=== PATIENT | male | born 1930 | race Caucasian/White ===

== ENCOUNTER 2017-02-27 13:26 | Outpatient (CLI) | payer MEDICARE, OTHER ==
--- NOTE | 2017-02-27 15:43 | RAD ---
FOUR VIEWS OF THE CERVICAL SPINE. COMPARISON: 01/07/17. HISTORY: Neck pain. FINDINGS: Four views of the cervical spine show the patient to have undergone interval anterior fusion of C3 a nd C4 with a plate and screws. There is stable subtle grade I anterolisthesis of C3 on C4. The dis k spacer is in good position within the disk space. The intervertebral disks in the lower cervical spine are narrowed with moderate osteophyte formation. IMPRESSION: Postsurgical changes of the cervical spine without evidence of complication. POS: THERESA
== END 2017-02-27 13:27 | disposition home or self-care (01) ==
LOC: TBSIIMAG 13:26
PROVIDERS: ATTEND Physician Assistant
DX: M54.2 Cervicalgia (principal); Z98.1 Arthrodesis status
CPT/HCPCS: 72040

== ENCOUNTER 2017-03-07 17:35 | Inpatient (IN) | payer MEDICARE, OTHER ==
[2017-03-07 18:57] LABS: Hematocrit 25.4 % (42.0-52.0); Mean Platelet Volume 6.9 fL (7.4-10.4); Red Blood Cell (RBC) Count 2.73 mill/uL (4.70-6.10); White Blood Cell (WBC) Count 4.9 thou/uL (4.8-10.8)
--- NOTE | 2017-03-07 18:59 | RAD ---
PORTABLE CHEST ONE VIEW: 03/07/17 at 5:57 p.m. HISTORY: Hypotension, dizziness. FINDINGS: Comparison made with the exam of 02/26/17. There are changes of median sternotomy and prior cardiac surgery. Left sided pacemaker device remain s in place. The heart size is normal. The lungs are well expanded without confluent areas of consoli dation, pneumothoraces or pleural effusions. IMPRESSION: No radiographic evidence of acute cardiopulmonary process. POS: DAYNAH
[2017-03-07 19:18] LABS: ALT (SGPT) 12 U/L (8-55); AST (SGOT) 17 U/L (5-34); Alkaline Phosphatase 87 U/L (40-150); Anion Gap 14 mmol/L (10-20); BUN (Urea Nitrogen) 32 mg/dL (8.4-25.7); Bilirubin, Total 0.2 mg/dL (0.2-1.2); Calc. Creatinine Clearance 0 mL/min (70-130); Carbon Dioxide 22 mmol/L (23-31); Chloride 102 mmol/L (98-107); Estimated GFR-MDRD 45; Globulin 3.6 g/dL (2.4-3.5); Protein, Total 6.8 g/dL (5.8-8.1)
[2017-03-07 19:21] LABS: Band 3 % (5-11); Myelocyte 1 % (0-0); Neutrophil 65 % (42-75); Ovalocytes SLIGHT = 2-5 cells (100X) (0-1/hpf); Polychromasia SLIGHT = 2-3 cells (100X) (0-2/hpf); Reactive Lymphocytes 1 % (0-10)
[2017-03-07 20:02] LABS: Bilirubin Negative (Negative); Blood, Urine Negative (Negative); Glucose, Urine (Dipstick) Negative (Negative); Ketone, Urine Negative (Negative); Nitrite Negative (Negative); Protein, Urine (Dipstick) 30 mg/dL (Neg-Trace); Urobilinogen 0.2 mg/dL (0.2-1.0)
[2017-03-07 20:03] LABS: Bacteria/HPF None Seen HPF (None Seen); Hyaline Casts/LPF 0-3 HYALINE CAST LPF (0-3 Hyaline); RBC/HPF 0-3 HPF (0-3); Squamous Epithelial None Seen HPF (0-3); WBC/HPF None Seen HPF (0-3)
--- NOTE | 2017-03-07 20:44 | PDOC.EVN ---
Event Note - Event Note Event Note: 113176 H&P Dictated 1. . Hypotension 2. H/O CHF + Elevated BNP 3. AFIB 4. DM type 2 5. S/P CERVICAL SURGERY AND Dysphagia 6. H/O HPL plan: see orders
[2017-03-07] MEDS ORDERED: Ondansetron HCl/PF 4 MG/2 ML Vial IVP PRN (21:10)
[2017-03-07] MEDS ORDERED: Acetaminophen 325 MG TAB PO PRN (21:10)
[2017-03-07 22:09] LABS: Anion Gap 11 mmol/L (10-20); BUN (Urea Nitrogen) 30 mg/dL (8.4-25.7); Calc. Creatinine Clearance 0 mL/min (70-130); Calcium 8.5 mg/dL (7.8-10.44); Carbon Dioxide 22 mmol/L (23-31); Chloride 106 mmol/L (98-107); Estimated GFR-MDRD 53
[2017-03-07] MEDS ORDERED: Tamsulosin HCl 0.4 MG CAP PO SCH (22:45)
[2017-03-07] MEDS ORDERED: Sotalol HCl 80 MG TAB PO SCH (22:45)
[2017-03-07] MEDS ORDERED: Atorvastatin Calcium 40 MG TAB PO SCH (22:45)
[2017-03-07] MEDS ORDERED: Ezetimibe 10 MG TAB PO SCH (22:45)
[2017-03-07] MEDS ORDERED: Apixaban 5 MG TAB PO SCH (22:45)
[2017-03-08] MEDS: Levothyroxine Sodium 75 MCG TAB PO SCH (04:31)
[2017-03-08 04:55] LABS: #Eosinphils 0.1 thou/uL (0.0-0.7); #Lymphocytes 1.1 thou/uL (1.20-3.40); #Monocytes 0.8 thou/uL (0.11-0.59); #Neutrophils 4.1 thou/uL (1.40-6.50); %Basophils 0.7 % (0.0-1.0); %Eosinophils 1.6 % (0.0-10.0); %Lymphocytes 17.4 % (21.0-51.0); %Monocytes 12.9 % (0.0-10.0); Hematocrit 25.6 % (42.0-52.0); Mean Platelet Volume 6.4 fL (7.4-10.4); Red Blood Cell (RBC) Count 2.77 mill/uL (4.70-6.10); White Blood Cell (WBC) Count 6.1 thou/uL (4.8-10.8)
[2017-03-08 05:35] LABS: Anion Gap 11 mmol/L (10-20); BUN (Urea Nitrogen) 24 mg/dL (8.4-25.7); Calc. Creatinine Clearance 46 mL/min (70-130); Calcium 8.8 mg/dL (7.8-10.44); Carbon Dioxide 25 mmol/L (23-31); Chloride 103 mmol/L (98-107); Estimated GFR-MDRD 65
--- NOTE | 2017-03-08 08:37 | HP ---
DATE OF ADMISSION: 03/07/2017 CHIEF COMPLAINT: Hypotension, dizziness. HISTORY OF PRESENT ILLNESS: Patient is an 86-year-old male with past medical history of atrial fibr illation; CHF; diabetes mellitus, type 2; hyperlipidemia; hypertension, got discharge from the [facility] recently following cervical surgery. The patient was discharged to the rehab following cervical spine surgery. Patient had a PEG tube placed once at that time because of swelling and patient was tolerating rehabilitation, but according to the family members, patient was having low blood pressu res in the rehab. Blood pressures in the 70s and 80s systolic by 40s diastolic. Patient was having intermittent dizziness also in the rehab. Today, the blood pressure was still low, so patient was brought to the ER. Patient denies any chest pain. Denies any palpitations. Denies any cough. Den ies any sputum production at this time. Denies any nausea. Denies any vomiting. Per the family me mbers, patient is on nectar-thick liquids and is not on free water at this time because of possible aspiration. So, family was concerned that patient might be dehydrated. Patient denies any cough, d enies sputum production at this time. PAST MEDICAL HISTORY: As per see HPI. PAST SURGICAL HISTORY: CABG, pacemaker, cardiac stents. SOCIAL HISTORY: Denies smoking, denies alcohol, denies any drugs. MEDICATIONS: Reviewed. FAMILY HISTORY: Positive for heart problems. REVIEW OF SYSTEMS: Constitutional: Denies any fever, denies any chills. Eyes: Denies vision prob lems. Ears: Denies any hearing loss. Neck: denies any pain. Cardiovascular System: Denie s any chest pain. Denies any palpitations. Respiratory System: Denies dyspnea. Denies any cough. Gastrointestinal System: Positive for dysphagia. Cranial Nerve System: Denies syncope. Positive for dizziness. Psychiatric: Denies anxiety. Integument: Denies any rash. All other review of s ystems are reviewed and are negative. PHYSICAL EXAMINATION: CONSTITUTIONAL/VITAL SIGNS: At the time of H and P performed, blood pressure is 153/85, pulse oxime try 97%, heart rate 71. GENERAL APPEARANCE: The patient appears comfortable. HEENT: Pupils are equal, round, and reactive to light. Anterior nares patent. Nose normal. Ears normal. Teeth intact. Tongue is moist. NECK: Supple, old surgical site appears clean and intact. CARDIOVASCULAR SYSTEM: S1 and S2 present. Positive for opiates paced rhythm. No murmurs, no rubs, no gallops. RESPIRATORY SYSTEM: No wheezing, no rhonchi. Breath sounds bilaterally. GASTROINTESTINAL: Abdomen is soft, nontender, no organomegaly, no masses felt. Positive for PEG tu be. CRANIAL NERVE SYSTEM: Cranial nerves intact. Follows commands. PSYCHIATRIC: Mood is appropriate at this time. INTEGUMENTARY: No obvious rash seen. MUSCULOSKELETAL: No edema. LABORATORY DATA AND IMAGING: At the time of H and P performed, sodium 134, potassium 4.2, chloride 102, CO2 of 22, BUN of 32, creatinine 1.47, baseline creatinine is around 1.14 to 1.4. White count is 4.9, hemoglobin 8.4, platelet count is 272. UA: Protein is 30. Chest x-ray, no radiographic ev idence of cardiopulmonary process. ASSESSMENT AND PLAN: Patient is an 86-year-old female. 1. Hypotension. Patient's blood pressure is stable. Patient takes Coreg at home. We will go ahea d and hold Coreg. We will monitor blood pressure closely. Patient did receive 1 liter of fluid wendy us. Current blood pressure is stable. We will slowly titrate blood pressure medications. 2. Atrial fibrillation, continue sotalol. Patient's sotalol dose was decreased as an outpatient pe r family. We will go ahead and consult Cardiology for further recommendations as family requested. 3. Elevated BNP. Patient currently appears euvolemic. We will go ahead and start on Lasix 20 mg d aily. We will monitor strict I's and O's. 4. Diabetes mellitus, type 2. Monitor blood sugars. We will do insulin sliding scale. 5. Hyperlipidemia. Continue statin. 6. Dysphagia plusstatus post PEG and status post cervical surgery. We will go ahead and consult di etitian and speech therapy for their recommendations as family is concerned about dietary recommenda tions. The case was discussed in detail with the patient and patient's family.
[2017-03-08] MEDS ORDERED: Heparin 5,000 UNITS/ML VIAL SC SCH (09:00)
[2017-03-08] MEDS ORDERED: Sotalol HCl 80 MG TAB PO SCH (09:00)
[2017-03-08] MEDS: Aspirin 81 mg Enteric Coated Tablet PO SCH (10:44)
[2017-03-08] MEDS: Apixaban 5 MG TAB PO SCH ×2 (10:45→21:23)
--- NOTE | 2017-03-08 11:44 | CON ---
DATE OF CONSULTATION: 03/08/2017 INDICATION FOR CONSULTATION: This is an 86-year-old gentleman with hypotension. HISTORY OF PRESENT ILLNESS: This is a very pleasant 86-year-old gentleman who has had multiple medi corrina problems in the past including atrial fibrillation, congestive heart failure, diabetes, coronary artery disease, bypass surgery. He has hyperlipidemia, hypertension. He recently had neck surgery and was sent to rehab. At that time, he was getting ready for discharge from rehab in the last wee k at least according to his , his blood pressure has been very low, down in the 80s systolic, as low as 70s. The patient was almost unarousable at times. He then was getting ready for discharge and they felt uncomfortable sending the patient home so the patient was then sent to the emergency r oom for further evaluation. On arrival here, his blood pressures have been relatively stable. Some of his medications have been adjusted. At home he was taking metformin, Synthroid, sotalol, which had already been decreased. He was 120 mg b.i.d., this has been decreased to 80 b.i.d. He also was taking for his heart, Coreg 12.5 mg b.i.d. He has a history of atrial fibrillation. He also was ta luciana Eliquis and finasteride. His Coreg has been held and his blood pressure has improved. Blood p ressure is anywhere between 133/63. The highest was 183/85, this morning blood pressure is 132/72. He appears to be much more stable. He may have orthostatic hypotension. He has been in the bed fo r quite some time. He was unable to walk when he left the hospital here and is now able to walk wit h a walker from being in rehab for several weeks. He denies any chest pain or shortness of breath a nd appears to be relatively stable at this time. We will recheck orthostatic blood pressures. He s aid he has lost about 30-40 pounds over the last 6 months. He also has a feeding tube since he was having problems with aspiration after the neck surgery. He did not appear to be significantly dehyd rated, but due to his long history of lying in the bed may certainly have orthostatic hypotension an d due to weight loss also was having some degree of hypotension and will need to have blood pressure medications adjusted. The sotalol is a beta marlen and it may be able to take the place of the Co reg short term until the blood pressure increases again. He does have a pacemaker and there is no p roblem with having bradycardia. PAST MEDICAL HISTORY: Significant for coronary artery disease and stent placement, I believe he has had bypass surgery, he has atrial fibrillation, pneumonia, diabetes, hypothyroidism. He has had pa cemaker insertion, lumbar fusion, hemorrhoid surgery. He has a history of gastroesophageal reflux d isease, hypercholesterolemia, hypertension, he has had TIAs. He also has anemia. This appears to b e chronic for the last year. He has been having decreasing hemoglobins. SOCIAL HISTORY: There is no history of alcohol or tobacco abuse. MEDICATIONS: At home include metformin, Synthroid, sotalol, glimepiride, Lipitor, Coreg, Eliquis an d finasteride. Since being in the hospital those medications have been maintained and also they hav e stopped his Coreg. At this time is the major medications except for p.r.n. medications include El iquis, aspirin 81 mg a day, Lipitor 40 mg a day, Cymbalta 60 mg a day, Zetia 5 mg a day, levothyroxi ne 75 mcg daily, Protonix 40 mg q.p.m., Betapace 80 mg b.i.d., Flomax 0.4 mg p.o. at bedtime, and hy dralazine 10 mg b.i.d. We may need to hold the hydralazine if the blood pressure also continues to be on the low side, but at this time it appears to be stable. FAMILY HISTORY: Positive for heart disease. REVIEW OF SYSTEMS: He denied any new HEENT complaints, visual changes, hearing loss, or tinnitus. He had no pulmonary complaints such as asthma, emphysema, bronchitis, hemoptysis. GASTROINTESTINAL: He denies any nausea, vomiting or diarrhea, he has a feeding tube in place. : He had no complaints. MUSCULOSKELETAL: He said he has been unable to walk. He is able to walk now with a walker and belkis limon was ready to be discharged from rehab to home. NEURO: He denied any seizures or any other problems neurologically. PHYSICAL EXAMINATION: GENERAL: Reveals an elderly, somewhat fragile gentleman. VITAL SIGNS: Blood pressure is 132/72, heart rate 75 and regular. He is not on the monitor, but he does appear to be regular at this time, we will obtain an EKG to determine whether or not he has un derlying atrial fibrillation is pacing. His respiratory rate 16. He is afebrile. HEENT: Shows the head to be normocephalic, atraumatic. Carotid pulses are present. I cannot hear any significant bruits. CHEST: Clear to auscultation without rales, rhonchi or wheezing. CARDIOVASCULAR: Exam reveals a regular rate and rhythm with occasional ectopy at this time. There were no significant murmurs, heaves, thrills, bruits or rubs. He does have a soft systolic murmur o krissy the right upper sternal border, most likely due to aortic valve sclerosis. Heart sounds are srinivasa ewhat distant. He does have a well-healed midline surgical incision after median sternotomy. ABDOMEN: Soft and nontender. He has a feeding tube in place. EXTREMITIES: Show no clubbing, cyanosis or edema. Femoral pulses are present. Popliteal pulses ar e present. Pedal pulses were not palpable by me. There was no cyanosis or any discoloration. NEUROLOGIC: He appears to be intact. SKIN: Warm and dry. IMPRESSION: 1. Hypotension associated most likely with weight loss and lying in bed for quite some time. Most likely this was some degree of orthostatic hypotension. Most likely this is a neurological problem which hopefully will correct over time. At this time, I would agree with holding the Coreg and cont inue the sotalol 80 mg b.i.d. If the blood pressure continues to increase, we can always add the Co reg back slowly at 3.125 mg b.i.d. and continue to monitor his blood pressure. 2. Atrial fibrillation. He appears to be in sinus rhythm at this time, at least he is regular but may be pacing, will need to obtain an EKG to determine this. 3. History of slightly elevated BNP, but this is of no great consequence at this time. 4. Anemia, uncertain of the etiology, it may be due to chronic disease. 5. Diabetes type 2. His blood sugars remain stable at this time. 6. History of aspiration and dysphagia. He has a feeding tube in place. He is to be evaluated aga in by Speech Therapy I believe to see whether or not he is still having any aspiration. 7. Hyperlipidemia. We will continue his medications with the Lipitor. 8. History of atrial fibrillation, we will continue the sotalol and also Eliquis. At this time the re is no indication he has any bleeding and blood pressure at this time remains stable. Dr. Edison paz will resume care of the patient on Friday. He also has an appointment with Dr. Jimenez on Friday , which he should keep that appointment on Friday to ensure that he remain stable if he is discharge d prior to that. As far as his anemia is concerned. I do not see if there is any significant keaton p for the anemia and this may need to be undertaken. ADDENDUM: The patient does have orthostatic blood pressures evaluated and lying blood pressure was 161/73, sit ting was 83/53 and standing was 84/53 which is very indicative of orthostatic hypotension. We will need to ensure that the patient has adequate volume and he may need to have compression hose in orde r to decrease the risk of hypotension with sitting or standing.
--- NOTE | 2017-03-08 13:08 | PDOC.PN ---
- Subjective Encounter Start Date: 03/08/17 Encounter Start Time: 10:00 Subjective: pt is still very orthostatic and gets dizzy when he tries to get up. -: cardio input appreciated -: per eating poorly at rehab. lost 10 lbs - Objective Vital Signs & Weight: Vital Signs (12 hours) Temp Pulse Resp BP BP BP BP 03/08/17 12:52 89 16 125/66 03/08/17 11:20 97.8 F 03/08/17 10:51 73 03/08/17 10:45 73 03/08/17 10:21 99.0 F 73 20 83/53 L 84/53 L 161/73 H 03/08/17 07:50 98.7 F 75 16 132/72 03/08/17 07:47 98.3 F 82 16 03/08/17 03:21 98.3 F 82 16 142/72 H Pulse Ox 03/08/17 12:52 03/08/17 11:20 03/08/17 10:51 03/08/17 10:45 03/08/17 10:21 94 L 03/08/17 07:50 94 L 03/08/17 07:47 03/08/17 03:21 95 Weight Weight 150 lb 4.8 oz orthostatic vitals signs noted. pt is dropping by more than 70 points on standing I&O: 03/07/17 03/08/17 03/09/17 06:59 06:59 06:59 Intake Total 130 Output Total 1300 Balance -1170 Result Diagrams: 03/08/17 04:15 03/08/17 04:15 Additional Labs: Accuchecks 03/08/17 11:17 POC Glucose 131 H Phys Exam - Physical Examination HEENT: PERRLA, moist MMs Neck: no nodes Respiratory: no wheezing, no rales, no rhonchi Cardiovascular: RRR, no significant murmur, no rub Gastrointestinal: soft, non-tender, no distention, positive bowel sounds PEG site OK Musculoskeletal: no edema, pulses present Neurological: non-focal, normal sensation Psychiatric: normal affect, A&O x 3 Skin: no rash, normal turgor Dx/Plan (1) Orthostatic hypotension Code(s): I95.1 - ORTHOSTATIC HYPOTENSION Status: Acute (2) Oropharyngeal dysphagia Code(s): R13.12 - DYSPHAGIA, OROPHARYNGEAL PHASE Status: Acute (3) S/P cervical discectomy Code(s): Z98.890 - OTHER SPECIFIED POSTPROCEDURAL STATES Status: Acute (4) S/P percutaneous endoscopic gastrostomy (PEG) tube placement Code(s): Z93.1 - GASTROSTOMY STATUS Status: Acute (5) UTI (urinary tract infection) due to urinary indwelling catheter Code(s): T83.511A - I/I REACT D/T INDWELLING URETHRAL CATHETER, INIT; N39.0 - URINARY TRACT INFECTION, SITE NOT SPECIFIED Status: Acute Qualifiers: Indwelling urinary catheter type: indwelling urethral catheter (6) Anxiety and depression Code(s): F41.8 - OTHER SPECIFIED ANXIETY DISORDERS Status: Chronic (7) Atrial fibrillation Code(s): I48.91 - UNSPECIFIED ATRIAL FIBRILLATION Status: Chronic (8) BPH (benign prostatic hyperplasia) Code(s): N40.0 - BENIGN PROSTATIC HYPERPLASIA WITHOUT LOWER URINRY TRACT SYMP Status: Chronic (9) Weight loss Status: Acute (10) Protein calorie malnutrition Code(s): E46 - UNSPECIFIED PROTEIN-CALORIE MALNUTRITION Status: Acute - Plan we will give gentle hydration and recheck orthostatic vitals. -: alterations expert consultation -: adjust BP meds per cardio -: monitor Hb. check Iron panel * .
[2017-03-08] MEDS ORDERED: Sodium Chloride 0.9% 500 ML IVPB ONE (13:15)
[2017-03-08 13:49] LABS: #Basophils 0.1 thou/uL (0.0-0.2); #Eosinphils 0.1 thou/uL (0.0-0.7); #Monocytes 0.8 thou/uL (0.11-0.59); #Neutrophils 4.3 thou/uL (1.40-6.50); %Basophils 1.1 % (0.0-1.0); %Eosinophils 1.7 % (0.0-10.0); %Lymphocytes 16.1 % (21.0-51.0); %Monocytes 12.3 % (0.0-10.0); Hematocrit 27.6 % (42.0-52.0); Red Blood Cell (RBC) Count 2.97 mill/uL (4.70-6.10); White Blood Cell (WBC) Count 6.2 thou/uL (4.8-10.8)
[2017-03-08 14:09] LABS: Anion Gap 12 mmol/L (10-20); BUN (Urea Nitrogen) 23 mg/dL (8.4-25.7); Calc. Creatinine Clearance 42 mL/min (70-130); Calcium 9.1 mg/dL (7.8-10.44); Carbon Dioxide 22 mmol/L (23-31); Estimated GFR-MDRD 58
[2017-03-08 14:13] LABS: Chloride 104 mmol/L (98-107)
[2017-03-08] MEDS ORDERED: Sodium Chloride 0.9% 500 ML IVPB SCH (17:00)
[2017-03-08] MEDS: Atorvastatin Calcium 40 MG TAB PO SCH (21:23)
[2017-03-08] MEDS: Ezetimibe 10 MG TAB PO SCH (21:23)
[2017-03-08] MEDS: Sotalol HCl 80 MG TAB PO SCH (21:27)
[2017-03-08] MEDS: Tamsulosin HCl 0.4 MG CAP PO SCH (21:28)
[2017-03-09] MEDS: Levothyroxine Sodium 75 MCG TAB PO SCH (04:15)
[2017-03-09 04:40] LABS: Iron 11 ug/dL (65-175)
[2017-03-09] MEDS: Apixaban 5 MG TAB PO SCH (09:37)
[2017-03-09] MEDS: Aspirin 81 mg Enteric Coated Tablet PO SCH (09:38)
[2017-03-09] MEDS: Sotalol HCl 80 MG TAB PO SCH ×2 (09:38→21:41)
--- NOTE | 2017-03-09 09:57 | PDOC.PN ---
- Subjective Encounter Start Date: 03/09/17 Encounter Start Time: 08:40 Subjective: pt is feeling better. less dizzy. PO intake improved -: office director recomm noted. pt tolerating supplements via PEG - Objective Vital Signs & Weight: Vital Signs (12 hours) Temp Pulse Resp BP BP BP BP 03/09/17 09:38 74 03/09/17 07:51 98.0 F 68 20 03/09/17 07:50 98.3 F 76 16 125/66 112/57 L 171/76 H 03/09/17 03:43 98.0 F 68 20 178/79 H Pulse Ox 03/09/17 09:38 03/09/17 07:51 03/09/17 07:50 95 03/09/17 03:43 Weight Admit Weight 150 lb Weight 161 lb 14.4 oz I&O: 03/08/17 03/09/17 03/10/17 06:59 06:59 06:59 Intake Total 130 2310 Output Total 1300 1475 Balance -1170 835 Result Diagrams: 03/08/17 13:25 03/08/17 13:25 Additional Labs: Accuchecks 03/08/17 11:17 POC Glucose 131 H Phys Exam - Physical Examination Constitutional: NAD HEENT: PERRLA, moist MMs, sclera anicteric Neck: no nodes Respiratory: no wheezing, no rales, no rhonchi Cardiovascular: RRR, no significant murmur, no rub Gastrointestinal: non-tender, no distention, positive bowel sounds PEG site OK Musculoskeletal: no edema, pulses present Psychiatric: normal affect, A&O x 3 Skin: no rash, normal turgor Dx/Plan (1) Orthostatic hypotension Code(s): I95.1 - ORTHOSTATIC HYPOTENSION Status: Acute (2) Oropharyngeal dysphagia Code(s): R13.12 - DYSPHAGIA, OROPHARYNGEAL PHASE Status: Acute (3) S/P cervical discectomy Code(s): Z98.890 - OTHER SPECIFIED POSTPROCEDURAL STATES Status: Acute (4) S/P percutaneous endoscopic gastrostomy (PEG) tube placement Code(s): Z93.1 - GASTROSTOMY STATUS Status: Acute (5) UTI (urinary tract infection) due to urinary indwelling catheter Code(s): T83.511A - I/I REACT D/T INDWELLING URETHRAL CATHETER, INIT; N39.0 - URINARY TRACT INFECTION, SITE NOT SPECIFIED Status: Acute Qualifiers: Indwelling urinary catheter type: indwelling urethral catheter (6) Anxiety and depression Code(s): F41.8 - OTHER SPECIFIED ANXIETY DISORDERS Status: Chronic (7) Atrial fibrillation Code(s): I48.91 - UNSPECIFIED ATRIAL FIBRILLATION Status: Chronic (8) BPH (benign prostatic hyperplasia) Code(s): N40.0 - BENIGN PROSTATIC HYPERPLASIA WITHOUT LOWER URINRY TRACT SYMP Status: Chronic (9) Weight loss Status: Acute (10) Protein calorie malnutrition Code(s): E46 - UNSPECIFIED PROTEIN-CALORIE MALNUTRITION Status: Acute (11) Iron deficiency anemia Code(s): D50.9 - IRON DEFICIENCY ANEMIA, UNSPECIFIED Status: Acute - Plan pt is improving. continue with current care. monitor orthostatics -: we will given IV iron and check stool OB since he is on A/c -: free water replacement via PEG -: PT evaluate and treat * .
--- NOTE | 2017-03-09 10:01 | PDOC.CTH ---
<Wendie Alegria - Last Filed: 03/09/17 17:52> Cardiology Progress Note - Subjective The pt was seen and examined. No overnight events. No cardiac complaints. Complains of mild tenderness at PEG tube site. No swelling, discharge, or erythema at that site - Objective Vital Signs Temp Pulse Resp BP BP BP BP 03/09/17 09:38 74 03/09/17 07:51 98.0 F 68 20 03/09/17 07:50 98.3 F 76 16 125/66 112/57 L 171/76 H 03/09/17 03:43 98.0 F 68 20 178/79 H Pulse Ox 03/09/17 09:38 03/09/17 07:51 03/09/17 07:50 95 03/09/17 03:43 Admit Weight 150 lb Weight 161 lb 14.4 oz 03/08/17 03/09/17 03/10/17 06:59 06:59 06:59 Intake Total 130 2310 Output Total 1300 1475 Balance -1170 835 - Physical Examination General/Neuro: alert & oriented x3 Neck: no JVD present Lungs: CTA Heart: other: (Irregular) Abdomen: soft Extremities: other: (No edema) - Telemetry Telemetry Rhythm: Afib - Labs Result Diagrams: 03/09/17 04:02 03/09/17 04:02 Troponin/CKMB Troponin I 0.020 ng/mL (< 0.028) 03/07/17 18:51 - Assessment/Plan 1. Orthostatic hypotension - better than yesterday with thigh high compression stockings and NS bolus; denied dizziness or lightheadedness; gentle hydration and recheck orthostatic vitals. 2. Chronic Afib - Monitor showing SR or possible Aflutter now; on Sotalol 120mg BID; will hold Eliquis 5mg BID due to occult stool was positive today; cont. monitor on tele 3. Anemia - Stable 4. Dyslipidemia - on Statin and Zetia 5. dysphagia - on Mechanical soft diet and PEG tube 6. Protein calorie malnutrition - Nutrition supplement MAR reviewed * OT/PT eval/treatment when the pt's BP is stable * Occlt Stool was positive; Hold Eliquis, but cont. ASA at this moment * 12 lead ECG for possible converted back to SR or Aflutter * Dr Coy will folow the pt from tomorrow Review of Systems - Review of Systems Constitutional: reports: weakness EENTM: reports: no symptoms reported Respiratory: reports: no symptoms reported Cardiac (ROS): reports: no symptoms reported ABD/GI: reports: no symptoms reported : reports: no symptoms reported Musculoskeletal: reports: no symptoms reported <Carlos Yu - Last Filed: 03/09/17 22:33> Cardiology Progress Note - Objective Vital Signs Temp Pulse Pulse Pulse Pulse Pulse Resp 03/09/17 21:41 66 03/09/17 20:15 98.1 F 66 20 03/09/17 15:30 97.5 F L 64 20 03/09/17 15:27 97.5 F L 64 20 03/09/17 14:05 68 74 68 65 03/09/17 11:05 98.2 F 69 16 03/09/17 11:00 74 BP BP BP BP BP BP BP 03/09/17 21:41 158/71 H 03/09/17 20:15 158/71 H 03/09/17 15:30 03/09/17 15:27 154/75 H 03/09/17 14:05 133/58 L 107/50 L 103/51 L 173/75 H 03/09/17 11:05 156/73 H 03/09/17 11:00 Pulse Ox 03/09/17 21:41 03/09/17 20:15 97 03/09/17 15:30 99 03/09/17 15:27 99 03/09/17 14:05 03/09/17 11:05 96 03/09/17 11:00 Admit Weight 150 lb Weight 161 lb 14.4 oz 03/08/17 03/09/17 03/10/17 06:59 06:59 06:59 Intake Total 130 2310 2157 Output Total 1300 1475 200 Balance -7893 313 7704 - Labs Result Diagrams: 03/09/17 04:02 03/09/17 04:02 Troponin/CKMB Troponin I 0.020 ng/mL (< 0.028) 03/07/17 18:51 - Assessment/Plan Pt. seen and evaluated. I agree with the A/P by the INSPECTOR MACHINE C[employer] GL[employer]. He may need an EP consult to determine if he would be a candidate for the Lariat procedure or possible a Watchman device due to his chronic bleeding.. I discussed his GI bleeding with gastroenterology and he has duodenitis chronically. He was recently scoped.
[2017-03-09] MEDS ORDERED: Sodium Ferric Gluconate 250 MG in Sodium Chloride 0.9% 100 ML IVPB SCH (11:00)
[2017-03-09 11:03] LABS: Anion Gap 11 mmol/L (10-20); BUN (Urea Nitrogen) 23 mg/dL (8.4-25.7); Calc. Creatinine Clearance 48 mL/min (70-130); Calcium 8.7 mg/dL (7.8-10.44); Carbon Dioxide 24 mmol/L (23-31); Chloride 104 mmol/L (98-107); Estimated GFR-MDRD 61
[2017-03-09 11:17] LABS: Hematocrit 25.2 % (42.0-52.0); Neutrophil 70 % (42-75); White Blood Cell (WBC) Count 5.3 thou/uL (4.8-10.8)
--- NOTE | 2017-03-09 17:15 | CON ---
DATE OF CONSULTATION: 03/09/2017 GI INPATIENT CONSULTATION NOTE REQUESTING PHYSICIAN: Dr. Cordova. REASON FOR CONSULTATION: Anemia and heme positive stool. HISTORY OF PRESENT ILLNESS: Eldon Del Cid is an 86-year-old gentleman, a patient of mine GI colleague, Dr. Adithya Woo. I met him just a few weeks ago during a recent hospitalization at which time I placed a PEG tube. He had had a recent cervical spine surgery and had developed oropharyngeal dysphagia after this, PEG tube placement occurred on 02/10/2017 and was uncomplicated. At that time, I noted that he had some erosive gastritis and erosive duodenitis with no active bleeding and no large ulcerations and I recommend daily PPI, but the patient was discharged to the nursing facility. Evidently while there, his swallowing function has improved and he is taking food by mouth. It seems he had actually passed a swallow study and PEG feedings were stopped for sometime. However, it appears he was not really getting adequate calories with this and he continued to lose some weight. He was admitted to the hospital this time a couple of days ago after having sustained low blood pressures. He has been seen by Dr. Yu of Cardiology. The impression is that he has developed some orthostatic hypotension. He has also been noted to be anemic on admission, hemoglobin was 8.4 and this is essentially stable today at 8.0. There has been no evidence of any overt bleeding, no melena, hematochezia, or hematemesis. His iron level was low. Looking back, it appears he has been chronically anemic intermittently for several years. Most recently, he has had a slow decline in hemoglobin since 12/20/2015 from about 11.5, now to the 8-9 range, all without any overt evidence of bleeding. The patient has no pain or discomfort from his PEG site. His says that he sometimes does complain of some abdominal bloating, but he says this is not severe. They did Hemoccult testing on his stool and this was positive. Note the patient has been on Eliquis. REVIEW OF SYSTEMS: Full review of systems including constitutional, head, eyes , ears, nose, throat, GI, , cardiovascular, respiratory, musculoskeletal, and neurologic systems is negative except as noted in the HPI. PAST MEDICAL HISTORY: Hypertension, hyperlipidemia, paroxysmal atrial fibrillation, coronary artery disease, hyperthyroidism, anemia of chronic disease, BPH, osteoarthritis, diabetes type 2, appendectomy, tonsillectomy, hernia repair, multiple cardiac stent placement, pacemaker placement, left renal artery stent placement, anxiety and depression, PEG tube placement on 04/2017. FAMILY HISTORY: Noncontributory. SOCIAL HISTORY: Has a remote history of smoking. No current tobacco, alcohol, or drug use. ALLERGIES: MORPHINE. MEDICATIONS: Flomax, sotalol, pantoprazole 40 mg daily, Synthroid, Zetia, Cymbalta, Lipitor, aspirin 81 mg daily, Tylenol p.r.n., Eliquis has been held today but he has been on 5 mg p.o. b.i.d. PHYSICAL EXAMINATION: VITAL SIGNS: Temperature 97.5, pulse 64, blood pressure 154/75, 99% oxygen saturation on room air. GENERAL: Elderly frail 86-year-old gentleman lying in bed comfortably in no distress. MENTAL: Alert and fully oriented, pleasant, conversational. EYES: No scleral icterus. Extraocular movements intact. ENT: Mucous membranes moist, no oral lesions. LYMPH: No submandibular or supraclavicular lymphadenopathy. THYROID: Nontender to palpation. SKIN: No jaundice, no rash visible or palpable. He is a bit pale. HEART: Regular rate and rhythm. LUNGS: Clear to auscultation bilaterally. ABDOMEN: Bowel sounds present, soft and nontender to palpation. PEG tube is in the left upper quadrant. The PEG site looks good, it is not too loose, it is not too tight. EXTREMITIES: No peripheral edema. VESSELS: Radial pulses 2+ bilaterally. NEUROLOGICAL: Cranial nerves II-XII intact bilaterally. No focal deficits. LABORATORY STUDIES: Hemoglobin 8.0, WBC 5.3, and platelets 246. Sodium 135, potassium 4.3, BUN 23, creatinine 1.13, calcium 8.7. Iron 11, TIBC 279, 4% iron saturation. BNP is 458, total bilirubin 0.2, alkaline phosphatase 87, AST 17, ALT 12, albumin 3.2. FOBT was done and this is positive. ASSESSMENT AND PLAN: 1. Chronic anemia, with some recent worsening. 2. Heme positive stool. 3. Recent percutaneous endoscopic gastrostomy tube placement on 02/19/2017. 4. Erosive duodenitis, visualized on esophagogastroduodenoscopy on 02/19/2017. 5. Chronic anticoagulation with Eliquis. There is really no utility or clinical significance to fecal occult blood testing in an inpatient who has been on Eliquis, outside of a colon cancer screening setting. His heme positive stools are really not surprising in this regard. Notably, there is no overt evidence of gastrointestinal bleeding. Of more concern is the degree of anemia itself. He does appear to have had a slow decline over the past year overall in his hemoglobin and iron is low. I think this can be readily explained by his erosive duodenitis seen on recent esophagogastroduodenoscopy and the fact that he has remained on Eliquis. I would recommend increasing his Protonix to twice daily dosing. I would also recommend iron supplementation as needed and monitoring of his hemoglobin and hematocrit. I did discuss options with the family including further investigation with repeat esophagogastroduodenoscopy. However, in the absence of overt bleeding, this is not likely to change control coordinator much. The patient and his family are more inclined to be conservative and avoid any potentially unnecessary investigations. I think this is very reasonable. In that case, simply recommend increasing the PPI to twice daily dosing, giving iron supplementation as needed, following the hemoglobin and hematocrit. We will not plan on any endoscopic investigation. Thank you for the consultation. Please call back with questions or concerns. ANA
[2017-03-09] MEDS: Atorvastatin Calcium 40 MG TAB PO SCH (21:41)
[2017-03-09] MEDS: Ezetimibe 10 MG TAB PO SCH (21:41)
[2017-03-09] MEDS: Tamsulosin HCl 0.4 MG CAP PO SCH (21:42)
[2017-03-10] MEDS: Levothyroxine Sodium 75 MCG TAB PO SCH (05:45)
[2017-03-10] MEDS ORDERED: Pantoprazole 40 MG GRANULES PACKET PO SCH (10:00)
[2017-03-10] MEDS: Aspirin 81 mg Enteric Coated Tablet PO SCH (10:09)
[2017-03-10] MEDS: Sotalol HCl 80 MG TAB PO SCH ×2 (10:09→21:18)
[2017-03-10] MEDS ORDERED: Carvedilol 6.25 MG TAB PO SCH (10:15)
--- NOTE | 2017-03-10 11:58 | PDOC.PN ---
- Subjective Encounter Start Date: 03/10/17 Encounter Start Time: 11:56 Patient seen at bedside. No overnight events, no bleeding events reported. - Objective MAR Reviewed: Yes Vital Signs & Weight: Vital Signs (12 hours) Temp Pulse Resp BP BP Pulse Ox 03/10/17 10:16 129/76 03/10/17 10:09 76 129/76 03/10/17 08:00 98.6 F 76 12 96 03/10/17 07:30 98.6 F 70 12 133/64 96 03/10/17 04:00 98.3 F 69 20 153/69 H 95 Weight Admit Weight 150 lb Weight 156 lb 1.6 oz I&O: 03/09/17 03/10/17 03/11/17 06:59 06:59 06:59 Intake Total 2310 2517 Output Total 1475 1900 Balance 835 617 Result Diagrams: 03/09/17 04:02 03/09/17 04:02 Additional Labs: Accuchecks 03/10/17 03/09/17 03/09/17 05:44 20:08 18:27 POC Glucose 117 H 134 H 168 H Phys Exam - Physical Examination Constitutional: NAD HEENT: moist MMs Neck: no JVD Respiratory: no wheezing Cardiovascular: irregular Gastrointestinal: soft PEG present Musculoskeletal: pulses present, edema present Neurological: moves all 4 limbs Psychiatric: normal affect, A&O x 3 Dx/Plan (1) Iron deficiency anemia Code(s): D50.9 - IRON DEFICIENCY ANEMIA, UNSPECIFIED Status: Acute (2) Oropharyngeal dysphagia Code(s): R13.12 - DYSPHAGIA, OROPHARYNGEAL PHASE Status: Acute (3) S/P cervical discectomy Code(s): Z98.890 - OTHER SPECIFIED POSTPROCEDURAL STATES Status: Acute (4) Atrial fibrillation Code(s): I48.91 - UNSPECIFIED ATRIAL FIBRILLATION Status: Chronic (5) Diabetes type 2, controlled Code(s): E11.9 - TYPE 2 DIABETES MELLITUS WITHOUT COMPLICATIONS Status: Chronic - Plan cont current plan of care, plan discussed w/ family, PT/OT, social media manager * Start supplemental Iron. * PPI BID * Hold Eliquis * As per cardiology in approximately one month may require watchman device
[2017-03-10] MEDS: Carvedilol 3.125 MG TAB PO SCH (17:11)
[2017-03-10] MEDS: Ferrous Sulfate 325 MG TAB PO SCH (17:11)
[2017-03-10] MEDS ORDERED: Insulin Regular 300 UNITS/3 ML VIAL SC PRN (18:36)
[2017-03-10] MEDS ORDERED: Dextrose 5% in Water 1,000 ML IV PRN (18:36)
[2017-03-10] MEDS ORDERED: Dextrose 50% Abboject 50 ML SYRINGE IVP PRN (18:36)
[2017-03-10] MEDS: Atorvastatin Calcium 40 MG TAB PO SCH (21:18)
[2017-03-10] MEDS: Pantoprazole 40 MG GRANULES PACKET PO SCH (21:18)
[2017-03-10] MEDS: Tamsulosin HCl 0.4 MG CAP PO SCH (21:18)
[2017-03-10] MEDS: Ezetimibe 10 MG TAB PO SCH (21:19)
[2017-03-11 05:58] LABS: Hematocrit 26.1 % (42.0-52.0)
[2017-03-11] MEDS: Levothyroxine Sodium 75 MCG TAB PO SCH (06:15)
[2017-03-11] MEDS: Aspirin 81 mg Enteric Coated Tablet PO SCH (08:40)
[2017-03-11] MEDS: Ferrous Sulfate 325 MG TAB PO SCH ×2 (08:41→16:42)
[2017-03-11] MEDS: Carvedilol 3.125 MG TAB PO SCH (08:41)
[2017-03-11] MEDS: Pantoprazole 40 MG GRANULES PACKET PO SCH ×2 (08:42→20:12)
[2017-03-11] MEDS: Sotalol HCl 80 MG TAB PO SCH ×2 (08:42→20:10)
--- NOTE | 2017-03-11 09:44 | PDOC.PN ---
- Subjective Encounter Start Date: 03/11/17 Encounter Start Time: 07:40 -: old records requested/rev pt still has orthostatic hypotension, no fever, no chest pain - Objective MAR Reviewed: Yes Vital Signs & Weight: Vital Signs (12 hours) Temp Pulse Resp BP BP Pulse Ox 03/11/17 08:42 96 149/69 H 03/11/17 04:00 98.2 F 71 20 152/72 H 95 03/11/17 00:00 20 Weight Admit Weight 150 lb Weight 154 lb 11.2 oz I&O: 03/10/17 03/11/17 03/12/17 06:59 06:59 06:59 Intake Total 2517 1846 Output Total 4570 6715 Balance 617 -229 Result Diagrams: 03/11/17 04:57 03/09/17 04:02 Additional Labs: Accuchecks 03/11/17 03/10/17 03/10/17 05:40 20:53 17:54 POC Glucose 141 H 120 H 157 H Radiology Reviewed by me: Yes EKG Reviewed by me: Yes Phys Exam - Physical Examination Constitutional: NAD HEENT: PERRLA, moist MMs, sclera anicteric Neck: no JVD, supple Respiratory: no wheezing, no rales, no rhonchi Cardiovascular: RRR, no significant murmur, no rub Gastrointestinal: soft, non-tender, no distention, positive bowel sounds Musculoskeletal: no edema, pulses present Neurological: non-focal, normal sensation, moves all 4 limbs Lymphatic: no nodes Psychiatric: normal affect, A&O x 3 Skin: no rash, normal turgor Dx/Plan (1) Oropharyngeal dysphagia Code(s): R13.12 - DYSPHAGIA, OROPHARYNGEAL PHASE Status: Acute Comment: on modified diet, also has PEG (2) Orthostatic hypotension Code(s): I95.1 - ORTHOSTATIC HYPOTENSION Status: Acute (3) Protein-calorie malnutrition, moderate Code(s): E44.0 - MODERATE PROTEIN-CALORIE MALNUTRITION Status: Acute (4) Weight loss Status: Acute (5) Anxiety and depression Code(s): F41.8 - OTHER SPECIFIED ANXIETY DISORDERS Status: Chronic (6) Atrial fibrillation Code(s): I48.91 - UNSPECIFIED ATRIAL FIBRILLATION Status: Chronic (7) BPH (benign prostatic hyperplasia) Code(s): N40.0 - BENIGN PROSTATIC HYPERPLASIA WITHOUT LOWER URINRY TRACT SYMP Status: Chronic (8) Cervical spinal stenosis Code(s): M48.02 - SPINAL STENOSIS, CERVICAL REGION Status: Chronic Comment: s/p recent cervical dissectomy (9) Diabetes type 2, controlled Code(s): E11.9 - TYPE 2 DIABETES MELLITUS WITHOUT COMPLICATIONS Status: Chronic (10) Dyslipidemia Code(s): E78.5 - HYPERLIPIDEMIA, UNSPECIFIED Status: Chronic (11) Hypertension Code(s): I10 - ESSENTIAL (PRIMARY) HYPERTENSION Status: Chronic (12) Hypothyroidism Code(s): E03.9 - HYPOTHYROIDISM, UNSPECIFIED Status: Chronic (13) Iron deficiency anemia Code(s): D50.9 - IRON DEFICIENCY ANEMIA, UNSPECIFIED Status: Chronic (14) Lumbar spinal stenosis Code(s): M48.06 - SPINAL STENOSIS, LUMBAR REGION * DO NOT USE * Status: Chronic - Plan cont current plan of care, plan discussed w/ family, PT/OT, high school social science teacher * will check cortisol level * will adjust medication today * cardiology following * pt and does not prefer SNU on discharge * medication reviewed as below * symptomatic treatment * main issue at this point is his orthostatic hypotension. * no plan for GI procedure * Arsh on hold for now Review of Systems - Review of Systems ENT: negative: Ear Pain, Ear Discharge, Nose Pain, Nose Discharge, Nose Congestion, Mouth Pain, Mouth Swelling, Throat Pain, Throat Swelling, Other Respiratory: negative: Cough, Dry, Shortness of Breath, Hemoptysis, SOB with Excertion, Pleuritic Pain, Sputum, Wheezing Cardiovascular: negative: Chest Pain, Palpitations, Orthopnea, Paroxysmal Noc. Dyspnea, Edema, Light Headedness, Other Gastrointestinal: negative: Nausea, Vomiting, Abdominal Pain, Diarrhea, Constipation, Melena, Hematochezia, Other Genitourinary: negative: Dysuria, Frequency, Incontinence, Hematuria, Retention , Other Musculoskeletal: negative: Neck Pain, Shoulder Pain, Arm Pain, Back Pain, Hand Pain, Leg Pain, Foot Pain, Other - Medications/Allergies Allergies/Adverse Reactions: Allergies Allergy/AdvReac Type Severity Reaction Status Date / Time morphine Allergy Intermediate HALLUCINATI Verified 01/30/17 15:50 ONS Medications: Current Medications Acetaminophen (Tylenol) 650 mg PO Q4H PRN PRN Reason: Headache/Fever or Pain Last Admin: 03/08/17 13:26 Dose: 650 mg Aspirin (Ecotrin) 81 mg PO DAILY [facility] Last Admin: 03/11/17 08:40 Dose: 81 mg Atorvastatin Calcium (Lipitor) 40 mg PO HS [facility] Last Admin: 03/10/17 21:18 Dose: 40 mg Carvedilol (Coreg) 6.25 mg PO BID-[facility] Dextrose/Water (Dextrose 50%) 25 gm IVP PRN PRN PRN Reason: HYPOGLYCEMIA PROTOCOL Digoxin (Lanoxin) 0.125 mg PO DAILY [facility] Duloxetine HCl (Cymbalta) 60 mg PO DAILY [facility] Last Admin: 03/10/17 10:09 Dose: Not Given Ezetimibe (Zetia) 5 mg PO [facility] Last Admin: 03/10/17 21:19 Dose: 5 mg Ferrous Sulf[facility] ([facility]) [facility] Last Admin: 03/11/17 08:41 Dose: 325 mg Glucagon (Glucagon) 1 mg IM PRN PRN PRN Reason: HYPOGLYCEMIA PROTOCOL Dextrose/Water (D5w) 1,000 mls @ 0 mls/hr IV INF PRN; As Directed PRN Reason: HYPOGLYCEMIA PROTOCOL Insulin Human Regular (Humulin R) 0 units SC .MILD SLIDING PRN; Protocol PRN Reason: MILD SLIDING SCALE Levothyroxine Sodium (Synthroid) 75 mcg PO 0600 [facility] Last Admin: 03/11/17 06:15 Dose: 75 mcg Ondansetron HCl (Zofran) 4 mg IVP Q6H PRN PRN Reason: Nausea/Vomiting Pantoprazole Sodium (Protonix) 40 mg PO BID [facility] Last Admin: 03/11/17 08:42 Dose: 40 mg Polyethylene Glycol (Miralax) 17 gm PO DAILYPRN PRN PRN Reason: Constipation Sodium Chloride (Flush - Normal Saline) 10 ml IVF Q12HR [facility] Last Admin: 03/11/17 08:45 Dose: 10 ml Sodium Chloride (Flush - Normal Saline) 10 ml IVF PRN PRN PRN Reason: Saline Flush Sotalol HCl (Betapace) 120 mg PO BID [facility] Last Admin: 03/11/17 08:42 Dose: 120 mg Tamsulosin HCl (Flomax) 0.4 mg PO HS [facility] Last Admin: 03/10/17 21:18 Dose: 0.4 mg
[2017-03-11 11:32] LABS: Bilirubin Negative (Negative); Blood, Urine Negative (Negative); Glucose, Urine (Dipstick) Negative (Negative); Ketone, Urine Negative (Negative); Nitrite Negative (Negative); Protein, Urine (Dipstick) 30 mg/dL (Neg-Trace)
[2017-03-11 11:37] LABS: Bacteria/HPF None Seen HPF (None Seen); Hyaline Casts/LPF 0-3 HYALINE CAST LPF (0-3 Hyaline); Squamous Epithelial None Seen HPF (0-3); WBC/HPF None Seen HPF (0-3)
[2017-03-11 12:39] VITALS: BMI 21.5
[2017-03-11] MEDS: Carvedilol 6.25 MG TAB PO SCH (16:42)
--- NOTE | 2017-03-11 17:59 | CON ---
DATE OF CONSULTATION: 03/11/2017 ELECTROPHYSIOLOGY CONSULTATION REPORT I am seeing Mr. Del Cid at our [facility] telemetry floor as an electrophysiology erp consultant. REFERRING PHYSICIAN: Dr. Ricky Jimenez. His problems are: 1. History of paroxysmal atrial fibrillation, on a prior history of amiodarone use, stopped in the past due to hypothyroidism, and previously on anticoagulation with Eliquis, which was stopped due to gastrointestinal blood loss. The patient is on sotalol. 2. History of congestive heart failure with mildly reduced left ventricular ejection fraction at 45 %-50%. 3. Prior history of myocardial infarction and coronary artery disease, requiring coronary artery byp ass grafting surgery and percutaneous transluminal coronary angioplasty in the past. 4. Coronary artery risk factors including dyslipidemia and hypertension and prior smoking. ALLERGIES: MORPHINE. MEDICATIONS: List prior to admission reveals Tylenol, glucosamine, Coenzyme Q10, metformin, polyeth ylene glycol, levothyroxine, sotalol 80 mg twice a day, glimepiride, cholecalciferol, nitroglycerin, Lipitor, carvedilol 12.5 mg twice a day, duloxetine, Eliquis 5 mg twice a day, clonidine, multivita min, omeprazole, loratadine, and finasteride. SUBJECTIVE: Mr. Del Cid is doing fair. He had a recent neck surgery, for which he was in rehab. He also had a PEG tube placed, because he had swelling. He did have low blood pressure issues though, running at 70s and 80s, which were symptomatic with dizziness. Hence, he returned to the hospital. Since in the hospital, he was followed by Dr. Yu and then Dr. Jimenez to assess his atrial fibri llation. His hemoglobin was low, and he was taken off the blood thinner, considering likely gastroi ntestinal blood loss. He is treated with iron supplement, but no transfusion was given. Eliquis st ill on hold. The patient currently has no feeling of palpitations, no dizziness or loss of consciousness, no stro ke-like symptoms, no neurological deficits, no fever, chills, cough. Rest of the 12-point review of systems, otherwise, unremarkable. SOCIAL HISTORY: Patient denies smoking, ETOH, or drug use. FAMILY HISTORY: Noncontributory. OBJECTIVE DATA: VITAL SIGNS: Blood pressure is 151/69, heart rate 65, respirations 20, temperature 97.8 degrees Fah renheit. GENERAL: He is alert and oriented man in no apparent distress. NECK: Supple. Jugular veins are not distended. CHEST: Coarse without crackles. CARDIOVASCULAR: Heart sounds are regular rate and rhythm. No murmur or gallop. ABDOMEN: Benign. Bowel sounds positive. EXTREMITIES: The lower extremities without edema, clubbing, or cyanosis. SKIN: Without rash. Left precordial pacemaker insertion site and mid sternal thoracotomy site is w ell healed. NEUROLOGIC: The patient is nonfocal. MUSCULOSKELETAL EXAM: No joint swelling or deformities. SKIN: Without rash. DATABASE: The EKGs reviewed. Initial EKG from 03/08/2017 revealing atrial fibrillation, rate of 81 beats per minute, nonspecific ST-T changes are seen, possible digoxin effect. Subsequent EKGs reve al sinus rhythm alternating with atrial fibrillation/atypical flutter. Some of the EKGs have a diff erent cycle length coarse atrial fibrillation or possibly atrial flutter documented, rate controlled on the . There is also an atrial flutter with 2:1 AV conduction noted on 03/10/2017, likely aty pical atrial flutter is seen. Interrogations of pacemaker from the revealed rhythm, dual-chamber pacemaker battery was 2 .93 volts, increasing frequency of atrial fibrillation seen since January. Also seems to have per sisted . ASSESSMENT AND PLAN: Mr. Del Cid is an 86-year-old man with history of sinus node disease and paroxys mal atrial fibrillation, maintained on sotalol, which though recently has been decreased he seems to have increased frequency of atrial fibrillation recently. Complicating the issue that he has low h emoglobin levels felt to be possibly due to gastrointestinal blood loss. He had a recent PEG tube p lacement. Hemoglobin levels are stable, but did not improve significantly with iron supplementation so far; he is off Eliquis because of this. His treatment is somewhat complicated. He has markedly elevated CHADS-VASc score with history of va scular disease, age, hypertension, diabetes mellitus. He is at very high risk for a stroke and like ly he will do poorly on long-term off anticoagulants. On the other hand, we might have more difficu lt time to control his hemoglobin levels back on Eliquis. I am not 100% clear whether this gastroin testinal bleed is not provoked by the recent PEG tube placement, and therefore maybe if hemoglobin i s improved, the Eliquis could be retried. Nevertheless, we also discussed potential future recurren marisela and consideration for appendage occlusion device. He could be considered for Watchman procedure versus alternative appendage occlusion methods also could be considered. If chosen for Watchman, don flores will need some transient or oral anticoagulations. PLAN: My plan is, 1. Continue current efforts to rate control, consider increasing sotalol if tolerated once back on anticoagulants. 2. Consider resuming Eliquis if clinically reasonable to assess his capacity to be on Eliquis while having the Watchman device placed. We can follow him as an outpatient for this. 3. Pacemakerwith adequate function. Routine monitoring. 4. Coronary artery disease, stable with mild LV dysfunction, only monitor.
[2017-03-11] MEDS: Atorvastatin Calcium 40 MG TAB PO SCH (20:10)
[2017-03-11] MEDS: Tamsulosin HCl 0.4 MG CAP PO SCH (20:10)
[2017-03-11] MEDS: Ezetimibe 10 MG TAB PO SCH (20:11)
[2017-03-11] MEDS: Polyethylene Glycol 3350 17 GM Packet PO PRN (20:17)
[2017-03-12 04:50] LABS: Hematocrit 26.6 % (42.0-52.0)
[2017-03-12] MEDS: Levothyroxine Sodium 75 MCG TAB PO SCH (05:44)
[2017-03-12] MEDS ORDERED: Digoxin 0.125 MG TAB PO SCH (09:00)
[2017-03-12] MEDS ORDERED: Fleet Enema 133 ML BOT FS SCH (09:15)
[2017-03-12] MEDS: Ferrous Sulfate 325 MG TAB PO SCH ×2 (09:31→16:59)
[2017-03-12] MEDS: Aspirin 81 mg Enteric Coated Tablet PO SCH (09:31)
[2017-03-12] MEDS: Carvedilol 6.25 MG TAB PO SCH ×2 (09:31→16:59)
[2017-03-12] MEDS: Pantoprazole 40 MG GRANULES PACKET PO SCH (09:32)
[2017-03-12] MEDS: Sotalol HCl 80 MG TAB PO SCH (09:32)
[2017-03-12 12:43] VITALS: TEMP 97.6
--- NOTE | 2017-03-12 13:01 | DIS ---
PRIMARY CARE PHYSICIAN: Dr. Phil Parks DATE OF ADMISSION: 03/07/2017 DATE OF DISCHARGE: 03/12/2017 DISCHARGE DISPOSITION: Home with home health. PRIMARY DISCHARGE DIAGNOSES: 1. Orthostatic hypotension. 2. Constipation. 3. Weight loss. SECONDARY DISCHARGE DIAGNOSES: Chronic lumber stenosis, cervical stenosis required cervical diskectomy, chronic iron deficiency anemia, hypothyroidism, hypertension, diabetes type 2, benign enlargement of prostate, atrial fibrillation, anxiety and depression. Moderate protein calorie malnutrition, oropharyngeal dysphagia on modified diet. PRIMARY PROCEDURE/OPERATION: None. RADIOLOGICAL INVESTIGATION: Chest x-ray was normal. SIGNIFICANT LABS: WBC 5.3, hemoglobin 8.5, platelets 246. Sodium 135, creatinine 1.13, calcium 8.7. LFTs normal. BNP 458.8. Cortisol normal. Urinalysis normal. Stool occult blood positive. DISCHARGE MEDICATIONS: Lipitor 40 mg p.o. at bedtime, Coreg 6.25 mg p.o. b.i.d. , vitamin D3 2000 units p.o. daily, Cymbalta 60 mg p.o. daily, digoxin 0.125 mg p.o. daily. Ferrous sulfate 325 mg p.o. b.i.d., Proscar 5 mg p.o. daily, glipizide 5 mg daily, Synthroid 75 mcg p.o. daily, glucosamine 2000 mg p.o. b.i.d., multivitamin 1 tablet p.o. daily, nitroglycerin p.r.n. as directed, Protonix 40 mg p.o. b.i.d., MiraLax 17 grams p.o. daily p.r.n., Betapace 120 mg p.o. b.i.d., Flomax 0.4 mg p.o. daily, CoQ10 100 mg p.o. b.i.d. of metformin 500 mg p.o. b.i.d. CONTRAINDICATIONS: None. CODE STATUS: FULL CODE. INPATIENT CONSULTANTS: Dr. Jimenez was following while in hospital. Dr. Painting was consulted for guaiac positive stool. Dr. Tru Mendez was consulted for atrial arrhythmia. ALLERGIES: MORPHINE. TEST RESULTS PENDING ON DISCHARGE: None. DISCHARGE PLAN: Post hospital, the patient will follow up with Dr. Phil Parks in 1 week. The patient will make appointment with Dr. Jimenez and Dr. Tru Mendez as directed. HOSPITAL COURSE: An 86-year-old male who was recently discharged from hospital to rehab after cervical diskectomy. At that time, the patient was having oropharyngeal dysphagia and he was on modified diet. The patient was having weight loss since surgery and he was going downhill. He was also feeling dizzy on standing position, he was diagnosed with orthostatic hypotension. His orthostatic hypotension was multifactorial including anemia, volume depletion and medications. During this admission, we checked stool for guaiac. It was positive and that is why we consulted printing shop supervisor and they discussed with the patient and family member about options, but as there was no change in management plan and that is why during this procedure was not performed, but the patient has chronic iron deficiency anemia is because of his chronic anticoagulation therapy with Eliquis and his previous history of duodenitis. While in hospital, we continued diet as tolerated along with feeding through the PEG tube. Regarding his atrial fibrillation and chronic anticoagulation, Dr. Jimenez was consulted and Dr. Jimenez recommended to hold Eliquis therapy. At this point, Dr. Tru Mendez also consulted for a Watchman procedure and he recommends to do Watchman procedure the patient needs to be on chronic oral anticoagulation therapy until procedure is done and then they will follow up with them as an outpatient basis to do that procedure. At this point, the patient and family member understands both advantage and disadvantage of Eliquis therapy. We will defer final decision today to Dr. Jimenez about if Eliquis needs to be continued or not upon discharge, otherwise , the patient is medically stable. The patient is experiencing constipation and that is why we gave him an enema with good result. The patient is seen and examined at bedside today. Necessary precautions for orthostatic hypotension discussed with the patient and family member. Currently, patient is medically stable. VITAL SIGNS: Currently, temperature 97.6, pulse 69, respiratory rate 18, saturation 98%, blood pressure 110/50, weight 155 pounds. GENERAL: The patient is currently alert, awake, no acute distress. HEAD: Normocephalic, atraumatic. LUNGS: Clear to auscultation without any rhonchi. CARDIAC: S1, S2 irregular. No murmur, no gallop, no rub. ABDOMEN: Soft, benign, PEG tube in place. EXTREMITIES: No edema. NEUROLOGIC: Nonfocal examination. Patient's family member was not interested in going to rehab as well as [facility] and that is why we arranged home health upon discharge. Overall, the patient is medically stable for discharge. During this admission, we modified dose of Coreg to 6.25 mg b.i.d. and we increased Betapace 120 mg p.o. b.i.d. We advised to continue iron supplementation as well as we increased Protonix to b.i.d. dose. The rest of medications will be continued as per previous. Total time spent on discharge day more than 30 minutes MTDD
[2017-03-12 15:37] VITALS: BP 131/62
[2017-03-12] MEDS: Polyethylene Glycol 3350 17 GM Packet PO PRN (16:59)
--- NOTE | 2017-03-12 17:15 | PRG ---
DATE OF SERVICE: 03/12/2017 ELECTROPHYSIOLOGY FOLLOWUP NOTE SUBJECTIVE: Mr. Del Cid seems to be doing well, no new symptoms noted. OBJECTIVE: VITAL SIGNS: Blood pressure is 110/59, heart rate 69, respirations 18, temperature 97.6 degrees Fah renheit. GENERAL: Alert and oriented man, in no apparent distress. NECK: Supple. Jugular veins not distended. CHEST: Coarse, no crackles. CARDIOVASCULAR: Heart sounds are regular to rate and rhythm. No murmur or gallop. ABDOMEN: Benign. Bowel sounds positive. EXTREMITIES: Lower extremities without edema, clubbing or cyanosis. DATABASE: Telemetry strips reviewed reveals present atrial fibrillation. LABORATORY DATA: Hemoglobin today is 8.5. No other new lab work was noted. ASSESSMENT AND PLAN: Mr. Del Cid is a pleasant 86-year-old man with history of paroxysmal atrial fibr illation, prior amiodarone used which he put currently off. He has been anticoagulated with Eliquis , but was stopped due to gastrointestinal blood loss, which might have been related to recently plac ed PEG tube. Currently, his atrial fibrillation is recurrent, but reasonably rate controlled. Prev iously, he was on sotalol at higher dose, but that was reduced due to low blood pressure. My plan would be at this point: 1. Regarding his atrial arrhythmias, for now continue rate control. Once he is re-anticoagulated, consider cardioversion and re-increasing sotalol if tolerated. 2. Discussed the potential option for left atrial appendage occlusion device/Watchman procedure. I would like to see him back on blood thinner medication prior to that as well. 3. Pacemaker with adequate function. Plan routine outpatient followup.
== END 2017-03-12 17:38 | disposition home health service (06) | DRG 312 ==
LOC: ERS 17:35 → 2SW 21:28 → OBSVTOIN 21:28 → 2NO 03-09 15:23
PROVIDERS: ADMIT Internal Medicine; ATTEND Internal Medicine
DX: I95.1 Orthostatic hypotension (principal); E44.0 Moderate protein-calorie malnutrition; R13.12 Dysphagia, oropharyngeal phase; M48.02 Spinal stenosis, cervical region; I48.0 Paroxysmal atrial fibrillation; I11.0 Hypertensive heart disease with heart failure; I50.32 Chronic diastolic (congestive) heart failure; N39.0 Urinary tract infection, site not specified; Z93.1 Gastrostomy status; T83.511A Infection and inflammatory reaction due to indwelling urethral catheter, initial encounter; F32.9 Major depressive disorder, single episode, unspecified; E86.9 Volume depletion, unspecified; E03.9 Hypothyroidism, unspecified; E78.5 Hyperlipidemia, unspecified; E86.0 Dehydration; D50.9 Iron deficiency anemia, unspecified; Z79.01 Long term (current) use of anticoagulants; I25.10 Atherosclerotic heart disease of native coronary artery without angina pectoris; Z98.61 Coronary angioplasty status; Z95.1 Presence of aortocoronary bypass graft; Z95.0 Presence of cardiac pacemaker; Z68.21 Body mass index [BMI] 21.0-21.9, adult; F41.9 Anxiety disorder, unspecified; E11.9 Type 2 diabetes mellitus without complications; M48.061 Spinal stenosis, lumbar region without neurogenic claudication; Z98.890 Other specified postprocedural states; N40.0 Benign prostatic hyperplasia without lower urinary tract symptoms; K59.00 Constipation, unspecified; R19.5 Other fecal abnormalities; Z79.84 Long term (current) use of oral hypoglycemic drugs
CPT/HCPCS: 36415; 36416; 71010; 80048; 80053; 81001; 81003; 81015; 82274; 82533; 83540; 83550; 83880; 84484; 85014; 85018; 85025; 93005; 93010; 96360; A4216; G8978-GP-CK; G8979-GP-CI; G8987-GO-CK; G8988-GO-CI; G8996-GN-CK; G8997-GN-CK; J2916; J7050

== ENCOUNTER 2017-04-17 16:32 | Outpatient (CLI) | payer MEDICARE, OTHER ==
[2017-04-17 18:18] LABS: Hematocrit 32.7 % (42.0-52.0); Mean Platelet Volume 7.2 fL (7.4-10.4); Red Blood Cell (RBC) Count 3.44 mill/uL (4.70-6.10); White Blood Cell (WBC) Count 5.3 thou/uL (4.8-10.8)
[2017-04-17 18:39] LABS: Anion Gap 12 mmol/L (10-20); BUN (Urea Nitrogen) 25 mg/dL (8.4-25.7); Calc. Creatinine Clearance 0 mL/min (70-130); Calcium 9.3 mg/dL (7.8-10.44); Carbon Dioxide 27 mmol/L (23-31); Chloride 103 mmol/L (98-107); Estimated GFR-MDRD 58
== END 2017-04-17 16:33 | disposition home or self-care (01) ==
LOC: LABBT 16:32
PROVIDERS: ATTEND Internal Medicine Cardiovascular Disease
DX: Z01.812 Encounter for preprocedural laboratory examination (principal); I48.0 Paroxysmal atrial fibrillation
CPT/HCPCS: 80048; 85027

== ENCOUNTER 2017-04-22 06:53 | Day surgery (SDC) | payer MEDICARE, OTHER ==
[2017-04-17 17:00] VITALS: BMI 20.9
[2017-04-22] MEDS ORDERED: Diprivan 20 ML ONE (08:56)
[2017-04-22] MEDS ORDERED: Propofol 200 MG/20 ML VIAL ONE (08:59)
--- NOTE | 2017-04-22 14:20 | DIS ---
The patient was seen today in the outpatient facility to undergo a transesophageal echocardiogram to rule out evidence of left atrial appendage thrombus in anticipation of possible electrocardioversion of atrial fibrillation. ADMITTING DIAGNOSES: Atrial fibrillation, dyslipidemia, hypertension, history of tobacco abuse in th e past, history of gastrointestinal bleeding, hypertension, hypercholesterolemia, coronary artery dis ease, status post bypass surgery. DISCHARGE DIAGNOSES: Atrial fibrillation, dyslipidemia, hypertension, history of tobacco abuse in th e past, history of gastrointestinal bleeding, hypertension, hypercholesterolemia, coronary artery dis ease, status post bypass surgery. He has also had some neck surgery, back surgery and has PEG tube p lacement. DISCHARGE MEDICATIONS: Tylenol 325 mg a day, MiraLax 17 grams per dose oral pack 1 every day with 8 ounces of water and tamsulosin 0.4 mg capsule 1 a day 1/2 an hour following the same meal, CoQ 10, Pr otonix 40 mg a day, glimepiride 1 mg half a tablet b.i.d., duloxetine 60 mg daily, Tylenol with codei ne 1 every 6 hours as needed, sotalol 120 mg b.i.d., digoxin 125 mcg daily, Synthroid 75 mcg every da y, nitroglycerin p.r.n. as needed, Centrum Silver vitamins, vitamin D3, glucosamine, atorvastatin 80 mg 1/2 tablet daily, Eliquis 5 mg b.i.d., carvedilol 6.25 mg b.i.d., and Zetia 10 mg a half a tablet daily. FOLLOW UP: His followup will be with Dr. Jimenez. He will see Dr. Jimenez in about a month in the office. He will continue his routine followups with his primary care physician. PROCEDURES IN HOSPITAL: Included a transesophageal echocardiogram which indicated possible small thr ombus in the left atrial appendage. Please refer to the full dictated note on the echocardiogram, but essentially had moderate mitral olivia ve regurgitation, moderate aortic valve regurgitation, thickening of 1 aortic valve leaflet and prese rved left ventricular systolic function, ejection fraction was felt to be 50-55% and also mild to mod erate tricuspid valve regurgitation. He tolerated the procedure well without complications or difficulties and we will see him back in the office in approximately 1 month for further evaluation and treatment. Consideration will be given f or possibly a Watchman device or continued anticoagulation.
--- NOTE | 2017-04-22 15:03 | ECHO ---
TRANSESOPHAGEAL ECHOCARDIOGRAM: DATE OF PROCEDURE: 04/22/17. INDICATION FOR PROCEDURE: This is an 86-year-old patient with atrial fibrillation who has been on medical management. He was a dvised to undergo a transesophageal echocardiogram with the possibility of proceeding with an electro cardioversion of atrial fibrillation back to sinus rhythm. PROCEDURE: He was taken to the recovery area where he underwent short-acting propofol. The transesophageal prob e was easily passed down the distal esophagus. Impressions are as follows. 1. Normal left ventricular systolic function. Ejection fraction is estimated at 50-55%, perhaps sli ghtly hypokinetic with 50-55% without a specific wall motion abnormalities. 2. What appears to be a small thrombus in the left atrial appendage, with decreased flow in the left atrial appendage also. 3. Moderate mitral valve regurgitation. 4. Moderate aortic valve regurgitation. 5. Mild to moderate tricuspid valve regurgitation 6. What appear to be pacemaker leads in the right chambers. There were no difficulties or complications encountered during the procedure. The patient was given short-acting propofol. He did very well. Blood pressure remained stable during the procedure. IMPRESSION: 1. Probable small thrombus in the left atrial appendage. No evidence of atrial septal defect or pat ent foramen ovale was noted. 2. Moderate aortic valve regurgitation. 3. Moderate mitral valve regurgitation. 4. Moderate to mild tricuspid valve regurgitation. 4. Thickening of the noncoronary aortic valve cusp, but no significant gradient was noted across the aortic valve. POS: [facility]
== END 2017-04-22 10:35 | disposition home or self-care (01) ==
LOC: CCL 06:53
PROVIDERS: ATTEND Internal Medicine Cardiovascular Disease
DX: I48.0 Paroxysmal atrial fibrillation (principal); I08.3 Combined rheumatic disorders of mitral, aortic and tricuspid valves; I10 Essential (primary) hypertension; E05.90 Thyrotoxicosis, unspecified without thyrotoxic crisis or storm; D64.9 Anemia, unspecified; E78.00 Pure hypercholesterolemia, unspecified; I25.10 Atherosclerotic heart disease of native coronary artery without angina pectoris; Z79.01 Long term (current) use of anticoagulants; Z79.84 Long term (current) use of oral hypoglycemic drugs; Z79.899 Other long term (current) drug therapy; Z88.5 Allergy status to narcotic agent; Z98.1 Arthrodesis status; Z93.1 Gastrostomy status; Z95.0 Presence of cardiac pacemaker; Z96.0 Presence of urogenital implants; Z95.1 Presence of aortocoronary bypass graft; Z95.818 Presence of other cardiac implants and grafts; Z96.1 Presence of intraocular lens; Z90.49 Acquired absence of other specified parts of digestive tract; Z90.89 Acquired absence of other organs; Z98.890 Other specified postprocedural states; Z87.891 Personal history of nicotine dependence
CPT/HCPCS: 92960; 93312; J2704

== ENCOUNTER 2017-05-02 20:40 | Observation (INO) | payer MEDICARE, OTHER ==
[~2017-05-02 20:40] MED LIST: ISOVUE-370 76%-LOCM 1 ML ONE
[2017-05-02 21:04] LABS: #Eosinphils 0.1 thou/uL (0.0-0.7); #Lymphocytes 1.1 thou/uL (1.20-3.40); #Monocytes 0.7 thou/uL (0.11-0.59); #Neutrophils 5.2 thou/uL (1.40-6.50); %Basophils 0.5 % (0.0-1.0); %Eosinophils 1.7 % (0.0-10.0); %Lymphocytes 15.7 % (21.0-51.0); %Monocytes 9.9 % (0.0-10.0); Hematocrit 31.7 % (42.0-52.0); Mean Platelet Volume 7.2 fL (7.4-10.4); Red Blood Cell (RBC) Count 3.44 mill/uL (4.70-6.10); White Blood Cell (WBC) Count 7.2 thou/uL (4.8-10.8)
[2017-05-02 21:24] LABS: ALT (SGPT) 10 U/L (8-55); AST (SGOT) 20 U/L (5-34); Alkaline Phosphatase 94 U/L (40-150); Anion Gap 13 mmol/L (10-20); BUN (Urea Nitrogen) 27 mg/dL (8.4-25.7); Bilirubin, Total 0.5 mg/dL (0.2-1.2); Calc. Creatinine Clearance 0 mL/min (70-130); Calcium 9.6 mg/dL (7.8-10.44); Carbon Dioxide 27 mmol/L (23-31); Chloride 103 mmol/L (98-107); Estimated GFR-MDRD 42; Globulin 3.8 g/dL (2.4-3.5); Protein, Total 7.4 g/dL (5.8-8.1)
--- NOTE | 2017-05-02 22:24 | RAD ---
TWO AP VIEWS OF THE CHEST 05/02/17 INDICATION: History of a blood clot with shortness of breath and chest tightness. COMPARISON: Prior exam dated 03/07/17. IMPRESSION: Stable severe COPD. No definite acute cardiopulmonary abnormality. COMMENTS: Post CABG changes, dual lead pacemaker is stable. No pleural effusion or pneumothorax is evident. No acute osseous abnormality is noted. POS: [facility]
[2017-05-02] MEDS ORDERED: Furosemide 20 MG/2 ML VIAL ONE (22:50)
--- NOTE | 2017-05-02 23:13 | CT ---
CTA OF THE THORAX UTILIZING IV CONTRAST PE PROTOCOL AND 3D REFORMATTED IMAGING 05/02/17 INDICATION: Chest pain, shortness of breath. COMPARISON: Prior exam dated 06/03/14. FINDINGS: No central or segmental pulmonary embolus is evident. Ascending aorta measures 4.1 cm which is stable to the prior exam. There is postsurgical change of a prior CABG. There is an enlarged subcarinal lym ph node now measuring 1.3 cm. There is an enlarged presacral lymph node measuring 1.1 cm. There are s mall bilateral pleural effusions. There is reflux of contrast within the hepatic veins. There is scat tered areas of tree-in-bud nodularity that appears slightly more prominent than on the comparison exa m. There are areas of scarring and subsegmental volume loss as well on the right lung apex which is s imilar to the comparison exam. Tree-in-bud type nodularities are also seen within the lingula, right middle lobe, and both lower lobes. There is scattered degenerative and osteoarthritic change. IMPRESSION: 1. No central or segmental pulmonary embolus. 2. Scattered tree-in-bud nodularities suspicious for bronchiolitis, infectious or inflammatory e tiology. Enlarged mediastinal lymph nodes may be reactive in nature. Recommend CT followup to docum ent clearance. 3. Small bilateral pleural effusions and reflux of contrast within the hepatic veins can be seen with CHF. Recommend correlation. 4. Postsurgical change of a prior CABG. POS: [facility]
[2017-05-03] MEDS ORDERED: Acetaminophen 325 MG TAB PO PRN ×2 (00:54→07:46)
[2017-05-03] MEDS ORDERED: Ondansetron HCl/PF 4 MG/2 ML Vial IVP PRN (00:54)
[2017-05-03] MEDS ORDERED: Ondansetron ODT 4 MG TAB SL PRN (00:54)
[2017-05-03 00:57] VITALS: BMI 21.9
[2017-05-03] MEDS ORDERED: Nitroglycerin 0.4 MG TAB (25 Tab Bottle) SL PRN (07:46)
[2017-05-03] MEDS ORDERED: Sotalol HCl 80 MG TAB PO SCH (09:00)
[2017-05-03] MEDS ORDERED: predniSONE 20 MG TAB PO SCH ×2 (09:00)
[2017-05-03] MEDS ORDERED: Polyethylene Glycol 3350 17 GM Packet PO PRN (09:00)
[2017-05-03] MEDS: Carvedilol 6.25 MG TAB PO SCH ×2 (09:34→17:05)
[2017-05-03] MEDS: Multivit, Therapeutic 1 TAB PO SCH (09:34)
[2017-05-03] MEDS: Ezetimibe 10 MG TAB PO SCH (09:35)
[2017-05-03] MEDS: Doxycycline 100 MG CAP PO SCH ×2 (09:36→20:24)
[2017-05-03] MEDS: Ferrous Sulfate 325 MG TAB PO SCH ×2 (09:36→20:22)
[2017-05-03] MEDS: Digoxin 0.125 MG TAB PO SCH (09:36)
[2017-05-03] MEDS: Apixaban 5 MG TAB PO SCH ×2 (09:36→20:22)
[2017-05-03] MEDS: Ubidecarenone 50 MG CAP PO SCH ×2 (10:38→20:23)
[2017-05-03] MEDS: Glimepiride 1 MG TAB PO SCH ×2 (10:38→22:36)
--- NOTE | 2017-05-03 13:04 | HP ---
CHIEF COMPLAINT: Shortness of breath on exertion. HISTORY OF PRESENT ILLNESS: The patient is an 86-year-old male who is admitted to the hosp ital with acute onset of shortness of breath on exertion. Apparently, he was doing quite well a few days ago when he started noticing increased shortness of breath on exertion. He is doing well when h e is resting, but as soon as he gets up and he walks he is very short of breath. Apparently, he was found to have a thrombus in his heart recently on his recent KRISTIN and he was in atrial fibrillation, b ut he was not able to have cardioversion because of the clot in his heart. He is on Eliquis at this time for that thrombus. He has some chest tightness when he gets up and walks and this improves with resting. He has some chronic dry cough. PAST MEDICAL HISTORY: Positive for: 1. History of pneumonia. 2. Coronary artery disease. 3. Atrial fibrillation. 4. Diabetes mellitus. 5. Hypothyroidism. 6. Gastroesophageal reflux disease. 7. Hyperlipidemia. 8. Hypertension. 9. History of TIA in 01/2016. PAST SURGICAL HISTORY: 1. Hemorrhoid surgery. 2. Heart stents. 3. Pacemaker. 4. Lumbar fusion. 5. Appendectomy. 6. Coronary artery bypass graft surgery. 7. Tonsillectomy. 8. Eye lens implant. 9. Sinus surgery. 10. Cervical surgery. SOCIAL HISTORY: He denies any alcohol use, cigarette smoking, or any illicit drug use. ALLERGIES: CODEINE which is causing hallucinations and MORPHINE same reaction. CURRENT MEDICATIONS: Pantoprazole 40 mg twice a day, ferrous 325 mg twice a day, duloxetine 60 mg da iris, ezetimibe 5 mg once a day, atorvastatin 40 mg daily, apixaban 5 mg twice a day, Tamsulosin 0.4 m g at bedtime, carvedilol 6.25 twice a day, half a tablet in the morning and 1 tablet at bedtime, sota lol 120 mg twice a day, digoxin 0.125 mg every morning, Synthroid 75 mcg every morning, glimepiride 0 .5 mg twice a day, vitamin D3 2000 units daily, Coenzyme Q10 100 mg twice a day, Centrum Silver 1 tab let once a day, glucosamine 2000 mg twice a day, aspirin 81 mg once a day, Aleve 220 mg twice a day, MiraLax for constipation and Tylenol for pain and the NitroQuick 0.4 mg every 5 minutes x3. FAMILY HISTORY: Both parents in their 70s. Both parents had cancer. Mother had diabetes. REVIEW OF SYSTEMS: Fourteen systems were reviewed and the only positive findings were what mentioned in the HPI, plus constipation. PHYSICAL EXAMINATION: GENERAL: He is not in any distress during my evaluation. VITAL SIGNS: His blood pressure is 172/83, temperature is 98.5, pulse is 61, respiratory rate is 16, O2 saturation is 99% on 2 liters. HEENT: Atraumatic, normocephalic. Eyes: PERRLA. Conjunctivae pinkish. Sclerae nonicteric. Oral m ucosa is moist. NECK: Supple, no lymphadenopathy. LUNGS: Clear in the back and dry crackles in the front. HEART: S1, S2 normal. There is a systolic murmur at the left sternal border, mostly audible. ABDOMEN: Soft, nontender, bowel sounds are present, no organomegaly. EXTREMITIES: No clubbing, cyanosis or edema. NEUROLOGIC: He is alert and oriented x4. There is not any motor or sensory deficits. Cranial nerve s are intact. LABORATORY AND X-RAY FINDINGS: Showed white count of 7.2, hemoglobin 10.1, hematocrit 31.7, platelet count is 242,000, neutrophils 72.3, D-dimer 0.52. Electrolytes within normal limits. BUN 27, creat inine 1.57, glucose 115. Troponin is 0.040, BNP 947.3, and globulin 3.8. IMAGES: Chest x-ray was personally reviewed by me, showed post-CABG changes and dual lead pacemaker, otherwise some COPD changes. CT angiogram: This was personally reviewed by me and it showed: 1. No PE. 2. Scattered tree-in-bud nodularity suspicious for bronchiolitis infectious or inflammatory etiology and small bilateral pleural effusion and reflux of contrast within the hepatic veins could be sugges tive of CHF and also there are some post-surgical changes on his prior CABG. Electrocardiogram was d one and showed ventricular paced rhythm at 73 beats per minute, ST segment was normal, T-waves are no rmal, axis was normal. IMPRESSION: 1. Dyspnea on exertion of unclear etiology. His BNP is elevated, so there is some component of CHF, most likely with small pleural effusion on CT angiogram of the chest. We will diurese him. We will get Cardiology consultation and would get echocardiogram. We will continue his home meds. 2. Hypertension. The patient did not have his home medications yet, most likely his blood pressure will improve after he is placed on his home medications. 3. Coronary artery disease. 4. History of atrial fibrillation. 5. Hypothyroidism. 6. Hyperlipidemia. 7. History of thrombus in his heart per the patient. 8. Pacemaker. PLAN: Admission for observation. Condition is fair. Activity is bed rest and bathroom privileges. Continue home meds, diuretics, Lasix 40 IV push q.12 h. Cardiology consultation and we will conside r also Pulmonary consultation if he does not get any better with diuresis and Cardiology help. We wi ll get echocardiogram. We will do SCDs for his DVT prophylaxis and we will have Accu-Cheks a.c. and at bedtime. He will be on 2000 calories ADA diet and we will cover him with sliding scale.
[2017-05-03] MEDS: Furosemide 40 MG/4 ML VIAL SLOW IVP SCH (13:41)
--- NOTE | 2017-05-03 14:34 | CON ---
DATE OF CONSULTATION: 05/03/2017 REASON FOR CONSULTATION: Shortness of breath and recent atrial fibrillation. PRIMARY TOOL MAKER BENCH: Ricky Jimenez M.D. HISTORY OF PRESENT ILLNESS: Mr. Del Cid is a very pleasant 86-year-old gentleman who has been seen and evaluated by Dr. Ricky Jimenez in the past. He has a history of atrial fibrillation in addition t o CAD status post stent placement and bypass surgery in addition to pacemaker placement. He states h e recently underwent cervical spine surgery. He was in rehabilitation. He had increased shortness o f breath. He was found to be in atrial fibrillation for 6 weeks. He was to undergo cardioversion an d was found to have thrombus present in the left atrial appendage. Aspirin and Eliquis are recommend ed. He comes in with increased shortness of breath over the last several days. He did have associat ed chest pressure. No other ameliorating, exacerbating, or precipitating factors present. He has re ceived IV Lasix and is resting comfortably. PAST MEDICAL HISTORY: As above including hyperlipidemia and hypertension, appendectomy, tonsillectom y, stent placement in the left renal artery, previous GI bleed, and anemia. ALLERGIES: MORPHINE, CODEINE. HOME MEDICATIONS: Include MiraLax, Tylenol, tamsulosin, CoQ10, Protonix, glimepiride, sotalol, digox in, Synthroid, Nitrostat, Centrum, vitamin D, Eliquis, carvedilol and Zetia. REVIEW OF SYSTEMS: Ten point review of systems reviewed and as above, otherwise negative. PHYSICAL EXAMINATION: VITAL SIGNS: Blood pressure 143/67, pulse 60, temperature 98.4. GENERAL: Patient is a pleasant male who is in no acute distress. The patient appears his stated age . NEUROLOGIC: The patient is alert and oriented times 3 with no focal neurologic deficits. HEENT: Sclerae without icterus. Mouth has moist mucous membranes with normal pallor. NECK: No JVD. Carotid upstroke brisk. No bruits bilaterally. LUNGS: Crackles noted bilaterally. BACK: No scoliosis or kyphosis. CARDIAC: Regular rate and rhythm with normal S1 and S2. No S3 or S4 noted. No significant rubs, m urmurs, thrills, or gallops noted throughout the precordium. PMI is not displaced. There is no para sternal heave. ABDOMEN: Soft, nontender, nondistended. No peritoneal signs present. No hepatosplenomegaly. No ab normal striae. EXTREMITIES: 2+ femoral and 2+ dorsalis pedis pulses. No cyanosis, clubbing, or edema. SKIN: No g ross abnormalities. PERTINENT LABS: Hemoglobin 10.1, creatinine 1.47 with a GFR of 42. IMPRESSION: 1. Acute on chronic systolic heart failure. 2. Atrial fibrillation. 3. Coronary artery disease. RECOMMENDATIONS: Mr. Del Cid certainly has crackles noted bilaterally. His baseline LVEF on echo with in the last month with 40-45%. This has likely decreased with recent atrial fibrillation. Continue IV Lasix at 40 mg b.i.d. We will decrease the sotalol to 80 mg b.i.d. due to renal insufficiency. Co ntinue Eliquis and aspirin.
[2017-05-03] MEDS ORDERED: Dextrose 5% in Water 1,000 ML IV PRN (17:43)
[2017-05-03] MEDS ORDERED: Dextrose 50% Abboject 50 ML SYRINGE SLOW IVP PRN (17:43)
[2017-05-03] MEDS: HumaLOG 300 UNITS/3 ML VIAL SC PRN (18:14)
[2017-05-03] MEDS: Sotalol HCl 80 MG TAB PO SCH (20:25)
[2017-05-03] MEDS ORDERED: Atorvastatin Calcium 40 MG TAB PO SCH (21:00)
[2017-05-03] MEDS ORDERED: Tamsulosin HCl 0.4 MG CAP PO SCH (21:00)
[2017-05-04] MEDS: GLUCOSAMINE HCL PO SCH (01:13)
[2017-05-04 05:06] LABS: Anion Gap 10 mmol/L (10-20); BUN (Urea Nitrogen) 28 mg/dL (8.4-25.7); Calc. Creatinine Clearance 39 mL/min (70-130); Calcium 9.2 mg/dL (7.8-10.44); Carbon Dioxide 30 mmol/L (23-31); Chloride 99 mmol/L (98-107); Estimated GFR-MDRD 51
[2017-05-04] MEDS ORDERED: Levothyroxine Sodium 75 MCG TAB PO SCH (06:00)
[2017-05-04] MEDS: Furosemide 40 MG/4 ML VIAL SLOW IVP SCH ×2 (06:27→15:00)
[2017-05-04] MEDS: Carvedilol 6.25 MG TAB PO SCH (07:56)
[2017-05-04] MEDS: Doxycycline 100 MG CAP PO SCH (07:56)
[2017-05-04] MEDS: Ubidecarenone 50 MG CAP PO SCH (07:56)
[2017-05-04] MEDS: Digoxin 0.125 MG TAB PO SCH (07:56)
[2017-05-04] MEDS ORDERED: predniSONE 20 MG TAB PO SCH (08:00)
[2017-05-04] MEDS: Sotalol HCl 80 MG TAB PO SCH (08:01)
[2017-05-04] MEDS: Ezetimibe 10 MG TAB PO SCH (08:01)
[2017-05-04] MEDS: Apixaban 5 MG TAB PO SCH (08:01)
[2017-05-04] MEDS: Ferrous Sulfate 325 MG TAB PO SCH (08:01)
[2017-05-04] MEDS: Multivit, Therapeutic 1 TAB PO SCH (08:01)
[2017-05-04] MEDS: Glimepiride 1 MG TAB PO SCH (10:01)
[2017-05-04] MEDS: HumaLOG 300 UNITS/3 ML VIAL SC PRN (12:16)
[2017-05-04 16:17] VITALS: BP 135/62; TEMP 98.1
--- NOTE | 2017-05-05 06:13 | DIS ---
DATE OF ADMISSION: 05/03/2017 DATE OF DISCHARGE: 05/04/2017 CHARTING CLERK: Dr. Figueroa, Cardiology Service. FINAL DIAGNOSES: 1. Congestive heart failure, it is systolic in nature. 2. Dyspnea on exertion with abnormal CT of the chest findings suggestive of some inflammatory proces s in both lungs suspicious for some atypical infection. 3. Hypertension. 4. Coronary artery disease with stent placement. 5. Currently in atrial fibrillation. 6. Hypothyroidism. 7. Hyperlipidemia. 8. History of thrombus in his appendage recently. 9. Pacemaker. HOSPITAL COURSE: The patient is a 86-year-old male who was admitted to the hospital with a cute onset of shortness of breath on exertion with no any fever or chills. Apparently he was found t o have atrial thrombus in his heart recently during KRISTIN evaluation. The patient was in atrial fibril lation, so care director was not able to put him back to normal rhythm. He recommended Eliquis and as pirin treatment. During this hospitalization, his creatinine was up to 1.57. White count was 7.2, h emoglobin 10.1, hematocrit 31.5. D-dimers were 0.52. Electrolytes were within normal limits. BUN w as 27. BNP was 947.3 and troponin was 0.040. Chest x-ray showed post-CABG changes, dual lead pacema ker, otherwise some changes of COPD and the CT angiogram showed no PE and scattered tree-in-bud nodul arities suspicious for bronchiolitis, infectious or inflammatory etiology. EKG showed ventricular pa arturo rhythm at 73 beats per minute, ST segment was normal and T-waves were normal, axis was normal. T he patient was placed on IV Lasix q.12 h., consultation was requested with Dr. Figueroa. Also, the case was discussed with Dr. Ryder, his putty mixer, who asked the patient to be on doxycycline 100 mg twice a day and prednisone 20 mg once a day and follow up with him in his office in 3 days, specif icay on Friday next week. The patient responded very well to IV Lasix. He had echocardiogram d one, which showed ejection fraction visually estimated at 45-50%, mild to moderate mitral regurgitati on, mild to moderate aortic regurgitation and patient was seen by Dr. Figueroa for Cardiology evalua tion. The sotalol dose was decreased to 80 mg twice a day, this was adjusted to his kidney function. The patient did very well with diuresis. He is able to get up and walk without much shortness of b reath. His pulse oximetry on exertion is 92-93. His vitals, blood pressure is 145/70, pulse is 64, respiratory rate is 12, and pulse oximetry as mentioned above, temperature is 97.4. So he is dischar [facility] home in good condition. He is going to stay on 2000 calories ADA diet. ACTIVITIES: As tolerated. MEDICATIONS: At the time of discharge, doxycycline 100 mg twice a day, furosemide 20 mg once a day, prednisone 20 mg once a day, also Tylenol regular strength q.6 hours p.r.n., apixaban 5 mg twice a da y, atorvastatin 40 mg at bedtime, carvedilol 6.25 mg twice a day, cholecalciferol 2000 units once a d ay, digoxin 0.125 mg once a day, duloxetine 60 mg at bedtime, Ezetimibe 10 mg tablet 5 mg daily, ferr ous sulfate 325 mg twice a day, glimepiride 1 mg tablet half a tablet twice a day, levothyroxine 75 m cg every morning, multivitamin once a day, nitroglycerin p.r.n. sublingual, pantoprazole 40 mg once a day, polyethylene glycol 1 pack daily, Ubidecarenone 200 mg capsules 100 mg twice a day, Flomax 0.4 mg at bedtime, sotalol 80 mg twice a day. The patient is going to follow up with Dr. Ryder as [facility] above in [address] Jimenez in the next 1-2 weeks. He is doing well. He is discharged home. The patient was seen and examined before he is discharged and discharge time is less than 30 minutes.
== END 2017-05-04 16:49 | disposition home or self-care (01) ==
LOC: ERS 20:40 → 2SW 23:25
PROVIDERS: ADMIT Family Medicine; ATTEND Family Medicine
DX: I11.0 Hypertensive heart disease with heart failure (principal); I50.20 Unspecified systolic (congestive) heart failure; I25.10 Atherosclerotic heart disease of native coronary artery without angina pectoris; I48.91 Unspecified atrial fibrillation; E03.9 Hypothyroidism, unspecified; E78.5 Hyperlipidemia, unspecified; E11.9 Type 2 diabetes mellitus without complications; K21.9 Gastro-esophageal reflux disease without esophagitis; Z79.84 Long term (current) use of oral hypoglycemic drugs; Z79.899 Other long term (current) drug therapy; Z88.5 Allergy status to narcotic agent; Z98.1 Arthrodesis status; Z90.49 Acquired absence of other specified parts of digestive tract; Z95.5 Presence of coronary angioplasty implant and graft; Z95.0 Presence of cardiac pacemaker; Z98.890 Other specified postprocedural states; Z86.73 Personal history of transient ischemic attack (TIA), and cerebral infarction without residual deficits; Z83.3 Family history of diabetes mellitus
CPT/HCPCS: 71010; 71275; 80048; 80053; 82553; 82962 ×2; 83880; 84484; 85025; 85379; 86140; 87070; 87077; 87184; 87186; 87205; 93005; 93306; 94640 ×3; 96361; 96374; 96376 ×2; 99285; G0378; 36415; 36416; A4216; J1940; J7506; J7620

== ENCOUNTER 2017-05-07 10:54 | Outpatient (CLI) | payer MEDICARE, OTHER ==
--- NOTE | 2017-05-07 12:51 | RAD ---
CHEST PA AND LATERAL TWO VIEWS: HISTORY: An 86-year-old male with dyspnea. COMPARISON: 05/02/2017 FINDINGS: Postop midline sternotomy and coronary bypass changes and left ICD. Biapical pleural thickening. Mi nimal volume loss in the right upper chest with some patchy reticulonodular increased markings. Old granulomatous disease. No confluent pneumonia, overt edema, or pleural effusion. IMPRESSION: Stable chronic changes, particularly in the apices and upper lung zones. No significant acute proces s. POS: [facility]
== END 2017-05-07 10:55 | disposition home or self-care (01) ==
LOC: RAD 10:54
PROVIDERS: ATTEND Internal Medicine Critical Care Medicine
DX: R06.00 Dyspnea, unspecified (principal)
CPT/HCPCS: 71020

== ENCOUNTER 2017-05-27 19:45 | Inpatient (IN) | payer MEDICARE, OTHER ==
--- NOTE | 2017-05-27 20:40 | RAD ---
PORTABLE CHEST: 05/27/17 HISTORY: Chest pain. COMPARISON: 05/07/17 exam. Heart size is within normal limits. There are postop sternotomy change and a pacemaker. There are chr onic lung changes noted. No acute process. IMPRESSION: No acute changes. Stable exam. POS: [facility]
[2017-05-27 20:49] LABS: #Eosinphils 0.2 thou/uL (0.0-0.7); #Monocytes 0.6 thou/uL (0.11-0.59); %Basophils 0.4 % (0.0-1.0); %Eosinophils 2.8 % (0.0-10.0); %Lymphocytes 17.2 % (21.0-51.0); %Monocytes 10.5 % (0.0-10.0); %Neutrophils 69.1 % (42.0-75.0); Hemoglobin 8.5 g/dL (14.0-18.0); Mean Corpuscular HGB CONC 32.3 g/dL (32.0-36.0); Mean Corpuscular Volume 89.9 fl (80.0-94.0); Mean Platelet Volume 6.9 fL (7.4-10.4); Platelet Count 222 thou/uL (130-400); RBC Distribution Width 13.9 % (11.5-14.5); Red Blood Cell (RBC) Count 2.93 mill/uL (4.70-6.10); White Blood Cell (WBC) Count 5.7 thou/uL (4.8-10.8)
[2017-05-27 20:55] VITALS: BMI 22.6
[2017-05-27] MEDS ORDERED: Apixaban 5 MG TAB PO SCH (21:00)
[2017-05-27 21:10] LABS: ALT (SGPT) 11 U/L (8-55); AST (SGOT) 22 U/L (5-34); Albumin 3.5 g/dL (3.4-4.8); Alkaline Phosphatase 87 U/L (40-150); Anion Gap 14 mmol/L (10-20); BUN (Urea Nitrogen) 38 mg/dL (8.4-25.7); Bilirubin, Total 0.3 mg/dL (0.2-1.2); Calc. Creatinine Clearance 29 mL/min (70-130); Calcium 9.3 mg/dL (7.8-10.44); Carbon Dioxide 26 mmol/L (23-31); Chloride 104 mmol/L (98-107); Estimated GFR-MDRD 34; Globulin 3.4 g/dL (2.4-3.5); Glucose 92 mg/dL (83-110); Protein, Total 6.9 g/dL (5.8-8.1); Sodium 139 mmol/L (136-145)
[2017-05-27 21:12] LABS: Digoxin 1.18 ng/mL (0.8-2.0)
[2017-05-27 21:13] LABS: CKMB 3.8 ng/mL (0-6.6)
[2017-05-27 21:19] LABS: Troponin I 0.335 ng/mL (< 0.028)
[2017-05-27] MEDS: Ezetimibe 10 MG TAB PO SCH (22:01)
[2017-05-27] MEDS: Tamsulosin HCl 0.4 MG CAP PO SCH (22:01)
[2017-05-27] MEDS: Carvedilol 3.125 MG TAB PO SCH (22:01)
[2017-05-27] MEDS: Atorvastatin Calcium 40 MG TAB PO SCH (22:02)
[2017-05-27] MEDS: Sotalol HCl 80 MG TAB PO SCH (22:02)
[2017-05-27] MEDS ORDERED: Dextrose 50% Abboject 50 ML SYRINGE SLOW IVP PRN (23:58)
[2017-05-27] MEDS ORDERED: Morphine 4 MG/ML VIAL SLOW IVP PRN (23:58)
[2017-05-27] MEDS ORDERED: HumaLOG 300 UNITS/3 ML VIAL SC PRN (23:58)
[2017-05-27] MEDS ORDERED: Ondansetron HCl/PF 4 MG/2 ML Vial IVP PRN (23:58)
[2017-05-27] MEDS ORDERED: Dextrose 5% in Water 1,000 ML IV PRN (23:58)
[2017-05-27] MEDS ORDERED: Nitroglycerin 2% Ointment 1 INCH/1 GM Packet TOP SCH (23:59)
[2017-05-28] MEDS ORDERED: Aspirin 325 MG TAB PO SCH ×2 (00:15→08:00)
[2017-05-28] MEDS: Nitroglycerin 2% Ointment 1 INCH/1 GM Packet TOP SCH ×5 (00:59→23:30)
[2017-05-28 01:06] LABS: Troponin I 0.273 ng/mL (< 0.028)
[2017-05-28] MEDS: Sodium Chloride 0.9% 1,000 ML IV SCH ×3 (01:15→18:55)
[2017-05-28 01:52] LABS: Bilirubin Negative (Negative); Blood, Urine Negative (Negative); Clarity CLEAR (Clear); Glucose, Urine (Dipstick) Negative (Negative); Leukocyte Negative (Negative); Nitrite Negative (Negative); Protein, Urine (Dipstick) 30 mg/dL (Neg-Trace); Specific Gravity, Urine 1.019 (1.002-1.036); Urobilinogen 0.2 mg/dL (0.2-1.0)
[2017-05-28 01:53] LABS: Bacteria/HPF None Seen HPF (None Seen); Hyaline Casts/LPF 0-3 HYALINE CAST LPF (0-3 Hyaline); Squamous Epithelial None Seen HPF (0-3); WBC/HPF None Seen HPF (0-3)
--- NOTE | 2017-05-28 03:11 | HP ---
PRIMARY CARE PHYSICIAN: Phil Parks MD CHIEF COMPLAINT: Chest pain and shortness of breath. HISTORY OF PRESENT ILLNESS: Mr. Del Cid is a pleasant 86-year-old gentleman, who has a history of aida nary artery disease as well as congestive heart failure. He was also recently discharged from our [facility] about 2-3 weeks ago for a CHF exacerbation. According to the patient and the patient's , he was doing fairly well after being discharged from the hospital and did not have any difficulty unt on yesterday. He says that he started becoming extremely short of breath only walki ng just a few feet. He also felt some tightness in his chest when he did this as well. It was nonra diating, but definitely noticeable. There were no associated symptoms such as nausea, vomiting, or d iaphoresis; however, his family says he just "didn't look right" and so they took him to see Dr. Yohan de oliveira earlier today. He was concerned about his symptoms and recommended that he be admitted to the hosp ital. When he was sent to the hospital, he had a troponin drawn, which is elevated at 0.3. Chest x- ray did not show any acute changes, but he is being admitted for an acute coronary syndrome. The pat ient has been placed on aspirin and nitrates and says that with that, his symptoms have improved. REVIEW OF SYSTEMS: Constitutional: There have been no fevers, chills. No night sweats. No weight loss. HEENT: No headaches. No dizziness. No visual changes. No sore throat, rhinorrhea, neck shell n. No adenopathy. Pulmonary: No hemoptysis. No cough. No wheezing. Cardiovascular: As per hist ory of present illness. He denies any PND. No orthopnea. No lower extremity edema. Gastrointestin al: No abdominal pain. No nausea. No vomiting. No change in bowels. Genitourinary: No urinary f requency, hematuria, or hesitancy. Neurologic: No focal weakness, numbness. No seizures. Psychiat tito: No symptoms of anxiety or depression. Skin and Integument: No skin changes. No rash. 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 PAST SURGICAL HISTORY: He has had an anterior cervical diskectomy, lens implant, pacemaker placement , lumbar Bernice fusion, sinus surgery, coronary stents placed as well as coronary artery bypass grafti ng, and hemorrhoid surgery. SOCIAL HISTORY: He is . He is a nonsmoker, nondrinker. ALLERGIES: CODEINE, which causes hallucinations; AND MORPHINE. FAMILY HISTORY: Both parents in their 70s and they both had cancer and diabetes. CURRENT MEDICATIONS: Include Eliquis 5 mg twice daily, aspirin 81 mg daily, atorvastatin 40 mg at be dtime, carvedilol 3.125 mg daily and 6.25 mg at bedtime, vitamin D3 2000 units daily, digoxin 0.125 m g daily, duloxetine 60 mg at bedtime, Zetia 5 mg daily, Lasix 20 mg daily, glimepiride 0.5 mg twice a day, glucosamine 2000 mg daily, levothyroxine 75 mcg daily, metformin 500 mg twice daily, multivitam in once a day, Naprosyn 440 mg daily, Nitrostat 0.4 sublingual p.r.n., Protonix 40 mg twice a day, Mi raLax 1 packet daily, Betapace 120 mg twice a day, Flomax 0.4 mg daily, and CoQ10 200 mg at bedtime. PHYSICAL EXAMINATION: GENERAL: He is alert and oriented. He appears to be in no acute distress. He is well developed and well nourished. VITAL SIGNS: Blood pressure 173/75, heart rate 61, respiratory rate of 16, temperature is 97.6. HEENT: Pupils are equal, round, and reactive. Extraocular muscles are intact. His sclerae are anic teric. Throat, no erythema and no exudates. NECK: No adenopathy. No bruits. LUNGS: Essentially clear, but he does have some dry crackles bilateral and anteriorly. CARDIOVASCULAR: He has a regular rhythm, which is slightly bradycardic. Normal S1, S2. I did not a ppreciate any murmurs. ABDOMEN: Soft, nontender, nondistended. Positive for bowel sounds. No rebound or guarding. EXTREMITIES: There is no edema. NEUROLOGIC: His exam is nonfocal. LABORATORY DATA: Sodium 139, potassium 5, chloride is 104, CO2 is 26, BUN of 38, creatinine 1.87, gl ucose is 92. White blood cell count 5.7, hemoglobin 8.5, hematocrit is 26.4, platelet count is 222. Troponin 0.335. Chest x-ray did not show any acute infiltrates or effusion. Heart size appears nor mal, this is by my reading. He had an echocardiogram done at the beginning of this month on 05/03/20 17 with an ejection fraction of 45%-50%. ASSESSMENT AND PLAN: 1. This is an 86-year-old gentleman who was actually directly admitted as a result of having chest p ain and shortness of breath. He has a known history of coronary artery disease with multiple cardiac risk factors. He also has an elevated troponin initially. He likely has an acute coronary syndrome and possibly even a non-ST segment elevated myocardial infarction. He will be admitted, started on nitrates as well as aspirin. He is ready on Eliquis and therefore, he will not be placed on heparin or Plavix. His heart rate is already in the 60s and therefore, we will not add any additional beta b lockade other than what he is already taking with the carvedilol. His naturalist will be consulted . 2. Regarding diabetes mellitus, metformin will be held and he will be placed on a sliding scale insu janie. 3. He will be left n.p.o. and I anticipate likely he may require cardiac catheterization. 4. For hypothyroidism, we will continue his usual home medications i.e., levothyroxine for this.
[2017-05-28 03:38] LABS: #Eosinphils 0.1 thou/uL (0.0-0.7); #Monocytes 0.7 thou/uL (0.11-0.59); #Neutrophils 4.1 thou/uL (1.40-6.50); %Basophils 0.2 % (0.0-1.0); %Eosinophils 2.4 % (0.0-10.0); %Lymphocytes 17.3 % (21.0-51.0); %Monocytes 11.5 % (0.0-10.0); %Neutrophils 68.6 % (42.0-75.0); Hemoglobin 7.6 g/dL (14.0-18.0); Mean Corpuscular HGB CONC 32.2 g/dL (32.0-36.0); Mean Corpuscular Hemoglobin 28.8 pg (27.0-31.0); Mean Corpuscular Volume 89.5 fl (80.0-94.0); Mean Platelet Volume 6.7 fL (7.4-10.4); Platelet Count 196 thou/uL (130-400); Red Blood Cell (RBC) Count 2.63 mill/uL (4.70-6.10)
[2017-05-28 03:39] LABS: Anion Gap 12 mmol/L (10-20); BUN (Urea Nitrogen) 36 mg/dL (8.4-25.7); Calc. Creatinine Clearance 35 mL/min (70-130); Carbon Dioxide 27 mmol/L (23-31); Cardiac Risk 3.7 (Less than 4.5); Chloride 103 mmol/L (98-107); Cholesterol 92 mg/dl (< 200 Desired); Estimated GFR-MDRD 43; Glucose 90 mg/dL (83-110); HDL Cholesterol 25 mg/dL (>60 Neg Risk); LDL Cholesterol, Calculated 44 mg/dL; Potassium 4.5 mmol/L (3.5-5.1); Sodium 137 mmol/L (136-145); Triglycerides 116 mg/dL (Less than 150)
[2017-05-28 03:43] LABS: Troponin I 0.265 ng/mL (< 0.028)
[2017-05-28] MEDS: Levothyroxine Sodium 75 MCG TAB PO SCH (05:54)
[2017-05-28] MEDS: Sotalol HCl 80 MG TAB PO SCH ×2 (09:18→20:58)
[2017-05-28] MEDS: Famotidine 20 MG TAB PO SCH (09:18)
[2017-05-28] MEDS: Digoxin 0.125 MG TAB PO SCH (09:19)
[2017-05-28] MEDS: Carvedilol 3.125 MG TAB PO SCH ×2 (09:28→20:58)
--- NOTE | 2017-05-28 11:40 | PDOC.PN ---
- Subjective Encounter Start Date: 05/28/17 Encounter Start Time: 11:38 Patient seen and examined. No new complaints. No overnight events. still having chest pain on exertion. Pt NPO. denies any dark stool. - Objective Resuscitation Status: Resuscitation Status FULL:Full Resuscitation MAR Reviewed: Yes Vital Signs & Weight: Vital Signs (12 hours) Temp Pulse Resp BP BP Pulse Ox 05/28/17 09:19 60 05/28/17 09:18 60 162/75 H 05/28/17 09:14 97.6 F 60 18 162/75 H 99 05/28/17 04:00 98.3 F 61 18 174/79 H 99 05/28/17 00:00 98.5 F 61 28 H 167/73 H 100 Weight Weight 161 lb I&O: 05/27/17 05/28/17 05/29/17 06:59 06:59 06:59 Intake Total 540 Output Total 800 Balance -260 Result Diagrams: 05/28/17 03:11 05/28/17 03:11 Additional Labs: Accuchecks 05/28/17 06:07 POC Glucose 103 Phys Exam - Physical Examination Constitutional: NAD HEENT: sclera anicteric Neck: supple Respiratory: no wheezing, no rales Cardiovascular: RRR Gastrointestinal: soft Musculoskeletal: no edema Neurological: non-focal Psychiatric: normal affect, A&O x 3 Skin: no rash Dx/Plan (1) Anemia Code(s): D64.9 - ANEMIA, UNSPECIFIED Status: Acute (2) CHF (congestive heart failure) Code(s): I50.9 - HEART FAILURE, UNSPECIFIED Status: Acute (3) Anxiety and depression Code(s): F41.8 - OTHER SPECIFIED ANXIETY DISORDERS Status: Chronic (4) Atrial fibrillation Code(s): I48.91 - UNSPECIFIED ATRIAL FIBRILLATION Status: Chronic (5) Dyslipidemia Code(s): E78.5 - HYPERLIPIDEMIA, UNSPECIFIED Status: Chronic (6) Hypertension Code(s): I10 - ESSENTIAL (PRIMARY) HYPERTENSION Status: Chronic (7) Hypothyroidism Code(s): E03.9 - HYPOTHYROIDISM, UNSPECIFIED Status: Chronic (8) Iron deficiency anemia Code(s): D50.9 - IRON DEFICIENCY ANEMIA, UNSPECIFIED Status: Chronic - Plan cont current plan of care, plan discussed w/ family * . awaiting cardio input. Pt is npo anemia - check stool OB. GI consult if needed. on eliquis. AM labs.
--- NOTE | 2017-05-28 12:31 | EKG ---
Test Reason : STAT Blood Pressure : / mmHG Vent. Rate : 060 BPM Atrial Rate : 227 BPM P-R Int : 000 ms QRS Dur : 166 ms QT Int : 500 ms P-R-T Axes : 000 -73 100 degrees QTc Int : 500 ms Ventricular-paced rhythm Abnormal ECG When compared with ECG of 02-MAY-2017 20:44, Vent. rate has decreased BY [address] Aranza FOWLER ([id number]) on 05/28/2017 12:31:43 PM Referred By: TAAL Confirmed By:DR. Aranza FOWLER
[2017-05-28] MEDS: Acetaminophen 325 MG TAB PO PRN (18:01)
[2017-05-28] MEDS: Labetalol HCl 100 MG/20 ML VIAL SLOW IVP PRN (18:11)
[2017-05-28] MEDS ORDERED: Furosemide 40 MG/4 ML VIAL SLOW IVP SCH (18:45)
[2017-05-28] MEDS: Glimepiride 1 MG TAB PO SCH ×2 (18:55)
[2017-05-28] MEDS: Tamsulosin HCl 0.4 MG CAP PO SCH (20:58)
[2017-05-28] MEDS: Atorvastatin Calcium 40 MG TAB PO SCH (20:58)
[2017-05-28] MEDS: Ezetimibe 10 MG TAB PO SCH (20:59)
[2017-05-28] MEDS ORDERED: Atorvastatin Calcium 40 MG TAB PO SCH (21:00)
[2017-05-29 05:27] LABS: Anion Gap 11 mmol/L (10-20); BUN (Urea Nitrogen) 28 mg/dL (8.4-25.7); Calc. Creatinine Clearance 43 mL/min (70-130); Carbon Dioxide 27 mmol/L (23-31); Chloride 100 mmol/L (98-107); Estimated GFR-MDRD 54; Glucose 75 mg/dL (83-110); Iron 19 ug/dL (65-175); Iron Binding Capacity, Total 290 mcg/dL (261-462); Potassium 3.9 mmol/L (3.5-5.1); Sodium 134 mmol/L (136-145)
[2017-05-29] MEDS: Levothyroxine Sodium 75 MCG TAB PO SCH (05:31)
[2017-05-29] MEDS: Nitroglycerin 2% Ointment 1 INCH/1 GM Packet TOP SCH ×4 (05:31→23:39)
[2017-05-29 05:35] LABS: #Eosinphils 0.1 thou/uL (0.0-0.7); #Monocytes 0.7 thou/uL (0.11-0.59); #Neutrophils 3.3 thou/uL (1.40-6.50); %Basophils 0.4 % (0.0-1.0); %Eosinophils 2.1 % (0.0-10.0); %Lymphocytes 18.7 % (21.0-51.0); %Monocytes 13.9 % (0.0-10.0); %Neutrophils 64.9 % (42.0-75.0); Hemoglobin 8.5 g/dL (14.0-18.0); Mean Corpuscular Hemoglobin 29.2 pg (27.0-31.0); Mean Corpuscular Volume 88.6 fl (80.0-94.0); Mean Platelet Volume 7.1 fL (7.4-10.4); Platelet Count 223 thou/uL (130-400); RBC Distribution Width 13.8 % (11.5-14.5); Red Blood Cell (RBC) Count 2.91 mill/uL (4.70-6.10); White Blood Cell (WBC) Count 5.1 thou/uL (4.8-10.8)
--- NOTE | 2017-05-29 06:08 | CON ---
DATE OF CONSULTATION: 05/28/2017 HISTORY OF PRESENT ILLNESS: Eldon Del Cid is a very pleasant 86-year-old white male that follows since 09/1989. At that time, he had exertional chest discomfort for 2 years when he was initially seen. 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 Marquise etimes this discomfort would last all day and nitroglycerin would not seem to help. In 10/1987, he u nderwent treadmill testing, which was abnormal. This was followed by cardiac catheterization by Dr. Contreras at [facility] in [place] with finding of 40% to 50% ramus, 75% stenosis of the first o btuse marginal, 60% distal LAD, 30% to 40% mid RCA stenosis. The right coronary artery is very large . He had normal left ventricular function. The decision was made to treat him medically and two years he continued to have chest discomfort. In 08/1989, he underwent treadmill testing and exercising for 7 minutes and developed slight chest disc omfort at 6 minutes along with 2-mm of ST segment depression, 2, 3, F, V4 through V6. Thallium revea led minimal redistribution or involving the inferolateral aspect of the left ventricle suggestive of possible ischemia. He underwent cardiac catheterization at [place] and was found to have signific ant right coronary artery stenosis of 80% and 60% in the mid-portion. There was 50% mid to distal LA D, 30% ramus stenosis. Both there is in the right coronary artery were dilated with final lesion davy ng 30%. In the morning after discontinuation of the heparin, he had recurrence of his usual chest discomfort. Heparin was restarted. He was placed on nitroglycerin IV and his discomfort rapidly subsided. EKG did not show any significant changes. During the catheterization, it was noted that during the ball oon inflation, he had dramatic ST segment elevation in the inferior leads. Due to the recurrence of this discomfort, he underwent repeat catheterization later that day. The right coronary artery has c ontinued to have good result with small area of dissection. It was felt that his discomfort at this time may have been due to spasm and Procardia dose was increased. In 10/1989, he underwent treadmill testing and exercised for 7 minutes and 41 seconds with very mild chest discomfort. At peak exercise, he had [address] segment depression in V5 and V6. This is a dr amatic improvement from his prior treadmill before angioplasty where he had [address] segment depres kelli. In 07/1990, thallium treadmill revealed that he exercised for 7 minutes and had [address] seg ment depression, which was upsloping in V4 through V6 and [address] segment depression in 1 and 2. He did not have any chest discomfort. This was felt to be a positive treadmill. Thallium revealed i nferior and lower septal ischemia. However, he was asymptomatic and decision was made not to proceed with repeat catheterization at that time. In 09/1991, he had no chest discomfort walking 1 mile. I n 03/1994, he presented with 2-3 week history of epigastric burning that would radiate to his throat. This occurred with activities such as walking to his barn and would resolve with rest in 5 minutes. He had discomfort that radiated to his left shoulder. The pain continued to worsen and came to the hospital and as he near to the hospital, his pain gradually resolved and was gone by the time he ej cked in. However, he did have biphasic T waves in V4 and V5. He underwent catheterization and had 9 0% proximal LAD, 30% mid LAD, 80% lesion in a large septal perforating branch, 40% to 50% ramus mark nalis, 50% small obtuse marginal and 80% followed by 50% mid RCA lesions. There was mild anterior hy pokinesis. He then underwent CABG x4 by Dr. Hinds on 03/15/1994 with ALMARAZ to LAD and vein graft to r amus, right posterior descending and right coronary artery distal to the takeoff of the right PDA. Cami flores had atrial fibrillation and pericardial rub postoperatively, was started on Indocin and digoxin. I n 05/1994, he was walking 1 to 1-1/2 miles per day without chest discomfort. Treadmill at that time revealed inverted T waves in 1, L, and V2 and there was 0.5-1.[address] segment depression, which wa s upsloping in multiple leads and felt not to be significant. Treadmill was negative for ischemia. He continued to undergo treadmills almost on a yearly basis overall negative. In 12/1999, he complained of exertional dyspnea. He exercised 7 minutes on treadmill, had no ST segm ent changes, treadmill was negative for ischemia. In 10/2001, he complained of episodes of upper ej st tightness with walking or running that would last approximately 5 minutes and were relieved with r est. This has been occurring for 3 months. He underwent stress echo testing, exercised for 9 minute s. There was 2-[address] segment depression, but he did not have any chest discomfort. EKG was pos itive for ischemia. Echo revealed scar of the inferoposterior wall and ischemia in the lateral wall and apex. He underwent catheterization and was found to have moderate anterior hypokinesis with ejec tion fraction of 40% to 45%. There was total occlusion of the proximal LAD after the first septal pe rforating branch. There was total occlusion of the ramus. Small circumflex had 70% obtuse marginal stenosis. The right coronary artery, he had a 70% to 80% proximal and distal stenosis and 80% distal stenosis. Bypass revealed patent ALMARAZ to LAD, patent ramus graft, occluded right posterior descendi ng graft. The right coronary artery graft does show some posterior descending takeoff had thrombus a pproximately 70% obstructing lesion. He was given Integrilin, intracoronary nitroglycerin, intracoro nary adenosine. An Ultra 5.0 x 28 mm stent was placed in the right coronary artery graft distal to t he right posterior descending takeoff. 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 He has slight elevation of his CK with MB of 9.7, troponin I of 3.0. After the procedure, he ambulated. He had dramatic improvement in his exercise tolerance at the ti me of discharge. In 03/2003, he exercised for 7 minutes, has 0.5-[address] segment depres kelli in V4 through V6. This returned to baseline in two minutes. No chest pain. Echo revealed infe rior and posterior wall scar, but no evidence of stress-induced ischemia. In 05/2004, we returned for yearly followup. He underwent stress echo testing, exercised for 6 minut es. EKG showed the new onset of atrial fibrillation/flutter with [address] segment depression in V4 through V6, II, III, and F. The EKG was felt to be positive for ischemia. Echo revealed ejection f raction of 40% to 45% with inferior and posterior wall scar at the base and lateral ischemia. He was admitted and underwent catheterization. He had moderate anterior and apical hypokinesis with ejecti on fraction of 40% to 45%. The LAD was totally occluded proximally. There was small circumflex with 60% first obtuse marginal lesion. The ramus was totally occluded. The right coronary was diffusely diseased with 70%-80% proximal to mid stenosis and 80% mid stenosis. Bypass grafts revealed patent ALMARAZ to the LAD with 50% lesion proximal to the graft insertion. The ramus graft was patent. Right posterior descending graft was occluded as before. The right coronary artery graft distal to the rig ht posterior descending takeoff had an 80% in-stent restenosis. He then underwent laser atherectomy with a 1.7 E followed by placement of an Ultra 5.0 x 13 mm stent for in-stent restenosis. There was an area of dissection at the end of the new stent and another anatoly nt, an Express 2.5 x 20 mm stent was placed. He had some mild residual chest discomfort after the pr ocedure, [address] segment elevation inferiorly which gradually resolved. He did have a small myoca rdial infarction due to embolic debris with CK of 494, MB 55.1, troponin I 72.0. He continued to have atrial fibrillation/flutter and amiodarone was started. He had heart rates in t he low 30s, and soon thereafter would go into atrial fibrillation/flutter. It was recommended that p acemaker being placed and an AT-500 pacemaker was placed without incident. He was discharged on Ecot rin and Plavix. In 10/2004, the pacemaker was interrogated and he did have atrial fibrillation; astorga krissy, after 05/2004, he did not seem to have any further episodes. The amiodarone was reduced to 200 mg daily. In 07/2004, the atrial therapies were turned on. In 12/2005, he presented to the emergency room for pain and episode of diaphoresis, weakness, and lig htheadedness, but denied any chest pain or shortness of breath. Cardiac enzymes were negative and he underwent repeat catheterization, which revealed moderate anterior hypokinesis with ejection fractio n of . IMPRESSION: 1. 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 2. Hypercholesterolemia. 3. Hypertension. 4. Former smoker. 5. Positive family history. 6. History of cervical laminectomy. PLAN: Eliquis will be discontinued. At the current time with his age and creatinine of greater than 1.5, he should be on a lower dose, but looking at his previous creatinines, he would need to be on t he higher dose. However, the Eliquis will be discontinued and aspirin will be reduced from 325 to 81 . Iron and iron binding capacity will be obtained. Consultation will be obtained with [facility]. I feel his symptoms are probably due to his anemia, however, he certainly may have progression of his coronary artery disease and possible graft disease. However, with inability due to anticoagulate cathleen shrestha, no further treatment can be offered in terms of intervention with his coronary anatomy at this [facility].
--- NOTE | 2017-05-29 07:46 | PDOC.PN ---
- Subjective Encounter Start Date: 05/29/17 Encounter Start Time: 07:44 Subjective: Seen and examine dwith no new complaint - Objective Resuscitation Status: Resuscitation Status FULL:Full Resuscitation Vital Signs & Weight: Vital Signs (12 hours) Temp Pulse Resp BP Pulse Ox 05/29/17 04:00 97.9 F 80 18 153/70 H 99 05/28/17 20:55 100.1 F H 62 20 131/73 97 Weight Weight 157 lb 4 oz I&O: 05/28/17 05/29/17 05/30/17 06:59 06:59 06:59 Intake Total 540 1670 Output Total 800 1725 Balance -260 -55 Result Diagrams: 05/29/17 04:32 05/29/17 04:32 Additional Labs: Accuchecks 05/29/17 05/29/17 05/28/17 06:28 00:23 20:21 POC Glucose 87 158 H 132 H 05/28/17 05/28/17 18:01 12:17 POC Glucose 131 H 93 Phys Exam - Physical Examination Constitutional: NAD HEENT: PERRLA, moist MMs, sclera anicteric, TM's clear Neck: no nodes, no JVD, supple, full ROM Respiratory: no wheezing, no rales, no rhonchi, clear to auscultation bilateral Cardiovascular: RRR, no significant murmur, no rub Gastrointestinal: soft, non-tender, no distention, positive bowel sounds Musculoskeletal: no edema, pulses present Dx/Plan (1) Anemia Code(s): D64.9 - ANEMIA, UNSPECIFIED Status: Acute (2) CHF (congestive heart failure) Code(s): I50.9 - HEART FAILURE, UNSPECIFIED Status: Acute (3) Protein-calorie malnutrition, moderate Code(s): E44.0 - MODERATE PROTEIN-CALORIE MALNUTRITION Status: Acute (4) Atrial fibrillation Code(s): I48.91 - UNSPECIFIED ATRIAL FIBRILLATION Status: Chronic (5) Diabetes type 2, controlled Code(s): E11.9 - TYPE 2 DIABETES MELLITUS WITHOUT COMPLICATIONS Status: Chronic (6) Hypertension Code(s): I10 - ESSENTIAL (PRIMARY) HYPERTENSION Status: Chronic (7) Iron deficiency anemia Code(s): D50.9 - IRON DEFICIENCY ANEMIA, UNSPECIFIED Status: Chronic - Plan plan discussed w/ family, PT/OT, social services specialist Appreciate cardiology input -: D/c Elliquis and reduce dose of asirin -: No cardiac intervention indicated-unable to anticoagulate -: Awaiting Gi input -: Iron supplementation * .
[2017-05-29] MEDS: Famotidine 20 MG TAB PO SCH (11:11)
[2017-05-29] MEDS: Digoxin 0.125 MG TAB PO SCH (11:11)
[2017-05-29] MEDS: Ferrous Gluconate 324 MG TAB PO SCH (11:12)
[2017-05-29] MEDS: Glimepiride 1 MG TAB PO SCH ×2 (11:12→17:00)
[2017-05-29] MEDS: Carvedilol 3.125 MG TAB PO SCH ×2 (11:12→20:10)
[2017-05-29] MEDS: Sotalol HCl 80 MG TAB PO SCH ×2 (11:12→20:09)
[2017-05-29] MEDS: Aspirin 81 mg Enteric Coated Tablet PO SCH ×2 (11:12→11:16)
[2017-05-29] MEDS ORDERED: GoLYTELY 4,000 ml Bottle PO SCH (18:30)
[2017-05-29] MEDS: Ezetimibe 10 MG TAB PO SCH (20:09)
[2017-05-29] MEDS: Atorvastatin Calcium 40 MG TAB PO SCH (20:10)
[2017-05-29] MEDS: Tamsulosin HCl 0.4 MG CAP PO SCH (20:10)
[2017-05-29 23:11] LABS: Platelet Count 273 thou/uL (130-400)
[2017-05-30] MEDS: Acetaminophen 325 MG TAB PO PRN (00:07)
[2017-05-30] MEDS: Levothyroxine Sodium 75 MCG TAB PO SCH (05:16)
[2017-05-30] MEDS: Nitroglycerin 2% Ointment 1 INCH/1 GM Packet TOP SCH ×4 (05:17→23:54)
[2017-05-30] MEDS: Carvedilol 3.125 MG TAB PO SCH ×2 (05:17→20:37)
--- NOTE | 2017-05-30 08:54 | CON ---
DATE OF CONSULTATION: 05/29/2017 REASON FOR CONSULTATION: Symptomatic anemia, heme positive stool. HISTORY OF PRESENT ILLNESS: Mr. Del Cid is a pleasant 86-year-old gentleman who came to the hospital w ith some chest pain with exertion, diagnosed with unstable angina. He was found to have hemoglobin o f about 7.5, which was new for him. He had a normocytic anemia, but iron levels which were low with an iron of 19 and TIBC of 290. He received a unit of blood and is feeling better, he is ambulating t effie with no chest pain. He has been on chronic anticoagulation for atrial fibrillation. There are some plans about getting him a Watchman procedure and stopped giving anticoagulation. At one point, there was some thought about trying to cardiovert him, but he had a clot in the atrial appendage that was not performed. As far as blood anemia, neither he nor the family have seen any overt blood loss . He has lost some weight recently and that was related to dysphagia that developed after cervical s pine fusion surgery. At that time, he actually had a PEG tube placed by Dr. Woo and then once his s wallowing improved, he had removed that endoscopy on 02/06/2016 just showed a little bit of gastritis . There was no bleeding at that time. Here in the hospital, had a positive Hemoccult stool, but aga in no melena, hematochezia, or hematemesis. As far as previous colonoscopies, he and his do not remember the last one; they estimate it was over 10 years ago. In looking back at the records, he h ad a polyp in 1984 that was adenoma. PAST MEDICAL HISTORY: Prior NM in 2003, hyperlipidemia, hypertension, former smoker, history of refl ux, atrial fibrillation with left atrial thrombus, type 2 diabetes, hypothyroidism, hypertension, sandra or TIAs. PAST SURGICAL HISTORY: Anterior cervical diskectomy, pacemaker placement, sinus surgery, coronary ar mau stent placed in the past, surgery, EGD, and PEG earlier this year. SOCIAL HISTORY: Patient is . His who is at bedside, daughter is at bedside, does not sm sergio or drink. ALLERGIES: CODEINE and MORPHINE. MEDICATIONS AT HOME: Eliquis, aspirin, atorvastatin, carvedilol, vitamin D, digoxin, duloxetine, Zet ia, Lasix, glimepiride, glucosamine, Synthroid, metformin, Naprosyn p.r.n. sublingual, Nitrostat, Pro tonix, MiraLax, Betapace, Flomax. PHYSICAL EXAMINATION: GENERAL: Patient is alert, oriented, and very interactive. No shortness of breath, no somnolence, f atigue. HEENT: Conjunctivae and sclerae are clear. VITAL SIGNS: Temperature 98, pulse 60, blood pressures 130s/60s. LUNGS: Clear. CARDIAC: Heart is regular without clicks or murmurs. ABDOMEN: Nontender. LABORATORY STUDIES: White count 5.1, hemoglobin 8.5 after a unit of blood; it was 7.6 yesterday, 8.5 on 05/27, 10.1 on 05/02. He had a platelet count of 223. INR was normal. Chemistry showed BUN and creatinine of 28 and 11. Digoxin 1.18 on 05/27. Hemoccult stool positive, transfusions 1 unit. ASSESSMENT: 1. This is a gentleman who came in with some chest pain with exertion, this seems to be related to w orsening anemia it has resolved with transfusion. 2. He does have a known coronary artery disease and atrial fibrillation that has been managed with a nticoagulation by Dr. Jimenez and EP Department of Cardiology. At this time, his anticoagulation jenkins s been held. He has been placed on a PPI related to drop in hemoglobin and heme positive stools. 3. Anemia, it is normocytic normochromic, but he does have heme-positive stools. He has had a littl e bit drop from his baseline, which became symptomatic from although no overt bleeding. I suspect th is is related to his anticoagulation. Did have an EGD recently that was normal except for mild gastr itis. It is possible that he got a little bit supratherapeutic with Eliquis, his creatinine bumping up and down. Last estimated GFR was 54. Other possibility is that, he has got AVMs or other type le sions. He has not had a colonoscopy; however, in quite some time. 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 I think the endoscopy will make a difference and now he is treat ed from a cardiovascular standpoint. The patient will tolerate it well with symptomatic anemia, curr ently causing chest pain and hospitalization. It is probably best to see if there is any underlying causes of the blood thinner alone. PLAN: We will be for upper and lower endoscopy tomorrow.
[2017-05-30] MEDS: Ferrous Gluconate 324 MG TAB PO SCH (09:13)
[2017-05-30] MEDS: Glimepiride 1 MG TAB PO SCH ×2 (09:13→18:11)
[2017-05-30] MEDS: Aspirin 81 mg Enteric Coated Tablet PO SCH (09:13)
[2017-05-30] MEDS: Famotidine 20 MG TAB PO SCH (09:14)
[2017-05-30] MEDS: Digoxin 0.125 MG TAB PO SCH (09:14)
[2017-05-30] MEDS: Sotalol HCl 80 MG TAB PO SCH ×2 (09:14→20:37)
[2017-05-30] MEDS ORDERED: Promethazine HCl 25 MG/ML VIAL IM PRN (10:34)
[2017-05-30] MEDS ORDERED: Ondansetron HCl/PF 4 MG/2 ML Vial IVP PRN (10:34)
[2017-05-30] MEDS ORDERED: Promethazine HCl 25 MG/ML VIAL SLOW IVP PRN (10:34)
--- NOTE | 2017-05-30 13:56 | OP ---
DATE OF PROCEDURE: 05/30/2017 PROCEDURES: Esophagogastroduodenoscopy (diagnostic), colonoscopy with polypectomy. DESCRIPTION OF PROCEDURE: After explaining the risks and benefits of the procedure to the patient with risks including bleeding, infection, perforation, reactions to anesthesia, and possible pain, informed consent was obtained at which point, the patient was taken back to the endoscopy suite with deep sedation administered via propofol with anesthesia support. The standard gastroscope was then advanced into the mouth with intubation of the esophagus, stomach, and proximal small intestine with findings listed below. FINDINGS: DUODENUM: Normal appearing mucosa was seen in both the duodenal bulb and second portion of the duodenum. There was no evidence of erosions, ulcerations , active/recent bleeding or mass lesions. STOMACH: Normal appearing mucosa was seen in the gastric cardia, fundus, body, antrum and incisura. There was no evidence of erosions, ulcerations, active/ recent bleeding or mass lesions. No abnormalities seen on gastric retroflexion. ESOPHAGUS: Normal appearing mucosa was seen in the proximal mid and distal esophagus. There was no evidence of esophagitis, erosions, ulcerations, active/ recent bleeding or mass lesions. Both the diaphragmatic pinch and the GE junction were both well seen at 39 cm past the incisors. IMPRESSION: 1. Normal upper endoscopy. 2. No etiology for anemia seen during this examination. RECOMMENDATION: Proceed to colonoscopy. PROCEDURE: Colonoscopy. DESCRIPTION OF PROCEDURE: After risks and benefits were explained to the patient, with risks including bleeding, infection, perforation, reaction to anesthesia and/or pain, informed consent was obtained. The patient was then taken back to the endoscopy suite with deep sedation via propofol administered with anesthesia support. The standard gap colonoscope was then advanced through the rectum into the cecum and terminal ileum. The prep was considered good. The patient tolerated the procedure well with no procedural complications. RECTAL: Normal sphincter tone with external hemorrhoids noted. FINDINGS: Normal mucosa was seen in the terminal ileum, cecum and at the ileocecal valve. Normal mucosa was seen in the ascending and transverse colon. Two small polyps measuring approximately 3-4 mm in size were seen in the distal transverse colon and completely removed with cold snare polypectomy. They were retrieved and placed in a jar for pathology evaluation. Small scattered diverticula were seen in the sigmoid colon. Normal mucosa was seen in the rectum. Small internal hemorrhoids were seen on rectal retroflexion. IMPRESSION: 1. Two small distal descending colon polyps, now status post cold snare polypectomy. 2. Mild sigmoid diverticulosis. 3. Internal and external hemorrhoids. 4. No etiology for anemia seen during this examination. RECOMMENDATIONS: 1. Follow with primary inpatient team. 2. We will continue iron supplementation as you are doing. 3. We will follow up on pathology of polyps removed with surveillance colonoscopy recommendation based on pathology. 4. We will restart patient on clear liquid diet and can advance it as tolerated. 5. Would hold anticoagulation for the next 48 hours given the polypectomies performed today during the colonoscopy. 6. We will continue to trend hemoglobin and hematocrit and transfuse as necessary to maintain hemoglobin and hematocrit of 7/21. MTDD
[2017-05-30] MEDS: Labetalol HCl 100 MG/20 ML VIAL SLOW IVP PRN (14:15)
[2017-05-30] MEDS ORDERED: Propofol 200 MG/20 ML VIAL ONE (17:02)
--- NOTE | 2017-05-30 17:29 | PDOC.PN ---
- Subjective Encounter Start Date: 05/30/17 Encounter Start Time: 17:26 Subjective: seen and examined feeling better - Objective Resuscitation Status: Resuscitation Status FULL:Full Resuscitation Vital Signs & Weight: Vital Signs (12 hours) Temp Pulse Resp BP BP Pulse Ox 05/30/17 14:15 61 195/83 H 05/30/17 13:32 98.1 F 61 20 184/81 H 100 05/30/17 12:50 174/77 H 05/30/17 11:50 97.2 F L 69 18 196/86 H 100 05/30/17 08:11 171/78 H 05/30/17 08:05 98.1 F 63 18 98 05/30/17 08:03 98.1 F 63 18 184/80 H 98 Weight Weight 157 lb 3 oz I&O: 05/29/17 05/30/17 05/31/17 06:59 06:59 06:59 Intake Total 1670 520 Output Total 1725 475 Balance -55 45 Result Diagrams: 05/29/17 22:35 05/29/17 22:35 Additional Labs: Accuchecks 05/30/17 05/30/17 05/30/17 12:38 06:45 00:05 POC Glucose 88 97 108 05/29/17 19:02 POC Glucose 76 Phys Exam - Physical Examination Constitutional: NAD HEENT: PERRLA, moist MMs, sclera anicteric, TM's clear Neck: no nodes, no JVD, supple, full ROM Respiratory: no wheezing, no rales, no rhonchi, clear to auscultation bilateral Cardiovascular: RRR, no significant murmur, no rub Gastrointestinal: soft, non-tender, positive bowel sounds Dx/Plan (1) Anemia Code(s): D64.9 - ANEMIA, UNSPECIFIED Status: Acute (2) CHF (congestive heart failure) Code(s): I50.9 - HEART FAILURE, UNSPECIFIED Status: Acute (3) Protein-calorie malnutrition, moderate Code(s): E44.0 - MODERATE PROTEIN-CALORIE MALNUTRITION Status: Acute (4) Atrial fibrillation Code(s): I48.91 - UNSPECIFIED ATRIAL FIBRILLATION Status: Chronic (5) Diabetes type 2, controlled Code(s): E11.9 - TYPE 2 DIABETES MELLITUS WITHOUT COMPLICATIONS Status: Chronic (6) Hypertension Code(s): I10 - ESSENTIAL (PRIMARY) HYPERTENSION Status: Chronic (7) Iron deficiency anemia Code(s): D50.9 - IRON DEFICIENCY ANEMIA, UNSPECIFIED Status: Chronic - Plan plan discussed w/ family, PT/OT, social worker school EGD is unremarkable per GI -: Advance diet as tolerated * .
[2017-05-30] MEDS: Tamsulosin HCl 0.4 MG CAP PO SCH (20:37)
[2017-05-30] MEDS: Atorvastatin Calcium 40 MG TAB PO SCH (20:37)
[2017-05-30] MEDS: Ezetimibe 10 MG TAB PO SCH (20:38)
[2017-05-31] MEDS: Levothyroxine Sodium 75 MCG TAB PO SCH (05:43)
[2017-05-31] MEDS: Nitroglycerin 2% Ointment 1 INCH/1 GM Packet TOP SCH ×4 (05:43→23:41)
[2017-05-31 08:07] LABS: Band 2 % (5-11); Eosinophils 2 % (0-10); Hemoglobin 8.6 g/dL (14.0-18.0); Lymphocytes 9 % (21-51); MDiff Complete? YES; Mean Corpuscular HGB CONC 32.1 g/dL (32.0-36.0); Mean Corpuscular Hemoglobin 28.7 pg (27.0-31.0); Mean Corpuscular Volume 89.4 fl (80.0-94.0); Mean Platelet Volume 6.2 fL (7.4-10.4); Metamyelocyte 1 % (0-0); Monocytes 16 % (0-10); Neutrophil 70 % (42-75); PLT Morphology Comment Appears Adequate; Platelet Count 217 thou/uL (130-400); RBC Distribution Width 13.8 % (11.5-14.5); RBC Morphology Normal; White Blood Cell (WBC) Count 4.1 thou/uL (4.8-10.8)
[2017-05-31] MEDS: Ferrous Gluconate 324 MG TAB PO SCH ×2 (08:12→17:18)
[2017-05-31] MEDS: Glimepiride 1 MG TAB PO SCH ×2 (08:12→17:19)
[2017-05-31] MEDS: Digoxin 0.125 MG TAB PO SCH (08:13)
[2017-05-31] MEDS: Famotidine 20 MG TAB PO SCH (08:14)
[2017-05-31] MEDS: Carvedilol 3.125 MG TAB PO SCH ×2 (08:14→20:55)
[2017-05-31] MEDS: Sotalol HCl 80 MG TAB PO SCH ×2 (08:14→20:53)
[2017-05-31] MEDS: Aspirin 81 mg Enteric Coated Tablet PO SCH (08:16)
--- NOTE | 2017-05-31 09:05 | PDOC.PN ---
- Subjective Encounter Start Date: 05/31/17 Encounter Start Time: 09:04 Patient seen and examined. No new complaints. No overnight events. feels good. No bleeding reported. No cp or sob. On O2 and not at home. not ambulated much here. BP better. - Objective Resuscitation Status: Resuscitation Status FULL:Full Resuscitation MAR Reviewed: Yes Vital Signs & Weight: Vital Signs (12 hours) Temp Pulse Resp BP BP Pulse Ox 05/31/17 08:14 65 05/31/17 08:13 65 05/31/17 07:08 98 F 65 16 100 05/31/17 07:00 98 F 65 16 155/68 H 100 05/31/17 04:00 98.2 F 64 20 160/77 H 100 05/31/17 01:28 165/73 H 05/31/17 00:00 98.7 F 62 20 181/82 H 100 Weight Weight 153 lb 4.8 oz I&O: 05/30/17 05/31/17 06/01/17 06:59 06:59 06:59 Intake Total 520 1440 Output Total 475 900 Balance 45 540 Result Diagrams: 05/31/17 07:08 05/29/17 22:35 Additional Labs: Accuchecks 05/31/17 05/30/17 05/30/17 05:37 23:48 18:01 POC Glucose 86 105 120 H 05/30/17 12:38 POC Glucose 88 Phys Exam - Physical Examination Constitutional: NAD HEENT: sclera anicteric Neck: supple Respiratory: no wheezing, no rales Cardiovascular: RRR Gastrointestinal: soft Musculoskeletal: no edema Neurological: non-focal Psychiatric: normal affect, A&O x 3 Skin: no rash Dx/Plan (1) Anemia Code(s): D64.9 - ANEMIA, UNSPECIFIED Status: Acute (2) CHF (congestive heart failure) Code(s): I50.9 - HEART FAILURE, UNSPECIFIED Status: Acute (3) Anxiety and depression Code(s): F41.8 - OTHER SPECIFIED ANXIETY DISORDERS Status: Chronic (4) Atrial fibrillation Code(s): I48.91 - UNSPECIFIED ATRIAL FIBRILLATION Status: Chronic (5) Dyslipidemia Code(s): E78.5 - HYPERLIPIDEMIA, UNSPECIFIED Status: Chronic (6) Hypertension Code(s): I10 - ESSENTIAL (PRIMARY) HYPERTENSION Status: Chronic (7) Hypothyroidism Code(s): E03.9 - HYPOTHYROIDISM, UNSPECIFIED Status: Chronic (8) Iron deficiency anemia Code(s): D50.9 - IRON DEFICIENCY ANEMIA, UNSPECIFIED Status: Chronic - Plan cont current plan of care, plan discussed w/ family, PT/OT, respiratory therapy , out of bed/ambulate, DVT proph w/SCDs * . continue PPI bid. will make iron bid. Monitor Hb level. will hold Eliquis one more day and start tomorrow is OK with GI. f/u with cardiology. family requesting to do CT coronary mapping here at hospital. Transfer to medical. Add amlodipine for BP control. Ambulate PT/OT consult wean off O2 as tolerated. AM labs.
[2017-05-31] MEDS: Amlodipine 5 MG TAB PO SCH (09:51)
[2017-05-31] MEDS: Atorvastatin Calcium 40 MG TAB PO SCH (20:53)
[2017-05-31] MEDS: Ezetimibe 10 MG TAB PO SCH (20:53)
[2017-05-31] MEDS: Tamsulosin HCl 0.4 MG CAP PO SCH (20:54)
--- NOTE | 2017-05-31 21:21 | PRG ---
DATE OF SERVICE: 05/31/2017 SUBJECTIVE: Mr. Del Cid has no acute complaints. He has had no overt bleeding. No abdominal pain. H e is tolerating a solid diet. OBJECTIVE: VITAL SIGNS: Temperature 98.3, pulse 63, blood pressure 138/71. GENERAL: He is in no acute distress, awake and alert. LUNGS: Clear to auscultation bilaterally. HEART: S1, S2. ABDOMEN: Soft, nontender, nondistended. Bowel sounds are present. EXTREMITIES: No lower extremity edema. LABORATORY DATA: Hemoglobin is 8.6, stable from yesterday morning at 8.5. Creatinine 1.22. IMPRESSION: Anemia of chronic disease. Upper and lower endoscopy were negative for a bleeding sourc e. RECOMMENDATIONS: 1. Eliquis can likely be restarted tomorrow evening. The plan was to restart at the lower renal dos e is my understanding. 2. I will sign off. Please call if GI can be of assistance.
[2017-05-31 23:02] LABS: Hemoglobin 8.1 g/dL (14.0-18.0); Platelet Count 204 thou/uL (130-400)
[2017-06-01 05:44] LABS: Anion Gap 10 mmol/L (10-20); BUN (Urea Nitrogen) 15 mg/dL (8.4-25.7); Calc. Creatinine Clearance 50 mL/min (70-130); Calcium 8.9 mg/dL (7.8-10.44); Carbon Dioxide 30 mmol/L (23-31); Chloride 98 mmol/L (98-107); Estimated GFR-MDRD 69; Glucose 88 mg/dL (83-110); Potassium 4.1 mmol/L (3.5-5.1); Sodium 134 mmol/L (136-145)
[2017-06-01 06:06] LABS: Band 14 % (5-11); Eosinophils 5 % (0-10); Hemoglobin 8.3 g/dL (14.0-18.0); Hypochromia SLIGHT = 6-15 cells (100X) (0-5/hpf); Lymphocytes 13 % (21-51); MDiff Complete? YES; Mean Corpuscular HGB CONC 31.8 g/dL (32.0-36.0); Mean Corpuscular Hemoglobin 28.5 pg (27.0-31.0); Mean Corpuscular Volume 89.6 fl (80.0-94.0); Mean Platelet Volume 6.5 fL (7.4-10.4); Monocytes 8 % (0-10); Neutrophil 57 % (42-75); PLT Morphology Comment Appears Adequate; Platelet Count 234 thou/uL (130-400); RBC Distribution Width 13.9 % (11.5-14.5); Reactive Lymphocytes 3 % (0-10); Red Blood Cell (RBC) Count 2.92 mill/uL (4.70-6.10); White Blood Cell (WBC) Count 4.2 thou/uL (4.8-10.8)
[2017-06-01] MEDS: Levothyroxine Sodium 75 MCG TAB PO SCH (06:07)
[2017-06-01] MEDS: Nitroglycerin 2% Ointment 1 INCH/1 GM Packet TOP SCH ×2 (06:07→12:21)
[2017-06-01] MEDS: Ferrous Gluconate 324 MG TAB PO SCH ×2 (08:23→17:25)
[2017-06-01] MEDS: Amlodipine 5 MG TAB PO SCH ×2 (08:24→20:55)
[2017-06-01] MEDS: Digoxin 0.125 MG TAB PO SCH (08:25)
[2017-06-01] MEDS: Carvedilol 3.125 MG TAB PO SCH ×2 (08:25→20:55)
[2017-06-01] MEDS: Aspirin 81 mg Enteric Coated Tablet PO SCH (08:25)
[2017-06-01] MEDS: Famotidine 20 MG TAB PO SCH (08:28)
[2017-06-01] MEDS: Sotalol HCl 80 MG TAB PO SCH ×2 (08:30→20:54)
[2017-06-01] MEDS: Glimepiride 1 MG TAB PO SCH ×2 (09:06→17:25)
--- NOTE | 2017-06-01 12:54 | PDOC.PN ---
- Subjective Encounter Start Date: 06/01/17 Encounter Start Time: 12:52 Patient seen and examined. No new complaints. No overnight events. No chest pain. - Objective Resuscitation Status: Resuscitation Status FULL:Full Resuscitation MAR Reviewed: Yes Vital Signs & Weight: Vital Signs (12 hours) Temp Pulse Resp BP BP Pulse Ox 06/01/17 11:40 97.8 F 60 18 156/75 H 93 L 06/01/17 08:30 63 160/65 H 06/01/17 08:25 60 06/01/17 08:24 63 160/65 H 06/01/17 08:00 97.5 F L 63 18 160/65 H 92 L 06/01/17 07:15 97.5 F L 63 18 Weight Weight 153 lb 4.8 oz I&O: 05/31/17 06/01/17 06/02/17 06:59 06:59 06:59 Intake Total 1440 Output Total 900 100 Balance 540 -100 Result Diagrams: 06/01/17 05:05 06/01/17 05:05 Additional Labs: Accuchecks 06/01/17 06/01/17 06/01/17 11:25 05:52 00:25 POC Glucose 187 H 101 107 05/31/17 15:53 POC Glucose 114 H Phys Exam - Physical Examination Constitutional: NAD HEENT: sclera anicteric Neck: supple Respiratory: no wheezing, no rales Cardiovascular: RRR Gastrointestinal: soft Musculoskeletal: no edema Neurological: non-focal Psychiatric: normal affect, A&O x 3 Skin: no rash Dx/Plan (1) Anemia Code(s): D64.9 - ANEMIA, UNSPECIFIED Status: Acute (2) CHF (congestive heart failure) Code(s): I50.9 - HEART FAILURE, UNSPECIFIED Status: Acute (3) Anxiety and depression Code(s): F41.8 - OTHER SPECIFIED ANXIETY DISORDERS Status: Chronic (4) Atrial fibrillation Code(s): I48.91 - UNSPECIFIED ATRIAL FIBRILLATION Status: Chronic (5) Dyslipidemia Code(s): E78.5 - HYPERLIPIDEMIA, UNSPECIFIED Status: Chronic (6) Hypertension Code(s): I10 - ESSENTIAL (PRIMARY) HYPERTENSION Status: Chronic (7) Hypothyroidism Code(s): E03.9 - HYPOTHYROIDISM, UNSPECIFIED Status: Chronic (8) Iron deficiency anemia Code(s): D50.9 - IRON DEFICIENCY ANEMIA, UNSPECIFIED Status: Chronic - Plan cont current plan of care, plan discussed w/ family, DVT proph w/SCDs * . plan to start eliquis tomorrow. DVT Px with SCDs for now. f/u with cardiology. family wishes to do CT coronary mapping here. Increase Amlo to 5 mg po bid. AM labs.
[2017-06-01] MEDS: HumaLOG 300 UNITS/3 ML VIAL SC PRN (14:01)
[2017-06-01] MEDS: Ezetimibe 10 MG TAB PO SCH (20:54)
[2017-06-01] MEDS: Atorvastatin Calcium 40 MG TAB PO SCH (20:55)
[2017-06-01] MEDS: Tamsulosin HCl 0.4 MG CAP PO SCH (20:55)
[2017-06-02] MEDS: Levothyroxine Sodium 75 MCG TAB PO SCH (06:14)
[2017-06-02] MEDS: Glimepiride 1 MG TAB PO SCH ×2 (09:58→17:40)
[2017-06-02] MEDS: Ferrous Gluconate 324 MG TAB PO SCH ×2 (09:59→17:40)
[2017-06-02] MEDS: Amlodipine 5 MG TAB PO SCH ×2 (10:01→20:28)
[2017-06-02] MEDS: Carvedilol 3.125 MG TAB PO SCH ×2 (10:02→20:30)
[2017-06-02] MEDS: Sotalol HCl 80 MG TAB PO SCH ×2 (10:03→20:32)
[2017-06-02] MEDS: Digoxin 0.125 MG TAB PO SCH (10:03)
[2017-06-02] MEDS: Famotidine 20 MG TAB PO SCH (10:03)
[2017-06-02] MEDS: Aspirin 81 mg Enteric Coated Tablet PO SCH (10:03)
[2017-06-02] MEDS: HumaLOG 300 UNITS/3 ML VIAL SC PRN (12:41)
--- NOTE | 2017-06-02 12:51 | PDOC.PN ---
- Subjective Encounter Start Date: 06/02/17 Encounter Start Time: 12:49 Patient seen and examined. c/o cough. no bleeding reported. - Objective Resuscitation Status: Resuscitation Status FULL:Full Resuscitation MAR Reviewed: Yes Vital Signs & Weight: Vital Signs (12 hours) Temp Pulse Resp BP BP Pulse Ox 06/02/17 11:35 97.6 F 60 18 158/72 H 96 06/02/17 10:03 60 157/67 H 06/02/17 10:01 60 157/67 H 06/02/17 08:00 98 F 60 18 157/67 H 93 L 06/02/17 07:50 98.0 F 60 18 93 L 06/02/17 04:20 98.5 F 60 16 162/69 H 92 L Weight Weight 153 lb 4.8 oz I&O: 06/01/17 06/02/17 06/03/17 06:59 06:59 06:59 Intake Total 920 Output Total 100 Balance -100 920 Result Diagrams: 06/01/17 05:05 06/01/17 05:05 Additional Labs: Accuchecks 06/02/17 06/02/17 06/02/17 11:05 06:14 05:12 POC Glucose 179 H 81 91 06/01/17 06/01/17 20:57 16:22 POC Glucose 207 H 116 H Phys Exam - Physical Examination Constitutional: NAD HEENT: sclera anicteric Neck: supple Respiratory: no wheezing rales present Cardiovascular: RRR Gastrointestinal: soft Musculoskeletal: no edema Psychiatric: normal affect Skin: no rash Dx/Plan (1) Anemia Code(s): D64.9 - ANEMIA, UNSPECIFIED Status: Acute (2) CHF (congestive heart failure) Code(s): I50.9 - HEART FAILURE, UNSPECIFIED Status: Acute (3) Anxiety and depression Code(s): F41.8 - OTHER SPECIFIED ANXIETY DISORDERS Status: Chronic (4) Atrial fibrillation Code(s): I48.91 - UNSPECIFIED ATRIAL FIBRILLATION Status: Chronic (5) Dyslipidemia Code(s): E78.5 - HYPERLIPIDEMIA, UNSPECIFIED Status: Chronic (6) Hypertension Code(s): I10 - ESSENTIAL (PRIMARY) HYPERTENSION Status: Chronic (7) Hypothyroidism Code(s): E03.9 - HYPOTHYROIDISM, UNSPECIFIED Status: Chronic (8) Iron deficiency anemia Code(s): D50.9 - IRON DEFICIENCY ANEMIA, UNSPECIFIED Status: Chronic - Plan * . restart eliquis today. 5 mg dose now and then 5 mg po bid. check coags and H&H in AM. Possible DC home in AM.
[2017-06-02] MEDS ORDERED: guaiFENesin ER 600 MG TAB PO SCH (13:15)
[2017-06-02] MEDS ORDERED: Apixaban 5 MG TAB PO SCH ×3 (13:15→21:00)
--- NOTE | 2017-06-02 19:09 | PDOC.CTH ---
<Wendie Alegria - Last Filed: 06/02/17 19:12> Cardiology Progress Note - Subjective the pt seen and examined. No overnight events. No cardiac complaints. He has walked/exercised with PT once today. He uses a walker at home. - Objective Vital Signs Temp Pulse Resp BP BP Pulse Ox 06/02/17 16:16 98 F 59 L 20 165/71 H 95 06/02/17 11:35 97.6 F 60 18 158/72 H 96 06/02/17 10:03 60 157/67 H 06/02/17 10:01 60 157/67 H 06/02/17 08:00 98 F 60 18 157/67 H 93 L 06/02/17 07:50 98.0 F 60 18 93 L Weight 153 lb 4.8 oz 06/01/17 06/02/17 06/03/17 06:59 06:59 06:59 Intake Total 920 Output Total 100 Balance -100 920 - Physical Examination General/Neuro: alert & oriented x3 Neck: no JVD present Lungs: CTA Heart: other: (irregular) Abdomen: soft Extremities: other: (No edemas) - Labs Result Diagrams: 06/01/17 05:05 06/01/17 05:05 Troponin/CKMB CK-MB (CK-2) 3.8 ng/mL (0-6.6) 05/27/17 20:36 Troponin I 0.265 ng/mL (< 0.028) H 05/28/17 03:11 - Assessment/Plan 1. iron deficiency Anemia - colonoscopy was negative; his Eliquis will be started from today and recheck H&H tomorrow AM; The Watchman's device or LARIAT procedure may be beneficial for the pt for chronic bleeding; Hx of chronic duodenitis 2. Chronic Afib/Aflutter - Rate well controlled with Sotalol 80mg BID, dig, BBlocker; and Eliquis 5mg was resumed from today 3. Hx of PM placement - 4. HTN - stable with current medication; will adjust his BP med when his condition is stable 5. CAD with hx of CABG x2 and multiple stents - stable with BBlocker and ASA; cont. monitor 6. Hyperlipidemia - on statin 7. Hypothyroidism - on Thyroid medication MAR Reviewed Review of Systems - Review of Systems Constitutional: reports: no symptoms reported EENTM: reports: no symptoms reported Respiratory: reports: no symptoms reported Cardiac (ROS): reports: no symptoms reported ABD/GI: reports: no symptoms reported : reports: no symptoms reported Musculoskeletal: reports: no symptoms reported <Carlos Yu - Last Filed: 06/02/17 22:38> Cardiology Progress Note - Objective Vital Signs Temp Pulse Resp BP BP Pulse Ox 06/02/17 20:43 97.8 F 61 16 132/83 98 06/02/17 20:32 61 171/72 H 06/02/17 20:28 61 171/72 H 06/02/17 16:16 98 F 59 L 20 165/71 H 95 06/02/17 11:35 97.6 F 60 18 158/72 H 96 Weight 153 lb 4.8 oz 06/01/17 06/02/17 06/03/17 06:59 06:59 06:59 Intake Total 920 960 Output Total 100 970 Balance -100 920 -10 - Labs Result Diagrams: 06/01/17 05:05 06/01/17 05:05 Troponin/CKMB CK-MB (CK-2) 3.8 ng/mL (0-6.6) 05/27/17 20:36 Troponin I 0.265 ng/mL (< 0.028) H 05/28/17 03:11 - Assessment/Plan Pt. was seen and eval. by me. I agree with the A\P by the SERVICE MECHANIC. He was scheduled for a cardiac MRI for mapping assistance prior to ablation. This was for later this week in [place]. With the ELVIE thrombus this may need to be delayed until he has been on the eliquis for a while and if he tolerates it without furthe rbleeding or anemia.
[2017-06-02] MEDS: Atorvastatin Calcium 40 MG TAB PO SCH (20:30)
[2017-06-02] MEDS: Ezetimibe 10 MG TAB PO SCH (20:30)
[2017-06-02] MEDS: Tamsulosin HCl 0.4 MG CAP PO SCH (20:31)
[2017-06-02] MEDS: guaiFENesin ER 600 MG TAB PO SCH (20:31)
[2017-06-02 23:24] LABS: Hemoglobin 9.2 g/dL (14.0-18.0); Platelet Count 263 thou/uL (130-400)
[2017-06-03 05:25] LABS: INR-International Normal Ratio 1.4; PTT 43.6 SEC (22.9-36.1); Prothrombin Time 17.5 SEC (12.0-14.7)
[2017-06-03] MEDS: Levothyroxine Sodium 75 MCG TAB PO SCH (05:29)
[2017-06-03 05:40] LABS: Anion Gap 9 mmol/L (10-20); BUN (Urea Nitrogen) 13 mg/dL (8.4-25.7); Calc. Creatinine Clearance 49 mL/min (70-130); Calcium 9.6 mg/dL (7.8-10.44); Carbon Dioxide 30 mmol/L (23-31); Chloride 100 mmol/L (98-107); Estimated GFR-MDRD 68; Glucose 67 mg/dL (83-110); Potassium 4.4 mmol/L (3.5-5.1); Sodium 135 mmol/L (136-145)
[2017-06-03 05:55] LABS: Band 8 % (5-11); Eosinophils 4 % (0-10); Hemoglobin 9.1 g/dL (14.0-18.0); Lymphocytes 21 % (21-51); MDiff Complete? YES; Mean Corpuscular HGB CONC 32.1 g/dL (32.0-36.0); Mean Corpuscular Hemoglobin 28.5 pg (27.0-31.0); Mean Corpuscular Volume 88.9 fl (80.0-94.0); Mean Platelet Volume 6.8 fL (7.4-10.4); Monocytes 7 % (0-10); Neutrophil 58 % (42-75); PLT Morphology Comment Appears Adequate; Platelet Count 264 thou/uL (130-400); RBC Distribution Width 14.1 % (11.5-14.5); White Blood Cell (WBC) Count 4.7 thou/uL (4.8-10.8)
[2017-06-03] MEDS ORDERED: Apixaban 5 MG TAB PO SCH (09:00)
[2017-06-03] MEDS: Glimepiride 1 MG TAB PO SCH (09:31)
[2017-06-03] MEDS: Ferrous Gluconate 324 MG TAB PO SCH (09:32)
[2017-06-03] MEDS: Carvedilol 3.125 MG TAB PO SCH (09:33)
[2017-06-03] MEDS: Famotidine 20 MG TAB PO SCH (09:34)
[2017-06-03] MEDS: guaiFENesin ER 600 MG TAB PO SCH (09:34)
[2017-06-03] MEDS: Sotalol HCl 80 MG TAB PO SCH (09:34)
[2017-06-03] MEDS: Digoxin 0.125 MG TAB PO SCH (09:34)
[2017-06-03] MEDS: Aspirin 81 mg Enteric Coated Tablet PO SCH (09:35)
[2017-06-03] MEDS: Amlodipine 5 MG TAB PO SCH (09:36)
--- NOTE | 2017-06-03 11:38 | PDOC.PN ---
- Subjective Encounter Start Date: 06/03/17 Encounter Start Time: 11:37 Patient seen and examined. No new complaints. No overnight events no bleeding reported. no chest pain or sob - Objective Resuscitation Status: Resuscitation Status FULL:Full Resuscitation MAR Reviewed: Yes Vital Signs & Weight: Vital Signs (12 hours) Temp Pulse Resp BP BP Pulse Ox 06/03/17 09:36 60 152/75 H 06/03/17 09:34 60 152/75 H 06/03/17 07:25 98.2 F 60 16 152/75 H 95 06/03/17 04:50 98.3 F 62 18 151/65 H 95 06/03/17 00:25 98.6 F 60 16 162/71 H 93 L Weight Weight 153 lb 4.8 oz I&O: 06/02/17 06/03/17 06/04/17 06:59 06:59 06:59 Intake Total 920 1460 Output Total 970 Balance 920 490 Result Diagrams: 06/03/17 04:48 06/03/17 04:48 Additional Labs: Accuchecks 06/03/17 06/03/17 06/02/17 11:01 05:42 20:54 POC Glucose 82 75 139 H 06/02/17 05/31/17 15:57 11:54 POC Glucose 73 216 H Phys Exam - Physical Examination Constitutional: NAD HEENT: sclera anicteric Neck: supple Respiratory: no wheezing rales present Cardiovascular: no significant murmur Gastrointestinal: soft Musculoskeletal: no edema Neurological: non-focal Psychiatric: normal affect, A&O x 3 Skin: no rash Dx/Plan (1) Anemia Code(s): D64.9 - ANEMIA, UNSPECIFIED Status: Acute (2) CHF (congestive heart failure) Code(s): I50.9 - HEART FAILURE, UNSPECIFIED Status: Acute (3) Anxiety and depression Code(s): F41.8 - OTHER SPECIFIED ANXIETY DISORDERS Status: Chronic (4) Atrial fibrillation Code(s): I48.91 - UNSPECIFIED ATRIAL FIBRILLATION Status: Chronic (5) Dyslipidemia Code(s): E78.5 - HYPERLIPIDEMIA, UNSPECIFIED Status: Chronic (6) Hypertension Code(s): I10 - ESSENTIAL (PRIMARY) HYPERTENSION Status: Chronic (7) Hypothyroidism Code(s): E03.9 - HYPOTHYROIDISM, UNSPECIFIED Status: Chronic (8) Iron deficiency anemia Code(s): D50.9 - IRON DEFICIENCY ANEMIA, UNSPECIFIED Status: Chronic - Plan plan discussed w/ family * . DC home on eliquis iron as tolerated. f/u with PCP and cardio f/u with EP
[2017-06-03 12:12] VITALS: BP 167/80; TEMP 97.7
--- NOTE | 2017-06-04 03:27 | DIS ---
DATE OF ADMISSION: 05/27/2017 DATE OF DISCHARGE: 06/03/2017 DISCHARGE DIAGNOSES: 1. Non-ST elevation myocardial infarction. 2. Blood loss anemia. 3. Gastrointestinal polyps. 4. Coronary artery disease. 5. Gastroesophageal reflux disease. 6. Atrial fibrillation with left atrial thrombus. 7. Type 2 diabetes. 8. Hypothyroidism. 9. Hypertension. 10. Hyperlipidemia. 11. Transient ischemic attack. HOSPITAL COURSE: This is an 86-year-old male who was admitted to the hospital with chest pain and sh ortness of breath and was initially found to have elevated troponin and was also found to have anemia and had blood transfusion. He had GI consult and had upper and lower endoscopy with no etiology for the bleeding and he was found to polyps and polypectomy done. The patient's Eliquis was held for 2 days and the patient tolerated the procedure well and he was res tarted on Eliquis. The patient was also started on oral iron with improvement in the hemoglobin afte r blood transfusion and the patient was advised to left the hospital in a stable condition. The jimena ent also have a Watchman procedure to be done in the recent future and Cardiology will contact RENATO guardado to decide the timeline for the procedure. Family understands that. CONSULTS: 1. Cardiology, Dr. Jimenez. 2. GI, Dr. Holt. PROCEDURES: Colonoscopy and EGD. DISCHARGE MEDICATIONS: The patient's iron was added and continue on Protonix and advised to continue all the other medications as he was taking. DISCHARGE MEDICATIONS: Glucosamine 2000 mg p.o. daily, metformin 500 mg p.o. b.i.d., aspirin 81 mg d aily, glimepiride 0.5 p.o. b.i.d., levothyroxine 75 mcg p.o. daily, Digoxin 0.125 p.o. daily, sotalol 120 p.o. b.i.d., carvedilol 3.125 b.i.d., Flomax 0.4 mg p.o. at bedtime, Eliquis 5 mg p.o. b.i.d., P rotonix 40 mg p.o. b.i.d., Cymbalta 60 mg at bedtime, Lasix 20 mg p.o. daily p.r.n., Lipitor 40 mg p. o. at bedtime. DISCHARGE FOLLOWUP: The patient was advised to follow with the primary care physician in a week. Fo llow up with Cardiology in a week. Followup with polypectomy and pathology. The patient and family was understanding and he was discharged in a stable condition. DISPOSITION: To home. CONDITION ON DISCHARGE: Stable. Please note that I did spend more than 35 minutes coordinating the discharge care of this patient.
== END 2017-06-03 14:04 | disposition home health service (06) | DRG 280 ==
LOC: 2NO 19:45 → SJJU 05-31 12:43
PROVIDERS: ADMIT Family Medicine; ATTEND Family Medicine
PROC: 0DJ08ZZ Inspection of Upper Intestinal Tract, Via Natural or Artificial Opening Endoscopic (ICD-10-PCS; principal; 2017-05-30)
PROC: 0DBL8ZX Excision of Transverse Colon, Via Natural or Artificial Opening Endoscopic, Diagnostic (ICD-10-PCS; 2017-05-30)
DX: I21.4 Non-ST elevation (NSTEMI) myocardial infarction (principal); I50.33 Acute on chronic diastolic (congestive) heart failure; E44.0 Moderate protein-calorie malnutrition; D50.0 Iron deficiency anemia secondary to blood loss (chronic); I48.2 Chronic atrial fibrillation; I51.3 Intracardiac thrombosis, not elsewhere classified; D63.8 Anemia in other chronic diseases classified elsewhere; E11.9 Type 2 diabetes mellitus without complications; E03.9 Hypothyroidism, unspecified; I25.10 Atherosclerotic heart disease of native coronary artery without angina pectoris; K21.9 Gastro-esophageal reflux disease without esophagitis; E78.5 Hyperlipidemia, unspecified; Z86.73 Personal history of transient ischemic attack (TIA), and cerebral infarction without residual deficits; Z95.0 Presence of cardiac pacemaker; Z95.1 Presence of aortocoronary bypass graft; Z95.5 Presence of coronary angioplasty implant and graft; Z88.5 Allergy status to narcotic agent; Z79.01 Long term (current) use of anticoagulants; Z79.84 Long term (current) use of oral hypoglycemic drugs; Z79.82 Long term (current) use of aspirin; K63.5 Polyp of colon; K57.30 Diverticulosis of large intestine without perforation or abscess without bleeding; K64.4 Residual hemorrhoidal skin tags; K64.8 Other hemorrhoids; Z87.891 Personal history of nicotine dependence; F41.9 Anxiety disorder, unspecified; F32.9 Major depressive disorder, single episode, unspecified; Z68.21 Body mass index [BMI] 21.0-21.9, adult; I11.0 Hypertensive heart disease with heart failure
CPT/HCPCS: 36415; 36416; 36430; 71010; 80048; 80053; 80061; 80162; 81001; 82274; 82553; 82565; 82728; 83540; 83550; 84484; 85014; 85018; 85025; 85049; 85610; 85730; 86850; 86900; 86901; 88305; 93005; 93010; 93798; J1940; J2704; P9016

== ENCOUNTER 2017-06-12 08:36 | Outpatient (CLI) | payer MEDICARE, OTHER ==
[2017-06-12 11:06] LABS: Anion Gap 13 mmol/L (10-20); BUN (Urea Nitrogen) 28 mg/dL (8.4-25.7); Calc. Creatinine Clearance 0 mL/min (70-130); Calcium 9.6 mg/dL (7.8-10.44); Carbon Dioxide 27 mmol/L (23-31); Chloride 101 mmol/L (98-107); Estimated GFR-MDRD 50; Glucose 118 mg/dL (83-110); Potassium 4.4 mmol/L (3.5-5.1); Sodium 137 mmol/L (136-145)
--- NOTE | 2017-06-12 11:18 | CT ---
CT CARDIAC ANGIOGRAPHY OF CHEST WITH AND WITHOUT CONTRAST: Date: 06/12/17 HISTORY: 86-year-old male with paroxysmal atrial fibrillation. ICD-10: I48.0. Coronary vein mapping planning s pieter for ablation treatment. Dyspnea and chest pain. TECHNIQUE: Axial images with field of view limited around the heart. Lung apices and lung bases excluded. Precon trast scan performed from top of aortic arch to bottom of heart. IV injection of 75 mL Isovue-370. Repeat scan of the same levels. Coronal and sagittal 3D MIP reconstructions. FINDINGS: Sternotomy wires. Surgical clips and other post CABG changes along the heart. Left subclavian pacemak er, double lead, with one lead in the right ventricle midway between the mitral valve and cardiac ape x, along the interventricular septum. The other lead at the junction between the right atrium and rig ht atrial appendage directed in the posterior to anterior direction. Ectasia and atherosclerotic calc ification throughout the aortic arch. No cardiomegaly. Region of pulmonary scar at right middle lobe. Diffuse, mild bilateral peribronchial thickening throughout central regions, but especially at apica l segment of right upper lobe. This is nonspecific. No pulmonary thromboembolism identified in the pu lmonic trunk, left and right main pulmonary arteries, or their proximal branches. No pleural effusion or pneumothorax identified. Pulmonary veins are well opacified with iodinated contrast. Nonspecific finding of non-opacification of distal portion of left atrial appendage (axial image 45 of 97, series 5). It is uncertain whether or not this is clot. Numerous mildly enlarged mediastinal lymph nodes, nonspecific. Mild pectus excavatum. IMPRESSION: 1. Pulmonary vein anatomy well opacified for planning. 2. Atherosclerotic disease of the coronary arteries and thoracic aorta. 3. Pacemaker. 4. Status post coronary artery bypass graft surgery. 5. Left atrial appendage questionable filling defect. POS: [facility]
== END 2017-06-12 08:37 | disposition home or self-care (01) ==
LOC: CT 08:36
PROVIDERS: ATTEND Internal Medicine Cardiovascular Disease
DX: I48.0 Paroxysmal atrial fibrillation (principal); I25.10 Atherosclerotic heart disease of native coronary artery without angina pectoris; I70.0 Atherosclerosis of aorta; Z95.1 Presence of aortocoronary bypass graft; Z95.0 Presence of cardiac pacemaker
CPT/HCPCS: 36415; 71275; 80048

== ENCOUNTER 2017-06-29 15:17 | Emergency (ER) | payer MEDICARE, OTHER ==
[2017-06-29 16:53] LABS: #Eosinphils 0.2 thou/uL (0.0-0.7); #Lymphocytes 0.9 thou/uL (1.20-3.40); #Monocytes 0.6 thou/uL (0.11-0.59); #Neutrophils 4.6 thou/uL (1.40-6.50); %Basophils 0.5 % (0.0-1.0); %Eosinophils 2.9 % (0.0-10.0); %Lymphocytes 14.5 % (21.0-51.0); %Neutrophils 72.1 % (42.0-75.0); Hemoglobin 9.7 g/dL (14.0-18.0); Mean Corpuscular HGB CONC 33.6 g/dL (32.0-36.0); Mean Corpuscular Hemoglobin 31.6 pg (27.0-31.0); Platelet Count 193 thou/uL (130-400); RBC Distribution Width 16.8 % (11.5-14.5); Red Blood Cell (RBC) Count 3.07 mill/uL (4.70-6.10); White Blood Cell (WBC) Count 6.3 thou/uL (4.8-10.8)
[2017-06-29 17:17] LABS: INR-International Normal Ratio 1.4; PTT 34.8 SEC (22.9-36.1); Prothrombin Time 17.2 SEC (12.0-14.7)
[2017-06-29 17:19] LABS: ALT (SGPT) 7 U/L (8-55); AST (SGOT) 19 U/L (5-34); Albumin 3.6 g/dL (3.4-4.8); Alkaline Phosphatase 73 U/L (40-150); Anion Gap 14 mmol/L (10-20); BUN (Urea Nitrogen) 25 mg/dL (8.4-25.7); Bilirubin, Total 0.2 mg/dL (0.2-1.2); Calc. Creatinine Clearance 0 mL/min (70-130); Calcium 9.5 mg/dL (7.8-10.44); Carbon Dioxide 26 mmol/L (23-31); Chloride 104 mmol/L (98-107); Estimated GFR-MDRD 51; Globulin 3.2 g/dL (2.4-3.5); Glucose 92 mg/dL (83-110); Potassium 4.7 mmol/L (3.5-5.1); Protein, Total 6.8 g/dL (5.8-8.1); Sodium 139 mmol/L (136-145)
--- NOTE | 2017-06-29 18:41 | RAD ---
CHEST 1 VIEW: Date: 06/29/17 HISTORY: Audible rales. Bleeding. Postoperative patient. COMPARISON: 05/02/17, 05/27/17. FINDINGS: Portable upright chest demonstrates a stable left-sided transvenous pacemaker. There are vascular rin gs and sternotomy wires. There is atherosclerosis of aorta. Normal cardiac silhouette. Pulmonary vess els are within normal limits. Chronic changes of the lung parenchyma. No consolidation. Nipple shadow projects over the right lung base. No pleural effusion. No pneumothorax. IMPRESSION: Hyperinflation. Chronic changes. POS: [facility]
[2017-06-29] MEDS ORDERED: Carvedilol 6.25 MG TAB PO SCH (20:45)
== END 2017-06-29 21:32 | disposition home or self-care (01) ==
LOC: ERS 15:17
DX: L76.21 Postprocedural hemorrhage of skin and subcutaneous tissue following a dermatologic procedure (principal); E03.9 Hypothyroidism, unspecified; K21.9 Gastro-esophageal reflux disease without esophagitis; E78.5 Hyperlipidemia, unspecified; I10 Essential (primary) hypertension; I48.91 Unspecified atrial fibrillation; Z86.73 Personal history of transient ischemic attack (TIA), and cerebral infarction without residual deficits; Z87.01 Personal history of pneumonia (recurrent)
CPT/HCPCS: 36430; 71045; 80053; 85025; 85610; 85730; 86850; 86900; 86901; 86920; 99284; P9016; 36415

== ENCOUNTER 2017-06-30 17:24 | Emergency (ER) | payer MEDICARE, OTHER ==
[2017-06-30 18:03] LABS: #Eosinphils 0.2 thou/uL (0.0-0.7); #Lymphocytes 1.2 thou/uL (1.20-3.40); #Monocytes 0.9 thou/uL (0.11-0.59); #Neutrophils 4.7 thou/uL (1.40-6.50); %Basophils 0.2 % (0.0-1.0); %Eosinophils 2.6 % (0.0-10.0); %Monocytes 12.4 % (0.0-10.0); %Neutrophils 67.7 % (42.0-75.0); Hemoglobin 10.5 g/dL (14.0-18.0); Mean Corpuscular HGB CONC 32.8 g/dL (32.0-36.0); Mean Corpuscular Hemoglobin 30.3 pg (27.0-31.0); Mean Corpuscular Volume 92.4 fl (80.0-94.0); Mean Platelet Volume 7.4 fL (7.4-10.4); Platelet Count 191 thou/uL (130-400); RBC Distribution Width 16.4 % (11.5-14.5); Red Blood Cell (RBC) Count 3.47 mill/uL (4.70-6.10); White Blood Cell (WBC) Count 6.9 thou/uL (4.8-10.8)
== END 2017-06-30 18:56 | disposition home or self-care (01) ==
LOC: ERS 17:24
DX: Z48.812 Encounter for surgical aftercare following surgery on the circulatory system (principal); I25.10 Atherosclerotic heart disease of native coronary artery without angina pectoris; I48.91 Unspecified atrial fibrillation; E11.9 Type 2 diabetes mellitus without complications; E03.9 Hypothyroidism, unspecified; K21.9 Gastro-esophageal reflux disease without esophagitis; E78.5 Hyperlipidemia, unspecified; I10 Essential (primary) hypertension; Z87.01 Personal history of pneumonia (recurrent); Z86.73 Personal history of transient ischemic attack (TIA), and cerebral infarction without residual deficits
CPT/HCPCS: 36415; 85025; 99283

== ENCOUNTER 2017-07-21 17:36 | Observation (INO) | payer MEDICARE, OTHER ==
[2017-07-21 18:30] LABS: ALT (SGPT) 10 U/L (8-55); AST (SGOT) 16 U/L (5-34); Albumin 3.2 g/dL (3.4-4.8); Alkaline Phosphatase 84 U/L (40-150); Anion Gap 11 mmol/L (10-20); BUN (Urea Nitrogen) 28 mg/dL (8.4-25.7); Bilirubin, Total 0.3 mg/dL (0.2-1.2); CK (CPK) 35 U/L (30-200); Calc. Creatinine Clearance 0 mL/min (70-130); Carbon Dioxide 28 mmol/L (23-31); Chloride 103 mmol/L (98-107); Estimated GFR-MDRD 38; Globulin 2.9 g/dL (2.4-3.5); Glucose 159 mg/dL (83-110); Potassium 4.8 mmol/L (3.5-5.1); Protein, Total 6.1 g/dL (5.8-8.1); Sodium 137 mmol/L (136-145)
[2017-07-21 18:35] LABS: CKMB 1.7 ng/mL (0-6.6); Troponin I 0.034 ng/mL (< 0.028)
[2017-07-21 18:44] LABS: Hemoglobin 7.5 g/dL (14.0-18.0); Mean Corpuscular HGB CONC 32.7 g/dL (32.0-36.0); Mean Corpuscular Hemoglobin 32.7 pg (27.0-31.0); Mean Platelet Volume 6.5 fL (7.4-10.4); Platelet Count 228 thou/uL (130-400); RBC Distribution Width 19.1 % (11.5-14.5); White Blood Cell (WBC) Count 5.1 thou/uL (4.8-10.8)
[2017-07-21 18:45] LABS: #Eosinphils 0.1 thou/uL (0.0-0.7); #Lymphocytes 0.9 thou/uL (1.20-3.40); #Monocytes 0.7 thou/uL (0.11-0.59); #Neutrophils 3.4 thou/uL (1.40-6.50); %Basophils 0.5 % (0.0-1.0); %Eosinophils 2.9 % (0.0-10.0); %Lymphocytes 17.9 % (21.0-51.0); %Monocytes 12.9 % (0.0-10.0); %Neutrophils 65.8 % (42.0-75.0); Anisocytosis SLIGHT = 6-15 cells (100X) (0-5/hpf); MDiff Complete? YES; Ovalocytes SLIGHT = 2-5 cells (100X) (0-1/hpf); PLT Morphology Comment Appears Adequate
--- NOTE | 2017-07-21 19:12 | RAD ---
PORTABLE UPRIGHT FRONTAL CHEST RADIOGRAPH: Date: 07-21-17 Comparison: 06-29-17 History: Shortness of breath, Chest pain. FINDINGS: Midline sternotomy wires and mediastinal clips are present. There is a radiopaque device overlying th e left hilar shadow suggesting a device within the left atrial appendage. Stable transvenous pacing d evice inserted via left subclavian approach. Lungs are hyperinflated with increased linear interstiti al densities, stable. No pneumothorax, pleural fluid, focal consolidation, or alveolar edema. IMPRESSION: Post-operative/post procedural changes as described above. Chronic interstitial opacity and pulmonary hyperinflation with no focal consolidation or alveolar edema. POS: [facility]
[2017-07-21 21:15] VITALS: BMI 21.5
[2017-07-21 21:34] LABS: Troponin I 0.047 ng/mL (< 0.028)
[2017-07-21] MEDS ORDERED: HumaLOG 300 UNITS/3 ML VIAL SC PRN (22:43)
[2017-07-21] MEDS ORDERED: Acetaminophen 325 MG TAB PO PRN (22:43)
[2017-07-21] MEDS ORDERED: Dextrose 5% in Water 1,000 ML IV PRN (22:43)
[2017-07-21] MEDS ORDERED: Dextrose 50% Abboject 50 ML SYRINGE SLOW IVP PRN (22:43)
[2017-07-21] MEDS ORDERED: Ondansetron ODT 4 MG TAB PO PRN (22:43)
[2017-07-21] MEDS ORDERED: HYDROcodone/Acetaminophen 10/325 mg Tablet PO PRN (22:43)
[2017-07-21] MEDS ORDERED: HYDROcodone/Acetaminophen 5/325 mg Tablet PO PRN (22:43)
[2017-07-21] MEDS ORDERED: Sodium Chloride 0.9% 1,000 ML IV SCH (22:45)
[2017-07-21] MEDS ORDERED: Sotalol HCl 80 MG TAB PO SCH (23:00)
[2017-07-21] MEDS ORDERED: Tamsulosin HCl 0.4 MG CAP PO SCH (23:00)
[2017-07-21] MEDS ORDERED: Carvedilol 6.25 MG TAB PO SCH (23:00)
[2017-07-22] MEDS: Tamsulosin HCl 0.4 MG CAP PO SCH ×2 (00:04→20:30)
[2017-07-22] MEDS: Carvedilol 6.25 MG TAB PO SCH ×3 (00:04→20:30)
[2017-07-22] MEDS: Sotalol HCl 80 MG TAB PO SCH ×3 (00:04→20:30)
[2017-07-22 01:08] LABS: CKMB 1.8 ng/mL (0-6.6); Troponin I 0.031 ng/mL (< 0.028)
--- NOTE | 2017-07-22 03:37 | HP ---
DATE OF ADMISSION: 07/21/2017 TIME OF SERVICE: 2140 hours. PRIMARY CARE PHYSICIAN: Phil Parks MD PRIMARY SMOKING PIPE MOUNTER: Ricky Jimenez MD CHIEF COMPLAINT: Chest pressure and shortness of breath with dyspnea on exertion. HISTORY OF PRESENT ILLNESS: Mr. Del Cid is a pleasant 86-year-old Latin-Uz[place] male with history of coronary artery disease, GERD, paroxysmal atrial fibrillation, diverticulosis, diabetes, hypothyroidi sm, hypertension, hyperlipidemia, and history of TIAs who had a Watchman device placed within the las t month or so. He was postponing anticoagulation for 4-5 days. He was taken off Eliquis and put on aspirin and Plavix, has been doing well. He does have a history of known intermittent GI bleeding of unknown source. He said that they thought initially it was upper but in the last episode, thought i t might be diverticular in nature. He has had symptomatic anemia and required transfusion in the pas t. Last week, his hemoglobin was 8.5. Since that time that increased shortness of breath with dyspnea on exertion and presented to the [facility] department for evaluation. Their evaluation did show a troponin I 0.034, creatinine was up from his baseline of 1.04-1.73 and hi s hemoglobin was down to 7.5. We were called for admission. They did contact his enforcement officer who r ecommended giving him blood and hope to be of discharge him in the morning. Since being here, he started getting his first unit. He denies any fevers or chills, no chest pain o r shortness of breath at present unless he gets up and walks across the room. No nausea, vomiting, d iarrhea, constipation, no GI bleeding at present. PAST MEDICAL HISTORY: 1. Coronary artery disease. 2. Diverticulosis. 3. GERD. 4. Paroxysmal atrial fibrillation. 5. Diabetes mellitus type 2. 6. Hypothyroidism. 7. Hypertension. 8. Hyperlipidemia. 9. Cerebrovascular disease with TIAs. PAST SURGICAL HISTORY: 1. Anterior cervical diskectomy and fusion. 2. Bilateral lens implants. 3. Watchman procedure. 4. Pacemaker placement. 5. Lumbar Chireno fusion. 6. PTCA with PCI and stents in the past. 7. Coronary artery bypass grafting. 8. Hemorrhoidectomy. 9. Sinus surgeries. HOME MEDICATIONS: 1. Amlodipine 10 mg daily. 2. Aspirin 81 mg daily. 3. Atorvastatin 40 mg p.o. at bedtime. 4. Coreg 3.125 mg p.o. b.i.d. 5. Digoxin 0.125 mg p.o. daily. 6. Cymbalta 60 mg p.o. at bedtime with iron sulfate 325 mg daily. 7. Glipizide 1 mg b.i.d. 8. Levothyroxine 75 mcg daily. 9. Protonix 40 mg p.o. b.i.d. 10. Sotalol 80 mg p.o. b.i.d. 11. Plavix 75 mg daily. ALLERGIES: MORPHINE and CODEINE caused him to act goofy. FAMILY HISTORY: Negative for clotting or bleeding disorder. No immune dysfunction. SOCIAL HISTORY: Negative for habits x3. He is , monogamous. His is with him. REVIEW OF SYSTEMS: Ten-point review of systems was negative for all systems except as stated as per HPI. PHYSICAL EXAMINATION: VITAL SIGNS: Temperature 97.8, pulse 63, blood pressure 158/63, respiratory rate 18, satting 100% on room air. GENERAL: He is awake. He is alert. He is oriented. He is age appropriate appearing Latin-Uz[place] male in no acute distress. HEENT: Normocephalic, atraumatic. Pupils are equal and reactive bilaterally, mucosa membranes are m oist. No visible lesion. No thrush. NECK: Supple with no lymphadenopathy, no JVD, no thyromegaly. He has normal carotid upstroke withou t bruits. LUNGS: Clear. No wheezes, no rales, no rhonchi. He has good air movement. Symmetrical chest excur kelli. There is no prolonged expiratory phase. CARDIOVASCULAR: He has a normal cardiac. Regular. He does not have any audible murmurs. ABDOMEN: Soft. It is nontender, nondistended. He has hyperactive bowel sounds, present all 4 quadr ants. EXTREMITIES: Show no cyanosis, no clubbing. Trace pedal edema. He has 1+ peripheral pulse in the d orsalis pedis and posterior tibial arteries. SKIN: Warm, moist, and well perfused. There are no rashes or lesions. There is a pacemaker site, i t is clean, dry, and intact. There is no erythema. No fluctuance. NEUROLOGIC: Cranial nerves II through XII are grossly intact. He has 5/5 strength in all 4 extremit ies. He has normal speech pattern. No focal deficits. MUSCULOSKELETAL: Normal to inspection. All large joints have no evidence of inflammation and no pal pable effusions. LABORATORY AND DIAGNOSTIC DATA: Sodium 137, potassium 4.8, chloride 103, bicarb 28, BUN 21, creatini ne 1.73 up from his baseline 1.04, glucose 159, and calcium was 9.6. Liver function completed within normal limits. CBC showed a white count of 5.1, hemoglobin 7.5, hematocrit of 23.1, platelet count is 228,000. Cardiac biomarkers showed CK-MB of 1.7, troponin I 0.034. His chest x-ray showed postop changes, but no acute consolidative changes. ASSESSMENT AND PLAN: 1. Symptomatic anemia. 2. Chronic gastrointestinal blood loss. 3. Diverticulosis with probable diverticular bleed. 4. Coronary artery disease. 5. Gastroesophageal reflux disease. 6. Paroxysmal atrial fibrillation, currently in sinus rhythm and rate controlled. 7. Diabetes mellitus type 2. 8. Hypothyroidism. 9. Hypertension. 10. Hyperlipidemia. 11. Peripheral vascular disease. 12. Indeterminate troponin. We will place the patient on observation. We will obtain serial cardiac biomarkers. We will transfu se him 2 units of packed red blood cells, which was taken up between 9 and 9.5. If he has no further bleeding episodes, should be okay to discharge in the morning. We will continue all his home medica tions. We will give him the doses tonight of his sotalol, Protonix, Coreg, and hold glipizide tonigh t. I have asked Dr. Jimenez to evaluate. He is Dr. Jimenez's patient.
[2017-07-22] MEDS: Levothyroxine Sodium 75 MCG TAB PO SCH (03:59)
[2017-07-22] MEDS ORDERED: Furosemide 40 MG/4 ML VIAL SLOW IVP SCH (04:00)
[2017-07-22 05:11] LABS: #Basophils 0.1 thou/uL (0.0-0.2); #Eosinphils 0.1 thou/uL (0.0-0.7); #Lymphocytes 0.9 thou/uL (1.20-3.40); #Monocytes 0.7 thou/uL (0.11-0.59); #Neutrophils 3.5 thou/uL (1.40-6.50); %Eosinophils 2.8 % (0.0-10.0); %Lymphocytes 16.9 % (21.0-51.0); %Monocytes 13.2 % (0.0-10.0); %Neutrophils 66.2 % (42.0-75.0); Hemoglobin 9.6 g/dL (14.0-18.0); Mean Corpuscular HGB CONC 32.6 g/dL (32.0-36.0); Mean Corpuscular Hemoglobin 31.4 pg (27.0-31.0); Mean Corpuscular Volume 96.1 fl (80.0-94.0); Mean Platelet Volume 7.1 fL (7.4-10.4); Platelet Count 242 thou/uL (130-400); RBC Distribution Width 18.4 % (11.5-14.5); Red Blood Cell (RBC) Count 3.05 mill/uL (4.70-6.10); White Blood Cell (WBC) Count 5.3 thou/uL (4.8-10.8)
[2017-07-22 05:23] LABS: Hemoglobin A1c 4.7 % (4.0-6.0)
[2017-07-22 05:25] LABS: Anion Gap 9 mmol/L (10-20); BUN (Urea Nitrogen) 27 mg/dL (8.4-25.7); Calc. Creatinine Clearance 38 mL/min (70-130); Calcium 8.8 mg/dL (7.8-10.44); Carbon Dioxide 26 mmol/L (23-31); Chloride 103 mmol/L (98-107); Estimated GFR-MDRD 50; Glucose 92 mg/dL (83-110); Magnesium 1.8 mg/dL (1.6-2.6); Potassium 4.3 mmol/L (3.5-5.1); Sodium 134 mmol/L (136-145)
[2017-07-22] MEDS ORDERED: hydrALAZINE 20 MG/ML VIAL SLOW IVP PRN (05:56)
[2017-07-22 07:54] LABS: CKMB 1.6 ng/mL (0-6.6); Troponin I 0.035 ng/mL (< 0.028)
[2017-07-22] MEDS: Digoxin 0.125 MG TAB PO SCH (07:55)
[2017-07-22] MEDS: Ezetimibe 10 MG TAB PO SCH (07:55)
[2017-07-22] MEDS: metFORMIN 500 MG TAB PO SCH ×2 (07:56→16:58)
[2017-07-22] MEDS: Aspirin 81 mg Enteric Coated Tablet PO SCH (07:56)
[2017-07-22] MEDS: Clopidogrel Bisulfate 75 MG TAB PO SCH (07:56)
[2017-07-22] MEDS: Furosemide 20 MG TAB PO SCH (07:56)
[2017-07-22] MEDS: Folic Acid 1 MG TAB PO SCH (07:58)
[2017-07-22] MEDS: Ferrous Gluconate 324 MG TAB PO SCH ×2 (07:58→16:57)
[2017-07-22] MEDS: Glimepiride 1 MG TAB PO SCH ×2 (08:37→16:58)
--- NOTE | 2017-07-22 11:48 | PDOC.PN ---
- Subjective Encounter Start Date: 07/22/17 Encounter Start Time: 11:45 CC: Anemia Sub: Pt denies bleeding per rectum - Objective Resuscitation Status: Resuscitation Status FULL:Full Resuscitation Vital Signs & Weight: Vital Signs (12 hours) Temp Pulse Pulse Resp BP BP BP 07/22/17 10:48 61 16 139/65 07/22/17 07:58 184/79 H 07/22/17 07:57 61 184/79 H 07/22/17 07:55 61 07/22/17 07:37 98.3 F 60 24 H 184/79 H 07/22/17 06:03 61 192/86 H 07/22/17 05:46 61 192/86 H 07/22/17 03:55 98.4 F 60 22 H 187/84 H 07/22/17 02:19 98.4 F 60 26 H 180/84 H 07/22/17 00:15 98.2 F 60 24 H 177/81 H 07/22/17 00:04 64 165/83 H 07/22/17 00:00 98.2 F 59 L 26 H 180/80 H Pulse Ox 07/22/17 10:48 94 L 07/22/17 07:58 07/22/17 07:57 07/22/17 07:55 07/22/17 07:37 96 07/22/17 06:03 07/22/17 05:46 07/22/17 03:55 93 L 07/22/17 02:19 93 L 07/22/17 00:15 95 07/22/17 00:04 07/22/17 00:00 94 L Weight Weight 156 lb 9.6 oz I&O: 07/21/17 07/22/17 07/23/17 06:59 06:59 06:59 Intake Total 1750 240 Output Total 2075 300 Balance -325 -60 Result Diagrams: 07/22/17 04:25 07/22/17 04:25 Additional Labs: Accuchecks 07/22/17 07/21/17 08:05 21:36 POC Glucose 111 H 105 Phys Exam - Physical Examination Constitutional: NAD HEENT: moist MMs Neck: no JVD Respiratory: no wheezing, no rales, no rhonchi Cardiovascular: RRR, no significant murmur Musculoskeletal: no edema Neurological: non-focal Psychiatric: normal affect Skin: no rash Dx/Plan - Plan Pt is 86 yrs old male now admitted to hospital due to dyspnea 1. Symptomatic anemia: S/P blood transfusion. hgb improved check H&H this am will consult GI to evaluate patient for possible EGD 2 SUNDEEP: SUNDEEP appears to be due to GI bleed will dc MIV fluids Monitor creatinine closely Creatinine improving slowly repeat BMP in am Avoid NSAID, Contrast, nephrotoxic medications. 3. HTN: Monitor bp closely continue current treatment 4. DM type 2: Monitor blood sugars continue insulin sliding scakle creatinine improved ok to continue metformin 5. PAFIB + Hypothyroidism: Monitor hr closely continue home meds. if repeat hgb stable and if ok with GI then we will dc patient Case d/w pt & RN
--- NOTE | 2017-07-22 16:11 | CON ---
DATE OF CONSULTATION: 07/22/2017 GASTROENTEROLOGY CONSULTATION CHIEF COMPLAINT: Shortness of breath on exertion. HISTORY OF PRESENT ILLNESS: Mr. Del Cid is an 86-year-old man with a history of paroxysmal atrial fibr illation and recurrent anemia, who presented to the emergency room with shortness of breath on just w alking across the room for the last several days prior to admission. He has had black stools for the last couple months since he has been on iron. He has had no nausea or vomiting. No abdominal pain. No red blood in the stool. No diarrhea or constipation. He underwent EGD and colonoscopy by Dr. Ricci darling on 05/30/2017 for evaluation of anemia and Hemoccult positive stool. The EGD was normal. The c olonoscopy had couple small adenomas removed and some sigmoid diverticulosis, but endoscopy was negat sussy for an actual bleeding source. He did have an EGD back in January, when he had a gastrostomy t ube placement. He had oropharyngeal dysphagia at that time and underwent PEG, but that was removed i n April as he was no longer requiring it. He had a Watchman procedure about a month ago and his a nticoagulation, which he was on up until June was changed then to Plavix. He was advised to stay on the Plavix until KRISTIN is performed in July at which point of the Watchman appears to be in good po sition. The plan was to stop the Plavix. PAST MEDICAL HISTORY: Paroxysmal atrial fibrillation, coronary artery disease status post OH in 2003 , hyperlipidemia, hypertension, diabetes mellitus type 2, hypothyroidism, hypertension, TIA. PAST SURGICAL HISTORY: Watchman procedure, cervical discectomy, pacemaker placement, coronary stent, colonoscopy, EGD, sinus surgery. FAMILY HISTORY: His father had stomach cancer and his mother had colon cancer. ALLERGIES: MORPHINE and CODEINE. MEDICATIONS: Prior to admission, metformin, Plavix, CoQ10, tamsulosin, sotalol, MiraLax, pantoprazol e, Synthroid, glucosamine, glimepiride, furosemide, ferrous gluconate 324 mg twice daily, ezetimibe, digoxin, duloxetine, carvedilol, vitamin D, atorvastatin, aspirin 81 mg daily. REVIEW OF SYSTEMS: Negative x10 systems reviewed except as stated in the history of present illness. PHYSICAL EXAMINATION: VITAL SIGNS: Temperature 97.6, pulse 61, blood pressure 139/65, oxygen saturation 95%. GENERAL: He is in no acute distress. He is alert and oriented x3. HEENT: Eyes have no scleral icterus. Oropharynx is clear, without lesions. NECK: No cervical or supraclavicular lymphadenopathy. LUNGS: Clear to auscultation bilaterally. HEART: Regular rate and rhythm. ABDOMEN: Soft, nontender, nondistended. Bowel sounds are present. EXTREMITIES: No lower extremity edema. RECTAL: Reveals black stool in the rectal vault. However, he states this is unchanged for the last couple months since he started iron supplementation. LABORATORY DATA: White blood cell count 5.3, hemoglobin is 9.6 today after 2 units transfusion from 7.5 last night. Hemoglobin on 06/30/2017 was 10.5. His reports that the hemoglobin a week ago was 8.5. IMPRESSION: Recurrent symptomatic anemia. He has had black stools ever since he started iron supplementation, bu t otherwise he has not had obvious overt bleeding. He had EGD and colonoscopy on 05/31/2017, which w ere negative for bleeding source. He since had a Watchman procedure placed and therefore, he is off the full anticoagulation now, but he has continued on aspirin and Plavix. He has been advised by the cardiology group to continue the Plavix until he has a KRISTIN in July and verify the Watchman is in go od position at which point the Plavix is planned to be stop. RECOMMENDATIONS: 1. Recommend discussion with Cardiology. If the KRISTIN can be performed sooner and the Watchman appear s to be in good position such that he can stop the Plavix sooner than, that would be ideal. Otherwis e, if he only needs to be on the Plavix for another 3-4 weeks and we could continue to monitor his bl ood counts closely and transfuse as needed. 2. Repeat endoscopy is unlikely to integrated pest management technician at this time. Capsule endoscopy can be perform ed as an outpatient. 3. Check his hemoglobin in the morning. If it is stable, then he can discharge home and follow up i n the office as an outpatient to schedule outpatient capsule endoscopy.
[2017-07-22] MEDS ORDERED: Atorvastatin Calcium 40 MG TAB PO SCH (21:00)
[2017-07-22] MEDS ORDERED: DULoxetine 60 MG CAP PO SCH (21:00)
[2017-07-23] MEDS: Levothyroxine Sodium 75 MCG TAB PO SCH (04:23)
[2017-07-23 04:49] LABS: Hemoglobin 10.2 g/dL (14.0-18.0); Mean Corpuscular HGB CONC 33.1 g/dL (32.0-36.0); Mean Corpuscular Hemoglobin 31.6 pg (27.0-31.0); Mean Corpuscular Volume 95.7 fl (80.0-94.0); Mean Platelet Volume 6.8 fL (7.4-10.4); Platelet Count 239 thou/uL (130-400); RBC Distribution Width 18.3 % (11.5-14.5); Red Blood Cell (RBC) Count 3.21 mill/uL (4.70-6.10); White Blood Cell (WBC) Count 5.2 thou/uL (4.8-10.8)
[2017-07-23 08:14] VITALS: BP 135/63; TEMP 98
[2017-07-23] MEDS: Aspirin 81 mg Enteric Coated Tablet PO SCH (08:20)
[2017-07-23] MEDS: Furosemide 20 MG TAB PO SCH (08:20)
[2017-07-23] MEDS: Ferrous Gluconate 324 MG TAB PO SCH (08:20)
[2017-07-23] MEDS: Sotalol HCl 80 MG TAB PO SCH (08:20)
[2017-07-23] MEDS: Clopidogrel Bisulfate 75 MG TAB PO SCH (08:20)
[2017-07-23] MEDS: Ezetimibe 10 MG TAB PO SCH (08:21)
[2017-07-23] MEDS: Carvedilol 6.25 MG TAB PO SCH (08:21)
[2017-07-23] MEDS: Digoxin 0.125 MG TAB PO SCH (08:21)
[2017-07-23] MEDS: Folic Acid 1 MG TAB PO SCH (08:21)
[2017-07-23] MEDS: Glimepiride 1 MG TAB PO SCH (08:22)
[2017-07-23] MEDS: metFORMIN 500 MG TAB PO SCH (08:22)
--- NOTE | 2017-07-23 11:43 | PDOC.PN ---
- Subjective Encounter Start Date: 07/23/17 Encounter Start Time: 06:45 -: old records requested/rev Patient seen and examined. No new complaints. No overnight events - Objective Resuscitation Status: Resuscitation Status FULL:Full Resuscitation MAR Reviewed: Yes Vital Signs & Weight: Vital Signs (12 hours) Temp Pulse Resp BP Pulse Ox 07/23/17 08:20 98.0 F 63 16 07/23/17 07:44 98.0 F 63 16 135/63 94 L 07/23/17 04:20 98.5 F 60 26 H 175/77 H 94 L Weight Weight 152 lb 3.2 oz I&O: 07/22/17 07/23/17 07/24/17 06:59 06:59 06:59 Intake Total 1750 1340 Output Total 2075 2725 Balance -325 -1385 Result Diagrams: 07/23/17 04:23 07/22/17 04:25 Additional Labs: Accuchecks 07/23/17 07/22/17 07/22/17 04:23 20:29 16:50 POC Glucose 109 136 H 104 EKG Reviewed by me: Yes Phys Exam - Physical Examination Constitutional: NAD HEENT: PERRLA, moist MMs, sclera anicteric Neck: no JVD, supple Respiratory: no wheezing, no rales, no rhonchi Cardiovascular: RRR, no significant murmur, no rub Gastrointestinal: soft, non-tender, no distention, positive bowel sounds Musculoskeletal: no edema, pulses present Neurological: non-focal, normal sensation, moves all 4 limbs Psychiatric: normal affect, A&O x 3 Skin: no rash, normal turgor Dx/Plan (1) Acute worsening of stage 3 chronic kidney disease Code(s): N18.3 - CHRONIC KIDNEY DISEASE, STAGE 3 (MODERATE) Status: Acute (2) Elevated troponin Code(s): R74.8 - ABNORMAL LEVELS OF OTHER SERUM ENZYMES Status: Acute (3) Symptomatic anemia Code(s): D64.9 - ANEMIA, UNSPECIFIED Status: Acute (4) Anxiety and depression Code(s): F41.8 - OTHER SPECIFIED ANXIETY DISORDERS Status: Chronic (5) BPH (benign prostatic hyperplasia) Code(s): N40.0 - BENIGN PROSTATIC HYPERPLASIA WITHOUT LOWER URINRY TRACT SYMP Status: Chronic (6) CHF (congestive heart failure) Code(s): I50.9 - HEART FAILURE, UNSPECIFIED Status: Chronic (7) Cervical spinal stenosis Code(s): M48.02 - SPINAL STENOSIS, CERVICAL REGION Status: Chronic Comment: (8) Diabetes type 2, controlled Code(s): E11.9 - TYPE 2 DIABETES MELLITUS WITHOUT COMPLICATIONS Status: Chronic (9) Dyslipidemia Code(s): E78.5 - HYPERLIPIDEMIA, UNSPECIFIED Status: Chronic (10) Hypertension Code(s): I10 - ESSENTIAL (PRIMARY) HYPERTENSION Status: Chronic (11) Hypothyroidism Code(s): E03.9 - HYPOTHYROIDISM, UNSPECIFIED Status: Chronic (12) Lumbar spinal stenosis Code(s): M48.06 - SPINAL STENOSIS, LUMBAR REGION * DO NOT USE * Status: Chronic (13) Paroxysmal atrial fibrillation Code(s): I48.0 - PAROXYSMAL ATRIAL FIBRILLATION Status: Chronic (14) Protein-calorie malnutrition, moderate Code(s): E44.0 - MODERATE PROTEIN-CALORIE MALNUTRITION Status: Chronic - Plan cont current plan of care, plan discussed w/ family * medication reviewed as below * symptomatic treatment * stable for discharge * see discharge nany. Review of Systems - Review of Systems ENT: negative: Ear Pain, Ear Discharge, Nose Pain, Nose Discharge, Nose Congestion, Mouth Pain, Mouth Swelling, Throat Pain, Throat Swelling, Other Respiratory: negative: Cough, Dry, Shortness of Breath, Hemoptysis, SOB with Excertion, Pleuritic Pain, Sputum, Wheezing Cardiovascular: negative: chest pain, palpitations, orthopnea, paroxysmal nocturnal dyspnea, edema, light headedness, other Gastrointestinal: negative: Nausea, Vomiting, Abdominal Pain, Diarrhea, Constipation, Melena, Hematochezia, Other Genitourinary: negative: Dysuria, Frequency, Incontinence, Hematuria, Retention , Other Musculoskeletal: negative: Neck Pain, Shoulder Pain, Arm Pain, Back Pain, Hand Pain, Leg Pain, Foot Pain, Other - Medications/Allergies Allergies/Adverse Reactions: Allergies Allergy/AdvReac Type Severity Reaction Status Date / Time morphine Allergy Intermediate HALLUCINATI Verified 07/21/17 21:34 ONS codeine Allergy hallucinati Verified 07/21/17 21:34 ons
--- NOTE | 2017-07-23 12:17 | DIS ---
PRIMARY CARE PHYSICIAN: Phil Parks M.D. DATE OF ADMISSION: 07/21/2017 DATE OF DISCHARGE: 07/23/2017 DISCHARGE DISPOSITION: Home. PRIMARY DISCHARGE DIAGNOSES: 1. Acute on chronic kidney failure, baseline chronic kidney disease stage 3. 2. Elevated troponin due to demand ischemia. 3. Symptomatic anemia, status post 2-unit transfusion. SECONDARY DISCHARGE DIAGNOSES: Anxiety, depression, benign enlargement of prostate, cervical spine s tenosis, chronic diastolic heart failure, diabetes type 2, hypertension, dyslipidemia, hypothyroidism , lumbar spine stenosis, paroxysmal atrial fibrillation, status post Watchman procedure, moderate pro tein calorie malnutrition. PRIMARY PROCEDURE/OPERATION: None. RADIOLOGICAL INVESTIGATION: Chest x-ray normal. SIGNIFICANT LABORATORY DATA: WBC 5.2, hemoglobin 10.2, platelets 239, troponin I 0.035. Hemoglobin A1c 4.7. Sodium 134, creatinine 1.36, calcium 8.8, magnesium 1.8. LFTs normal. Creatinine on admis kelli 1.73. DISCHARGE MEDICATIONS: Aspirin 81 mg p.o. daily, Lipitor 40 mg p.o. at bedtime, Coreg 6.25 mg p.o. b .i.d., vitamin D3 2000 units daily, Plavix 75 mg p.o. daily, digoxin 0.125 mg p.o. daily, Cymbalta 60 mg p.o. at bedtime, Zetia 5 mg p.o. daily, ferrous gluconate 324 mg p.o. b.i.d., folic acid 0.8 mg p .o. daily, Lasix 20 mg p.o. daily, Amaryl 0.5 mg p.o. b.i.d., glucosamine chondroitin sulfate one tab let daily, Synthroid 75 mcg p.o. daily, metformin 500 mg p.o. b.i.d., multivitamin 1 tablet p.o. russ y, Protonix 40 mg p.o. b.i.d., nitroglycerin 0.4 mg sublingual p.r.n., MiraLax 17 grams p.o. daily, B etapace 120 mg p.o. b.i.d., Flomax 0.4 mg p.o. at bedtime, Coenzyme Q10 200 mg p.o. at bedtime. CONTRAINDICATIONS: None. CODE STATUS: FULL CODE. INPATIENT CONSULTANTS: Dr. Ludwig was consulted for anemia and he recommended that he does need any e ndoscopic workup at this point. He will need outpatient basis capsular endoscopy. TEST RESULTS PENDING ON DISCHARGE: None. ALLERGIES: MORPHINE and CODEINE. DISCHARGE PLAN: Post hospital, the patient will follow up with primary care physician Dr. Ludwig and Dr. Jimenez as instructed. HOSPITAL COURSE: An 86-year-old male who was admitted by Dr. Boss. Please see his H&P for further details. Patient was having symptomatic anemia with generalized weakness, shortness of breath, and chest pressure on exertion. His hemoglobin was low. He had indeterminate troponin. He had acute on chronic kidney failure. This patient has history of chronic blood thinner medications including asp irin and Plavix. He had Watchman procedure done and that is why he needs to be on Plavix for another 2 weeks. GI was consulted for anemia, but they did not recommend any endoscopic workup during this admission. He was given 2 units of blood transfusion and he had appropriate good response to blood t ransfusion and his hemoglobin improved significantly. The patient was feeling more energetic next da y. This patient already has appointment with Dr. Jimenez after Watchman procedure and they will do furt her evaluation. We did a KRISTIN and then they will decide whether Plavix can be stopped. The patient w ill need capsule endoscopy. Overall, this patient is doing very well. He is hemodynamically stable. The patient is seen and exa mined at bedside today and plan of care discussed with the patient's . Please see my progress no te from today for further details.
== END 2017-07-23 10:09 | disposition home or self-care (01) ==
LOC: ERS 17:36 → 2SW 18:54
PROVIDERS: ADMIT Internal Medicine; ATTEND Internal Medicine
DX: I13.0 Hypertensive heart and chronic kidney disease with heart failure and stage 1 through stage 4 chronic kidney disease, or unspecified chronic kidney disease (principal); E11.22 Type 2 diabetes mellitus with diabetic chronic kidney disease; N18.3 Chronic kidney disease, stage 3 (moderate); I50.32 Chronic diastolic (congestive) heart failure; N17.9 Acute kidney failure, unspecified; D63.1 Anemia in chronic kidney disease; R79.89 Other specified abnormal findings of blood chemistry; F41.9 Anxiety disorder, unspecified; F32.9 Major depressive disorder, single episode, unspecified; N40.0 Benign prostatic hyperplasia without lower urinary tract symptoms; M48.02 Spinal stenosis, cervical region; E78.5 Hyperlipidemia, unspecified; E03.9 Hypothyroidism, unspecified; I48.0 Paroxysmal atrial fibrillation; M48.061 Spinal stenosis, lumbar region without neurogenic claudication; R06.02 Shortness of breath; R07.89 Other chest pain; I25.10 Atherosclerotic heart disease of native coronary artery without angina pectoris; K21.9 Gastro-esophageal reflux disease without esophagitis; K57.90 Diverticulosis of intestine, part unspecified, without perforation or abscess without bleeding; I73.9 Peripheral vascular disease, unspecified; E44.0 Moderate protein-calorie malnutrition; Z68.20 Body mass index [BMI] 20.0-20.9, adult; Z86.73 Personal history of transient ischemic attack (TIA), and cerebral infarction without residual deficits; Z79.82 Long term (current) use of aspirin; Z79.02 Long term (current) use of antithrombotics/antiplatelets; Z79.84 Long term (current) use of oral hypoglycemic drugs; Z79.899 Other long term (current) drug therapy; Z88.5 Allergy status to narcotic agent; Z80.0 Family history of malignant neoplasm of digestive organs; Z96.1 Presence of intraocular lens; Z95.5 Presence of coronary angioplasty implant and graft; Z95.1 Presence of aortocoronary bypass graft; Z95.0 Presence of cardiac pacemaker; Z98.1 Arthrodesis status; Z98.890 Other specified postprocedural states
CPT/HCPCS: 36430 ×2; 71045; 80048; 80061; 82550; 82553 ×3; 82962 ×3; 83036; 83735; 84484 ×4; 85025; 85027; 86850; 86900; 86901; 86920; 93005; 94760; 96374; 96375; 97139; 99291; G0378; P9016 ×2; 36415; 36416; 80053; 84443; J0360; J1940

== ENCOUNTER 2017-07-29 15:53 | Outpatient (CLI) | payer MEDICARE, OTHER ==
--- NOTE | 2017-07-29 18:10 | RAD ---
RADIOGRAPH CERVICAL SPINE 3 VIEWS: 07/29/17 HISTORY: 86-year-old male with cervical spondylosis. Followup. COMPARISON: 04/08/17. FINDINGS: Anterior metallic plate at C3 and C4. Widening of the C3-4 intervertebral disc space with tiny metall ic markers. No osseous bridges between the end plates of C3 and C4. Mild grade I anterolisthesis of C 3 on C4 due to degenerative facet disease. Also grade I anterolisthesis of C4 on C5 due to degenerati ve facet disease. Severe disc space narrowing and moderate to large anterior osteophytes protruding i nto the prevertebral space, at C4-5 and C5-6. The C6-7 and C7-T1 levels are obscured by the shoulders on the lateral view. No prevertebral soft tissue swelling. Reversal of curvature (kyphosis), of lowe r cervical spine. Multilevel bilateral high grade degenerative facet changes. Mild degenerative johnston es of bilateral atlantoaxial joints. Odontoid intact. No major interval change. IMPRESSION: 1. Status post anterior cervical discectomy and fusion at C3-4. No evidence of ankylosis or sett ling yet. 2. High grade cervical spondylosis, including multilevel severe degenerative disc disease inferi or to the ACDF level and multilevel high grade facet osteoarthrosis. 3. No major interval change since 04/08/17. JN [] POS: [facility]
== END 2017-07-29 15:54 | disposition home or self-care (01) ==
LOC: TBSIIMAG 15:53
PROVIDERS: ATTEND Neurological Surgery
DX: M47.12 Other spondylosis with myelopathy, cervical region (principal); M50.00 Cervical disc disorder with myelopathy, unspecified cervical region; Z98.1 Arthrodesis status
CPT/HCPCS: 72040

== ENCOUNTER 2017-08-11 14:40 | Outpatient (CLI) | payer MEDICARE, OTHER ==
--- NOTE | 2017-08-19 19:50 | EKG ---
Test Reason : Blood Pressure : / mmHG Vent. Rate : 061 BPM Atrial Rate : 060 BPM P-R Int : 000 ms QRS Dur : 178 ms QT Int : 506 ms P-R-T Axes : 000 -68 100 degrees QTc Int : 509 ms Electronic ventricular pacemaker When compared with ECG of 21-JUL-2017 17:41, Vent. rate has decreased BY 2 BPM Confirmed by MATT CONNELL (2) on 08/19/2017 7:49:55 PM Referred By: JAVIER Confirmed By:MATT CONNELL
== END 2017-08-11 14:41 | disposition home or self-care (01) ==
LOC: LABBT 14:40
PROVIDERS: ATTEND Internal Medicine Cardiovascular Disease
DX: Z01.818 Encounter for other preprocedural examination (principal); I48.1 Persistent atrial fibrillation
CPT/HCPCS: 93005; 93010

== ENCOUNTER 2017-08-14 06:06 | Day surgery (SDC) | payer MEDICARE, OTHER ==
[2017-08-11 14:56] VITALS: BMI 21.0
[2017-08-14] MEDS ORDERED: Lidocaine 1% PF 5 ML VIAL ONE ×2 (07:50→14:59)
[2017-08-14] MEDS ORDERED: Diprivan 20 ML ONE (07:50)
--- NOTE | 2017-08-14 09:11 | ECHO ---
TRANSESOPHAGEAL ECHOCARDIOGRAM: DATE OF PROCEDURE: 08/14/17 INDICATION: This is an 86-year-old gentleman with permanent atrial fibrillation. DESCRIPTION OF PROCEDURE: The patient was taken to the PACU. The patient was sedated by anesthesiology. A transesophageal probe was placed in the distal esophagus and stomach. Echocardiographic images were obtained. The transesophageal probe was removed. FINDINGS: 1. Normal left ventricular systolic function. 2. Biatrial enlargement. 3. Moderate mitral regurgitation. 4. Moderate tricuspid regurgitation. 5. Mild aortic regurgitation. 6. The Watchman is well positioned with no leak noted. 7. Atherosclerotic debris in the descending aorta. IMPRESSION: Watchman well positioned with no leak noted around the device.
[2017-08-14] MEDS ORDERED: Propofol 200 MG/20 ML VIAL ONE (14:59)
[2017-08-14] MEDS ORDERED: Ondansetron HCl/PF 4 MG/2 ML Vial ONE (14:59)
== END 2017-08-14 09:15 | disposition home or self-care (01) ==
LOC: CCL 06:06
PROVIDERS: ATTEND Internal Medicine Cardiovascular Disease
PROC: B24BZZ4 Ultrasonography of Heart with Aorta, Transesophageal (ICD-10-PCS; principal; 2017-08-14)
DX: I48.0 Paroxysmal atrial fibrillation (principal); I25.10 Atherosclerotic heart disease of native coronary artery without angina pectoris; I11.0 Hypertensive heart disease with heart failure; I50.32 Chronic diastolic (congestive) heart failure; I08.3 Combined rheumatic disorders of mitral, aortic and tricuspid valves; E78.5 Hyperlipidemia, unspecified; E05.90 Thyrotoxicosis, unspecified without thyrotoxic crisis or storm; Z87.891 Personal history of nicotine dependence; Z88.5 Allergy status to narcotic agent; Z79.52 Long term (current) use of systemic steroids; Z79.82 Long term (current) use of aspirin; Z79.84 Long term (current) use of oral hypoglycemic drugs; Z79.899 Other long term (current) drug therapy; Z95.0 Presence of cardiac pacemaker; Z95.1 Presence of aortocoronary bypass graft; Z95.5 Presence of coronary angioplasty implant and graft
CPT/HCPCS: 93005; 93010; 93312; J2001; J2405; J2704

== ENCOUNTER 2017-08-16 10:53 | Emergency (ER) | payer MEDICARE, OTHER ==
[2017-08-16 11:24] LABS: #Lymphocytes 0.9 thou/uL (1.20-3.40); #Monocytes 0.7 thou/uL (0.11-0.59); #Neutrophils 7.2 thou/uL (1.40-6.50); %Basophils 0.1 % (0.0-1.0); %Eosinophils 0.2 % (0.0-10.0); %Lymphocytes 10.3 % (21.0-51.0); %Neutrophils 81.4 % (42.0-75.0); Hemoglobin 8.8 g/dL (14.0-18.0); Mean Corpuscular HGB CONC 33.5 g/dL (32.0-36.0); Mean Corpuscular Hemoglobin 32.3 pg (27.0-31.0); Mean Corpuscular Volume 96.4 fl (80.0-94.0); Mean Platelet Volume 6.8 fL (7.4-10.4); Platelet Count 245 thou/uL (130-400); RBC Distribution Width 16.3 % (11.5-14.5); Red Blood Cell (RBC) Count 2.71 mill/uL (4.70-6.10); White Blood Cell (WBC) Count 8.8 thou/uL (4.8-10.8)
[2017-08-16] MEDS ORDERED: Fentanyl 100 MCG/2 ML VIAL ONE (11:35)
[2017-08-16 11:45] LABS: ALT (SGPT) 9 U/L (8-55); AST (SGOT) 29 U/L (5-34); Albumin 3.3 g/dL (3.4-4.8); Alkaline Phosphatase 90 U/L (40-150); Anion Gap 14 mmol/L (10-20); BUN (Urea Nitrogen) 20 mg/dL (8.4-25.7); Bilirubin, Total 0.6 mg/dL (0.2-1.2); Calc. Creatinine Clearance 0 mL/min (70-130); Calcium 8.9 mg/dL (7.8-10.44); Carbon Dioxide 25 mmol/L (23-31); Chloride 98 mmol/L (98-107); Estimated GFR-MDRD 50; Globulin 3.3 g/dL (2.4-3.5); Glucose 141 mg/dL (83-110); Potassium 4.7 mmol/L (3.5-5.1); Protein, Total 6.6 g/dL (5.8-8.1); Sodium 132 mmol/L (136-145)
--- NOTE | 2017-08-16 15:17 | RAD ---
AP PELVIS 1 VIEW: HISTORY: An 86-year-old male with a history of pelvic pain following a fall last night landing on buttocks. FINDINGS: Postoperative changes are noted at L4-L5. No acute fracture or dislocation. Bilateral hip joint art hrosis. IMPRESSION: Bone demineralization with bilateral hip joint arthrosis. Postoperative changes at L4-5. No acute f racture or dislocation. POS: [facility]
--- NOTE | 2017-08-16 15:18 | RAD ---
RIGHT HIP 2 VIEWS: HISTORY: An 86-year-old male with a history of right hip pain following a fall last night. Mild degenerative changes of the right hip joint. Vascular calcification. No fracture or dislocatio n. IMPRESSION: No fracture or dislocation. POS: [facility]
--- NOTE | 2017-08-16 15:21 | RAD ---
LEFT HIP 2 VIEWS: HISTORY: An 86-year-old male with left hip pain following a fall last night. FINDINGS: Degenerative changes of the left hip joint. Vascular calcifications. No fracture or dislocation. IMPRESSION: Degenerative change without fracture or dislocation. POS: [facility]
--- NOTE | 2017-08-16 15:23 | RAD ---
LUMBAR SPINE 3 VIEWS: HISTORY: An 86-year-old male with low back pain following a fall last night. COMPARISON: 09/21/15. FINDINGS: There is evidence for a mild compression fracture of L4 vertebral body, which is new when compared to 09/21/15; although, there is a history of this happening several weeks ago. Postop changes at L4-L5 with some stable anterolisthesis of L4 on L5. Benign bony hemangioma involving the L2 vertebral body . IMPRESSION: Mild wedge compression fracture of L4 new from 2016, but there is a history of this happening previou sly. Stable anterolisthesis and postoperative changes at L4-L5. Stable spondylosis. Stable benign bony hemangioma in L2. POS: [facility]
== END 2017-08-16 12:16 | disposition home or self-care (01) ==
LOC: ERS 10:53
DX: M54.5 Low back pain (principal); I48.91 Unspecified atrial fibrillation; E11.9 Type 2 diabetes mellitus without complications; E03.9 Hypothyroidism, unspecified; K21.9 Gastro-esophageal reflux disease without esophagitis; E78.5 Hyperlipidemia, unspecified; I10 Essential (primary) hypertension; W18.30XA Fall on same level, unspecified, initial encounter
CPT/HCPCS: 36415; 72100; 72170; 80053; 85025; 86850; 86900; 86901; 93005; J3010

== ENCOUNTER 2017-08-26 09:44 | Observation (INO) | payer MEDICARE, OTHER ==
[2017-08-26 10:23] LABS: #Eosinphils 0.1 thou/uL (0.0-0.7); #Lymphocytes 0.6 thou/uL (1.20-3.40); #Monocytes 0.3 thou/uL (0.11-0.59); #Neutrophils 3.1 thou/uL (1.40-6.50); %Basophils 0.2 % (0.0-1.0); %Eosinophils 2.9 % (0.0-10.0); %Lymphocytes 15.1 % (21.0-51.0); %Monocytes 8.3 % (0.0-10.0); %Neutrophils 73.6 % (42.0-75.0); Hemoglobin 8.5 g/dL (14.0-18.0); Mean Corpuscular HGB CONC 32.7 g/dL (32.0-36.0); Mean Corpuscular Hemoglobin 32.7 pg (27.0-31.0); Mean Corpuscular Volume 99.9 fl (80.0-94.0); Mean Platelet Volume 6.7 fL (7.4-10.4); Platelet Count 290 thou/uL (130-400); RBC Distribution Width 15.3 % (11.5-14.5); Red Blood Cell (RBC) Count 2.59 mill/uL (4.70-6.10); White Blood Cell (WBC) Count 4.2 thou/uL (4.8-10.8)
[2017-08-26 10:29] LABS: INR-International Normal Ratio 1.2; PTT 32.1 SEC (22.9-36.1); Prothrombin Time 15.8 SEC (12.0-14.7)
[2017-08-26 10:34] LABS: ALT (SGPT) 9 U/L (8-55); AST (SGOT) 16 U/L (5-34); Albumin 3.3 g/dL (3.4-4.8); Alkaline Phosphatase 85 U/L (40-150); Anion Gap 10 mmol/L (10-20); BUN (Urea Nitrogen) 19 mg/dL (8.4-25.7); Bilirubin, Total 0.3 mg/dL (0.2-1.2); Calc. Creatinine Clearance 0 mL/min (70-130); Calcium 8.9 mg/dL (7.8-10.44); Carbon Dioxide 26 mmol/L (23-31); Chloride 102 mmol/L (98-107); Estimated GFR-MDRD 51; Glucose 206 mg/dL (83-110); Potassium 4.4 mmol/L (3.5-5.1); Protein, Total 6.3 g/dL (5.8-8.1); Sodium 134 mmol/L (136-145)
[2017-08-26 10:38] LABS: CKMB 1.4 ng/mL (0-6.6); Troponin I 0.031 ng/mL (< 0.028)
[2017-08-26] MEDS ORDERED: Nitroglycerin 2% Ointment 1 INCH/1 GM Packet ONE (11:03)
[2017-08-26] MEDS ORDERED: Nitroglycerin 0.4 MG TAB (25 Tab Bottle) ONE (11:03)
--- NOTE | 2017-08-26 11:29 | RAD ---
RADIOGRAPH CHEST 1 VIEW: DATE: 08/26/17. TIME: 10:28 a.m. HISTORY: An 86-year-old male with acute chest pain. FINDINGS: There are no air space densities, pulmonary edema, pneumothorax, or cardiomegaly. The lateral costop hrenic angles are sharp. There is no interval change since 07/21/17. Interstitial markings are promi nent at the lower lung zones. IMPRESSION: 1. No acute cardiopulmonary findings. 2. Status post coronary artery bypass graft surgery is evidence for coronary atherosclerotic disease . 3. Pacemaker. estelle Perez POS: [facility]
[2017-08-26 13:40] LABS: Troponin I 0.033 ng/mL (< 0.028)
[2017-08-26 15:11] VITALS: BMI 21.6
[2017-08-26] MEDS ORDERED: Bisacodyl 5 MG TAB PO PRN (15:13)
[2017-08-26] MEDS ORDERED: Acetaminophen 325 MG TAB PO PRN ×2 (15:13→15:14)
[2017-08-26] MEDS ORDERED: Ondansetron HCl/PF 4 MG/2 ML Vial IVP PRN (15:14)
[2017-08-26] MEDS ORDERED: Ondansetron ODT 4 MG TAB SL PRN (15:14)
[2017-08-26] MEDS ORDERED: Nitroglycerin 0.4 MG TAB (25 Tab Bottle) SL PRN (15:15)
[2017-08-26] MEDS: metFORMIN 500 MG TAB PO SCH (16:55)
[2017-08-26] MEDS ORDERED: HumaLOG 300 UNITS/3 ML VIAL SC PRN (17:14)
[2017-08-26] MEDS ORDERED: Dextrose 50% Abboject 50 ML SYRINGE SLOW IVP PRN (17:14)
[2017-08-26] MEDS ORDERED: Dextrose 5% in Water 1,000 ML IV PRN (17:14)
--- NOTE | 2017-08-26 17:38 | HP ---
PRIMARY CARE PHYSICIAN: Phil Parks M.D. CHIEF COMPLAINT: Chest tightness. HISTORY OF PRESENT ILLNESS: Mr. Del Cid is a pleasant 86-year-old gentleman who was seen at [facility] on 08/26/2017 for chest discomfort. The patient initially came to the emergency room because he had blood work done yesterday which showe d a hemoglobin of 7.6. He has a history of GI blood loss, etiology yet not clear. He is scheduled t o have a video capsule endoscopy in a few days' time. He had the Watchman placed approximately 1-1/2 months ago. He had a KRISTIN recently. He was waiting fo r the KRISTIN result to stop Plavix. He heard from his web content writer today and was advised to stop Plavix. He reports that over the last couple of days he has had shortness of breath with exertion. He also h ad chest tightness, on and off yesterday and the day before yesterday. He describes it as a sensatio n of tightness all over his chest, 4/10 at its worst, nonradiating, no known aggravating or relieving factors, accompanied by shortness of breath. His reports that patient has been more lethargic than usual. REVIEW OF SYSTEMS: The following complete review of systems was negative, unless otherwise mentioned in the HPI or below: Constitutional: Weight loss or gain, ability to conduct usual activities. Skin: Rash, itching. Eyes: Double vision, pain. ENT/Mouth: Nose bleeding, neck stiffness, pain, tenderness. Cardiovascular: Palpitations, dyspnea on exertion, orthopnea. Respiratory: Shortness of breath, wheezing, cough, hemoptysis, fever or night sweats. Gastrointestinal: Poor appetite, abdominal pain, heartburn, nausea, vomiting, constipation, or diarrhea. Genitourinary: Urgency, frequency, dysuria, nocturia. Musculoskeletal: Pain, swelling. Neurologic/Psychiatric: Anxiety, depression. Allergy/Immunologic: Skin rash, bleeding tendency. PAST MEDICAL HISTORY: Significant for coronary artery disease, diverticulosis, gastroesophageal refl ux disease, paroxysmal atrial fibrillation, diabetes mellitus type 2, hypothyroidism, hypertension, d yslipidemia, and TIA. PAST SURGICAL HISTORY: Significant for anterior cervical diskectomy and fusion, bilateral lens impla nts, Watchman procedure, pacemaker placement, lumbar fusion, PCI with stents, coronary artery bypass graft, hemorrhoidectomy, sinus surgeries. ALLERGIES: MORPHINE, CODEINE. FAMILY HISTORY: No family history of premature coronary artery disease. SOCIAL HISTORY: The patient denies tobacco use, alcohol use or recreational drug use. CODE STATUS: I discussed his code status. He is FULL CODE. His is the surrogate decision make r. CURRENT MEDICATIONS: Include Synthroid 75 mcg daily, glimepiride 0.5 mg 2 times a day, atorvastatin 40 mg daily, glucosamine 2000 mg 2 times a day, digoxin 0.125 mg daily, metformin 500 mg 2 times a da y, aspirin 81 mg daily, tamsulosin 0.4 mg daily, pantoprazole 40 mg daily, carvedilol 6.25 mg 2 times a day, sotalol 120 mg 2 times a day, Zetia 5 mg daily, Plavix 75 mg daily which has been advised to discontinue, Lasix 20 mg daily, duloxetine 60 mg daily, nitroglycerin p.r.n. PHYSICAL EXAMINATION: GENERAL: Mr. Del Cid is awake and alert, not in acute distress. VITAL SIGNS: Blood pressure is 164/77, pulse is 60, he is breathing at rate of 23 and saturating 98% on room air. He is afebrile. EYES: He has conjunctival pallor, no scleral icterus. ENT: Moist mucosal membranes, no oropharyngeal erythema or exudates. NECK: Supple, nontender, normal range of movement. Trachea is midline. RESPIRATORY: Accessory muscles of breathing are not active. Chest wall movements are symmetric bila terally. LUNGS: Clear to auscultation without wheeze, rhonchi or crepitations. CARDIOVASCULAR: S1 and S2 are heard, regular. LUNGS: Peripheral pulses palpable. No carotid bruit, no pericardial rub. ABDOMEN: Soft, nontender, bowel sounds are heard, no hepatomegaly, no splenomegaly. NEUROLOGIC: Cranial nerves II-XII intact. Deep tendon reflexes are 2+. MUSCULOSKELETAL: Power is 5/5 in all 4 extremities. SKIN: No rashes or subcutaneous nodules. PSYCHIATRIC: Normal mood, normal affect, the patient is oriented to person, place, and time. LABORATORY DATA: Mr. Del Cid's labs and investigations were reviewed. I reviewed his electrocardiogra m, which shows electronic ventricular paced rhythm. I also reviewed his chest x-ray, which does not show any pulmonary infiltrates. Laboratory investigation show decreased white count of 4200, decreas ed hemoglobin of 8.5, normal platelet count of 290,000. INR 1.2, decreased sodium of 134, elevated c reatinine of 1.33, last known creatinine 1.35 on 08/16/2017, decreased albumin of 3.3, otherwise unre markable liver profile and indeterminate troponin I of 0.031. ASSESSMENT AND PLAN: Mr. Del Cid is a pleasant 86-year-old gentleman who was seen at [facility] on 08/26/2017. His problem list includes: 1. Chest discomfort: Most likely secondary to ischemic stress from anemia. He has indeterminate tr oponins. He does not have any chest pain at this time. He will be admitted to the hospital in obser vation status. We will recheck his cardiac enzymes. We will consult Cardiology Service for opinion. We will transfuse 1 unit of packed RBCs. 2. Anemia: The patient has a history of anemia secondary to gastrointestinal blood loss and is unde rgoing investigations as an outpatient. We will transfuse him with packed RBCs, recheck hemoglobin i n the morning and advised him to follow up with his primary care physician. 3. Diabetes mellitus: Start Accu-Cheks, insulin sliding scale. 4. Atrial fibrillation: Continue aspirin, hold Plavix, which has been discontinued by his electroph ysiologist. 5. Hypertension: Monitor vital signs, titrate antihypertensives as needed. 6. Dyslipidemia: Continue statin. 7. Hypothyroidism: Continue replacement therapy. 8. Gastroesophageal reflux disease: Continue PPI. Many thanks for allowing me to participate in your patient's care. Please feel free to contact me wi th any questions or concerns. LEVEL OF RISK: High. LEVEL OF COMPLEXITY: High.
[2017-08-26 17:52] LABS: CKMB 1.2 ng/mL (0-6.6); Troponin I 0.031 ng/mL (< 0.028)
[2017-08-26] MEDS: Glimepiride 1 MG TAB PO SCH (19:40)
[2017-08-26] MEDS ORDERED: Folic Acid 1 MG TAB PO SCH (21:00)
[2017-08-26] MEDS ORDERED: Tamsulosin HCl 0.4 MG CAP PO SCH (21:00)
[2017-08-26] MEDS ORDERED: Atorvastatin Calcium 40 MG TAB PO SCH (21:00)
[2017-08-26] MEDS ORDERED: Ubidecarenone 50 MG CAP PO SCH (21:00)
[2017-08-26] MEDS ORDERED: DULoxetine 60 MG CAP PO SCH (21:00)
[2017-08-26] MEDS: Sotalol HCl 80 MG TAB PO SCH (21:40)
[2017-08-26] MEDS: Nitroglycerin 2% Ointment 1 INCH/1 GM Packet TOP SCH (21:41)
[2017-08-26] MEDS: Carvedilol 6.25 MG TAB PO SCH (21:41)
[2017-08-26 22:34] LABS: CKMB 1.1 ng/mL (0-6.6)
--- NOTE | 2017-08-27 01:54 | CON ---
DATE OF CONSULTATION: 08/26/2017 HISTORY OF PRESENT ILLNESS: Eldon Del Cid is a pleasant 86-year-old white male that I have followed since September 1989. He had exertional chest discomfort for 2 years, when I initially saw him. 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 Sometimes this discomfort would last all day and nitroglycerin would not seem to help. In 1987, he underwent treadmill testing, which was abnormal. This was followed by cardiac catheterization by Dr. Contreras in [place] with the finding of 40%-50% ramus, 75% stenosis of the first obtuse marginal, 60% distal LAD, 30%-40% mid RCA stenosis. The right coronary artery was very large vessel. He had normal left ventricular function. The decision was made to treat him medically. After 2 years, he continued to have chest discomfort. In 08/1989, he underwent treadmill testing, exercised for 7 minutes, and developed slight chest discomfort at 6 minutes along with [address]-segment depression in 2, 3, F and V4 through V6. Thallium revealed minimal redistribution involving the inferolateral aspect of the left ventricle suggestive of possible ischemia. He then underwent cardiac catheterization at [place] and was found to have significant right coronary artery stenosis of 80% and 60% in the mid portion. There was a 50% mid to distal LAD, 30% ramus stenosis. Both areas in the right coronary artery were dilated with final lesions being 30%. At 4-5 a.m. in the morning after intervention, after discontinuation of the heparin, he had recurrence of his usual chest discomfort. Heparin was restarted. Nitroglycerin was increased and his discomfort rapidly subsided. EKG did not show any significant changes. During the catheterization, it was noted that during balloon inflation, he had dramatic ST-segment elevation in the inferior leads. The decision was made to have him undergo repeat catheterization later that day due to recurrence of chest discomfort. The right coronary artery continued to have good result with small area of dissection. It was felt that his discomfort at that time may have been due to spasm and Procardia was increased. In 10/1989, he underwent treadmill testing, exercised for 7 minutes, and 41 seconds with very mild chest discomfort. At peak exercise, he had [address]- segment depression in V5 and V6. This is dramatic improvement over his treadmill prior to angioplasty when he had [address]-segment depression. In , thallium treadmill revealed that he exercised for 7 minutes and had [address]-segment depression, which was upsloping in V4 through V6 and [address]- segment depression in 1 and L. He did not have any chest discomfort. This was felt to be a positive treadmill. Thallium revealed inferior and lower septal ischemia; however, he was asymptomatic and decision was made not to proceed with repeat catheterization at that time. In 09/1991, he had no chest discomfort, walking 1 mile per day. In 03/1994, he presented with 2-3 week history of epigastric burning that would radiate to his throat. This would occur with activity such as walking to his barn and would resolve with rest in 5 minutes. He had discomfort that radiated to his left shoulder and the pain continued to worsen. He came to the hospital and as he near the hospital, the pain gradually resolved and was gone by that time he checked in. However, he did have biphasic T waves in V4 and V5. He underwent catheterization and was found to have a 90% proximal LAD, 30% mid LAD, 80% lesion in a large septal perforating branch, 40%-50% ramus marginalis, 50% small obtuse marginal and 80% followed by 50% mid RCA lesions. There was mild anterior hypokinesis. He then underwent CABG x4 by Dr. Hinds on 03/05/1994 with ALMARAZ to LAD and vein grafts to the ramus, right posterior descending and right coronary artery distally to the takeoff in the right PDA. He had atrial fibrillation and pericardial rub postoperatively and was started on Indocin and Lanoxin. In 05/1994, he was walking 1 to 1-1/2 miles every other day without chest discomfort. Treadmill at that time revealed inverted T waves in 1, L, and V2 and there was 0.5-[address]-segment depression, which was upsloping in multiple leads felt not to be significant. Treadmill was negative for ischemia. In 05/1995, he exercised 9 minutes, he had no ST-segment changes or chest discomfort. Again in 04/1996 and 05/1998, he had negative treadmills. In 12/1999, he complained of exertional dyspnea and exercised for 10 minutes. He had no ST-segment changes and treadmill was negative for ischemia. In 2001, he complained of episodes of upper chest tightness with walking or running that would last approximately 5 minutes and relieved with rest. This has been occurring for 3 months. He underwent stress echo testing, exercised for 9 minutes, and had 2-[address]-segment depression, but did not have any chest discomfort. EKG was positive for ischemia. Echo revealed scar of the inferoposterior wall and ischemia in the lateral wall and apex. He underwent catheterization, which revealed moderate anterior hypokinesis with ejection fraction of 40%-45%. There was total occlusion of the proximal LAD after the first septal perforating branch. There was total occlusion of the ramus. The small circumflex had a 70% obtuse marginal stenosis. The right coronary artery had a 70%-80% proximal to distal stenosis and 80% distal stenosis. Bypass grafts revealed a patent ALMARAZ to the LAD, patent ramus graft, occluded right posterior descending graft. The right coronary graft distal to the posterior descending takeoff had thrombus in an approximately 70% obstructing lesion. He was given Integrilin, intracoronary nitroglycerin, intracoronary adenosine. An Ultra 5.0 x 28 mm stent was placed in the right coronary artery graft distal to the right posterior descending takeoff. 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 He did have slight elevation of his CK-MB to 9.7 and troponin I of 3.0. He was ambulated and had dramatic improvement in his exercise tolerance at the time of discharge. In 03/2003, he exercised for 7 minutes and 0.5-[address]- segment depression in V4 through V6, which was rapidly upsloping returned to baseline at 2 minutes. He did not have any chest discomfort. Echocardiogram revealed inferior and posterior wall scar, but no evidence of stress-induced ischemia. In 05/2004, he returned for yearly followup. He did not have any chest discomfort, underwent stress echo testing, exercised for 6 minutes. EKG showed new onset of atrial fibrillation/flutter with [address]-segment depression in V4 through V6, 2, 3, and F. An EKG was felt to be positive for ischemia. Echo revealed ejection fraction of 40%-45% with inferior and posterior wall scar at the base and lateral ischemia. He underwent catheterization, which revealed moderate anterior and apical hypokinesis with ejection fraction of 40%-45%. The LAD was totally occluded proximally. There was a small circumflex with a 60 % first obtuse marginal lesion. The ramus was totally occluded. The right coronary artery was diffusely diseased with 70%-80% proximal to mid stenosis and 80% mid stenosis. Bypass grafts revealed patent ALMARAZ to the LAD with a 50% LAD lesion proximal to the graft insertion. The ramus graft was patent. The right posterior descending graft was occluded as before. The right coronary artery graft distal to the right posterior descending takeoff had an 80% in- stent restenosis. He then underwent laser atherectomy with a 1.7E followed by placement of an Ultra 5.0 x 13 mm stent in the RCA graft in-stent restenosis. There was an area of dissection at the end of the new stent and another stent an Express 2.5 x 20 mm stent was placed. He had some mild residual chest discomfort after procedure, [address]-segment elevation inferiorly, which gradually resolved. He did have small myocardial infarction due to embolic debris with CK of 494, MB 55.1, and troponin I of 17.0. He continued to have atrial fibrillation/flutter and amiodarone was started. He had heart rates in the low 30s, and then soon thereafter would go into atrial fibrillation/flutter. It was recommended that pacemaker will be placed and an AT-500 pacemaker was placed without incident. He was discharged on Ecotrin and Plavix. In 10/2004, pacemaker was interrogated, he did not have any atrial fibrillation. After 05/2004, he had not had any further episodes of the amiodarone was reduced to 200 mg daily. In 07/2004, his atrial therapies were turned on. In 12/2005, he presented to the emergency room for pain and episode of diaphoresis, weakness, and lightheadedness, but denied any chest pain or shortness of breath. Cardiac enzymes were negative. He underwent repeat catheterization, which revealed moderate anterior hypokinesis with ejection fraction of 45%-50%. There was total occlusion of the proximal LAD, total occlusion of the ramus. The circumflex was small with a 60% first obtuse marginal lesion. The right coronary artery was diffusely diseased with 70%-80% stenosis in the proximal to distal vessel. Bypass grafts revealed patent ALMARAZ to the LAD. There was an 80% lesion proximal to the anastomosis that filled the diagonal retrograde. The ramus graft was patent. The right posterior descending graft was occluded as before. The right coronary artery graft distal to the right PDA takeoff and a 70% in-stent restenosis. A filter wire was used and a Liberte 5.0 x 24 mm stent was placed with excellent result. His LDL at that time was 62. He was admitted again in 08/2006 with increased episodes of chest discomfort. He underwent adenosine Cardiolite testing, which revealed small distal anterior wall ischemia. Ejection fraction was 59% with normal wall motion. His INR is 1.5 at that time and Coumadin was stopped. He did have amiodarone discontinued several months prior to that due to hyperthyroidism and due to recurrent episodes of dizziness. He had recurrence of atrial fibrillation when he was admitted in 2006 and was placed on sotalol. Echo revealed ejection fraction of 50%-55% with pacing wire in the right side of the heart, mild mitral regurgitation, mild tricuspid regurgitation. He underwent repeat catheterization on 10/06/2006, which was his last catheterization. This revealed ejection fraction of 45%-50% with moderate anterior hypokinesis. There was total occlusion of the proximal LAD, total occlusion of the ramus. The circumflex was small with a 60% first obtuse marginal lesion. The right coronary artery was diffusely diseased with 70%-80% mid stenosis and an 80% distal stenosis. The ALMARAZ to the LAD was patent with an 80% lesion in the LAD proximal to the ALMARAZ insertion, which filled the diagonal retrograde. This was the probable site of ischemia on Cardiolite. The ramus graft was patent. The right coronary artery graft distal to the right posterior descending takeoff had a 30% proximal stenosis and a 20% in-stent restenosis, where he had 3 previous stents placed. The right posterior descending graft was occluded as before. He continued to remain hyperthyroid with a TSH of less than 0.007. He was readmitted in 09/2006 with left lower quadrant abdominal pain felt to be due to nephrolithiasis. He developed visual hallucinations on morphine and Dilaudid. He denied any chest discomfort or shortness of breath. CT of the abdomen showed left kidney stone at the UV junction. He then apparently passed a kidney stone. Blood pressure continued to remain quite high. He underwent renal angiogram and was noted to have a left renal artery stenosis and a stent was placed. Blood pressure seemed to be easier to control after that. He was admitted again in 10/2006 with hemoglobin 9.3. He underwent endoscopy, which did not show any evidence of bleeding. Coumadin was discontinued. At that time , he is on aspirin, Coumadin, and Plavix for recently placed renal stent. Sotalol dose was increased from 40 b.i.d. to 80 b.i.d. due to 2 episodes of paroxysmal atrial fibrillation. He was evaluated by Dr. Santiago after T4 was significantly elevated and he was placed on Tapazole 10 mg t.i.d. Mr. Del Cid was to undergo sinus surgery and underwent Cardiolite testing on 09/20, which felt to be probably normal without evidence of ischemia or fixed defect. He apparently had a PICC line placed for previous antibiotic therapy on 09/28/2008. His PICC line was removed. He then presented to the emergency room on 10/02/2008 complaint of right lower rib margin pleuritic pain. He apparently had sudden onset of this the night before admission. Abdominal CT revealed right pleural effusion. There was left renal stent and a 3.6-cm infrarenal abdominal aortic aneurysm and sigmoid diverticulosis. Chest x-ray was unremarkable. Electrolytes were normal. He was discharged and he was uncertain what the final diagnosis exactly was. He returned on 10/03/2008 to the office complaining of right pleuritic chest pain. He had been having some chills and shakes, but no fever. He was placed on Vicodin and Flexeril. When he was seen in the emergency room and it was presumed, this was muscular pain. O2 saturation in the office was 96%; however , with recent removal of the PICC line was felt that he needed to be admitted to undergo chest CT to rule out pulmonary embolism. Also, it was felt that he did undergo ultrasound of the right subclavian and axillary veins to rule out thrombus. CT angiogram of the chest revealed right lung pulmonary embolism. Also, ultrasound of the axillary vein was performed, which revealed thrombus. He was placed on Lovenox 1 mg/kg b.i.d. and Coumadin was started. He had low- grade temperature and cultures revealed 1/2 coagulase negative Staph. After another temperature spiked, two more cultures were drawn and were negative. It was felt that his temperature was probably due to pulmonary embolism. He did develop a dark stool, which he was thought due to blood. Multiple stool, Hemoccults - approximately 10 - were all negative. He did have Clostridium difficile when he started to have diarrhea and was placed on Flagyl and vancomycin. At the time of discharge, he had no pleuritic chest pain and was afebrile, walking in the halls. He continued to be followed intermittently in the office and his pacemaker was checked in 12/2009. In 11/2010, he was asymptomatic and did undergo stress testing in 01/2011, which revealed no evidence of ischemia. There were no fixed defects. Echo in 01/2011 revealed ejection fraction 45%-50% with moderate mitral regurgitation, aortic valvular sclerosis, trace aortic regurgitation, and mild tricuspid regurgitation. He returned on 06/24/2011 for pacemaker check and it was found that his AT500 was not functioning and was essentially in the pocket. It was recommended that he have another pacemaker placed. His only symptom was dizziness, which had occurred since 11/2010. Also, before 08/2009, Coumadin was discontinued due to anemia. He underwent pacemaker placement without incident. In 12/2015, he was admitted with left C7 radiculopathy. In 01/2016, he was admitted due to inability to move his fingers of his left hand. He was placed on Eliquis. In 06/2016, he was admitted with shortness of breath and was felt that he had diastolic heart failure. In 01/2017, he underwent cervical diskectomy and had aspiration pneumonia postoperatively. He then went to rehab and somewhat of prolonged slow improvement there. A PEG tube was placed due to nutrition that ultimately was removed. In 04/2017, he underwent transesophageal echo prior to possible electrocardioversion. He was found to have a possible small thrombus in the left atrial appendage and he did not undergo electrical cardioversion. In 2016, he was admitted with chest pain, shortness of breath, and was found to be anemic. His Eliquis was held and he had EGD and colonoscopy without any specific etiology being found for his anemia. Again in 07/2017, he was admitted with anemia and chest pressure on exertion. Just prior to that, he had a Watchman placed and was on Plavix and aspirin. He was transfused 2 units of blood. On 08/14/2017, he underwent transesophageal echo which revealed excellent placement of a Watchman and 2 weeks later, his Plavix has been discontinued and continued on aspirin. He now is admitted with 10 minutes of chest discomfort. He has been found to have hemoglobin of 7.[address] Parks's office. He is scheduled to undergo video capsule endoscopy within the next several days. His symptoms are somewhat similar to previous anemic episodes, where he was extremely weak and tired as well as short of breath and developed chest pressure. He now is admitted for further evaluation and cardiac enzymes have been negative. PAST MEDICAL HISTORY: Hypertension, hypercholesterolemia, diabetes, development of hyperthyroidism after treatment for his paroxysmal atrial fibrillation with amiodarone. Amiodarone was discontinued and has hyperthyroidism, resolved. Medications were gradually tapered and discontinued. He has since developed hypothyroidism, coronary artery disease, GERD, diverticulosis, TIA. OPERATIONS: Anterior cervical diskectomy and fusion, bilateral lens implantation, placement of Watchman, pacemaker placement, lumbar fusion, stents placed mostly in the right coronary artery graft, CABG, hemorrhoidectomy, and spine surgeries, left renal artery stenting, appendectomy, and tonsillectomy. MEDICATIONS: Aspirin 325 daily, atorvastatin 40 at bedtime, carvedilol 6.25 b.i.d., vitamin D3, digoxin 0.125 q.a.m., Cymbalta 60 at bedtime, Zetia 10 mg 1/ 2 tablet q.a.m., folic acid 0.8 at bedtime, Lasix 20 mg q.a.m., Amaryl 0.5 mg b.i.d., glucosamine, levothyroxine 75 mcg daily, Glucophage 500 mg b.i.d., multivitamin 1 daily, nitroglycerin p.r.n., Protonix 40 b.i.d., MiraLax p.r.n., sotalol 120 b.i.d., Flomax 0.4 at bedtime, CoQ10 of 200 mg daily. ALLERGIES: MORPHINE and CODEINE. AMIODARONE caused hyperthyroidism. SOCIAL HISTORY: He smoked 1 pack per day, but stopped in 1984. He does not drink. 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 FAMILY HISTORY: Mother at age 70 with possible myocardial infarction. REVIEW OF SYSTEMS: A 10 point review of systems, otherwise unremarkable. PHYSICAL EXAMINATION: VITAL SIGNS: 161/73, pulse of 60. HEENT: PERRL. NECK: Supple. CHEST: Clear. CARDIAC: S1, S2 normal without any S3 or S4. There is a 1-2/6 systolic murmur along the left sternal border. ABDOMEN: Normal bowel sounds, without tenderness, organomegaly. EXTREMITIES: Revealed no clubbing, cyanosis, or edema. SKIN: Warm and dry. LABORATORY DATA: EKG reveals ventricular pacing. Hemoglobin [address] Parks' s office; however, here was 8.5, hematocrit 25.9, white count 4200, platelets 290,000. INR 1.2, sodium 134, potassium 4.4, chloride 102, carbon dioxide 26, BUN 10, creatinine 1.33, glucose 206. Troponin I is up to 0.033. IMPRESSION: 1. Chest discomfort, probably due to his anemia. 2. Coronary artery disease as noted above with initially percutaneous transluminal coronary angioplasty of the mid RCA in 09/1989 followed by coronary artery bypass graft x4 in 03/1994. ALMARAZ to the LAD, vein graft to the ramus, right posterior descending, and right coronary artery distal to the takeoff the right posterior descending. Right posterior descending grafts have been occluded since at least 10/2001. Right coronary graft had placement of an Ultra 5.0 x 20 mm stent in 10/2001 after having an angina for 3 months. In 2003, he had laser atherectomy and stent placement in the area of in-stent restenosis in the right coronary artery graft. In 12/2005, he underwent placement of Liberte 5.0 x 24 mm stent using a filter wire. In 09/2006, he underwent cardiac catheterization, continued to have good results in the right coronary artery graft stented area. There was an 80% lesion in the LAD proximal to the ALMARAZ insertion, which was probable site of ischemia, since this filled the diagonal retrograde. 3. Pulmonary embolism to the right lower lung and thrombosis of the right axillary vein after PICC line removal with no right arm edema. He was treated with Coumadin for that, but that eventually was stopped due to the anemia. 4. Recurrent GI bleeds when he is anticoagulated with Coumadin or Eliquis. 5. Paroxysmal atrial fibrillation. 6. Pacemaker placement. 7. Small myocardial infarction in 05/2004 due to embolic debris after stent placement with peak CK of 495. MB 55.1, troponin I 17.0. 8. Hypercholesterolemia, under good control with last LDL in 07/2017 of 39. 9. Former smoker 10. Hypertension. 11. Positive family history. 12. 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 13. History of nephrolithiasis. PLAN: Mr. Del Cid is being transfused. He did have a negative Cardiolite in the office in 12/2016, however, with recurrent admissions for angina, will undergo repeat Cardiolite testing. I will follow the patient with you. ANA
[2017-08-27] MEDS ORDERED: Levothyroxine Sodium 75 MCG TAB PO SCH (06:00)
[2017-08-27 06:05] LABS: #Eosinphils 0.1 thou/uL (0.0-0.7); #Lymphocytes 0.8 thou/uL (1.20-3.40); #Monocytes 0.6 thou/uL (0.11-0.59); #Neutrophils 3.5 thou/uL (1.40-6.50); %Basophils 0.7 % (0.0-1.0); %Eosinophils 2.6 % (0.0-10.0); %Lymphocytes 16.5 % (21.0-51.0); %Monocytes 11.2 % (0.0-10.0); %Neutrophils 69.1 % (42.0-75.0); Hemoglobin 9.7 g/dL (14.0-18.0); Mean Corpuscular HGB CONC 33.3 g/dL (32.0-36.0); Mean Corpuscular Hemoglobin 32.1 pg (27.0-31.0); Mean Corpuscular Volume 96.4 fl (80.0-94.0); Mean Platelet Volume 6.7 fL (7.4-10.4); Platelet Count 286 thou/uL (130-400); RBC Distribution Width 14.9 % (11.5-14.5); Red Blood Cell (RBC) Count 3.02 mill/uL (4.70-6.10)
[2017-08-27 06:12] LABS: Anion Gap 11 mmol/L (10-20); BUN (Urea Nitrogen) 16 mg/dL (8.4-25.7); Calc. Creatinine Clearance 47 mL/min (70-130); Calcium 8.9 mg/dL (7.8-10.44); Carbon Dioxide 26 mmol/L (23-31); Chloride 102 mmol/L (98-107); Estimated GFR-MDRD 61; Glucose 99 mg/dL (83-110); Potassium 4.5 mmol/L (3.5-5.1); Sodium 134 mmol/L (136-145)
[2017-08-27] MEDS: Nitroglycerin 2% Ointment 1 INCH/1 GM Packet TOP SCH ×2 (07:13→14:06)
[2017-08-27] MEDS ORDERED: Furosemide 20 MG TAB PO SCH (09:00)
[2017-08-27] MEDS ORDERED: GLUCOSAMINE SULFATE DIPOT CHLR PO SCH (09:00)
[2017-08-27] MEDS ORDERED: [UNRECOGNIZED DRUG - OTHER] PO SCH (09:00)
[2017-08-27] MEDS ORDERED: Ezetimibe 10 MG TAB PO SCH (09:00)
[2017-08-27] MEDS ORDERED: Prenatal Vitamin 1 TAB PO SCH (09:00)
[2017-08-27] MEDS ORDERED: Polyethylene Glycol 3350 17 GM Packet PO PRN (09:00)
[2017-08-27] MEDS ORDERED: Digoxin 0.125 MG TAB PO SCH (09:00)
[2017-08-27] MEDS ORDERED: Aspirin 325 mg Enteric Coated Tablet PO SCH (09:00)
[2017-08-27] MEDS: Sotalol HCl 80 MG TAB PO SCH (10:47)
[2017-08-27] MEDS: metFORMIN 500 MG TAB PO SCH ×2 (10:47→18:11)
[2017-08-27] MEDS: Carvedilol 6.25 MG TAB PO SCH (10:48)
[2017-08-27] MEDS: Glimepiride 1 MG TAB PO SCH (10:49)
--- NOTE | 2017-08-27 12:42 | NM ---
MYOCARDIAL PERFUSION EVALUATION: INDICATION: History of angina. RADIOPHARMACEUTICAL: 32 mCi of Technetium 99m labeled sestamibi IV with stress and 11 mCi Technetium 99m sestamibi IV with rest. PHYSIOLOGIC DATA: The patient achieved 54% of the maximal age-predicted heart rate utilizing a LexiScan stress/rest pro tocol. Please see the LexiScan stress test report for details concerning the physiologic data. FINDINGS: When comparing the rest and stress images, no reversible myocardial perfusion defect is evident. The re was septal hypokinesis seen on the gated images. The estimated LVEF is 53%. Comparisons are made with prior examination dated 12/15/15. IMPRESSION: 1. No scintigraphic evidence to suggest myocardial ischemia. 2. Mild septal hypokinesis seen on the gated images. 2. Left ventricular ejection fraction is within normal limits at 53%. POS: THERESA
[2017-08-27] MEDS ORDERED: Regadenoson 0.4 MG/5 ML SYRINGE ONE (15:15)
[2017-08-27 15:40] VITALS: TEMP 98
--- NOTE | 2017-08-28 00:26 | DIS ---
PRIMARY CARE PHYSICIAN: Dr. Phil Parks. DATE OF ADMISSION: 08/26/2017 DATE OF DISCHARGE: 08/27/2017 DISCHARGE DIAGNOSES: 1. Chest pain. 2. Anemia. CONDITION OF PATIENT AT THE TIME OF DISCHARGE: Stable. I assess Mr. Del Cid prior to discharge. He d enies any chest pain or shortness of breath. Vital signs are stable. S1 and S2 are heard, regular. Lungs are clear to auscultation bilaterally. DISCHARGE MEDICATIONS: Plavix was discontinued. Otherwise, his discharge medications are the same a s dictated on history and physical note from 08/26/2017. HOSPITAL COURSE: Mr. Del Cid is a pleasant 86-year-old gentleman who was admitted to [facility] for anemia as well as chest discomfort and mildly elevated troponin. He received pa cked RBC transfusion. He was seen by Cardiology Service. He underwent nuclear stress test on 2017. There was no scintigraphic evidence to suggest myocardial ischemia. He had mild septal hypoki nesis on the gated images. Left ventricular ejection fraction was within normal limits at 53%. On the day of discharge, Mr. Del Cid has a white count of 5000, hemoglobin 9.7, platelet count 286,000. Sodium 134, normal creatinine and normal potassium. CONSULTATIONS DURING THIS HOSPITALIZATION: Cardiology, Dr. Jimenez. Many thanks for allowing me to participate in your patient's care. Please feel free to contact me wi th any questions or concerns. DISCHARGE DESTINATION: Home.
[2017-08-28 07:19] VITALS: BP 151/72
--- NOTE | 2017-09-07 01:26 | EKG ---
Test Reason : Blood Pressure : / mmHG Vent. Rate : 066 BPM Atrial Rate : 087 BPM P-R Int : 000 ms QRS Dur : 170 ms QT Int : 490 ms P-R-T Axes : 000 -74 101 degrees QTc Int : 513 ms Poor data quality, interpretation may be adversely affected Sinus rhythm with complete heart block and Ventricular-paced rhythm Abnormal ECG Confirmed by YAMILA JOEL MD ([id number]), newspaper editor JOHNNY MAURICIO ([id number]) on 09/07/2017 1:25:54 AM Referred By: Confirmed By:YAMILA JOEL MD
--- NOTE | 2017-09-29 15:14 | STRESS ---
Acquisition Time: 2017-08-27 09:12:05 Total Exercise Time: 00:01:00 Test Indications: ANGINA Medications: Protocol: LEXISCAN Max HR: 072 BPM 54% of Pred: 133 BPM Max BP: 178/070 mmHG Max Work Load: 1.0 METS RESTING ECG: V-PACED WITH INTRINSIC ATRIAL FIBRILLATION AT 61 BPM SYMPTOMS: CHEST TIGHTNESS NORMAL BP RESPONSE ECTOPY: NONE ECG STRESS: NO SIGNIFICANT CHANGES INTERPRETATION: INDETERMINATE ECG/AWAIT NUCLEAR IMAGES FOR DEFINITIVE DIAGNOSIS Confirmed by MAR MEDINA ELLEN ([id number]) on 09/29/2017 3:14:12 PM Referred By: MD Vero CONNELL Confirmed By:OMEGA MEDINA PA-C
== END 2017-08-27 18:41 | disposition home or self-care (01) ==
LOC: ERS 09:44 → 2SW 11:50
PROVIDERS: ADMIT Internal Medicine; ATTEND Internal Medicine
DX: R07.89 Other chest pain (principal); D64.9 Anemia, unspecified; I25.10 Atherosclerotic heart disease of native coronary artery without angina pectoris; K21.9 Gastro-esophageal reflux disease without esophagitis; I48.0 Paroxysmal atrial fibrillation; E03.9 Hypothyroidism, unspecified; E11.9 Type 2 diabetes mellitus without complications; I10 Essential (primary) hypertension; E78.5 Hyperlipidemia, unspecified; I25.2 Old myocardial infarction; Z79.84 Long term (current) use of oral hypoglycemic drugs; Z79.82 Long term (current) use of aspirin; Z79.02 Long term (current) use of antithrombotics/antiplatelets; Z79.899 Other long term (current) drug therapy; Z88.5 Allergy status to narcotic agent; Z88.8 Allergy status to other drugs, medicaments and biological substances; Z98.1 Arthrodesis status; Z95.818 Presence of other cardiac implants and grafts; Z96.1 Presence of intraocular lens; Z95.1 Presence of aortocoronary bypass graft; Z95.5 Presence of coronary angioplasty implant and graft; Z98.890 Other specified postprocedural states; Z86.73 Personal history of transient ischemic attack (TIA), and cerebral infarction without residual deficits; Z87.891 Personal history of nicotine dependence
CPT/HCPCS: 36430; 71045; 78452; 80048; 80053; 82550; 82553 ×2; 82962 ×2; 84484 ×2; 85025 ×2; 85610; 85730; 86850; 86900; 86901; 86920; 93005; 93017; 94760; 99285; A9500; G0378; P9016; 36415; 36416; J2785

== ENCOUNTER 2018-01-22 15:59 | Outpatient (CLI) | payer MEDICARE, OTHER ==
[2018-01-22 16:49] LABS: #Eosinphils 0.2 thou/uL (0.0-0.7); #Lymphocytes 0.6 thou/uL (1.20-3.40); #Monocytes 0.5 thou/uL (0.11-0.59); #Neutrophils 3.6 thou/uL (1.40-6.50); %Eosinophils 3.9 % (0.0-10.0); %Lymphocytes 12.5 % (21.0-51.0); %Monocytes 9.7 % (0.0-10.0); %Neutrophils 73.9 % (42.0-75.0); Hemoglobin 10.2 g/dL (14.0-18.0); Mean Corpuscular HGB CONC 33.9 g/dL (32.0-36.0); Mean Corpuscular Hemoglobin 31.8 pg (27.0-31.0); Mean Corpuscular Volume 93.8 fL (78.0-98.0); Mean Platelet Volume 7.1 fL (7.4-10.4); Platelet Count 170 thou/uL (130-400); RBC Distribution Width 14.2 % (11.5-14.5); Red Blood Cell (RBC) Count 3.21 mill/uL (4.70-6.10); White Blood Cell (WBC) Count 4.8 thou/uL (4.8-10.8)
[2018-01-22 16:54] LABS: INR-International Normal Ratio 1.2; Prothrombin Time 14.9 SEC (12.0-14.7)
[2018-01-22 16:55] LABS: PTT 31.2 SEC (22.9-36.1)
[2018-01-22 17:07] LABS: Anion Gap 14 mmol/L (10-20); BUN (Urea Nitrogen) 32 mg/dL (8.4-25.7); Calc. Creatinine Clearance 0 mL/min (70-130); Calcium 9.1 mg/dL (7.8-10.44); Carbon Dioxide 25 mmol/L (23-31); Chloride 103 mmol/L (98-107); Estimated GFR-MDRD 48; Glucose 146 mg/dL (83-110); Potassium 4.8 mmol/L (3.5-5.1); Sodium 137 mmol/L (136-145)
--- NOTE | 2018-01-23 15:16 | EKG ---
Test Reason : Blood Pressure : / mmHG Vent. Rate : 061 BPM Atrial Rate : 300 BPM P-R Int : 000 ms QRS Dur : 140 ms QT Int : 428 ms P-R-T Axes : 000 -74 104 degrees QTc Int : 430 ms Electronic ventricular pacemaker When compared with ECG of 26-AUG-2017 09:48, Sinus rhythm is no longer with complete heart block Vent. rate has decreased BY 5 BPM Confirmed by BRYAN CORTEZ, MELANIE ([id number]) on 01/23/2018 3:16:20 PM Referred By: CODIE Confirmed By:MELANIE ADAMS MD
== END 2018-01-22 16:00 | disposition home or self-care (01) ==
LOC: LABBT 15:59
PROVIDERS: ATTEND Internal Medicine Cardiovascular Disease
DX: Z01.818 Encounter for other preprocedural examination (principal); I48.91 Unspecified atrial fibrillation
CPT/HCPCS: 80048; 85025; 85610; 85730; 93005; 93010

== ENCOUNTER → 2018-01-27 | Day surgery (SDC) | payer MEDICARE, OTHER ==
[2018-01-22 16:15] VITALS: BMI 22.7
[~2018-01-27] MED LIST changes: -ISOVUE-370 76%-LOCM 1 ML ONE; +Ondansetron HCl/PF 4 MG/2 ML Vial ONE; +PROPOFOL 20 ML ONE; +Promethazine HCl 25 MG/ML VIAL ONE
--- NOTE | 2018-01-27 17:10 | ECHO ---
87-year-old gentleman with paroxysmal atrial fibrillation and a Watchman device. The patient was taken to the PACU. The patient sedated by anesthesiology. A transesophageal probe wa s placed in the distal esophagus and stomach. Echocardiographic images were obtained. The transesopha geal probe was removed. FINDINGS 1. Normal left ventricular systolic function. 2. Left atrial enlargement. 3. Aortic valve leaflets are thickened with reduced leaflet excursion. 4. Aortic stenosis. 5. Mild aortic regurgitation. 6. Mild mitral regurgitation. 7. Mild tricuspid regurgitation. 8. Small 1 mm leak was noted outside the Watchman device. 9. Atherosclerotic debris in the descending aorta. IMPRESSION: 1 mm leak noted outside the Watchman device.
== END ==
LOC: CCL 06:04
PROVIDERS: ATTEND Internal Medicine Cardiovascular Disease
PROC: B24BZZ4 Ultrasonography of Heart with Aorta, Transesophageal (ICD-10-PCS; principal; 2018-01-27)
DX: I48.0 Paroxysmal atrial fibrillation (principal); I08.9 Rheumatic multiple valve disease, unspecified; E78.5 Hyperlipidemia, unspecified; I50.20 Unspecified systolic (congestive) heart failure; I25.10 Atherosclerotic heart disease of native coronary artery without angina pectoris; I25.2 Old myocardial infarction; Z79.02 Long term (current) use of antithrombotics/antiplatelets; Z79.82 Long term (current) use of aspirin; Z79.84 Long term (current) use of oral hypoglycemic drugs; Z79.899 Other long term (current) drug therapy; Z88.5 Allergy status to narcotic agent; Z91.048 Other nonmedicinal substance allergy status; Z95.0 Presence of cardiac pacemaker; Z95.1 Presence of aortocoronary bypass graft; Z95.818 Presence of other cardiac implants and grafts
CPT/HCPCS: 93312; J2405; J2550; J2704

== ENCOUNTER 2018-02-16 12:44 | Outpatient (CLI) | payer MEDICARE, OTHER ==
--- NOTE | 2018-02-16 16:00 | RAD ---
PA AND LATERAL CHEST X-RAY: 02/16/2018 HISTORY: Dyspnea. COMPARISON: 08/26/2017 FINDINGS: Post surgical changes related to CABG are again noted. A dual-lead left subclavian cardiac pacemaker device remains in place. There is a left atrial occlusion device noted in place. The cardiac silho uette and pulmonary vasculature are within normal limits. There is a nodular density overlying the l eft lung base, also seen on the prior exam, as well as on the PA chest x-ray on 05/07/2017, likely re presenting nipple shadow. A few minimal reticulonodular densities are seen at the lateral aspect of the right upper lung zone, which could be related to mild scarring. An infectious or inflammatory pr ocess could not be entirely excluded. However, this appearance is also similar to a study on 017. The lungs are otherwise clear. Vascular calcifications are seen in the thoracic aorta. No oth er interval change. IMPRESSION: 1. Minimal reticulonodular densities, lateral aspect, right upper lung zone. This appearance is sim ilar to a study on 05/07/2017 and may be related to either mild scarring or a persistent infectious o r inflammatory process. 2. Nodular density, left lung base, most likely related to a nipple shadow. POS: [facility]
== END 2018-02-16 12:45 | disposition home or self-care (01) ==
LOC: RAD 12:44
PROVIDERS: ATTEND Internal Medicine Critical Care Medicine
DX: R06.00 Dyspnea, unspecified (principal); J98.4 Other disorders of lung
CPT/HCPCS: 71046

== ENCOUNTER 2018-04-06 14:19 | Outpatient (CLI) | payer MEDICARE, OTHER ==
[2018-04-06 15:59] LABS: Hemoglobin 10.9 g/dL (14.0-18.0); Mean Corpuscular HGB CONC 32.3 g/dL (32.0-36.0); Mean Corpuscular Hemoglobin 31.6 pg (27.0-31.0); Mean Corpuscular Volume 97.7 fL (78.0-98.0); Mean Platelet Volume 7.2 fL (7.4-10.4); Platelet Count 217 thou/uL (130-400); RBC Distribution Width 13.4 % (11.5-14.5); Red Blood Cell (RBC) Count 3.45 mill/uL (4.70-6.10); White Blood Cell (WBC) Count 4.7 thou/uL (4.8-10.8)
[2018-04-06 16:06] LABS: INR-International Normal Ratio 1.1; PTT 31.2 SEC (22.9-36.1); Prothrombin Time 14.8 SEC (12.0-14.7)
[2018-04-06 16:19] LABS: Anion Gap 12 mmol/L (10-20); BUN (Urea Nitrogen) 30 mg/dL (8.4-25.7); Calc. Creatinine Clearance 0 mL/min (70-130); Calcium 9.7 mg/dL (7.8-10.44); Carbon Dioxide 28 mmol/L (23-31); Chloride 104 mmol/L (98-107); Estimated GFR-MDRD 49; Glucose 106 mg/dL (83-110); Potassium 4.9 mmol/L (3.5-5.1); Sodium 139 mmol/L (136-145)
--- NOTE | 2018-04-07 07:37 | EKG ---
Test Reason : Blood Pressure : / mmHG Vent. Rate : 066 BPM Atrial Rate : 227 BPM P-R Int : 000 ms QRS Dur : 084 ms QT Int : 414 ms P-R-T Axes : 000 100 001 degrees QTc Int : 434 ms Demand pacemaker; interpretation is based on intrinsic rhythm Atrial fibrillation with premature ventricular or aberrantly conducted complexes Rightward axis T wave abnormality, consider inferior ischemia or digitalis effect Abnormal ECG When compared with ECG of 22-JAN-2018 16:29, Atrial fibrillation has replaced Electronic ventricular pacemaker Confirmed by DR. Aranza FOWLER ([id number]) on 04/07/2018 7:37:07 AM Referred By: [facility] Confirmed By:DR. Aranza FOWLER
== END 2018-04-06 14:20 | disposition home or self-care (01) ==
LOC: LABBT 14:19
PROVIDERS: ATTEND Internal Medicine Cardiovascular Disease
DX: Z01.818 Encounter for other preprocedural examination (principal); I48.91 Unspecified atrial fibrillation
CPT/HCPCS: 80048; 85027; 85610; 85730; 93005; 93010

== ENCOUNTER 2018-04-10 11:38 | Day surgery (SDC) | payer MEDICARE, OTHER ==
[2018-04-06 14:46] VITALS: BMI 22.4
[2018-04-10] MEDS ORDERED: PROPOFOL 20 ML ONE (12:33)
--- NOTE | 2018-04-10 22:53 | ECHO ---
HISTORY OF PRESENT ILLNESS: 87-year-old gentleman with permanent atrial fibrillation and a Watchman device. DESCRIPTION OF PROCEDURE: The patient taken to the PACU. The patient sedated by anesthesiology. The transesophageal probe was placed in the distal esophagus and stomach. Echocardiographic record images were obtained. The transe sophageal probe was removed. FINDINGS: 1. Normal left ventricular systolic function. 2. Biatrial enlargement. 3. Aortic valve leaflets are thickened with reduced leaflet excursion. 4. Aortic stenosis. 5. Mild mitral regurgitation. 6. Mild tricuspid regurgitation. 7. Small 1-2 cm leak noted around the Watchman device. 8. Atherosclerotic debris in the center. IMPRESSION: 1-2 mm leak noted around the Watchman device.
== END 2018-04-10 14:42 | disposition home or self-care (01) ==
LOC: CCL 11:38
PROVIDERS: ATTEND Internal Medicine Cardiovascular Disease
PROC: B24BZZ4 Ultrasonography of Heart with Aorta, Transesophageal (ICD-10-PCS; principal; 2018-04-10)
DX: T82.897A Other specified complication of cardiac prosthetic devices, implants and grafts, initial encounter (principal); I48.1 Persistent atrial fibrillation; I35.0 Nonrheumatic aortic (valve) stenosis; I70.0 Atherosclerosis of aorta; D53.9 Nutritional anemia, unspecified; I11.0 Hypertensive heart disease with heart failure; I50.22 Chronic systolic (congestive) heart failure; I25.10 Atherosclerotic heart disease of native coronary artery without angina pectoris; I25.2 Old myocardial infarction; I95.1 Orthostatic hypotension; E78.5 Hyperlipidemia, unspecified; Z79.02 Long term (current) use of antithrombotics/antiplatelets; Z79.82 Long term (current) use of aspirin; Z79.84 Long term (current) use of oral hypoglycemic drugs; Z79.899 Other long term (current) drug therapy; Z88.5 Allergy status to narcotic agent; Z91.048 Other nonmedicinal substance allergy status; Z95.818 Presence of other cardiac implants and grafts; Z95.0 Presence of cardiac pacemaker; Z95.1 Presence of aortocoronary bypass graft
CPT/HCPCS: 36416; 93312; J2704

== ENCOUNTER 2018-07-01 19:18 | Emergency (ER) | payer MEDICARE, OTHER ==
[~2018-07-01 19:18] MED LIST changes: +ISOVUE-370 76%-LOCM 1 ML ONE; -Ondansetron HCl/PF 4 MG/2 ML Vial ONE; -PROPOFOL 20 ML ONE; -Promethazine HCl 25 MG/ML VIAL ONE
[2018-07-01 20:52] LABS: #Eosinphils 0.1 thou/uL (0.0-0.7); #Lymphocytes 0.8 thou/uL (1.20-3.40); #Monocytes 0.5 thou/uL (0.11-0.59); #Neutrophils 5.2 thou/uL (1.40-6.50); %Basophils 0.4 % (0.0-1.0); %Eosinophils 1.7 % (0.0-10.0); %Lymphocytes 11.8 % (21.0-51.0); %Monocytes 7.3 % (0.0-10.0); %Neutrophils 78.8 % (42.0-75.0); Mean Corpuscular HGB CONC 33.2 g/dL (32.0-36.0); Mean Corpuscular Hemoglobin 31.8 pg (27.0-31.0); Mean Corpuscular Volume 95.8 fL (78.0-98.0); Mean Platelet Volume 6.7 fL (7.4-10.4); Platelet Count 194 thou/uL (130-400); RBC Distribution Width 12.4 % (11.5-14.5); Red Blood Cell (RBC) Count 3.76 mill/uL (4.70-6.10); White Blood Cell (WBC) Count 6.6 thou/uL (4.8-10.8)
--- NOTE | 2018-07-01 21:09 | RAD ---
FRONTAL VIEW CHEST: Date: 07/01/18 COMPARISON: 06/28/18. CLINICAL HISTORY: Cough. FINDINGS: Cardiomediastinal silhouette is stable in size. Left-sided cardiac pacing device, sternotomy wires, a nd left atrial appendage embolic coil mass are again seen. Otherwise, no significant interval change. IMPRESSION: No lobar consolidation. POS: [facility]
[2018-07-01 21:15] LABS: ALT (SGPT) 14 U/L (8-55); AST (SGOT) 21 U/L (5-34); Albumin 3.8 g/dL (3.4-4.8); Alkaline Phosphatase 141 U/L (40-150); Anion Gap 13 mmol/L (10-20); BUN (Urea Nitrogen) 32 mg/dL (8.4-25.7); Bilirubin, Total 0.5 mg/dL (0.2-1.2); Calc. Creatinine Clearance 0 mL/min (70-130); Carbon Dioxide 28 mmol/L (23-31); Chloride 100 mmol/L (98-107); Estimated GFR-MDRD 47; Globulin 3.7 g/dL (2.4-3.5); Glucose 130 mg/dL (83-110); Potassium 4.9 mmol/L (3.5-5.1); Protein, Total 7.5 g/dL (5.8-8.1); Sodium 136 mmol/L (136-145)
[2018-07-01 22:55] LABS: Bilirubin Negative (Negative); Blood, Urine Trace (Negative); Clarity CLEAR (Clear); Glucose, Urine (Dipstick) Negative (Negative); Leukocyte Negative (Negative); Nitrite Negative (Negative); Protein, Urine (Dipstick) 100 mg/dL (Neg-Trace); Specific Gravity, Urine 1.019 (1.002-1.036)
[2018-07-01 22:57] LABS: Bacteria/HPF None Seen HPF (None Seen); Hyaline Casts/LPF 0-3 HYALINE CAST LPF (0-3 Hyaline); Squamous Epithelial None Seen HPF (0-3); WBC/HPF None Seen HPF (0-3)
--- NOTE | 2018-07-01 23:14 | CT ---
CTA CHEST WITH CONTRAST WITH 3D VOLUME RENDERING 07/01/18 CLINICAL INDICATION: Cough, dyspnea. FINDINGS: There is prominent streak artifact from embolic coil mass in the left atrial appendage which limits v isualization. There is no definite large, central pulmonary embolus seen. There are scattered tree-in -bud nodular opacities as well as bronchial wall thickening and mild bronchiectasis. These findings f avor atypical, bilateral bronchopneumonia. No evidence of effusion or pneumothorax. Scattered vascula r calcifications present. There is a left renal artery stent. There is moderate distention of the gal lbladder is present and there is cholelithiasis. Hypodensity anteriorly within the right kidney is in completely imaged. IMPRESSION: 1. No evidence of acute pulmonary embolus. 2. Findings favoring atypical bilateral pneumonia. Correlate clinically. 3. Cholelithiasis. POS: [facility]
== END 2018-07-01 23:36 | disposition home or self-care (01) ==
LOC: ERS 19:18
DX: J18.9 Pneumonia, unspecified organism (principal); I25.10 Atherosclerotic heart disease of native coronary artery without angina pectoris; I48.91 Unspecified atrial fibrillation; E03.9 Hypothyroidism, unspecified; K21.9 Gastro-esophageal reflux disease without esophagitis; I10 Essential (primary) hypertension; Z86.73 Personal history of transient ischemic attack (TIA), and cerebral infarction without residual deficits; Z79.899 Other long term (current) drug therapy; Z79.82 Long term (current) use of aspirin; Z79.84 Long term (current) use of oral hypoglycemic drugs; Z79.891 Long term (current) use of opiate analgesic
CPT/HCPCS: 36415; 71045; 71275; 80053; 81003; 81015; 83605; 83880; 85025; 87040; 87086; 87804; 93005; Q9966

== ENCOUNTER → 2018-07-27 | Day surgery (SDC) | payer MEDICARE, OTHER ==
[2018-07-24 11:27] VITALS: BMI 23.0
[~2018-07-27] MED LIST changes: -ISOVUE-370 76%-LOCM 1 ML ONE; +PROPOFOL 20 ML ONE
[2018-07-27 09:48] LABS: #Eosinphils 0.1 thou/uL (0.0-0.7); #Lymphocytes 0.7 thou/uL (1.20-3.40); #Monocytes 0.5 thou/uL (0.11-0.59); #Neutrophils 4.8 thou/uL (1.40-6.50); %Basophils 0.6 % (0.0-1.0); %Eosinophils 2.3 % (0.0-10.0); %Lymphocytes 11.5 % (21.0-51.0); %Monocytes 7.4 % (0.0-10.0); %Neutrophils 78.1 % (42.0-75.0); Hemoglobin 10.8 g/dL (14.0-18.0); Mean Corpuscular HGB CONC 31.8 g/dL (32.0-36.0); Mean Corpuscular Hemoglobin 31.4 pg (27.0-31.0); Mean Corpuscular Volume 98.8 fL (78.0-98.0); Mean Platelet Volume 7.8 fL (7.4-10.4); Platelet Count 158 thou/uL (130-400); RBC Distribution Width 13.3 % (11.5-14.5); Red Blood Cell (RBC) Count 3.42 mill/uL (4.70-6.10); White Blood Cell (WBC) Count 6.2 thou/uL (4.8-10.8)
[2018-07-27 09:56] LABS: INR-International Normal Ratio 1.2; PTT 27.8 SEC (22.9-36.1); Prothrombin Time 15.1 SEC (12.0-14.7)
[2018-07-27 10:09] LABS: Anion Gap 13 mmol/L (10-20); BUN (Urea Nitrogen) 28 mg/dL (8.4-25.7); Calc. Creatinine Clearance 42 mL/min (70-130); Calcium 9.3 mg/dL (7.8-10.44); Carbon Dioxide 27 mmol/L (23-31); Chloride 104 mmol/L (98-107); Estimated GFR-MDRD 50; Glucose 80 mg/dL (83-110); Potassium 4.8 mmol/L (3.5-5.1); Sodium 139 mmol/L (136-145)
--- NOTE | 2018-07-27 18:13 | ECHO ---
CARDIOLOGY PROCEDURE NOTE: Date: 07/27/18 PROCEDURE: Transesophageal echocardiogram. REASON FOR PROCEDURE: Mr. Del Cid is an 87-year-old gentleman with a history of chronic atrial fibrillation, Watchman device placement in June 2017, recoiling x2, most recently in June 2018. Here for repeat KRISTIN. PROCEDURE DETAILS: The patient received Propofol by anesthesia specialist. A standard transesophageal echocardiogram pro be was passed into the esophagus without difficulty. Patient tolerated the procedure well. No complic ations noted. RESULTS: Left atrium is moderately enlarged. Left atrial appendage is well visualized with an appropriately pl aced Watchman device in position. A significant amount of clot burden was seen posterior to the Watch man device, but there is still some echo lucency seen in the tip of the Watchman device. Color Dopple r does reveal a very small, possibly 1 mm, leak through the mesh area of the Watchman device. Four of four pulmonary veins seen. Intra-atrial septum is free of defect. Mild mitral regurgitation s een. Aortic valve is mildly to moderately regurgitant. There is also moderate aortic stenosis seen by valve area of 0.9 cm2. Transthoracic peak aortic velocity suggestive gradient of 19 mmHg only. Mild tricuspid regurgitation seen with peak TR velocity of up to 2.6 meters/second. Left ventricular function is normal. Hassan are mildly hypertrophied in a concentric fashion. Right-si ded chambers nondilated. No pericardial effusion seen. The visualized portions of the ascending and d escending aorta are with adherent nonmobile atheroma only. No dissection or aneurysm seen. The aortic valve has sclerosis and the right coronary cusp is somewhat immobile, giving rise to the moderate st enosis as noted above. CONCLUSIONS: 1. Appropriately placed Watchman device in the left atrial appendage with very tiny leak possibly th rough the mesh area of the Watchman device is noted with mild translucency behind the Watchman device . 2. Normal left ventricular systolic function with mild concentric hypertrophy. 3. Moderate left atrial enlargement. 4. Moderate aortic valve stenosis, as above. 5. Mild tricuspid regurgitation. PLAN: Continue aspirin for now. Will also send copy of this report and the CT to Dr. Castellanos.
== END ==
LOC: CCL 08:42
PROVIDERS: ATTEND Internal Medicine Cardiovascular Disease
PROC: B24BZZ4 Ultrasonography of Heart with Aorta, Transesophageal (ICD-10-PCS; principal; 2018-07-27)
DX: I48.2 Chronic atrial fibrillation (principal); I48.1 Persistent atrial fibrillation; I35.0 Nonrheumatic aortic (valve) stenosis; I07.1 Rheumatic tricuspid insufficiency; I25.10 Atherosclerotic heart disease of native coronary artery without angina pectoris; E78.5 Hyperlipidemia, unspecified; I11.0 Hypertensive heart disease with heart failure; I50.22 Chronic systolic (congestive) heart failure; I25.2 Old myocardial infarction; Z79.82 Long term (current) use of aspirin; Z79.84 Long term (current) use of oral hypoglycemic drugs; Z79.899 Other long term (current) drug therapy; Z88.5 Allergy status to narcotic agent; Z91.048 Other nonmedicinal substance allergy status; Z95.818 Presence of other cardiac implants and grafts; Z95.5 Presence of coronary angioplasty implant and graft
CPT/HCPCS: 36415; 80048; 85025; 85610; 85730; 93005; 93010; 93312; J2704

== ENCOUNTER 2018-09-01 22:24 | Observation (INO) | payer MEDICARE, OTHER ==
[2018-09-01 22:59] LABS: #Eosinphils 0.2 thou/uL (0.0-0.7); #Lymphocytes 0.8 thou/uL (1.20-3.40); #Monocytes 0.5 thou/uL (0.11-0.59); #Neutrophils 5.6 thou/uL (1.40-6.50); %Basophils 0.6 % (0.0-1.0); %Eosinophils 3.1 % (0.0-10.0); %Lymphocytes 11.6 % (21.0-51.0); %Monocytes 7.6 % (0.0-10.0); %Neutrophils 77.2 % (42.0-75.0); Hemoglobin 9.6 g/dL (14.0-18.0); Mean Corpuscular HGB CONC 33.1 g/dL (32.0-36.0); Mean Corpuscular Hemoglobin 31.5 pg (27.0-31.0); Mean Corpuscular Volume 95.4 fL (78.0-98.0); Mean Platelet Volume 6.7 fL (7.4-10.4); Platelet Count 204 thou/uL (130-400); RBC Distribution Width 12.9 % (11.5-14.5); Red Blood Cell (RBC) Count 3.05 mill/uL (4.70-6.10); White Blood Cell (WBC) Count 7.2 thou/uL (4.8-10.8)
--- NOTE | 2018-09-01 22:59 | RAD ---
FEXAM: Portable chest PROVIDED CLINICAL HISTORY: Chest pain COMPARISON: 07/01/2018 FINDINGS: Cardiac and mediastinal silhouette is within normal limits. No focal consolidation, pleural fluid or pneumothorax evident. Left atrial coil mass, median sternotomy change and left subclavian cardiac pac ing device persist. Prominence of the pulmonary vasculature. IMPRESSION: Prominence of the pulmonary vasculature.
[2018-09-01 23:16] LABS: ALT (SGPT) 15 U/L (8-55); AST (SGOT) 20 U/L (5-34); Albumin 3.5 g/dL (3.4-4.8); Alkaline Phosphatase 107 U/L (40-150); Anion Gap 11 mmol/L (10-20); BUN (Urea Nitrogen) 34 mg/dL (8.4-25.7); Bilirubin, Total 0.4 mg/dL (0.2-1.2); Calc. Creatinine Clearance 0 mL/min (70-130); Calcium 9.2 mg/dL (7.8-10.44); Carbon Dioxide 28 mmol/L (23-31); Chloride 104 mmol/L (98-107); Estimated GFR-MDRD 38; Globulin 3.3 g/dL (2.4-3.5); Glucose 98 mg/dL (83-110); Lipase 34 U/L (8-78); Potassium 4.4 mmol/L (3.5-5.1); Protein, Total 6.8 g/dL (5.8-8.1); Sodium 139 mmol/L (136-145)
[2018-09-02] MEDS ORDERED: Nitroglycerin 0.4 MG TAB 1 EACH ONE (01:04)
[2018-09-02] MEDS ORDERED: Aspirin Chewable 81 MG TAB ONE (01:04)
[2018-09-02 02:43] LABS: Troponin I 0.012 ng/mL (< 0.028)
[2018-09-02 05:34] LABS: Troponin I 0.014 ng/mL (< 0.028)
[2018-09-02] MEDS ORDERED: Acetaminophen 325 MG TAB PO PRN (10:13)
[2018-09-02] MEDS ORDERED: Dextrose 5% in Water 1,000 ML IV PRN (10:26)
[2018-09-02] MEDS ORDERED: HumaLOG 300 UNITS/3 ML VIAL SC PRN (10:26)
[2018-09-02] MEDS ORDERED: Dextrose 50% Abboject 50 ML SYRINGE SLOW IVP PRN (10:26)
--- NOTE | 2018-09-02 10:57 | HP ---
CHIEF COMPLAINT: Shortness of breath and chest pain. HISTORY OF PRESENT ILLNESS: This patient is an 87-year-old male with an extensive history of coronary artery disease, status post bypass and subsequent stenting. He also has a history of atrial fibrillation, which required placement of a Watchman device in 2018. He subsequently had a leak requiring recoiling and second leak again requiring recoiling. The patient presented to the emergency department today reporting that he has had several days of worsening shortness of breath and dyspnea on exertion. He tends to actually be better when lying flat, but that is complicated by the fact that he has fairly severe spinal disease. The patient reported yesterday evening he tried to get up into the shower, but became more dyspneic and had generalized pressure type chest pain. He was able to get back into bed and after about an hour, his symptoms did seem to improve and he subsequently presented via the emergency department and reports that the nitroglycerin actually made his symptoms improve further. He reports that he has been dyspneic with minimal activity such as even talking. REVIEW OF SYSTEMS: The patient denies any orthopnea or significant peripheral edema. All other systems were reviewed and all pertinent positives and negatives noted in the history of present illness. PAST MEDICAL HISTORY: Notable for the above-mentioned coronary artery disease; atrial fibrillation; hyperlipidemia; hypertension; type 2 diabetes; hypothyroidism, which sounds like it was related to amiodarone therapy; chronic anemia; spinal stenosis that sounds like it is both cervical and lumbar; BPH; abdominal aortic aneurysm; and TIA going back in 2016. PAST SURGICAL HISTORY: Coronary artery bypass graft in 2000; stents placed in 2001 and 2003; pacemaker placement in 2011; Watchman device in 2018 with subsequent recoiling x2, the most recent was this year; lumbar surgery with fusion in 2011. FAMILY HISTORY: Mother had colon cancer. Father had stomach cancer. SOCIAL HISTORY: The patient is a nonsmoker, nondrinker, and nondrug user. He did smoke for 30 years, quit in 1979. He has been for 62 years. He is a full code and his is his surrogate decision maker. ALLERGIES: ADHESIVE TAPE, MORPHINE, AND CODEINE. CURRENT MEDICATIONS: 1. Synthroid 75 mcg daily. 2. Glimepiride 0.5 mg b.i.d. 3. Atorvastatin 40 mg daily. 4. Glucosamine 2000 mg b.i.d. 5. Aspirin 81 mg daily. 6. Tamsulosin 0.4 mg daily. 7. Pantoprazole 40 mg daily. 8. Carvedilol 6.25 one p.o. b.i.d. 9. Sotalol 120 mg one p.o. b.i.d. 10. Lasix 20 mg daily. 11. Duloxetine 60 mg one p.o. at bedtime. 12. Sublingual nitroglycerin p.r.n. PHYSICAL EXAMINATION: VITAL SIGNS: Blood pressure 140/70, pulse 72, respirations 20, temperature 98.1, and O2 sat ration 96% on room air. GENERAL APPEARANCE: Age-appropriate male, in no distress. He is awake, alert, oriented, pleasant, and cooperative. HEENT: PERRL. No OP lesions. NECK: Supple and symmetric. HEART: Reveals a midline incisional scar, which is well healed. He has an irregularly irregular rhythm. He has no significant murmur, but he does have some rales heard anteriorly when auscultating the heart associated with the respirations. LUNGS: Again, the anterior rales are noted, which are also auscultated posteriorly, but more faint and they are in the upper lobes only and the lower lobes are clear. It is just slightly diminished. ABDOMEN: Soft, nontender, and nondistended. Positive bowel sounds. No masses. No organomegaly. EXTREMITIES: Warm and dry with no cyanosis, clubbing, or edema. Peripheral pulses are faint but palpable and feel symmetric. SKIN: Warm and dry. NEURO: The patient appears to be grossly intact with no focal deficits. PSYCH: The patient has normal affect and behavior. LABORATORY DATA: White count 7.2, hemoglobin 9.6, and platelets 204. Chemistries normal with the exception of BUN of 34 and a creatinine of 1.72, which are very slightly above his baseline. His chest x-ray shows the indwelling pacemaker as well as sternotomy wires. Otherwise, there is prominence of the pulmonary vasculature, but no overt pulmonary edema or other acute processes. EKG shows atrial fibrillation with some ectopic beats. IMPRESSION AND PLAN: 1. Chest pain with shortness of breath and the patient with extensive cardiac history including coronary artery disease and atrial fibrillation. I discussed the case with Dr. Jimenez. Even though the patient has had 3 negative troponins, we will keep him in observation to perform an echocardiogram and interrogate his pacemaker. Check a BNP and have Cardiology come evaluate him. 2. Diabetes mellitus. We will continue with his usual home regimen. Accu-Cheks, diabetic diet. 3. Hypothyroidism. Continue with his usual home dose of Synthroid. 4. Atrial fibrillation. Has a pacemaker in place. Continue the sotalol and the carvedilol. The patient has a Watchman device, is not on any anticoagulation. 5. Hyperlipidemia. Continue atorvastatin. Job ID: [id number]
[2018-09-02 13:37] VITALS: BMI 24.9
[2018-09-02] MEDS ORDERED: Polyethylene Glycol 3350 17 GM Packet PO PRN ×2 (13:41→13:51)
[2018-09-02] MEDS ORDERED: Nitroglycerin 0.4 MG TAB (25 Tab Bottle) SL PRN (13:41)
[2018-09-02] MEDS ORDERED: Furosemide 20 MG/2 ML VIAL SLOW IVP SCH (20:15)
[2018-09-02] MEDS ORDERED: FOLIC ACID PO SCH (21:00)
[2018-09-02] MEDS ORDERED: Glimepiride 2 MG TAB PO SCH (21:00)
[2018-09-02] MEDS: Amlodipine 5 MG TAB PO SCH (21:37)
[2018-09-02] MEDS: DULoxetine 60 MG CAP PO SCH (21:37)
[2018-09-02] MEDS: Atorvastatin Calcium 40 MG TAB PO SCH (21:37)
[2018-09-02] MEDS: Carvedilol 6.25 MG TAB PO SCH (21:37)
[2018-09-02] MEDS: Tamsulosin HCl 0.4 MG CAP PO SCH (21:39)
[2018-09-02] MEDS: Glimepiride 2 MG TAB PO SCH (21:39)
[2018-09-02] MEDS: Folic Acid 1 MG TAB PO SCH (21:40)
--- NOTE | 2018-09-02 22:09 | CON ---
DATE OF CONSULTATION: HISTORY OF PRESENT ILLNESS: Patient is an 87-year-old gentleman who presents for evaluation of dyspnea and chest discomfort. The patient has a long history of coronary artery disease. The patient has previously undergone coronary bypass graft surgery in 1993. He has been in multiple occasions with chest discomfort and dyspnea. He has also had placement of an electronic pacemaker. The patient has chronic atrial fibrillation and subsequently had placement of a Watchman device. The patient was most recently admitted in 2018, a year ago. He underwent a Cardiolite stress test at that time, which revealed normal left ventricular ejection fraction of 52% with no evidence of ischemia. The patient had been doing reasonably well until a few days ago when he started developing recurrent dyspnea and chest discomfort. He states with minimal exertion. He would notice becoming markedly dyspneic and would also report having midsternal chest discomfort. This resolved with rest. The patient came to the emergency room for further evaluation. Patient denies having any present chest discomfort or dyspnea. PAST MEDICAL HISTORY: 1. Coronary artery disease. 2. Atrial fibrillation. 3. Hypertension. 4. Dyslipidemia. 5. Hypothyroidism. 6. History of TIA. PAST SURGICAL HISTORY: Coronary bypass graft surgery. SOCIAL HISTORY: Nonsmoker. FAMILY HISTORY: No strong family history of heart disease. ALLERGIES: ADHESIVE TAPE, CODEINE, AND MORPHINE. MEDICATIONS: See nursing list. REVIEW OF SYSTEMS: Ten-point system otherwise unremarkable. No history of easy bruising or bleeding. PHYSICAL EXAMINATION: GENERAL: This is a well-developed gentleman, in no acute distress. VITAL SIGNS: Blood pressure was 186/89. NECK: Showed no jugular venous distention. LUNGS: Clear to auscultation. HEART: Regular rate and rhythm. Normal S1, S2 with a 2/6 systolic murmur. ABDOMEN: Nondistended. EXTREMITIES: Show no edema. VASCULAR: Radial pulses are 2+. LABORATORY DATA: Sodium was 139, potassium 4.4, chloride 104, bicarbonate 28, BUN 34, and creatinine is 1.7. Troponin 0.02. White blood cell count 7.2, hemoglobin 9.6, hematocrit 29.0, platelets of 204. His EKG revealed him to have atrial fibrillation with an electronic ventricular pacemaker. No acute ST-T wave abnormalities. IMPRESSION: 1. Dyspnea on exertion/chest pain suggestive of ischemia. 2. History of coronary bypass surgery. 3. History of atrial fibrillation, status post Watchman. 4. Hypertension. 5. Dyslipidemia. 6. Renal insufficiency. This gentleman presents with a 3-day history of increasing dyspnea and chest discomfort. This is suggestive of ischemic heart disease since it is relieved by rest. We will add Imdur to the patient's medical regimen. With his advanced age, we would try to treat medically. Would proceed with stress test to make sure there is no evidence of significant ischemia. We will follow this patient with you through his hospitalization. Job ID: [id number] [facility]
[2018-09-03] MEDS ORDERED: Furosemide 20 MG TAB PO SCH (00:15)
[2018-09-03] MEDS: Levothyroxine Sodium 75 MCG TAB PO SCH (08:43)
[2018-09-03] MEDS: Amlodipine 5 MG TAB PO SCH ×2 (08:44→20:37)
[2018-09-03] MEDS: Carvedilol 6.25 MG TAB PO SCH ×2 (08:44→20:34)
[2018-09-03] MEDS: Glimepiride 2 MG TAB PO SCH ×2 (08:44→20:44)
[2018-09-03] MEDS: Furosemide 20 MG TAB PO SCH (08:44)
[2018-09-03] MEDS: Aspirin 81 mg Enteric Coated Tablet PO SCH (08:44)
[2018-09-03] MEDS ORDERED: GLUCOSAMINE SULFATE DIPOT CHLR PO SCH (09:00)
[2018-09-03] MEDS ORDERED: Non-Formulary Item 1 EACH (Cholecalciferol (Vitamin D3) [Vitamin D3] 1 TAB) PO SCH (09:00)
[2018-09-03] MEDS ORDERED: [UNRECOGNIZED DRUG - OTHER] PO SCH (09:00)
--- NOTE | 2018-09-03 12:51 | NM ---
[facility] Cardiac myocardial perfusion SPECT Ejection fraction study Wall motion cine: September 03, 2018 exam. TECHNIQUE: Number of days:2 Rest study: Technetium 99m-sestamibi (Cardiolite) dose:9.0 mCi Pharmacologic stress: Adenosine dose:44.8 mg Stress study: Technetium 99m-sestamibi (Cardiolite) dose:29 mCi FINDINGS: Cardiac (myocardial perfusion) SPECT There are no reversible myocardial perfusion defects. Ejection fraction study Left ventricular EF = 60% Wall motion cine Normal wall motion and thickening IMPRESSION: No evidence of reversible ischemia.
[2018-09-03] MEDS ORDERED: ADENOSINE 60 MG/20 ML VIAL ONE (16:21)
[2018-09-03] MEDS: DULoxetine 60 MG CAP PO SCH (20:34)
[2018-09-03] MEDS: Folic Acid 1 MG TAB PO SCH (20:34)
[2018-09-03] MEDS: Atorvastatin Calcium 40 MG TAB PO SCH (20:36)
[2018-09-03] MEDS: Tamsulosin HCl 0.4 MG CAP PO SCH (20:37)
--- NOTE | 2018-09-03 21:37 | PDOC.PN ---
- Subjective Encounter Start Date: 09/03/18 Encounter Start Time: 21:32 Patient was lying in bed this morning with family at bedside, he denies chest pain, palpitations, shortness of breath. - Objective Resuscitation Status - Order Detail: 09/02/18 10:13 Resuscitation Status Routine Resuscitation Status: FULL: Full Resuscitation MAR Reviewed: Yes Vital Signs & Weight: Vital Signs (12 hours) Temp Pulse Pulse Pulse Resp BP BP 09/03/18 20:37 74 09/03/18 16:08 70 82 121/60 137/73 09/03/18 15:56 98.5 F 74 20 09/03/18 12:30 97.7 F 75 20 BP Pulse Ox Pulse Ox 09/03/18 20:37 09/03/18 16:08 93 L 09/03/18 15:56 139/64 94 L 09/03/18 12:30 131/61 96 Weight Weight 176 lb 6.4 oz I&O: 09/02/18 09/03/18 09/04/18 06:59 06:59 06:59 Intake Total 550 600 Output Total 1475 Balance -925 600 Result Diagrams: 09/01/18 22:47 09/01/18 22:47 Additional Labs: Accuchecks 09/03/18 09/03/18 09/03/18 20:45 17:23 12:35 POC Glucose 126 H 87 173 H 09/03/18 09/02/18 04:37 21:46 POC Glucose 82 143 H Radiology Reviewed by me: Yes Phys Exam - Physical Examination Constitutional: NAD HEENT: moist MMs, oral pharynx no lesions Neck: supple Respiratory: no wheezing, clear to auscultation bilateral Cardiovascular: no significant murmur irregular irregular Gastrointestinal: soft, positive bowel sounds Musculoskeletal: pulses present Neurological: non-focal, moves all 4 limbs Psychiatric: normal affect, A&O x 3 Skin: no rash, cap refill <2 seconds Dx/Plan (1) CHF (congestive heart failure) Code(s): I50.9 - HEART FAILURE, UNSPECIFIED Status: Chronic (2) Diabetes type 2, controlled Code(s): E11.9 - TYPE 2 DIABETES MELLITUS WITHOUT COMPLICATIONS Status: Chronic (3) Dyslipidemia Code(s): E78.5 - HYPERLIPIDEMIA, UNSPECIFIED Status: Chronic (4) Hypertension Code(s): I10 - ESSENTIAL (PRIMARY) HYPERTENSION Status: Chronic (5) Hypothyroidism Code(s): E03.9 - HYPOTHYROIDISM, UNSPECIFIED Status: Chronic (6) Paroxysmal atrial fibrillation Code(s): I48.0 - PAROXYSMAL ATRIAL FIBRILLATION Status: Chronic - Plan cont current plan of care, plan discussed w/ family * Continue current medical management * Imdur added by cardiology for angina * Stress test not showing signs of ischemia at this time * Patient was planning discharge home, however Dr Jimenez recommended dose of Imdur be increased and discharge held so patient can be monitored over night. * Patient is s/p watchman only requiring aspirin daily * Check labs and vitals in am, likely discharged home if okay by cardiology
[2018-09-04] MEDS: Aspirin 81 mg Enteric Coated Tablet PO SCH (08:18)
[2018-09-04] MEDS: Levothyroxine Sodium 75 MCG TAB PO SCH (08:19)
[2018-09-04] MEDS: Furosemide 20 MG TAB PO SCH (08:19)
[2018-09-04] MEDS: Carvedilol 6.25 MG TAB PO SCH (08:21)
[2018-09-04] MEDS: Amlodipine 5 MG TAB PO SCH (08:22)
[2018-09-04] MEDS: Glimepiride 2 MG TAB PO SCH (08:23)
[2018-09-04 11:53] VITALS: BP 90/56; TEMP 97.8
--- NOTE | 2018-09-08 13:18 | STRESS ---
Acquisition Time: 2018-09-03 10:23:57 Total Exercise Time: 00:04:00 Test Indications: CHEST PAIN Medications: Protocol: ADENOSINE Max HR: 086 BPM 65% of Pred: 132 BPM Max BP: 110/060 mmHG Max Work Load: 1.0 METS RESTING ECG: NORMAL SINUS RHYTHM AT 74 BPM WITH OCCASIONAL PVC'S AND PAC'S SYMPTOMS: NONE NORMAL BP RESPONSE ECTOPY: OCCASIONAL PVC'S AND PAC'S ECG STRESS: NO SIGNIFICANT CHANGES INTERPRETATION: INDETERMINATE ECG/AWAIT NUCLEAR IMAGES FOR DEFINITIVE DIAGNOSIS INTERMITTENT A-FIB DURING ADENOSINE INFUSION Confirmed by ESTEPHANIA GAN ([id number]) on 09/08/2018 1:18:03 PM Referred By: MD Lona HERRERA Confirmed By:ESTEPHANIA GAN
== END 2018-09-04 13:50 | disposition home or self-care (01) ==
LOC: ERS 22:24 → ERHOLD 09-02 03:54 → UNDODISOB 09-02 12:49 → 2SW 09-02 12:49
PROVIDERS: ADMIT Internal Medicine; ATTEND Internal Medicine
DX: R07.89 Other chest pain (principal); R06.02 Shortness of breath; I25.10 Atherosclerotic heart disease of native coronary artery without angina pectoris; E11.9 Type 2 diabetes mellitus without complications; E03.9 Hypothyroidism, unspecified; M48.00 Spinal stenosis, site unspecified; N40.0 Benign prostatic hyperplasia without lower urinary tract symptoms; I71.4 Abdominal aortic aneurysm, without rupture; N28.9 Disorder of kidney and ureter, unspecified; I48.0 Paroxysmal atrial fibrillation; I11.0 Hypertensive heart disease with heart failure; I50.9 Heart failure, unspecified; Z86.73 Personal history of transient ischemic attack (TIA), and cerebral infarction without residual deficits; Z87.891 Personal history of nicotine dependence; Z80.0 Family history of malignant neoplasm of digestive organs; Z79.82 Long term (current) use of aspirin; Z79.84 Long term (current) use of oral hypoglycemic drugs; Z79.899 Other long term (current) drug therapy; Z88.5 Allergy status to narcotic agent; Z91.048 Other nonmedicinal substance allergy status; Z95.0 Presence of cardiac pacemaker; Z95.1 Presence of aortocoronary bypass graft; Z95.5 Presence of coronary angioplasty implant and graft; Z98.1 Arthrodesis status; Z98.890 Other specified postprocedural states
CPT/HCPCS: 71045; 78452; 80053; 82962 ×3; 83690; 83880; 84484 ×3; 85025; 93005; 93017; 93306; 96374; 97139 ×3; 99285; A9500; G0378 ×3; 36415; 36416; J0153; J1940

== ENCOUNTER 2018-09-15 08:01 | Outpatient (CLI) | payer MEDICARE, OTHER ==
--- NOTE | 2018-09-15 08:22 | RAD ---
Exam: Chest 2 views HISTORY:Dyspnea Comparison: September 01, 2018 FINDINGS: Lungs: Lungs are hyperinflated with bilateral interstitial prominence. Biapical irregularity is simil ar Cardiac silhouette:Stable postoperative findings. The left side cardiac pacer device remains. Pulmonary vessels: Mild prominence Pleural Spaces: Mild blunting of the posterior costophrenic sulci which may represent a small volume of pleural fluid Pneumothorax: None Osseous abnormalities: None of acuity. IMPRESSION: COPD Mild fluid overload.
== END 2018-09-15 08:02 | disposition home or self-care (01) ==
LOC: RAD 08:01
PROVIDERS: ATTEND Internal Medicine Critical Care Medicine
DX: R06.00 Dyspnea, unspecified (principal); J44.9 Chronic obstructive pulmonary disease, unspecified; E87.70 Fluid overload, unspecified
CPT/HCPCS: 71046

== ENCOUNTER 2019-03-15 09:18 | Outpatient (CLI) | payer MEDICARE, OTHER ==
--- NOTE | 2019-03-15 09:37 | RAD ---
Exam: Chest 2 views COMPARISON: 09/15/2018 HISTORY: Dyspnea. FINDINGS: Stable sternotomy wires, metallic coil, vascular rings and left-sided transvenous pacemaker Upper normal cardiac silhouette Hyperinflation with chronic changes. No masses or consolidation. No pneumothorax or acute osseous abn ormalities IMPRESSION: No acute cardiopulmonary process. No significant change.
== END 2019-03-15 09:19 | disposition home or self-care (01) ==
LOC: RAD 09:18
PROVIDERS: ATTEND Internal Medicine Critical Care Medicine
DX: R06.00 Dyspnea, unspecified (principal)
CPT/HCPCS: 36415; 71046; 80053; 80061

== ENCOUNTER 2019-03-19 17:51 | Observation (INO) | payer MEDICARE, OTHER ==
--- NOTE | 2019-03-19 18:11 | RAD ---
EXAM: Chest 2 views: HISTORY: Shortness of breath for 3 days COMPARISON: 06/22/2016 FINDINGS: There is a normal-sized cardiomediastinal silhouette. The patient is status post CABG. The pacemaker is unchanged in position. A radiopaque structure along the left heart border may represent an occlusive device in the left atrial appendage. There is no evidence of consolidation, mass, or pleur al effusion. The bones are unremarkable. IMPRESSION: No evidence of acute cardiopulmonary disease
[2019-03-19 19:15] LABS: #Eosinphils 0.1 thou/uL (0.0-0.7); #Lymphocytes 0.9 thou/uL (1.20-3.40); #Monocytes 0.2 thou/uL (0.11-0.59); #Neutrophils 3.5 thou/uL (1.40-6.50); %Basophils 0.8 % (0.0-1.0); %Eosinophils 2.1 % (0.0-10.0); %Lymphocytes 18.3 % (21.0-51.0); %Monocytes 3.9 % (0.0-10.0); %Neutrophils 74.9 % (42.0-75.0); Hemoglobin 8.8 g/dL (14.0-18.0); Mean Corpuscular HGB CONC 33.3 g/dL (32.0-36.0); Mean Corpuscular Hemoglobin 29.9 pg (27.0-31.0); Mean Corpuscular Volume 89.8 fL (78.0-98.0); Mean Platelet Volume 7.3 fL (7.4-10.4); Platelet Count 216 thou/uL (130-400); RBC Distribution Width 13.5 % (11.5-14.5); Red Blood Cell (RBC) Count 2.93 mill/uL (4.70-6.10); White Blood Cell (WBC) Count 4.7 thou/uL (4.8-10.8)
[2019-03-19 19:36] LABS: ALT (SGPT) 10 U/L (8-55); AST (SGOT) 17 U/L (5-34); Albumin 3.7 g/dL (3.4-4.8); Alkaline Phosphatase 104 U/L (40-110); Anion Gap 11 mmol/L (10-20); BUN (Urea Nitrogen) 30 mg/dL (8.4-25.7); Bilirubin, Total 0.3 mg/dL (0.2-1.2); Calc. Creatinine Clearance 0 mL/min (70-130); Calcium 9.2 mg/dL (7.8-10.44); Carbon Dioxide 27 mmol/L (23-31); Chloride 105 mmol/L (98-107); Estimated GFR-MDRD 37; Globulin 3.4 g/dL (2.4-3.5); Glucose 123 mg/dL (83-110); Potassium 4.4 mmol/L (3.5-5.1); Protein, Total 7.1 g/dL (5.8-8.1); Sodium 139 mmol/L (136-145)
[2019-03-19 22:13] LABS: Troponin I Less than 0.010 ng/mL (< 0.028)
[2019-03-19] MEDS ORDERED: Acetaminophen 325 MG TAB PO PRN (23:11)
[2019-03-19] MEDS ORDERED: Ondansetron PF 4 MG/2 ML Vial IVP PRN (23:11)
[2019-03-19] MEDS ORDERED: Ondansetron ODT 4 MG TAB SL PRN (23:11)
[2019-03-19 23:23] VITALS: BMI 25.2
[2019-03-20 01:28] LABS: Troponin I Less than 0.010 ng/mL (< 0.028)
[2019-03-20] MEDS ORDERED: Polyethylene Glycol 3350 17 GM Packet PO PRN (08:21)
[2019-03-20] MEDS ORDERED: Nitroglycerin 0.4 MG TAB (25 Tab Bottle) SL PRN (08:21)
[2019-03-20] MEDS ORDERED: Levothyroxine Sodium 75 MCG TAB PO SCH (08:45)
[2019-03-20] MEDS ORDERED: Dextrose 50% Abboject 50 ML SYRINGE SLOW IVP PRN (09:14)
[2019-03-20] MEDS ORDERED: Senokot S 8.6-50 MG TAB PO PRN (09:14)
[2019-03-20] MEDS ORDERED: HumaLOG 300 UNITS/3 ML VIAL SC PRN ×2 (09:14)
[2019-03-20] MEDS ORDERED: Dextrose 5% in Water 1,000 ML IV PRN (09:14)
[2019-03-20 09:46] LABS: #Eosinphils 0.1 thou/uL (0.0-0.7); #Lymphocytes 1.1 thou/uL (1.20-3.40); #Monocytes 0.7 thou/uL (0.11-0.59); %Basophils 0.5 % (0.0-1.0); %Eosinophils 2.2 % (0.0-10.0); %Lymphocytes 18.3 % (21.0-51.0); %Monocytes 12.3 % (0.0-10.0); %Neutrophils 66.7 % (42.0-75.0); Hemoglobin 9.3 g/dL (14.0-18.0); Mean Corpuscular Hemoglobin 29.7 pg (27.0-31.0); Mean Corpuscular Volume 90.2 fL (78.0-98.0); Mean Platelet Volume 7.6 fL (7.4-10.4); Platelet Count 233 thou/uL (130-400); RBC Distribution Width 13.7 % (11.5-14.5); Red Blood Cell (RBC) Count 3.14 mill/uL (4.70-6.10); White Blood Cell (WBC) Count 6.1 thou/uL (4.8-10.8)
[2019-03-20 10:12] LABS: ALT (SGPT) 11 U/L (8-55); AST (SGOT) 18 U/L (5-34); Albumin 3.7 g/dL (3.4-4.8); Alkaline Phosphatase 99 U/L (40-110); Anion Gap 14 mmol/L (10-20); BUN (Urea Nitrogen) 24 mg/dL (8.4-25.7); Bilirubin, Total 0.4 mg/dL (0.2-1.2); Calc. Creatinine Clearance 44 mL/min (70-130); Calcium 9.2 mg/dL (7.8-10.44); Carbon Dioxide 22 mmol/L (23-31); Chloride 105 mmol/L (98-107); Estimated GFR-MDRD 50; Globulin 3.5 g/dL (2.4-3.5); Glucose 119 mg/dL (83-110); Magnesium 1.9 mg/dL (1.6-2.6); Potassium 4.4 mmol/L (3.5-5.1); Protein, Total 7.2 g/dL (5.8-8.1); Sodium 137 mmol/L (136-145)
[2019-03-20] MEDS: Furosemide 20 MG TAB PO SCH (10:32)
[2019-03-20] MEDS: Aspirin 81 mg Enteric Coated Tablet PO SCH (10:33)
[2019-03-20] MEDS: Carvedilol 6.25 MG TAB PO SCH ×2 (10:33→20:18)
[2019-03-20] MEDS: Ezetimibe 10 MG TAB PO SCH (10:33)
[2019-03-20] MEDS: Glimepiride 2 MG TAB PO SCH ×2 (10:33→20:19)
[2019-03-20] MEDS: Isosorbide Mononitrate (ER) 30 MG TAB PO SCH (10:33)
[2019-03-20] MEDS: Atorvastatin Calcium 40 MG TAB PO SCH (20:18)
[2019-03-20] MEDS: Tamsulosin HCl 0.4 MG CAP PO SCH (20:18)
[2019-03-20] MEDS: DULoxetine 60 MG CAP PO SCH (20:19)
[2019-03-20] MEDS: Amlodipine 5 MG TAB PO SCH (20:20)
[2019-03-21] MEDS: Levothyroxine Sodium 75 MCG TAB PO SCH (05:39)
[2019-03-21 06:10] LABS: Anion Gap 11 mmol/L (10-20); BUN (Urea Nitrogen) 24 mg/dL (8.4-25.7); Calc. Creatinine Clearance 42 mL/min (70-130); Carbon Dioxide 29 mmol/L (23-31); Chloride 103 mmol/L (98-107); Cholesterol 103 mg/dl (< 200 Desired); Estimated GFR-MDRD 47; Glucose 81 mg/dL (83-110); HDL Cholesterol 26 mg/dL (>60 Neg Risk); LDL Cholesterol, Calculated 55 mg/dL; Sodium 139 mmol/L (136-145); Triglycerides 110 mg/dL (Less than 150)
[2019-03-21 06:15] LABS: Band 2 % (5-11); Eosinophils 3 % (0-10); Hemoglobin 8.3 g/dL (14.0-18.0); Lymphocytes 16 % (21-51); MDiff Complete? YES; Mean Corpuscular HGB CONC 33.2 g/dL (32.0-36.0); Mean Corpuscular Hemoglobin 29.8 pg (27.0-31.0); Mean Platelet Volume 7.1 fL (7.4-10.4); Monocytes 12 % (0-10); Neutrophil 67 % (42-75); Platelet Count 183 thou/uL (130-400); Platelet Morphology Comment Appears Adequate; RBC Distribution Width 13.4 % (11.5-14.5); RBC Morphology Normal; Red Blood Cell (RBC) Count 2.79 mill/uL (4.70-6.10); White Blood Cell (WBC) Count 4.4 thou/uL (4.8-10.8)
[2019-03-21] MEDS: Furosemide 20 MG TAB PO SCH (08:29)
[2019-03-21] MEDS: Carvedilol 6.25 MG TAB PO SCH ×2 (08:29→21:16)
[2019-03-21] MEDS: Glimepiride 2 MG TAB PO SCH ×2 (08:29→21:15)
[2019-03-21] MEDS: Ezetimibe 10 MG TAB PO SCH (08:29)
[2019-03-21] MEDS: Aspirin 81 mg Enteric Coated Tablet PO SCH (08:30)
[2019-03-21] MEDS: Isosorbide Mononitrate (ER) 30 MG TAB PO SCH (08:30)
--- NOTE | 2019-03-21 10:30 | CT ---
CT ANGIOGRAM THORAX WITH CONTRAST: (CTA pulmonary angiogram) DATE: 03/21/2019 HISTORY: 88-year-old male with dyspnea. COMPARISON: 07/01/2018 TECHNIQUE: IV injection of iodinated contrast. Scan acquisition timing attempted to coincide with iodinated contrast bolus reaching maximal density in pulmonary arteries. 3-D MIP reconstructions. FINDINGS: Again noted is the small right apical pleural-based pulmonary scar. Again noted are the sternotomy wi res. Again noted is the large cluster of metallic coils in the left atrial appendage, causing streak artifact, partially obscuring adjacent structures. No pulmonary thromboembolism is identified, within the limitations of obscuring by the severe streak artifact. No thoracic aortic aneurysm or dissection. Mild cardiomegaly. No pericardial effusion, pleural effusion, or pneumothorax. No pulmona ry edema. Pulmonary scar at right middle lobe, unchanged. Peribronchial thickening of upper lobe bronchi, right greater than left, unchanged. Mild tree in bud nodularity at right upper lobe includin g apical segment, unchanged. No high-grade stenosis of trachea or bilateral mainstem bronchi. No mediastinal lymphadenopathy. Tiny calcified gallstone in contracted gallbladder. Left renal artery st ent. Mild compression fracture of superior endplate of L1 was previously acute, and is now chronic, although fracture lucencies are still visible. 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 IMPRESSION: 1) no pulmonary thromboembolism identified. 2) left atrial appendage closure device. 3) not acute compression fracture of L1 vertebra.
--- NOTE | 2019-03-21 11:36 | CON ---
DATE OF CONSULTATION: HISTORY OF PRESENT ILLNESS: Eldon Del Cid is a pleasant 88-year-old white male, who I have followed since September 1989. At that time, he had exertional chest discomfort for 2 years when I initially saw him. 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 Sometimes the discomfort would last all day and nitroglycerin would not seem to help. In October 1987, he underwent treadmill testing, which was abnormal. He underwent cardiac catheterization by Dr. Contreras in [place] with a finding of 40% to 50% ramus, 75% stenosis of the first obtuse marginal, 60% distal LAD, 30% to 40% mid RCA stenosis. The right coronary artery was a large vessel. Normal left ventricular function. The decision was made to treat him medically. After 2 years, he continued to have chest discomfort. In August 1989, he underwent treadmill testing, exercised for 7 minutes and developed slight chest discomfort at 6 minutes along with [address]-segment depression in 2, 3, F, V4 through V6. Thallium revealed minimal redistribution involving the inferolateral aspect of the left ventricle suggestive of possible ischemia. He underwent cardiac catheterization at [place] and was found to have significant right coronary artery stenosis of 80% and 60% in the midportion. There was a 50% mid to distal LAD, 30% ramus. He then underwent PTCA of both areas on right coronary artery with both being reduced to 30%. On 4-5 a.m. of the morning after the intervention, and after discontinuation of the heparin, he had recurrence of the usual chest discomfort. Heparin was restarted. Nitroglycerin was increased and his discomfort rapidly subsided. It was noted during the PTCA that with balloon inflation he had dramatic ST-segment elevation of the inferior leads. Later that day, he underwent repeat catheterization due to recurrence of chest discomfort. The right coronary artery continued to have a good result with a small area of dissection. It was felt that his discomfort at that time may have been due to spasm and Procardia was increased. In October 1989, he underwent treadmill testing, exercised for 7 minutes and 41 seconds with very mild chest discomfort. At peak exercise, he had [address]-segment depression in V5 and V6. This was a dramatic improvement, however, treadmill prior to PTCA when he had [address]-segment depression. In July 1990, thallium treadmill revealed that he exercised 7 minutes and had [address]-segment depression which was upsloping V4 through V6 and [address]-segment depression in lead I and aVL. He did not have any chest discomfort. The treadmill was felt to be positive. Thallium revealed inferior and lower septal ischemia. However, he was asymptomatic and decision was made not to proceed with repeat catheterization at that time. In September 1991, he had no chest discomfort, walking 1 mile per day. In March 1994, he presented with 2 to 3 week history of epigastric burning that would radiate to his throat. This may occur with activity such as walking to his barn and would resolve with rest in 5 minutes. He had discomfort that radiated to his left shoulder and the pain continued to worsen. He came to the hospital and as he neared the hospital, the pain gradually resolved and was gone by the time he checked in. However, he did have biphasic T-waves in V4 and V5. He underwent cardiac catheterization, was found to have a 90% proximal LAD, 30% mid LAD, 80% lesion in a large septal perforating branch, 40% to 50% ramus marginalis, 50% lesion in a small obtuse marginal and 80% followed by 50% mid RCA stenosis. There was mild anterior hypokinesis. He then underwent CABG x4 by Dr. Hinds on March 05, 1994, with ALMARAZ to the LAD, vein graft to the ramus, right posterior descending and right coronary artery distal to the takeoff of the right posterior descending. He had atrial fibrillation and pericardial rub postoperatively and was started on Indocin and Lanoxin. In May 1994, he was walking 1 to 1-1/2 miles every other day without chest discomfort. Treadmill at that time revealed inverted T-waves in lead I, aVL and V2 and there was 0.5 to [address]-segment depression in multiple leads, felt not to be significant. The treadmill was negative for ischemia. In May 1995, he exercised 9 minutes. He had no [address]-segment changes or chest discomfort. Again in April 1996 and May 1998, he had a negative treadmills. In December 2003, he complained of exertional chest discomfort, exercised for 10 minutes, had no ST-segment changes. Treadmill was negative for ischemia. In October 2001, complained of episodes of chest tightness with walking or running that would last approximately 5 minutes, to be relieved with rest. This has been occurring for 3 months. He underwent stress echo testing, exercised for 9 minutes and had 2-[address]-segment depression, but did not have any chest discomfort. EKG was positive for ischemia. Echo revealed scar of the inferoposterior wall and ischemia of the lateral wall and apex. He underwent cardiac catheterization which revealed moderate anterior hypokinesis with ejection fraction of 40% to 45%. There was total occlusion of the proximal LAD after the first septal perforating branch. There was total occlusion of the ramus. The small circumflex had 70% obtuse marginal stenosis. The right coronary artery had 70% to 80% proximal to distal stenosis and 80% distal stenosis. Bypass grafts revealed patent ALMARAZ to the LAD, patent ramus graft, occluded right posterior descending graft. The right coronary artery graft distal to the posterior descending takeoff had thrombus and an approximately 70% obstructing lesion. He was given Integrilin, intracoronary nitroglycerin and intracoronary adenosine. Ultra 5.0 x 20 mm stent was placed in the right coronary artery graft distal to the right posterior descending takeoff. This was reduced from 70%-80% to 0%. He had slow flow initially and significant pain in the offset label rewinder with ST-segment elevation in II, III and AVF, which gradually resolved and flow improved. He had slight elevation of his CK-MB to 9.7, troponin I of 3.0. He has ambulated, had dramatic improvement in his exercise tolerance at the time of discharge. In March 2003, he exercised for 7 minutes, he had 0.5 to [address]-segment depression in V4 through V6 which rapidly returned to baseline in 2 minutes. He did not have any chest discomfort. Echo revealed inferior and posterior wall scar, but no evidence of stress-induced ischemia. In May 2004, for yearly followup, he did not have any chest discomfort, underwent stress echo testing, exercised for 6 minutes. EKG showed new onset of atrial fibrillation/flutter with [address]-segment depression in V4 through V6, II, III, and F. EKG was felt to be positive for ischemia. Echo revealed ejection fraction of 40% to 45% with inferior and posterior wall scar at the base and lateral ischemia. He underwent cardiac catheterization which revealed moderate anterior and apical hypokinesis with ejection fraction of 40% to 45%. The LAD was totally occluded proximally. There was a small circumflex with 60% first obtuse marginal lesion. The ramus was totally occluded. The right coronary artery was diffusely diseased with 70% to 80% proximal to mid stenosis and an 80% mid stenosis. Bypass grafts revealed patent ALMARAZ to the LAD and a 50% lesion proximal to the graft insertion. The ramus graft was patent. The right posterior descending graft was occluded as before. The right coronary artery graft distal to the right posterior descending takeoff had an 80% in-stent restenosis. He underwent laser atherectomy with a 1.7E followed by placement of Ultra 5.0 x 13 mm stent in the RCA graft in-stent restenosis. There was an area of dissection at the end of the new stent and another stent Express 2.5 x 20 mm was placed. He had some mild residual chest discomfort after the procedure and [address]-segment elevation inferiorly which gradually resolved. He did have a small myocardial infarction due to embolic debris with CK of 494, MB 55.1, troponin I of 17.02. He continued to have atrial fibrillation/flutter and amiodarone was started. He had heart rates in the low 30s and soon thereafter would go into atrial fibrillation/flutter. It was recommended that pacemaker be placed and an AT-500 pacemaker was placed without incident. He was discharged on aspirin and Plavix. In October 2004, pacemaker showed he did not have any atrial fibrillation. After May 2004, he has not had any episodes of atrial fibrillation and amiodarone was reduced to 200 mg per day. In July 2004, his atrial therapies were turned on. In December 2005, he presented to the emergency room for pain, episode of diaphoresis, weakness and lightheadedness, but denied any chest discomfort or shortness of breath. Cardiac enzymes were unremarkable. He underwent repeat catheterization which revealed moderate anterior hypokinesis with ejection fraction of 40% to 50%. There was total occlusion of proximal LAD, total occlusion of the ramus. The circumflex was small with a 60% first obtuse marginal lesion. The right coronary artery was diffusely diseased with 70% to 80% stenosis in the proximal to distal vessel. Bypass grafts revealed patent ALMARAZ to the LAD. There was an 80% lesion proximal to the anastomosis that filled the diagonal retrograde. The ramus graft was patent. Right posterior descending graft was occluded as before. Right coronary graft distal to the right PDA takeoff had a 70% in-stent restenosis. A filter wire was used and Liberte 5.0 x 24 mm stent was placed with excellent results. His LDL at the time was 62. He was again admitted in August 2006 with increased episodes of chest discomfort. He underwent adenosine Cardiolite test which revealed small distal anterior wall ischemia. Ejection fraction was 59% with normal wall motion. His INR was 1.5 at the time and Coumadin was stopped. He did have to have amiodarone discontinued several months prior to that due to hyperthyroidism and due to recurrent episodes of dizziness. He had recurrence of atrial fibrillation, was admitted in 2006, was placed on sotalol. Echo revealed ejection fraction of 50% to 55% with pacing wire in the right side of the heart, mild mitral regurgitation, mild tricuspid regurgitation. On October 02, 2006, he underwent cardiac catheterization which was his last catheterization. This revealed ejection fraction of 45% to 50% with moderate anterior hypokinesis. There was total occlusion of the proximal LAD, total occlusion of the ramus. The circumflex was small with 60% first obtuse marginal lesion. The right coronary artery was diffusely diseased with 70% to 80% mid stenosis and 80% distal stenosis. ALMARAZ to the LAD was patent with an 80% lesion in the LAD proximal to the ALMARAZ insertion, which filled the diagonal retrograde. This was a probable site of ischemia on Cardiolite. The ramus graft was patent. The right coronary graft distal to the right posterior descending takeoff had a 30% proximal stenosis and a 20% in-stent restenosis where he had 3 previous stents placed. Right posterior descending graft was occluded as before. He continued to remain hyperthyroid with a TSH of less than 0.007. He was admitted in September 2006 with lower quadrant abdominal pain, felt to be due to nephrolithiasis. He developed visual hallucinations on morphine and Dilaudid. He denied any chest discomfort or shortness of breath. CT of the abdomen showed left kidney stone at the UV junction. He then apparently passed a kidney stone. Blood pressure continued to remain quite high. He underwent renal angiogram, was noted to have left renal artery stenosis and a stent was placed in this by Dr. Figueroa. Blood pressure then seemed to be easy to control after that. He was admitted again in October 2006 with a hemoglobin of 9.3. He underwent endoscopy, which did not show any evidence of bleeding. Coumadin was discontinued. At that time, he was on aspirin, Coumadin and Plavix for recently placed renal stent. Sotalol dose was increased from 40 b.i.d. to 80 b.i.d. due to episodes of paroxysmal atrial fibrillation. He was evaluated by Dr. Santiago after his T4 was significantly elevated. He is placed on Tapazole 10 mg t.i.d. Mr. Del Cid was to undergo sinus surgery, underwent Cardiolite testing on September 20, 2008, which was felt to probably be normal without evidence of ischemia or fixed defect. He apparently had a PICC line placed for previous antibiotic therapy on September 28, 2008. His PICC line was removed. He then presented to the emergency room on October 02, 2008, with complaints of lower rib margin pleuritic pain. He apparently had sudden onset of this the night before admission. Abdominal CT revealed right pleural effusion. There was left renal stent and a 3.6 cm infrarenal abdominal aortic aneurysm and sigmoid diverticulosis. Chest x-ray was unremarkable. Electrolytes were normal. He was discharged and he was uncertain what the final diagnosis exactly was. He returned on October 23, 2008, to the office, complained of right pleuritic chest pain. He had been having some chills and shakes, but no fever. He was placed on Vicodin and Flexeril. When he was seen in the emergency room, it was presumed this was muscular pain. O2 saturation was 96%. However, with the recent removal of the PICC line, it is felt that he be admitted to undergo chest CT to rule out pulmonary embolism. Also it was felt that he needed to undergo ultrasound of the right subclavian and axillary veins to rule out thrombus. CT angiogram of the chest revealed right lung pulmonary embolism. Also ultrasound of the axillary vein was performed which revealed thrombus. He was placed on Lovenox 1 mg/kg b.i.d. and Coumadin was started. He had low-grade temperature and cultures revealed 1 of 2 coagulase-negative Staph. After another temperature spike, 2 more cultures were drawn and were negative. It was felt that his temperature was probably due to pulmonary embolism. He did develop a dark stool which he thought was due to blood. Multiple stool Hemoccult approximately 10 were all negative. He did have Clostridium difficile when he started to develop diarrhea, was placed on Flagyl and vancomycin. At the time of discharge, he had no pleuritic chest pain, was afebrile, walking in the halls. He continued to be followed intermittently in the office for his pacemaker checks. He did undergo stress testing in January 2011, which revealed no evidence of ischemia. There were no fixed defects. Echo in January 2011 revealed ejection fraction of 45% to 50% with moderate mitral regurgitation, aortic valve sclerosis, trace aortic regurgitation and mild tricuspid regurgitation. Before August 2009, Coumadin was discontinued due to anemia. He returned on June 24, 2011, for pacemaker check and it was found that his AT500 pacemaker was not functioning, was essentially in the pocket. He underwent pacemaker replacement without incident. In November 2016, he was admitted with a left C7 radiculopathy. In January 2016, he was admitted due to inability to move his fingers of his left hand. He was placed on Eliquis. In June 2016, he was admitted with shortness of breath. It was felt to be due to diastolic heart failure. In January 2017, he underwent cervical diskectomy and had aspiration pneumonia postoperatively. He then underwent rehab with somewhat of a prolonged slow improvement there. PEG tube was placed due to poor nutrition and ultimately that was removed. In April 2017, he underwent transesophageal echo prior to possible electrical cardioversion. He was found to have possible small thrombus in the left atrial appendage and he did not undergo cardioversion. In May 2017, he was admitted with chest pain, shortness of breath, found to be anemic. Eliquis was held. EGD and colonoscopy did not show any specific etiology for his anemia. Again in January 2018, he was admitted with anemia and chest pressure on exertion. Just prior to that, he had a Watchman placed and was on aspirin and Plavix. He was transfused 2 units of blood. On August 14, 2017, he underwent transesophageal echo which revealed excellent placement of Watchman and 2 weeks later Plavix was discontinued. He was continued on aspirin. In July 2017, he was admitted with 10 minutes of chest discomfort, found to have a hemoglobin of 7.[address] Parks's office. He was extremely weak and short of breath. He was transfused. He underwent adenosine Cardiolite testing which revealed no evidence of ischemia. Echo in April 2018 revealed aortic stenosis and a small 1-2 cm leak noted around the Watchman device. He has since undergone procedures in [place] to further close this and it is felt that he no longer needs to be on anticoagulation. In July 2018, he underwent another transesophageal echo, which revealed a very tiny leak possibly through the mesh area of the Watchman. In August 2018, he was admitted with dyspnea and chest discomfort. Echo at that time revealed ejection fraction of 55% to 60% with pacing wire in the right ventricle. There was moderate aortic stenosis, moderate aortic regurgitation, mitral and mild tricuspid regurgitation. The peak gradient across the aortic valve was 33 mm with a mean gradient of 17 mm, aortic valve area 1.21 sq cm. He also underwent adenosine Cardiolite testing, which revealed no evidence of reversible ischemia. He was seen in the office in August 2018 without any significant symptoms. Also in October 2018, he denied any chest pain or shortness of breath. He has had progressive problems ambulating due to spinal stenosis and can hardly walk at all. On March 17, 2019, he was seen in the office. He complained of 2 to 3 months of chest tightness when he gets up to go to the bathroom, which lasts for 10 minutes. He denied any nausea or vomiting, but he had shortness of breath associated with this. With the recent unremarkable noninvasive testing 6 months before, he was placed on Ranexa 500 mg b.i.d. and his isosorbide was increased from 30 to 60 daily. He had difficulty in getting the Ranexa from the drugstore and has not yet started that. He then had significant worsening of his shortness of breath and was very short of breath on March 19 and came to the emergency room for further evaluation. He had very mild chest discomfort, but his main symptom was shortness of breath. He denies any peripheral edema. PAST MEDICAL HISTORY: Hypertension, hypercholesterolemia, diabetes, development of hyperthyroidism after treatment for his paroxysmal atrial fibrillation with amiodarone. Amiodarone was discontinued and ultimately he developed hypothyroidism, coronary artery disease, aortic stenosis, GERD, diverticulosis, history of TIA. OPERATIONS: Anterior cervical diskectomy and fusion, CABG x4, bilateral lens implantation, placement of Watchman, pacemaker placement, lumbar fusion, stents placed mostly in the right coronary artery graft, hemorrhoidectomy, spinal surgeries, left renal artery stenosis stenting, appendectomy, and tonsillectomy. MEDICATIONS: 1. He has not started the Ranexa 500 b.i.d. 2. Amlodipine 5 mg at bedtime. 3. Aspirin 81 daily. 4. Atorvastatin 40 at bedtime. 5. Carvedilol 12.5 b.i.d. 6. Cymbalta 60 at bedtime. 7. Zetia 5 mg daily. 8. Folic acid 1 mg daily. 9. Furosemide 20 q.a.m. 10. Amaryl 1 mg b.i.d. 11. Isosorbide mononitrate 60 q.a.m. 12. Levothyroxine 75 mcg daily. 13. Claritin 10 mg daily. 14. Centrum Silver daily. 15. Naproxen 220 b.i.d. p.r.n. 16. Nitroglycerin p.r.n. 17. MiraLAX p.r.n. 18. Flomax 0.4 at bedtime. 19. CoQ10 200 at bedtime. ALLERGIES: FENTANYL, ADHESIVE TAPE, MORPHINE, AND CODEINE. AMIODARONE CAUSED HYPERTHYROIDISM. SOCIAL HISTORY: He smoked 1 pack per day, but stopped in 1984. He does not drink. 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 FAMILY HISTORY: His mother of [place] in her 70s with possible myocardial infarction. REVIEW OF SYSTEMS: A 12-point review of systems is otherwise unremarkable. PHYSICAL EXAMINATION: VITAL SIGNS: Blood pressure 125/65, pulse of 79. HEENT: PERRL. NECK: Supple. CHEST: Clear. CARDIAC: S1 and S2 normal without any S3 or S4. There is a 2/6 systolic murmur along the left sternal border. ABDOMEN: Normal bowel sounds without tenderness or organomegaly. EXTREMITIES: Reveal no clubbing, cyanosis, or edema. NEUROLOGIC: Grossly intact. LABORATORY DATA: EKG revealed atrial fibrillation with septal infarction. Cardiac enzymes are unremarkable. Hemoglobin 8.3, hematocrit 25.1, white count 4400, platelets 183,000. Sodium 139, potassium 4.0, chloride 103, carbon dioxide 29, BUN 24, creatinine 1.41. Cholesterol 103, triglycerides 110, HDL 26, LDL 55. TSH is normal. BNP 417.9. IMPRESSION: 1. Exertional dyspnea. In August 2018, he had a normal Cardiolite, normal left ventricular function, but did have moderate aortic stenosis. His aortic stenosis needs to be re-evaluated. Also, he was recently placed on Ranexa, however, he has not been able to get that prescription. 2. Coronary artery disease with prolonged course. Initially he had PTCA of the mid RCA in September 1989, followed by CABG x4 in March 1994. He had ALMARAZ to the LAD, vein graft to the ramus, right posterior descending and right coronary artery distal to the takeoff of the right posterior descending. The right posterior descending graft has been occluded since at least October 2001. In the right coronary artery graft, he had placement of an Ultra 5.0 x 20 mm stent in October 2001 after having angina for 3 months. In May 2004, he had laser arthrectomy and stent placement in an area of in-stent restenosis in the right coronary artery graft. In December 2005, he underwent placement of a Liberte 5.0 x 24 mm stent using a filter wire. In September 2006, he had his last cardiac catheterization and continued to have good results in the right coronary artery graft stented area. There was an 80% lesion in the LAD proximal to the ALMARAZ insertion, which is probable site of ischemia on Cardiolite. This filled the diagonal retrograde. 3. Pulmonary embolism to the right lower lung and thrombosis of the right axillary vein after PICC line removal with no right arm edema. He was treated with Coumadin for that, but that was eventually stopped due to anemia. 4. History of recurrent gastrointestinal bleeds when he is anticoagulated with Coumadin or Eliquis. 5. Chronic atrial fibrillation. 6. Pacemaker. 7. 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 8. Hypercholesterolemia under good control. 9. Former smoker. 10. Hypertension. 11. Positive family history. 12. 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 13. History of nephrolithiasis. 14. Spinal stenosis, progressing to the point where he almost could no longer walk. RECOMMENDATIONS: Ranexa 500 mg b.i.d. will be started since he has not been able to start this as an outpatient. With his dyspnea of uncertain etiology and history of pulmonary embolism in the past, I will have him undergo CT angiogram of the chest. Echocardiogram needs to be performed to reassess his degree of aortic stenosis. Also with his severe and progressive lumbar spinal stenosis and inactivity, his shortness of breath certainly could be due to severe deconditioning. I will follow the patient with you. Job ID: [id number]
--- NOTE | 2019-03-21 17:24 | PDOC.HOSPP ---
- Subjective Encounter Date: 03/21/19 Encounter Time: 07:40 Subjective: Pt seen for followup re: chest pain. Feels better. - Objective Vital Signs & Weight: Vital Signs (12 hours) Temp Pulse Resp BP Pulse Ox 03/21/19 15:46 98.4 F 74 16 113/57 L 98 03/21/19 14:03 75 18 99 03/21/19 12:00 97.7 F 70 18 126/58 L 99 03/21/19 07:29 98.5 F 69 16 146/69 H 99 03/21/19 05:40 97.8 F 70 20 137/75 99 Weight Weight 183 lb 14.4 oz I&O: 03/20/19 03/21/19 03/22/19 06:59 06:59 06:59 Intake Total 240 1040 Output Total 500 2050 Balance -260 -1010 Result Diagrams: 03/21/19 05:36 03/21/19 05:36 Additional Labs: Accuchecks 03/21/19 03/21/19 03/20/19 16:38 10:38 21:07 POC Glucose 178 H 112 H 95 Labs and MARs reviewed by me EKG Reviewed by me: Yes (Tele: NSR) Hospitalist ROS - Review of Systems Respiratory: reports: SOB with excertion Cardiovascular: denies: chest pain, palpitations, orthopnea, paroxysmal noc. dyspnea, edema, light headedness Gastrointestinal: denies: nausea, vomiting, abdominal pain, diarrhea, constipation, melena, hematochezia - Medication Medications: Active Medications Generic Name Dose Route Start Last Admin Trade Name Freq PRN Reason Stop Dose Admin Albuterol/Ipratropium 3 ml 03/21/19 13:00 03/21/19 14:03 Duoneb NEB 3 ml [id number] MAGDIEL Administration Amlodipine Besylate 5 mg 03/20/19 21:00 03/20/19 20:20 Norvasc PO 5 mg HS MAGDIEL Administration Aspirin 81 mg 03/20/19 09:00 03/21/19 08:30 Ecotrin PO 81 mg DAILY MAGDIEL Administration Atorvastatin Calcium 40 mg 03/20/19 21:00 03/20/19 20:18 Lipitor PO 40 mg HS MAGDIEL Administration Carvedilol 12.5 mg 03/20/19 09:00 03/21/19 08:29 Coreg PO 12.5 mg BID MAGDIEL Administration Duloxetine HCl 60 mg 03/20/19 21:00 03/20/19 20:19 Cymbalta PO 60 mg HS MAGDIEL Administration Ezetimibe 5 mg 03/20/19 09:00 03/21/19 08:29 Zetia PO 5 mg DAILY MAGDIEL Administration Furosemide 20 mg 03/20/19 09:00 03/21/19 08:29 Lasix PO 20 mg QAM MAGDIEL Administration Glimepiride 1 mg 03/20/19 09:00 03/21/19 08:29 Amaryl PO 1 mg BID MAGDIEL Administration Isosorbide Mononitrate 60 mg 03/20/19 09:00 03/21/19 08:30 Imdur Er PO 60 mg DAILY MAGDIEL Administration Levothyroxine Sodium 75 mcg 03/21/19 06:00 03/21/19 05:39 Synthroid PO 75 mcg 0600 MAGDIEL Administration Ranolazine 500 mg 03/21/19 09:00 03/21/19 08:31 Ranexa PO 500 mg BID MAGDIEL Administration Sodium Chloride 10 ml 03/20/19 09:00 03/21/19 08:30 Flush - Normal Saline IVF 10 ml Q12HR MAGDIEL Administration Tamsulosin HCl 0.4 mg 03/20/19 21:00 03/20/19 20:18 Flomax PO 0.4 mg HS MAGDIEL Administration - Exam General Appearance: NAD Eye: anicteric sclera ENT: moist mucosa Neck: supple, no thyromegaly Heart: RRR, no rubs Respiratory: wheezes Respiratory - other findings: Bibasal crackles Gastrointestinal: soft, non-tender Musculoskeletal: normal strength Psychiatric: normal affect, normal behavior Hosp A/P (1) Chest pain Code(s): R07.9 - CHEST PAIN, UNSPECIFIED Status: Acute (2) BPH (benign prostatic hyperplasia) Code(s): N40.0 - BENIGN PROSTATIC HYPERPLASIA WITHOUT LOWER URINRY TRACT SYMP Status: Chronic (3) CHF (congestive heart failure) Code(s): I50.9 - HEART FAILURE, UNSPECIFIED Status: Chronic (4) Diabetes type 2, controlled Code(s): E11.9 - TYPE 2 DIABETES MELLITUS WITHOUT COMPLICATIONS Status: Chronic (5) Dyslipidemia Code(s): E78.5 - HYPERLIPIDEMIA, UNSPECIFIED Status: Chronic (6) Hypertension Code(s): I10 - ESSENTIAL (PRIMARY) HYPERTENSION Status: Chronic (7) Hypothyroidism Code(s): E03.9 - HYPOTHYROIDISM, UNSPECIFIED Status: Chronic - Plan plan discussed w/ family, out of bed/ambulate Pt started on ranexa. Nil acute on CTA chest. HTN controlled. Monitor vital signs, titrate antihypertensives as needed. Continue furosemide. Monitor renal function. Continue synthroid. Continue Flomax. Reasonable control of blood sugars, continue accuchecks and insulin sliding scale.
[2019-03-21] MEDS: Amlodipine 5 MG TAB PO SCH (21:15)
[2019-03-21] MEDS: DULoxetine 60 MG CAP PO SCH (21:15)
[2019-03-21] MEDS: Atorvastatin Calcium 40 MG TAB PO SCH (21:15)
[2019-03-21] MEDS: Tamsulosin HCl 0.4 MG CAP PO SCH (21:16)
[2019-03-22] MEDS: Levothyroxine Sodium 75 MCG TAB PO SCH (06:23)
[2019-03-22 06:49] LABS: Anion Gap 14 mmol/L (10-20); BUN (Urea Nitrogen) 17 mg/dL (8.4-25.7); Calc. Creatinine Clearance 72 mL/min (70-130); Calcium 8.7 mg/dL (7.8-10.44); Carbon Dioxide 25 mmol/L (23-31); Chloride 102 mmol/L (98-107); Estimated GFR-MDRD 87; Glucose 75 mg/dL (83-110); Potassium 4.2 mmol/L (3.5-5.1); Sodium 137 mmol/L (136-145)
[2019-03-22 06:53] LABS: Band 1 % (5-11); Eosinophils 1 % (0-10); Hemoglobin 8.2 g/dL (14.0-18.0); Hypochromia SLIGHT = 6-15 cells (100X) (0-5/hpf); Lymphocytes 14 % (21-51); MDiff Complete? YES; Mean Corpuscular HGB CONC 33.7 g/dL (32.0-36.0); Mean Corpuscular Hemoglobin 30.2 pg (27.0-31.0); Mean Corpuscular Volume 89.7 fL (78.0-98.0); Mean Platelet Volume 7.3 fL (7.4-10.4); Monocytes 4 % (0-10); Neutrophil 80 % (42-75); Platelet Count 194 thou/uL (130-400); Platelet Morphology Comment Appears Adequate; RBC Distribution Width 13.4 % (11.5-14.5); Red Blood Cell (RBC) Count 2.71 mill/uL (4.70-6.10); White Blood Cell (WBC) Count 4.9 thou/uL (4.8-10.8)
--- NOTE | 2019-03-22 07:11 | HP ---
PRIMARY CARE PHYSICIAN: Phil Parks MD CHIEF COMPLAINT: Chest pain and shortness of breath. HISTORY OF PRESENT ILLNESS: Mr. Del Cid is a pleasant 88-year-old man with a past medical history of coronary artery disease, CHF, chronic atrial fibrillation with a Watchman device placed, hypertension, hyperlipidemia, diabetes mellitus type 2, chronic anemia who had presented to the ED late last night due to worsening chest pain and shortness of breath that is worse with activity. He had seen his paraprofessional aide, Dr. Ryder and his clinical documentation specialist, Dr. Jimenez this past week and he had stated that he was feeling pretty good, but was started on Ranexa 500 mg twice daily from Dr. Jimenez, and his home dose of Imdur was increased from 30 to 60 mg daily. He was able to take the Imdur; however, was not able to fill the prescription of Ranexa and he stated late last night, that he had increased work of breathing and shortness of breath. Therefore, his brought him into the ED. Upon arriving, the patient's symptoms improved with the use of oxygen via nasal cannula. His serial troponins were found to be negative x3. BNP was slightly elevated at 417.9, which appeared to be around his baseline. His creatinine was a little bumped at 1.73 with a BUN of 30; however, his portable chest x-ray was clear. He was moved up to the observation floor for close monitoring and further workup of his symptoms. He currently denies any fever, chills, headache, blurred vision, dizziness, chest pain, palpitations, abdominal pain, nausea, vomiting, but still complains of some mild shortness of breath, and he is stable on 2 L of oxygen via nasal cannula. REVIEW OF SYSTEMS: All other systems reviewed and found to be negative unless mentioned in HPI. PAST MEDICAL HISTORY: Hypertension, hyperlipidemia, hypothyroidism, coronary artery disease, chronic diastolic dysfunction, chronic anemia, chronic atrial fibrillation. PAST SURGICAL HISTORY: Coronary artery bypass graft in 2000, stents placed in 2001 and 2003, pacemaker placed in 2011, Watchman device 2017 with subsequent recoiling x2, lumbar surgery and fusion 2011. SOCIAL HISTORY: The patient is a nonsmoker, nondrinker, nondrug user. He did smoke for about 30 years, but quit in 1979. He is currently full code, and his is a surrogate decision maker and she is Nora. ALLERGIES: 1. FENTANYL. 2. ADHESIVE TAPE. 3. MORPHINE. 4. CODEINE. CURRENT MEDICATIONS: 1. Acetaminophen 650 as needed for pain. 2. Vitamin D3 2000 units daily. 3. Folic acid 0.4 mg at bedtime. 4. Glucosamine sulfate 4000 mg daily. 5. Loratadine 10 mg daily. 6. Centrum Silver multivitamin one tab daily. 7. Naproxen 220 mg b.i.d. as needed for pain. 8. CoQ10 200 mg at bedtime. 9. Amlodipine 5 mg at bedtime. 10. Aspirin 81 mg daily. 11. Atorvastatin 40 mg at bedtime. 12. Carvedilol 12.5 mg b.i.d. 13. Duloxetine 60 mg at bedtime. 14. Ezetimibe 5 mg daily. 15. Furosemide 20 mg daily. 16. Glimepiride 1 mg b.i.d. 17. Isosorbide mononitrate 60 mg daily. 18. Levothyroxine 75 mcg daily. 19. Nitroglycerin 0.4 mg sublingual every 5 minutes as needed for chest pain. 20. Polyethylene glycol 17 g daily as needed for constipation. 21. Tamsulosin 0.4 mg at bedtime. PHYSICAL EXAMINATION: VITAL SIGNS: Blood pressure 143/71, pulse 67, respirations 20, temperature 98.1, O2 saturation 99% on 2 L of oxygen via nasal cannula. GENERAL: The patient is awake, alert, and oriented x3. He is currently lying comfortably in bed, in no acute distress. He has 2 L of oxygen in place, and his is at bedside. HEENT: Atraumatic, normocephalic. Pupils are round and reactive to light. Extraocular muscles intact. Moist mucous membranes noted. NECK: Soft and supple. Trachea midline. CARDIOVASCULAR: Irregularly irregular. No murmur auscultated. RESPIRATORY: Coarse breath sounds heard bilaterally with some mild diminished breath sounds heard at the bases. ABDOMEN: Soft, nontender. Bowel sounds present. EXTREMITIES: Moves all extremities equal. Pedal and radial pulses 2+ bilaterally. Strength 5+ bilaterally. Trace edema noted in his bilateral lower extremities below the knee. NEUROLOGIC: Cranial nerves 2 through 12 grossly intact. No focal deficits noted. Speech intact and normal. Gait not assessed. SKIN: Warm, dry, and intact. No rashes. No ulceration noted. PSYCHIATRIC: Good mood and affect. LABORATORY DATA: WBC 4.7, RBC 2.93, hemoglobin 8.8, hematocrit 26.3, platelet 216. Sodium 139, potassium 4.4, anion gap 11, BUN , creatinine 1.73, estimated GFR 37, glucose 123. AST 17, ALT 10, alkaline phosphatase 104. Troponin less than 0.010 x3. BNP 417.9. DIAGNOSTIC IMAGING: Two-view chest x-ray revealed no evidence of acute cardiopulmonary disease. ASSESSMENT AND PLAN: 1. Chest pain with shortness of breath, possible congestive heart failure exacerbation, he had a recent hospitalization about 6 months ago for these similar symptoms. He had an echocardiogram and a stress test back then. His stress was unremarkable. His echocardiogram revealed an ejection fraction of 55% to 60%. He had seen his clinical documentation specialist, Dr. Jimenez this week, who had increased his home dose of Imdur to 60 mg daily and started him on Ranexa 500 mg twice daily, but he was not able to take this. We will place a consult for Dr. Jimenez, for further recommendations at this time. 2. History of chronic atrial fibrillation, status post Watchman and pacemaker. We will order to check the pacemaker for interrogation at this time. 3. Diabetes mellitus type 2. We will continue him on his home regimen. Order a diabetic diet with Accu-Cheks, and we will add an insulin sliding scale as needed. 4. Hypothyroidism. Check TSH and continue his usual home dose of Synthroid. 5. Hypertension. 6. Hyperlipidemia. Continue atorvastatin. 7. Deep venous thrombosis and gastrointestinal prophylaxis. 8. Code status: full code. 9. Surrogate decision maker is his , Nora. DISPOSITION: Pending further workup of clinical findings and the patient's progress. Job ID: [id number]
[2019-03-22 08:00] VITALS: TEMP 98.3
[2019-03-22] MEDS: Ezetimibe 10 MG TAB PO SCH (08:57)
[2019-03-22] MEDS: Carvedilol 6.25 MG TAB PO SCH (08:57)
[2019-03-22] MEDS: Isosorbide Mononitrate (ER) 30 MG TAB PO SCH (08:58)
[2019-03-22] MEDS: Glimepiride 2 MG TAB PO SCH (08:58)
[2019-03-22] MEDS: Aspirin 81 mg Enteric Coated Tablet PO SCH (08:58)
[2019-03-22] MEDS: Furosemide 20 MG TAB PO SCH (08:59)
[2019-03-22] MEDS ORDERED: Sodium Chloride 0.65% Nasal 44 ML BOT EA NARE PRN (09:50)
[2019-03-22 12:11] VITALS: BP 115/57
--- NOTE | 2019-03-23 10:20 | DIS ---
DATE OF ADMISSION: 03/19/2019 DATE OF DISCHARGE: 03/22/2019 PRIMARY CARE PROVIDER: Dr. Phil Parks. DISCHARGE DIAGNOSIS: Chest pain, likely secondary to cardiac etiology. CONDITION OF PATIENT ON THE DAY OF DISCHARGE: Stable. I assessed Mr. Del Cid on the day of discharge. He denies any chest pain. Vital signs are stable. S1 and S2 are heard, regular. Lungs are clear to auscultation bilaterally. DISCHARGE MEDICATIONS: He has been started on Ranexa 500 mg 2 times a day during this hospitalization. Otherwise, no change was made to his pre-admission home medications, which include: 1. Nitroglycerin p.r.n. 2. Tylenol p.r.n. 3. Norvasc 5 mg at bedtime. 4. Aspirin 81 mg daily. 5. Coreg 12.5 mg 2 times a day. 6. Vitamin D3 of 2000 units daily. 7. Ezetimibe 5 mg daily. 8. Folic acid 0.4 mg at bedtime. 9. Lasix 20 mg in the morning. 10. Glimepiride 2 mg 2 times a day. 11. Glucosamine 4000 mg daily. 12. Imdur 60 mg daily. 13. Synthroid 75 mcg daily. 14. Claritin 10 mg daily. 15. Centrum Silver 1 tablet daily. 16. Naproxen 220 mg 2 times a day as needed. 17. MiraLAX 17 g as needed. 18. Coenzyme Q10 Of 200 Mg At Bedtime. 19. Lipitor 40 mg at bedtime. 20. Duloxetine 60 mg at bedtime. 21. Tamsulosin 0.4 mg at bedtime. CONSULTATIONS DURING THIS HOSPITALIZATION: Cardiology, Dr. Jimenez. HOSPITAL COURSE: Mr. Del Cid is a pleasant 88-year-old gentleman, who was admitted to [facility] for chest pain and shortness of breath on March 20, 2019. Please refer to Mr. Culp's history and physical note dated March 20, 2019, for further details. He was seen by Cardiology Service. He underwent CT angiogram of the chest, which did not show any evidence of pulmonary embolism. He also had 2D echocardiogram, which showed left ventricular ejection fraction of 55% to 60%, [id number] aortic stenosis, and moderate aortic regurgitation. Aortic valve area was 1.38 square cm. He has been started on Ranexa during this hospitalization. He has been cleared for discharge by Cardiology Service. Many thanks for allowing me to participate in your patient's care. Please feel free to contact me with any questions or concerns. FOLLOWUP APPOINTMENTS: The patient is advised to follow up with primary care provider in 3 days' time and with Dr. Jimenez in 2 to 3 weeks' time. DISCHARGE DESTINATION: Home. Job ID: [id number]
== END 2019-03-22 14:01 | disposition home or self-care (01) ==
LOC: ERS 17:51 → 2SW 22:50
PROVIDERS: ADMIT Internal Medicine; ATTEND Internal Medicine
DX: R07.89 Other chest pain (principal); R06.09 Other forms of dyspnea; I25.10 Atherosclerotic heart disease of native coronary artery without angina pectoris; I11.0 Hypertensive heart disease with heart failure; I50.32 Chronic diastolic (congestive) heart failure; E78.5 Hyperlipidemia, unspecified; E11.9 Type 2 diabetes mellitus without complications; D64.9 Anemia, unspecified; E03.9 Hypothyroidism, unspecified; I25.2 Old myocardial infarction; E78.00 Pure hypercholesterolemia, unspecified; I48.0 Paroxysmal atrial fibrillation; N40.0 Benign prostatic hyperplasia without lower urinary tract symptoms; Z86.711 Personal history of pulmonary embolism; Z87.891 Personal history of nicotine dependence; Z79.82 Long term (current) use of aspirin; Z79.84 Long term (current) use of oral hypoglycemic drugs; Z79.899 Other long term (current) drug therapy; Z88.5 Allergy status to narcotic agent; Z91.048 Other nonmedicinal substance allergy status; Z95.0 Presence of cardiac pacemaker; Z95.1 Presence of aortocoronary bypass graft; Z95.5 Presence of coronary angioplasty implant and graft; Z95.818 Presence of other cardiac implants and grafts; Z98.1 Arthrodesis status
CPT/HCPCS: 71046; 71275; 80048 ×2; 80053; 80061; 82962 ×3; 83735; 83880; 84484 ×3; 85025 ×3; 93005; 93306; 94640 ×3; 97139 ×2; 99285; G0378 ×5; 36415; 36416; 84443; J7620

== ENCOUNTER 2019-03-29 08:18 | Inpatient (IN) | payer MEDICARE, OTHER ==
[2019-03-29 08:48] LABS: #Eosinphils 0.1 thou/uL (0.0-0.7); #Lymphocytes 0.7 thou/uL (1.20-3.40); #Monocytes 0.5 thou/uL (0.11-0.59); #Neutrophils 3.3 thou/uL (1.40-6.50); %Basophils 0.5 % (0.0-1.0); %Eosinophils 2.7 % (0.0-10.0); %Lymphocytes 15.6 % (21.0-51.0); %Monocytes 10.6 % (0.0-10.0); %Neutrophils 70.6 % (42.0-75.0); Hemoglobin 8.7 g/dL (14.0-18.0); Mean Corpuscular Hemoglobin 29.2 pg (27.0-31.0); Mean Corpuscular Volume 91.3 fL (78.0-98.0); Mean Platelet Volume 7.2 fL (7.4-10.4); Platelet Count 253 thou/uL (130-400); RBC Distribution Width 14.4 % (11.5-14.5); Red Blood Cell (RBC) Count 2.97 mill/uL (4.70-6.10); White Blood Cell (WBC) Count 4.6 thou/uL (4.8-10.8)
[2019-03-29 09:08] LABS: ALT (SGPT) 13 U/L (8-55); AST (SGOT) 18 U/L (5-34); Albumin 3.7 g/dL (3.4-4.8); Alkaline Phosphatase 96 U/L (40-110); Anion Gap 12 mmol/L (10-20); BUN (Urea Nitrogen) 32 mg/dL (8.4-25.7); Bilirubin, Total 0.5 mg/dL (0.2-1.2); CK (CPK) 60 U/L (30-200); Calc. Creatinine Clearance 0 mL/min (70-130); Calcium 9.5 mg/dL (7.8-10.44); Carbon Dioxide 26 mmol/L (23-31); Chloride 104 mmol/L (98-107); Estimated GFR-MDRD 35; Globulin 3.4 g/dL (2.4-3.5); Glucose 137 mg/dL (83-110); Lipase 15 U/L (8-78); Potassium 4.3 mmol/L (3.5-5.1); Protein, Total 7.1 g/dL (5.8-8.1); Sodium 138 mmol/L (136-145)
--- NOTE | 2019-03-29 09:12 | RAD ---
CHEST 1 VIEW: Date: 03/29/19 HISTORY: Chest pain, shortness of breath with exertion, weakness. COMPARISON: 03/19/19. FINDINGS: Postop midline sternotomy and left ICD and postsurgical coiling overlying the left infrahilar region. Increased linear and interstitial markings bilaterally without confluent pneumonia or overt edema. IMPRESSION: Stable chest. Increased linear and interstitial markings. No significant new process. POS: TPC
[2019-03-29] MEDS ORDERED: Furosemide 20 MG/2 ML VIAL ONE (10:41)
[2019-03-29] MEDS ORDERED: ACETAMINOPHEN PO PRN (11:45)
[2019-03-29] MEDS ORDERED: Nitroglycerin 0.4 MG TAB (25 Tab Bottle) SL PRN (11:45)
[2019-03-29] MEDS ORDERED: Polyethylene Glycol 3350 17 GM Packet PO PRN (11:45)
[2019-03-29] MEDS ORDERED: Ondansetron PF 4 MG/2 ML Vial IVP PRN (11:47)
[2019-03-29] MEDS ORDERED: Calcium Carbonate 500 MG ChewTAB PO PRN (11:47)
[2019-03-29] MEDS ORDERED: Ondansetron ODT 4 MG TAB PO PRN (11:47)
[2019-03-29] MEDS ORDERED: Melatonin 3 MG TAB PO PRN (11:51)
[2019-03-29] MEDS ORDERED: diphenhydrAMINE 25 MG CAP PO PRN (11:51)
[2019-03-29] MEDS ORDERED: Labetalol HCl 100 MG/20 ML VIAL SLOW IVP PRN (11:51)
[2019-03-29] MEDS ORDERED: Benzonatate 100 MG CAP PO PRN (11:51)
[2019-03-29] MEDS ORDERED: Docusate 100 MG CAP PO PRN (11:51)
[2019-03-29 12:28] LABS: Troponin I 0.071 ng/mL (< 0.028)
[2019-03-29 14:47] VITALS: BMI 26.4
[2019-03-29 15:46] LABS: Troponin I 0.074 ng/mL (< 0.028)
[2019-03-29] MEDS: Heparin 5,000 UNITS/ML VIAL SC SCH ×2 (16:44→21:47)
--- NOTE | 2019-03-29 16:45 | PDOC.HHP ---
Hospitalist HPI - History of Present Illness Chest tightness and shortness of breath History of Present Illness: 88-year-old gentleman with past medical history of coronary artery disease status post coronary artery bypass grafting, subsequent stent placement, moderate to severe aortic stenosis, chronic angina recently started on Ranexa, history of feeding tube, uncontrolled diabetes mellitus, hypertension, hyperlipidemia, and diastolic congestive heart failure presents with chest tightness and shortness of breath. I find the patient in the emergency department he is breathing well on room air. Though he does get short of breath with exertion and he does get short of breath with talking more than a few words in a sentence. The patient states since his last hospitalization he has not been restricting his fluid intake or monitoring his weight for heart failure. Patient does take his Lasix. Patient did have a few moments of chest tightness. Patient has been taking his Ranexa and even increased from 500 to 1000 twice per day as directed by his dental mechanic. Despite these measures the patient has return to hospital emergency department. Cardiology consultation requested for further recommendations. Palliative care consultation requested for goals of care. Hospitalist ROS - Review of Systems All other systems reviewed; all pertinent +/- noted in HPI/Subj Hospitalist History - Past Medical History Source: patient, family Cardiac: reports: AFIB, CAD, CHF, HTN, [place], Hyperlipidemia, Aortic stenosis, Valve insufficiency Pulmonary: reports: angina, bronchitis, CVA/TIA/stroke, congestive heart failure , heart attack, high cholesterol, hypertension, lung disease Gastrointestinal: reports: GI bleed, Other (Feeding tube) Musculoskeletal: reports: Osteoarthritis - Past Surgical History Past Surgical History: reports: CABG, Other (Watchman. Cardiac cath.) - Social History Smoking Status: Unknown if ever smoked Alcohol: reports: None Drugs: reports: none Living Situation: With Family Domestic Violence: Negative Activity level: uses cane/walker - Exam General Appearance: NAD, awake alert Eye: PERRL, anicteric sclera ENT: normocephalic atraumatic, moist mucosa Neck: supple, symmetric, no lymphadenopathy Heart: no gallops, no rubs Heart - other findings: Cresendo de cresendo murmur at right upper sternal boarder Respiratory: no rales, no ronchi, tachypneic, wheezes Gastrointestinal: soft, non-tender, non-distended, normal bowel sounds, no guarding, no rigidity Extremities: 1+ LE edema Skin: no lesions, no rashes Neurological: cranial nerve grossly intact, no focal deficits Musculoskeletal: generalized weakness Psychiatric: normal affect, A&O x 3 Hospitalist Results - Labs Result Diagrams: 03/29/19 08:32 03/29/19 08:32 Lab results: WBC 4.6 thou/uL (4.8-10.8) L 03/29/19 08:32 Hgb 8.7 g/dL (14.0-18.0) L 03/29/19 08:32 Hct 27.1 % (42.0-52.0) L 03/29/19 08:32 MCV 91.3 fL (78.0-98.0) 03/29/19 08:32 Plt Count 253 thou/uL (130-400) 03/29/19 08:32 Neutrophils % 70.6 % (42.0-75.0) 03/29/19 08:32 Sodium 138 mmol/L (136-145) 03/29/19 08:32 Potassium 4.3 mmol/L (3.5-5.1) 03/29/19 08:32 Chloride 104 mmol/L (98-107) 03/29/19 08:32 Carbon Dioxide 26 mmol/L (23-31) 03/29/19 08:32 BUN 32 mg/dL (8.4-25.7) H 03/29/19 08:32 Creatinine 1.83 mg/dL (0.7-1.3) H 03/29/19 08:32 Glucose 137 mg/dL (83-110) H 03/29/19 08:32 Calcium 9.5 mg/dL (7.8-10.44) 03/29/19 08:32 Total Bilirubin 0.5 mg/dL (0.2-1.2) 03/29/19 08:32 AST 18 U/L (5-34) 03/29/19 08:32 ALT 13 U/L (8-55) 03/29/19 08:32 Alkaline Phosphatase 96 U/L (40-110) 03/29/19 08:32 Creatine Kinase 60 U/L (30-200) 03/29/19 08:32 CK-MB (CK-2) 2.0 ng/mL (0-6.6) 03/29/19 08:32 Troponin I 0.074 ng/mL (< 0.028) H 03/29/19 14:53 B-Natriuretic Peptide 515.1 pg/mL (0-100) H 03/29/19 08:32 Serum Total Protein 7.1 g/dL (5.8-8.1) 03/29/19 08:32 Albumin 3.7 g/dL (3.4-4.8) 03/29/19 08:32 Lipase 15 U/L (8-78) 03/29/19 08:32 - Radiology Interpretation Chest x-ray Status: image reviewed by ga Hospitalist H&P A/P - Problem (1) Chest pain Code(s): R07.9 - CHEST PAIN, UNSPECIFIED Status: Acute (2) DM type 2, uncontrolled, with renal complications Code(s): E11.29 - TYPE 2 DIABETES MELLITUS W H DIABETIC KIDNEY COMPLICATION; E11.65 - TYPE 2 DIABETES MELLITUS WITH HYPERGLYCEMIA Status: Acute (3) Acute worsening of stage 3 chronic kidney disease Code(s): N18.3 - CHRONIC KIDNEY DISEASE, STAGE 3 (MODERATE) Status: Acute (4) Elevated troponin Code(s): R74.8 - ABNORMAL LEVELS OF OTHER SERUM ENZYMES Status: Acute (5) Symptomatic anemia Code(s): D64.9 - ANEMIA, UNSPECIFIED Status: Acute (6) CHF (congestive heart failure) Code(s): I50.9 - HEART FAILURE, UNSPECIFIED Status: Chronic (7) Dyslipidemia Code(s): E78.5 - HYPERLIPIDEMIA, UNSPECIFIED Status: Chronic (8) Hypertension Code(s): I10 - ESSENTIAL (PRIMARY) HYPERTENSION Status: Chronic (9) Paroxysmal atrial fibrillation Code(s): I48.0 - PAROXYSMAL ATRIAL FIBRILLATION Status: Chronic - Plan Plan: Plan: Admit to medical unit with telemetry cardiology consultation, recommendations appreciated palliative care consultation, recommendations appreciated patient does not appear to be in overt congestive heart failure, chest x-ray does not have overt pulmonary edema, there is minimal lower extremity edema, BNP only minorly elevated from prior admission. Patient is not hypoxic and does not require oxygen therapy chest x-ray does not demonstrate any focal pneumonia or overt congestive heart failure continue oral dose of Lasix continue cardiomyopathy regimen as able Increased dose of Ranexa from 500mg BID to 1000mg BID Further plan of care per cardiology Aortic stenosis, though valve is 1.38 centimeters squared, not a candidate for any open procedure. TAVR considered if continues to worsen in size no anticoagulation for atrial fibrillation per cardiology, history of massive G.I. bleeding I discussed the possibility of rehab placement and which his got very upset and they had a bad experience in the past, refused any rehab placement. At the same time patient's states that he was too sick to go home on last admission when discharged. Goals of care to be addressed with palliative care, recommend do not resuscitate / do not intubate and less aggressive measures with numerous medical comorbidities the likelihood that the patient will end up on a ventilator with a bad outcome is quite high replace electrolytes as needed blood pressure control blood sugar control, continue home meds, ISS for prandial coverage
[2019-03-29] MEDS ORDERED: Dextrose 5% in Water 1,000 ML IV PRN (16:59)
[2019-03-29] MEDS ORDERED: Dextrose 50% Abboject 50 ML SYRINGE SLOW IVP PRN (16:59)
[2019-03-29] MEDS ORDERED: HumaLOG 300 UNITS/3 ML VIAL SC PRN ×2 (16:59)
--- NOTE | 2019-03-29 18:27 | CON ---
DATE OF CONSULTATION: REASON FOR CONSULTATION: Shortness of breath. PRIMARY ROLL BUCKER: Dr. Ricky Jimenez. HISTORY OF PRESENT ILLNESS: Mr. Del Cid is an 88-year-old gentleman with an extensive cardiac history. He has a history of CAD, status post bypass surgery in 1994. He also has a history of [id number]-[id number] aortic stenosis. He recently was seen and evaluated in the hospital on 03/21/2019, and was placed on Ranexa. He states he had recurrent shortness of breath. No significant swelling present. He did have PND and orthopnea present. He was seen and evaluated in the emergency room and subsequently admitted. PAST MEDICAL HISTORY: As above including atrial fibrillation, hypertension, hyperlipidemia, hypothyroidism, previous TIA, chronic kidney disease, and anemia. SOCIAL HISTORY: No current tobacco or alcohol use. ALLERGIES: 1. CODEINE. 2. MORPHINE. 3. ADHESIVE TAPE. REVIEW OF SYSTEMS: A 10-point review of systems is reviewed as above, otherwise negative. PHYSICAL EXAMINATION: GENERAL: The patient is a pleasant gentleman, who is in no acute distress. The patient appears their stated age. VITAL SIGNS: Blood pressure 116/68, pulse 74, temperature 97.9. NEUROLOGIC: The patient is alert and oriented x3 with no focal neurologic deficits. HEENT: Sclerae without icterus. Mouth has moist mucous membranes with normal pallor. NECK: No JVD. Carotid upstroke brisk. No bruits bilaterally. LUNGS: Clear to auscultation with unlabored respirations. BACK: No scoliosis or kyphosis. CARDIAC: Regular rate and rhythm with normal S1 and S2. No S3 or S4 noted. No significant rubs, murmurs, thrills, or gallops noted throughout the precordium. PMI is not displaced. There is no parasternal heave. ABDOMEN: Soft, nontender, nondistended. No peritoneal signs present. No hepatosplenomegaly. No abnormal striae. EXTREMITIES: 2+ femoral and 2+ dorsalis pedis pulses. No cyanosis, clubbing, or edema. SKIN: No gross abnormalities. PERTINENT LABORATORY DATA: Creatinine 1.83, sodium 138. Peak troponin 0.074. Hemoglobin 8.7. IMPRESSION: 1. Shortness of breath. 2. Fdekqnvb-gz-jbqdti aortic stenosis. 3. Atrial fibrillation. 4. Anemia. 5. Chronic kidney disease. RECOMMENDATIONS: Mr. Maria Eugenia's symptoms are likely multifactorial. His BNP was not significantly elevated at 515, but does have crackles noted on his physical examination. He has been given Lasix while in the emergency room. He does feel somewhat better. We would repeat Lasix in a.m. He may need to undergo further testing including coronary angiography to assess coronary anatomy and his valve. He may be a TAVR candidate. He will have his further discussed with Dr. Ricky Jimenez. Otherwise, I have no further recommendations. Job ID: [id number]
[2019-03-29] MEDS: Atorvastatin Calcium 40 MG TAB PO SCH (21:45)
[2019-03-29] MEDS: Tamsulosin HCl 0.4 MG CAP PO SCH (21:45)
[2019-03-29] MEDS: DULoxetine 60 MG CAP PO SCH (21:45)
[2019-03-29] MEDS: Folic Acid 1 MG TAB PO SCH (21:45)
[2019-03-29] MEDS: Carvedilol 6.25 MG TAB PO SCH (21:46)
[2019-03-29] MEDS: Amlodipine 5 MG TAB PO SCH (21:46)
[2019-03-29] MEDS: Glimepiride 2 MG TAB PO SCH (21:47)
[2019-03-30 04:00] LABS: #Eosinphils 0.1 thou/uL (0.0-0.7); #Lymphocytes 0.8 thou/uL (1.20-3.40); #Monocytes 0.6 thou/uL (0.11-0.59); #Neutrophils 2.8 thou/uL (1.40-6.50); %Basophils 0.5 % (0.0-1.0); %Eosinophils 3.2 % (0.0-10.0); %Lymphocytes 17.8 % (21.0-51.0); %Monocytes 13.7 % (0.0-10.0); %Neutrophils 64.7 % (42.0-75.0); Hemoglobin 8.6 g/dL (14.0-18.0); Mean Corpuscular HGB CONC 34.4 g/dL (32.0-36.0); Mean Corpuscular Volume 90.2 fL (78.0-98.0); Mean Platelet Volume 6.7 fL (7.4-10.4); Platelet Count 206 thou/uL (130-400); RBC Distribution Width 14.9 % (11.5-14.5); Red Blood Cell (RBC) Count 2.76 mill/uL (4.70-6.10); White Blood Cell (WBC) Count 4.3 thou/uL (4.8-10.8)
[2019-03-30 04:18] LABS: Anion Gap 11 mmol/L (10-20); BUN (Urea Nitrogen) 29 mg/dL (8.4-25.7); Calc. Creatinine Clearance 36 mL/min (70-130); Calcium 9.1 mg/dL (7.8-10.44); Carbon Dioxide 27 mmol/L (23-31); Chloride 105 mmol/L (98-107); Estimated GFR-MDRD 39; Glucose 60 mg/dL (83-110); Potassium 4.2 mmol/L (3.5-5.1); Sodium 139 mmol/L (136-145)
[2019-03-30] MEDS: Levothyroxine Sodium 75 MCG TAB PO SCH (06:43)
[2019-03-30] MEDS: Heparin 5,000 UNITS/ML VIAL SC SCH ×3 (09:52→21:45)
[2019-03-30] MEDS: Carvedilol 6.25 MG TAB PO SCH ×2 (09:56→21:43)
[2019-03-30] MEDS: Ezetimibe 10 MG TAB PO SCH (09:57)
[2019-03-30] MEDS: Isosorbide Mononitrate (ER) 30 MG TAB PO SCH (09:57)
[2019-03-30] MEDS: Vit A,C & E/Lutein/Minerals Tablet PO SCH (09:57)
[2019-03-30] MEDS: Furosemide 20 MG TAB PO SCH (09:59)
[2019-03-30] MEDS: Loratadine 10 MG TAB PO SCH (09:59)
[2019-03-30] MEDS: Glimepiride 2 MG TAB PO SCH ×2 (10:02→21:44)
[2019-03-30] MEDS: Aspirin 81 mg Enteric Coated Tablet PO SCH (10:08)
--- NOTE | 2019-03-30 10:27 | PDOC.PALCO ---
Palliative Care Consult - Consult Details Requesting Physician: Dr Mazariegos Reason for Consult: goals of care, advance directives assistance Family Members Present: - Pertinent HPI 88 year old male who had chest tightness onset one week ago. Intermittent, progressively increasing in intensity and duration. Non radiating, no nausea. Shortness of breath also present with angina. Significant cardiovascular history. Recent hospitalization where patient was to restrict fluid intake and monitor weight, non compliant with recommendations. - Pertinent PMH Afib, CAD, CHF, HTN, [place], Aortic Stenosis, Valve Insufficiency, TIA, lung disease - Social History Smoking Status: Unknown if ever smoked Smoking: no tobacco exposure Alcohol Use: none Drug Use History: none Living Situation: - Medications MAR Reviewed: Yes - Allergies Allergies/Adverse Reactions: Allergies Allergy/AdvReac Type Severity Reaction Status Date / Time fentanyl Allergy Severe Short of Verified 03/19/19 23:26 Breath adhesive tape Allergy Intermediate PULLS Verified 03/19/19 23:26 SKIN, TEARS SKIN morphine Allergy Intermediate HALLUCINATI Verified 03/19/19 23:26 ONS codeine Allergy hallucinati Verified 03/19/19 23:26 ons - Subjective Resting in bed, currently free of complaints. at bedside. ROS: 10 point review negative - Objective Vital Signs: Vital Signs - Most Recent Temp Pulse Resp BP Pulse Ox 98.0 F 82 16 121/79 93 L 03/30/19 08:17 03/30/19 08:38 03/30/19 08:38 03/30/19 09:56 03/30/19 08:38 Palliative Performance Scale: 60 - Physical Exam Constitutional: NAD HEENT: PERRLA, moist MMs, sclera anicteric Respiratory: clear to auscultation bilateral, unlabored breathing Cardiovascular: RRR, no significant murmur Deviation from normal: Perioribital edema Gastrointestinal: soft, non-tender, positive bowel sounds Musculoskeletal: pulses present, no clubbing Neurological: moves all 4 limbs Psychiatric: normal affect, A&O x 3 Skin: cap refill <2 seconds - Problem List (1) Palliative care encounter Code(s): Z51.5 - ENCOUNTER FOR PALLIATIVE CARE Current Visit: Yes Status: Acute (2) DM type 2, uncontrolled, with renal complications Code(s): E11.29 - TYPE 2 DIABETES MELLITUS W OTH DIABETIC KIDNEY COMPLICATION; E11.65 - TYPE 2 DIABETES MELLITUS WITH HYPERGLYCEMIA Current Visit: Yes Status: Acute (3) Acute worsening of stage 3 chronic kidney disease Code(s): N18.3 - CHRONIC KIDNEY DISEASE, STAGE 3 (MODERATE) Current Visit: No Status: Acute (4) CHF (congestive heart failure) Code(s): I50.9 - HEART FAILURE, UNSPECIFIED Current Visit: No Status: Chronic - Plan/Recommendations Plan: Initiated contact with patient and his . Reviewed resuscitation measures, both decided and agreed that no resuscitation measures be carried forth if required to sustain life. 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 Father Milo entered during encounter to anoint patient and pray with family. Will follow up for continued discussion in relation to goals of care related to chronic and comorbid conditions. [60] minutes spent on this encounter with >50% of the time in counseling and coordination of care. Thank you for this very appropriate consult.
[2019-03-30] MEDS ORDERED: Sodium Chloride 0.9% 1,000 ML IV SCH (13:15)
[2019-03-30] MEDS ORDERED: Communication Order-Pharmacy FS SCH (13:15)
--- NOTE | 2019-03-30 16:21 | CON ---
DATE OF CONSULTATION: 03/30/2019 SERVICE: Pulmonary Medicine. REASON FOR CONSULTATION: Patient request. HISTORY OF PRESENT ILLNESS: The patient is an 88-year-old male with past medical history significant for [id number]-[id number] aortic stenosis. For the last month , he has had progressive increasing dyspnea with exertion. As such, he presented to the emergency department. He denies any current fevers or chills. He denies having any cough, though he coughed a couple of times during our encounter. It certainly did not sound wet. He denies having any significant orthopnea or paroxysmal nocturnal dyspnea. Either way, because of his progressive dyspnea on exertion, he presented to the emergency department. He frequently response to a dose of Lasix. He did give a dose of Lasix yesterday, and some of shortness of breath is improved. PAST MEDICAL HISTORY: 1. Atrial fibrillation. 2. Coronary artery disease. 3. Aortic stenosis. 4. Dyslipidemia. 5. Hypertension. 6. Chronic diastolic heart failure. 7. History of GI bleed. 8. Osteoarthritis. PAST SURGICAL HISTORY: 1. Coronary artery bypass graft. 2. Watchman procedure. 3. Cardiac catheterization. SOCIAL HISTORY: Negative for current alcohol, tobacco, or illicit drug use. He has no exposure to chemicals, dust, asbestos, or tuberculosis. FAMILY HISTORY: Noncontributory. ALLERGIES: FENTANYL, ADHESIVE TAPE, MORPHINE, AND CODEINE. MEDICATIONS: List of his inpatient medications was reviewed. No specific updates were made at this time. REVIEW OF SYSTEMS: General; head, ears, eyes, nose, throat; cardiovascular; respiratory; GI; ; musculoskeletal; neurologic; and skin are negative except as mentioned in the HPI. PHYSICAL EXAMINATION: VITAL SIGNS: Afebrile, pulse 84, blood pressure 116/70, respirations 15, and saturation 93% on room air. GENERAL: The patient is awake and alert, in no apparent distress. LUNGS: Very good air entry. I do not appreciate any prolonged expiratory phase. There is fairly extensive crackling happen both anteriorly and posteriorly. No rhonchi or wheezing appreciated. HEART: Normal rate. Regular. There is a systolic murmur present. ABDOMEN: Soft, nontender, and nondistended. Bowel sounds are positive. MUSCULOSKELETAL: No cyanosis or clubbing. No pitting in the bilateral lower extremities. NEUROLOGIC: Grossly nonfocal. LABORATORY DATA: WBC 4.3, hemoglobin 8.6, platelets 206,000. Creatinine 1.67 and gently downtrending. Basic metabolic profile is otherwise unremarkable. Troponin is stable at 0.074 and BNP 515, which is above his baseline. Liver function studies are unremarkable. IMAGIN. Chest x-ray demonstrates pulmonary vascular congestion. Cardiac silhouette has a normal size to it, likely bilateral small pleural effusions are present. There is subtle increase in interstitial markings. 2. Recent CT of the chest on March 21, 2019 demonstrates patchy areas of bronchiectasis, limited to the right upper lobe and right middle lobe. There is also ground-glass centrilobular nodularity, which is scattered throughout bilateral lung lovell, most predominantly displayed in the right apical region, though the bibasilar areas are also involved. There are diffuse ground-glass changes with a mosaic pattern. Additionally, interstitial fullness is present, though I get the feeling this component is volume mediated. ASSESSMENT: 1. Dyspnea on exertion. 2. Abnormal CT of the chest on March 21, 2019. 3. Atrial fibrillation. 4. Moderate to severe aortic stenosis. DISCUSSION AND PLAN: Pulmonary Medicine will continue to follow per the patient 's family request. The findings on the CT of the chest could be secondary to a previous infectious process, but the changes were previously demonstrated on CT Chest, making chronic inflammatory lung disease or chronic infectious processes a possibility. I will defer additional diagnostic considerations to Dr. Ryder. He will assume coverage in the morning. Cardiac catheterization to explore the aortic valve is being planned for the morning. Pulmonary will continue to follow while the patient remains inhouse for the time being. 70 minutes have been devoted to this patient in various activities. I personally reviewed all imaging studies and laboratory data noted within this document. For fifty percent of this time, I was interacting with the patient at the bedside or coordinating care with the care team. For the remainder of the time I was immediately available to the patient in the hospital unit. Job ID: [id number] MTDD
--- NOTE | 2019-03-30 19:14 | PDOC.HOSPP ---
- Subjective Subjective: Seen and examined. Breathing well on room air. Patient just finished reading treatment. Feeling better since arrival. Plan of care discussed with patient and family at bedside, they have requested pulmonology consultation. - Objective Vital Signs & Weight: Vital Signs (12 hours) Temp Pulse Pulse Pulse Resp BP BP 03/30/19 16:15 97.9 F 83 16 03/30/19 14:42 95 114/67 03/30/19 12:00 98.3 F 84 15 03/30/19 11:49 80 87 118/79 03/30/19 09:56 121/79 03/30/19 08:38 82 16 03/30/19 08:17 98.0 F 88 19 03/30/19 08:00 BP BP Pulse Ox Pulse Ox 03/30/19 16:15 116/72 90 L 03/30/19 14:42 03/30/19 12:00 116/70 93 L 03/30/19 11:49 121/65 94 L 03/30/19 09:56 03/30/19 08:38 93 L 03/30/19 08:17 121/79 90 L 03/30/19 08:00 93 L Weight Weight 189 lb 4 oz I&O: 03/29/19 03/30/19 03/31/19 06:59 06:59 06:59 Intake Total 240 2200 Output Total 300 275 Balance -60 1925 Result Diagrams: 03/30/19 03:45 03/30/19 03:45 Additional Labs: Accuchecks 03/30/19 03/30/19 03/30/19 16:23 10:26 06:08 POC Glucose 87 85 66 L 03/29/19 20:12 POC Glucose 177 H Radiology Reviewed by me: Yes (CXR) Hospitalist ROS - Review of Systems All other systems reviewed; all pertinent +/- noted in HPI/Subj - Medication Medications: Active Medications Generic Name Dose Route Start Last Admin Trade Name Freq PRN Reason Stop Dose Admin Albuterol/Ipratropium 3 ml 03/29/19 11:51 03/30/19 08:38 Duoneb NEB 3 ml [id number] PRN Administration SOB &/or Wheezing Amlodipine Besylate 5 mg 03/29/19 21:00 03/29/19 21:46 Norvasc PO 5 mg HS MAGDIEL Administration Aspirin 81 mg 03/30/19 09:00 03/30/19 10:08 Ecotrin PO 81 mg DAILY MAGDIEL Administration Atorvastatin Calcium 40 mg 03/29/19 21:00 03/29/19 21:45 Lipitor PO 40 mg HS MAGDIEL Administration Carvedilol 12.5 mg 03/29/19 21:00 03/30/19 09:56 Coreg PO 12.5 mg BID MAGDIEL Administration Cholecalciferol 1,000 units 03/30/19 09:00 03/30/19 09:57 Vitamin D3 PO 1,000 units DAILY MAGDIEL Administration Duloxetine HCl 60 mg 03/29/19 21:00 03/29/19 21:45 Cymbalta PO 60 mg HS MAGDIEL Administration Ezetimibe 5 mg 03/30/19 09:00 03/30/19 09:57 Zetia PO 5 mg DAILY MAGDIEL Administration Folic Acid 1 mg 03/29/19 21:00 03/29/19 21:45 Folvite PO 1 mg HS MAGDIEL Administration Furosemide 20 mg 03/30/19 09:00 03/30/19 09:59 Lasix PO 20 mg QAM MAGDIEL Administration Glimepiride 1 mg 03/29/19 21:00 03/30/19 10:02 Amaryl PO 03/31/19 00:01 Not Given BID MAGDIEL Heparin Sodium (Porcine) 5,000 units 03/29/19 15:00 03/30/19 14:46 Heparin SC 5,000 units TID MAGDIEL Administration Sodium Chloride 1,000 mls @ 50 mls/hr 03/30/19 13:15 03/30/19 14:46 Normal Saline 0.9% IV 03/31/19 06:00 1,000 mls .Q20H MAGDIEL Administration Isosorbide Mononitrate 60 mg 03/30/19 09:00 03/30/19 09:57 Imdur Er PO 60 mg DAILY MAGDIEL Administration Levothyroxine Sodium 75 mcg 03/30/19 06:00 03/30/19 06:43 Synthroid PO 75 mcg 0600 MAGDIEL Administration Loratadine 10 mg 03/30/19 09:00 03/30/19 09:59 Claritin PO 10 mg DAILY MAGDIEL Administration Multivitamins/Minerals 1 tab 03/30/19 09:00 03/30/19 09:57 Ocuvite With Lutein PO 1 tab DAILY MAGDIEL Administration Ranolazine 1,000 mg 03/29/19 21:00 03/30/19 09:59 Ranexa PO 1,000 mg BID MAGDIEL Administration Tamsulosin HCl 0.4 mg 03/29/19 21:00 03/29/19 21:45 Flomax PO 0.4 mg HS MAGDIEL Administration - Exam General Appearance: NAD, awake alert Eye: anicteric sclera ENT: normocephalic atraumatic, moist mucosa Neck: supple, symmetric, no lymphadenopathy Heart: no gallops, no rubs Heart - other findings: Systolic cresendo de cresendo murmur Respiratory: no ronchi, normal chest expansion, rales, wheezes Gastrointestinal: soft, non-tender, non-distended, no guarding, no rigidity Extremities: no edema Skin: no lesions, no rashes Neurological: cranial nerve grossly intact, no focal deficits Musculoskeletal: generalized weakness Psychiatric: normal affect, A&O x 3 Hosp A/P (1) Chest pain Code(s): R07.9 - CHEST PAIN, UNSPECIFIED Status: Acute (2) DM type 2, uncontrolled, with renal complications Code(s): E11.29 - TYPE 2 DIABETES MELLITUS W OTH DIABETIC KIDNEY COMPLICATION; E11.65 - TYPE 2 DIABETES MELLITUS WITH HYPERGLYCEMIA Status: Acute (3) Acute worsening of stage 3 chronic kidney disease Code(s): N18.3 - CHRONIC KIDNEY DISEASE, STAGE 3 (MODERATE) Status: Acute (4) Elevated troponin Code(s): R74.8 - ABNORMAL LEVELS OF OTHER SERUM ENZYMES Status: Acute (5) Symptomatic anemia Code(s): D64.9 - ANEMIA, UNSPECIFIED Status: Acute (6) CHF (congestive heart failure) Code(s): I50.9 - HEART FAILURE, UNSPECIFIED Status: Chronic (7) Dyslipidemia Code(s): E78.5 - HYPERLIPIDEMIA, UNSPECIFIED Status: Chronic (8) Hypertension Code(s): I10 - ESSENTIAL (PRIMARY) HYPERTENSION Status: Chronic (9) Paroxysmal atrial fibrillation Code(s): I48.0 - PAROXYSMAL ATRIAL FIBRILLATION Status: Chronic - Plan Plan: medical unit with telemetry cardiology consultation, recommendations appreciated pulmonology consultation, recommendations appreciated palliative care consultation, recommendations appreciated Not requiring supplemental O2 to maintain O2 saturation chest x-ray does not demonstrate overt congestive heart failure, BNP only minorly elevated from prior admission, no significant lower extremity edema continue Lasix continue cardiomyopathy regimen as able increased dose of Ranexa to 1000 mg b.i.d. further plan of care per cardiology aortic stenosis with moderate to severe severity, patient is not a candidate for open procedure, query TAVR candidate with a aortic valve of 1.38 cm no anticoagulation for atrial fibrillation per cardiology with history of massive G.I. bleeding goals of care have been discussed with palliative care and they have elected for a do not resuscitate and do not intubate status - we will honor their wishes With aggressive measures there is a high likelihood that the patient would end up on a ventilator with a bad outcome, agree with DNR and DNI status replace electrolytes as needed blood pressure control blood sugar control, continue home medications, ISS for prandial coverage
[2019-03-30] MEDS: Amlodipine 5 MG TAB PO SCH (21:43)
[2019-03-30] MEDS: DULoxetine 60 MG CAP PO SCH (21:44)
[2019-03-30] MEDS: Atorvastatin Calcium 40 MG TAB PO SCH (21:44)
[2019-03-30] MEDS: Tamsulosin HCl 0.4 MG CAP PO SCH (21:44)
[2019-03-30] MEDS: Folic Acid 1 MG TAB PO SCH (21:44)
[2019-03-31] MEDS ORDERED: Sodium Chloride 0.9% 1,000 ML IV SCH ×4 (06:00→18:00)
[2019-03-31 06:10] LABS: Anion Gap 13 mmol/L (10-20); BUN (Urea Nitrogen) 25 mg/dL (8.4-25.7); Calc. Creatinine Clearance 39 mL/min (70-130); Calcium 8.8 mg/dL (7.8-10.44); Carbon Dioxide 22 mmol/L (23-31); Chloride 105 mmol/L (98-107); Estimated GFR-MDRD 42; Potassium 4.2 mmol/L (3.5-5.1); Sodium 136 mmol/L (136-145)
[2019-03-31 06:13] LABS: Glucose 56 mg/dL (83-110)
[2019-03-31] MEDS: Loratadine 10 MG TAB PO SCH (06:20)
[2019-03-31] MEDS: Isosorbide Mononitrate (ER) 30 MG TAB PO SCH (06:20)
[2019-03-31] MEDS: Vit A,C & E/Lutein/Minerals Tablet PO SCH (06:20)
[2019-03-31] MEDS: Carvedilol 6.25 MG TAB PO SCH ×2 (06:20→20:44)
[2019-03-31] MEDS: Aspirin 81 mg Enteric Coated Tablet PO SCH (06:20)
[2019-03-31] MEDS: Ezetimibe 10 MG TAB PO SCH (06:21)
[2019-03-31] MEDS: Levothyroxine Sodium 75 MCG TAB PO SCH (06:25)
[2019-03-31] MEDS ORDERED: Heparin 10,000 UNITS/1 ML VIAL ONE (06:56)
[2019-03-31] MEDS ORDERED: Lidocaine 1% (PF) 30 ML VIAL ONE ×2 (06:57→10:06)
--- NOTE | 2019-03-31 08:34 | PDOC.PALPN ---
Palliative Progress Note - Subjective NPO, awaiting heart cath with Dr Jimenez. and two daughters at bedside. ROS: 10 point review negative. - Objective Vital Signs: Vital Signs - Most Recent Temp Pulse Resp BP Pulse Ox 98.3 F 75 20 108/65 92 L 03/31/19 07:55 03/31/19 07:55 03/31/19 07:55 03/31/19 07:55 03/31/19 07:55 - Physical Exam Constitutional: NAD HEENT: moist MMs, EOMI Respiratory: unlabored breathing Gastrointestinal: soft, non-tender, positive bowel sounds Musculoskeletal: pulses present, edema present Neurological: moves all 4 limbs Psychiatric: normal affect, A&O x 3 Skin: normal turgor, cap refill <2 seconds Deviation from normal: fragile skin primarily upper ext - Assessment (1) Palliative care encounter Code(s): Z51.5 - ENCOUNTER FOR PALLIATIVE CARE Current Visit: Yes Status: Acute (2) DM type 2, uncontrolled, with renal complications Code(s): E11.29 - TYPE 2 DIABETES MELLITUS W OTH DIABETIC KIDNEY COMPLICATION; E11.65 - TYPE 2 DIABETES MELLITUS WITH HYPERGLYCEMIA Current Visit: Yes Status: Acute (3) Acute worsening of stage 3 chronic kidney disease Code(s): N18.3 - CHRONIC KIDNEY DISEASE, STAGE 3 (MODERATE) Current Visit: No Status: Acute (4) CHF (congestive heart failure) Code(s): I50.9 - HEART FAILURE, UNSPECIFIED Current Visit: No Status: Chronic - Plan Plan: Discussion in relation to DNAR status, education that it will be resended during a procedure, but as per patient request will be reinstated after. Family history review with daughters, and patient. Again began to discuss co-morbid conditions and patients wishes for outcomes in relation to chronic diseases. Palliative care will continue to follow and define specifics in relation to goals of care for patient to maximize quality of life as well as support family. Father Brain notified that patient to go for procedure today as spiritual component is important for family. [60] minutes spent on this encounter with >50% of the time in counseling and coordination of care.
[2019-03-31] MEDS ORDERED: Midazolam HCl 2 mg/2 ml Vial ONE (10:43)
[2019-03-31] MEDS ORDERED: Protamine Sulfate 50 MG/5 ML VIAL ONE (11:46)
[2019-03-31] MEDS ORDERED: Sodium Chloride 0.9% 200 ML IV PRN (12:23)
[2019-03-31] MEDS ORDERED: Nitroglycerin 0.4 MG TAB (25 Tab Bottle) SL PRN (12:23)
[2019-03-31] MEDS ORDERED: Iopamidol 370 76% 50 ML VIAL FS ONE (13:10)
[2019-03-31] MEDS ORDERED: Iopamidol 370 76% 100 ML VIAL ONE (13:10)
[2019-03-31] MEDS: Furosemide 20 MG TAB PO SCH (13:56)
[2019-03-31] MEDS: Heparin 5,000 UNITS/ML VIAL SC SCH ×3 (13:56→20:44)
--- NOTE | 2019-03-31 15:42 | PRG ---
DATE OF SERVICE: 03/31/2019 SUBJECTIVE: Mr. Del Cid underwent cardiac catheterization. His grafts are occluded and he has a narrow aortic valve. Family tells me Dr. Jimenez is contacting [facility] in [place] to see if there are any options down there regarding his valve and his coronary artery disease. I do not believe that his coronary artery disease in his valve explains all of his shortness of breath. He has significant deconditioning and has quite some time, but I definitely agree that this is a clinical problem. OBJECTIVE: LUNGS: Remarkable for crackles bilaterally. HEART: Regular rhythm. ABDOMEN: Soft. LABORATORY DATA: White count 4.3, hemoglobin 8.6, and platelets 206,000. Sodium 136, potassium 4.2, chloride 105, bicarb 22, BUN 25, and creatinine 1.56. IMPRESSION: 1. 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 2. Coronary artery disease. 3. Aortic stenosis. 4. Deconditioning. 5. Anemia with normal mean corpuscular volume. He has been anemic going back to 2016. His last normal hemoglobin at this hospital was in 2014. PLAN: We will follow the other physicians caring for him. I met with family and answered all their questions. Job ID: [id number]
--- NOTE | 2019-03-31 16:41 | PDOC.HOSPP ---
- Subjective Subjective: Seen and examined this a.m. Family at bedside, all questions answered in detail. He is feeling somewhat better this a.m. NPO for cardiac catheterization this a.m., official report is still pending though I'm told that it has occluded graphs in addition to moderate to severe aortic stenosis. Cardiology looking into transferred a higher level of care. With patient's advanced age and numerous risk factors/medical comorbidities, I believe his survival rate for an open procedure is quite low. With occluded graphs he may not be a candidate for TAVR. - Objective Vital Signs & Weight: Vital Signs (12 hours) Temp Pulse Resp BP BP BP Pulse Ox 03/31/19 15:37 97.7 F 75 20 115/77 97 03/31/19 12:30 98.9 F 78 20 131/77 96 03/31/19 08:51 92 L 03/31/19 07:55 98.3 F 75 20 108/65 92 L 03/31/19 06:20 122/61 Weight Weight 189 lb 4 oz I&O: 03/30/19 03/31/19 04/01/19 06:59 06:59 06:59 Intake Total 240 2200 Output Total 300 275 Balance -60 1925 Result Diagrams: 03/30/19 03:45 03/31/19 05:16 Additional Labs: Accuchecks 03/31/19 03/30/19 06:04 20:35 POC Glucose 75 126 H Hospitalist ROS - Review of Systems All other systems reviewed; all pertinent +/- noted in HPI/Subj - Medication Medications: Active Medications Generic Name Dose Route Start Last Admin Trade Name Freq PRN Reason Stop Dose Admin Albuterol/Ipratropium 3 ml 03/29/19 11:51 03/30/19 20:05 Duoneb NEB 3 ml [id number] PRN Administration SOB &/or Wheezing Amlodipine Besylate 5 mg 03/29/19 21:00 03/30/19 21:43 Norvasc PO 5 mg HS MAGDIEL Administration Aspirin 81 mg 03/30/19 09:00 03/31/19 06:20 Ecotrin PO 81 mg DAILY MAGDIEL Administration Atorvastatin Calcium 40 mg 03/29/19 21:00 03/30/19 21:44 Lipitor PO 40 mg HS MAGDIEL Administration Carvedilol 12.5 mg 03/29/19 21:00 03/31/19 06:20 Coreg PO 12.5 mg BID MAGDIEL Administration Cholecalciferol 1,000 units 03/30/19 09:00 03/31/19 06:20 Vitamin D3 PO 1,000 units DAILY MAGDIEL Administration Duloxetine HCl 60 mg 03/29/19 21:00 03/30/19 21:44 Cymbalta PO 60 mg HS MAGDIEL Administration Ezetimibe 5 mg 03/30/19 09:00 03/31/19 06:21 Zetia PO 5 mg DAILY MAGDIEL Administration Folic Acid 1 mg 03/29/19 21:00 03/30/19 21:44 Folvite PO 1 mg HS MAGDIEL Administration Furosemide 20 mg 03/30/19 09:00 03/31/19 13:56 Lasix PO Not Given QAM MAGDIEL Heparin Sodium (Porcine) 5,000 units 03/29/19 15:00 03/31/19 15:55 Heparin SC 5,000 units TID MAGDIEL Administration Sodium Chloride 1,000 mls @ 125 mls/hr 03/31/19 12:26 03/31/19 13:57 Normal Saline 0.9% IV 03/31/19 18:00 1,000 mls .Q8H MAGDIEL Administration Isosorbide Mononitrate 60 mg 03/30/19 09:00 03/31/19 06:20 Imdur Er PO 60 mg DAILY MAGDIEL Administration Levothyroxine Sodium 75 mcg 03/30/19 06:00 03/31/19 06:25 Synthroid PO 75 mcg 0600 MAGDIEL Administration Loratadine 10 mg 03/30/19 09:00 03/31/19 06:20 Claritin PO 10 mg DAILY MAGDIEL Administration Multivitamins/Minerals 1 tab 03/30/19 09:00 03/31/19 06:20 Ocuvite With Lutein PO 1 tab DAILY MAGDIEL Administration Ranolazine 1,000 mg 03/29/19 21:00 03/31/19 06:28 Ranexa PO 1,000 mg BID MAGDIEL Administration Tamsulosin HCl 0.4 mg 03/29/19 21:00 03/30/19 21:44 Flomax PO 0.4 mg HS MAGDIEL Administration - Exam General Appearance: NAD, awake alert Eye: PERRL, anicteric sclera ENT: normocephalic atraumatic, moist mucosa Neck: supple, symmetric, no lymphadenopathy Heart: no murmur, no gallops, no rubs Respiratory: no rales, no ronchi, normal chest expansion, no tachypnea, wheezes (Improved breath sounds) Gastrointestinal: soft, non-tender, no guarding, no rigidity Extremities: no clubbing, no edema Skin: no lesions, no rashes Neurological: cranial nerve grossly intact, no focal deficits Musculoskeletal: generalized weakness Psychiatric: normal affect, A&O x 3 Hosp A/P (1) Chest pain Code(s): R07.9 - CHEST PAIN, UNSPECIFIED Status: Acute (2) DM type 2, uncontrolled, with renal complications Code(s): E11.29 - TYPE 2 DIABETES MELLITUS W OTH DIABETIC KIDNEY COMPLICATION; E11.65 - TYPE 2 DIABETES MELLITUS WITH HYPERGLYCEMIA Status: Acute (3) Acute worsening of stage 3 chronic kidney disease Code(s): N18.3 - CHRONIC KIDNEY DISEASE, STAGE 3 (MODERATE) Status: Acute (4) Elevated troponin Code(s): R74.8 - ABNORMAL LEVELS OF OTHER SERUM ENZYMES Status: Acute (5) Symptomatic anemia Code(s): D64.9 - ANEMIA, UNSPECIFIED Status: Acute (6) CHF (congestive heart failure) Code(s): I50.9 - HEART FAILURE, UNSPECIFIED Status: Chronic (7) Dyslipidemia Code(s): E78.5 - HYPERLIPIDEMIA, UNSPECIFIED Status: Chronic (8) Hypertension Code(s): I10 - ESSENTIAL (PRIMARY) HYPERTENSION Status: Chronic (9) Paroxysmal atrial fibrillation Code(s): I48.0 - PAROXYSMAL ATRIAL FIBRILLATION Status: Chronic - Plan Plan: medical unit with telemetry cardiology consultation, recommendations appreciated pulmonology consultation, recommendations appreciated palliative care consultation, recommendations appreciated S/p Cath on 03/31/19 - see official report for full details further plan of care per cardiology aortic stenosis with moderate to severe severity, patient is not a candidate for open procedure, query TAVR candidate with a aortic valve of 1.38 cm no anticoagulation for atrial fibrillation per cardiology with history of massive G.I. bleeding continue cardiomyopathy regimen as able increased dose of Ranexa to 1000 mg b.i.d. Not requiring supplemental O2 to maintain O2 saturation chest x-ray does not demonstrate overt congestive heart failure, BNP only minorly elevated from prior admission, no significant lower extremity edema continue Lasix goals of care have been discussed with palliative care and they have elected for a do not resuscitate and do not intubate status - we will honor their wishes With aggressive measures there is a high likelihood that the patient would end up on a ventilator with a bad outcome, agree with DNR and DNI status replace electrolytes as needed blood pressure control blood sugar control, continue home medications, ISS for prandial coverage
[2019-03-31] MEDS: Amlodipine 5 MG TAB PO SCH (20:43)
[2019-03-31] MEDS: Atorvastatin Calcium 40 MG TAB PO SCH (20:43)
[2019-03-31] MEDS: Tamsulosin HCl 0.4 MG CAP PO SCH (20:44)
[2019-03-31] MEDS: DULoxetine 60 MG CAP PO SCH (20:44)
[2019-03-31] MEDS: Folic Acid 1 MG TAB PO SCH (20:44)
[2019-04-01 05:19] LABS: Anion Gap 11 mmol/L (10-20); BUN (Urea Nitrogen) 22 mg/dL (8.4-25.7); Calc. Creatinine Clearance 40 mL/min (70-130); Calcium 8.7 mg/dL (7.8-10.44); Carbon Dioxide 23 mmol/L (23-31); Chloride 105 mmol/L (98-107); Estimated GFR-MDRD 44; Glucose 71 mg/dL (83-110); Potassium 4.3 mmol/L (3.5-5.1); Sodium 135 mmol/L (136-145)
[2019-04-01] MEDS: Levothyroxine Sodium 75 MCG TAB PO SCH (05:50)
[2019-04-01] MEDS: Ezetimibe 10 MG TAB PO SCH (09:38)
[2019-04-01] MEDS: Isosorbide Mononitrate (ER) 30 MG TAB PO SCH (09:38)
[2019-04-01] MEDS: Vit A,C & E/Lutein/Minerals Tablet PO SCH (09:40)
[2019-04-01] MEDS: Furosemide 20 MG TAB PO SCH (09:40)
[2019-04-01] MEDS: Heparin 5,000 UNITS/ML VIAL SC SCH ×2 (09:40→14:16)
[2019-04-01] MEDS: Loratadine 10 MG TAB PO SCH (09:40)
[2019-04-01] MEDS: Aspirin 81 mg Enteric Coated Tablet PO SCH (09:40)
[2019-04-01] MEDS: Carvedilol 6.25 MG TAB PO SCH (09:41)
[2019-04-01] MEDS ORDERED: Furosemide 20 MG/2 ML VIAL SLOW IVP SCH (10:15)
[2019-04-01 11:26] VITALS: TEMP 98.4
[2019-04-01] MEDS ORDERED: Scopolamine 1.5 mg/72 hour Patch TD SCH (14:00)
--- NOTE | 2019-04-02 02:11 | DIS ---
DATE OF ADMISSION: 03/29/2019 DATE OF DISCHARGE: 04/01/2019 REASON FOR HOSPITALIZATION: Chest pain and shortness of breath. SIGNIFICANT FINDINGS: The patient was found to have yfxtheak-kv-qeodte aortic stenosis with a valve size of 1.38 cm and coronary artery disease. PROCEDURES PERFORMED AND TREATMENTS RENDERED: The patient underwent cardiac catheterization on 03/31/2019 - please see full operative report for details. The patient tolerated the procedure well without intraoperative complications. The patient was found to have critical aortic stenosis and was recommended transfer to higher level of care. The patient will need further evaluation by Cardiology in the inpatient setting and may require open versus minimally invasive aortic valve repair. The question is with the patient's coronary arteries, whether he can tolerate and he is a candidate for a transcutaneous aortic valve replacement. CONDITION ON DISCHARGE: Guarded. SPECIFIC INSTRUCTIONS FOR THE PATIENT/FAMILY: The patient recommended safe for transfer immediately to higher level of care for Cardiology evaluation and the possibility of transcutaneous aortic valve repair versus open aortic valve repair. The patient recommended to follow up with Cardiology and Internal Medicine physician in the next 24 hours for further plan of care. Please see full discharge medication reconciliation for full details on the patient's medication list. Greater than 40 minutes spent coordinating care and discharge process. Job ID: [id number]
--- NOTE | 2019-04-02 05:29 | PQF ---
KACI MAGANA ERIK [id number] CLINICAL DOCUMENTATION CLARIFICATION FORM: POST DISCHARGE Addendum to original discharge summary date: ____ Late entry note date: __ DATE: 04/02/2019 ATTN: Thomas Coyne Please exercise your independent, professional judgment in responding to the clarification form. Clinical indicators are provided on the bottom of this form for your review Can you please further specify the acuity of CHF based on the clinical indicators below? Please check appropriate box(s): HEART FAILURE: ACUITY [ ] Acute [ XX ] Acute on Chronic [ ] Chronic [ ] Other diagnosis please specify [ ] Unable to determine In addition, please specify: Present on Admission (POA): [ XX ] Yes [ ] No [ ] Unable to determine For continuity of documentation, please document condition throughout progress notes and discharge summary. Thank You. CLINICAL INDICATORS - SIGNS / SYMPTOMS / LABS ED Notes 03/29 "patient presents for evaluation of chest pain" ED Notes 03/29 "presents to the ED with c/o CP with SOB for 5-10 minutes" ED Notes 03/29 "BNP increased to 515 from 417 previously" PN 03/31 "Remarkable for crackles bilaterally" Consult 03/30 "progressive increasing dyspnea with exertion" Consult 03/30 "He did give a dose of Lasix yesterday, and some of SOB is improved" Consult 03/30 "Chronic diastolic CHF" Consult 03/30 "Chest Xray demonstrates pulmonary vascular congestion" Consult 03/30 "bilateral small pleural effusion are present" HP 03/29 "extremities:1+ LE edema" RISKS: ED Notes 03/29-88 years old male ED Notes 03/29-CAD ED Notes 03/29-AFib ED Notes 03/29-GERD ED Notes 03/29-HTN ED Notes 03/29-DM PN 03/31-Aortic Stenosis Consult 03/29-CKD HP 03/29-Cardiomyopathy TREATMENTS: Collected 03/29-Chest Xray Cardiac Cath 03/31-LHC/RHC MAR 03/29-Lasix 20mg IV DS 04/01-Cardiology consult (This form is maintained as a part of the permanent medical record) 2014 [employer]. All Rights Reserved Alex [email or web address] [not provided] MTDD
[2019-04-02 17:19] VITALS: BP 151/79
--- NOTE | 2019-04-05 19:04 | PQF ---
KACI MAGANA ERIK [id number] [id number] CLINICAL DOCUMENTATION CLARIFICATION FORM: POST DISCHARGE Addendum to original discharge summary date: ____ Late entry note date: __ DATE: 04/05/19 ATTN: Thomas Carter Please exercise your independent, professional judgment in responding to the clarification form. Clinical indicators are provided on the bottom of this form for your review Can you please further specify the etiology of Chest pain? Please check appropriate box(s): [ XX ] Occluded grafts [ ] Acute on chronic diastolic CHF [ ] Atrial fibrillation [ ] GERD [ ] Aortic stenosis [ ] Other diagnosis please specify [ ] Unable to determine In addition, please specify: Present on Admission (POA): [ XX ] Yes [ ] No [ ] Unable to determine For continuity of documentation, please document condition throughout progress notes and discharge summary. Thank You. CLINICAL INDICATORS - SIGNS / SYMPTOMS /LABS ED Notes 03/29 "patient presents for evaluation of chest pain" ED Notes 03/29 "presents to the ED with c/o CP with SOB for 5-10 minutes" HP 03/29 "CC: chest tightness and SOB" Consult 03/29 "symptoms are likely multifactorial" PN 03/31 "His grafts are occluded and he has a narrow aortic valve" RISK FACTORS ED Notes 03/29-88 years old male ED Notes 03/29-CAD ED Notes 03/29-AFib ED Notes 03/29-GERD ED Notes 03/29-HTN ED Notes 03/29-DM PN 03/31-Aortic Stenosis Consult 03/29-CKD HP 03/29-Cardiomyopathy Consult 03/30-CHF TREATMENTS: Collected 03/29-Chest Xray Cardiac Cath 03/31-LHC/RHC AUG 09-Lasix 20mg IV DS 04/01-Cardiology consult AUG 09-Labetalol 10mg IV MAR 03/29-IVF AUG 09-Heparin 5000 units IV (This form is maintained as a part of the permanent medical record) 2014 [employer] All Rights Reserved Alex [not provided] MTDD
[2019-04-06 19:08] LABS: QuantiFERON-TB Gold Plus Negative (Negative)
== END 2019-04-01 14:38 | disposition short-term general hospital (02) | DRG 286 ==
LOC: ERS 08:18 → ERHOLD 10:54 → 2SE 14:00
PROVIDERS: ADMIT Internal Medicine; ATTEND Internal Medicine
PROC: 4A023N8 Measurement of Cardiac Sampling and Pressure, Bilateral, Percutaneous Approach (ICD-10-PCS; principal; 2019-03-31)
PROC: B2111ZZ Fluoroscopy of Multiple Coronary Arteries using Low Osmolar Contrast (ICD-10-PCS; 2019-03-31)
PROC: B2181ZZ Fluoroscopy of Left Internal Mammary Bypass Graft using Low Osmolar Contrast (ICD-10-PCS; 2019-03-31)
PROC: B2121ZZ Fluoroscopy of Single Coronary Artery Bypass Graft using Low Osmolar Contrast (ICD-10-PCS; 2019-03-31)
PROC: 4A033BC Measurement of Arterial Pressure, Coronary, Percutaneous Approach (ICD-10-PCS; 2019-03-31)
DX: T82.897A Other specified complication of cardiac prosthetic devices, implants and grafts, initial encounter (principal); I50.33 Acute on chronic diastolic (congestive) heart failure; I13.0 Hypertensive heart and chronic kidney disease with heart failure and stage 1 through stage 4 chronic kidney disease, or unspecified chronic kidney disease; I42.9 Cardiomyopathy, unspecified; R07.9 Chest pain, unspecified; Z51.5 Encounter for palliative care; Z66 Do not resuscitate; E03.9 Hypothyroidism, unspecified; E78.5 Hyperlipidemia, unspecified; K21.9 Gastro-esophageal reflux disease without esophagitis; Z96.1 Presence of intraocular lens; I35.0 Nonrheumatic aortic (valve) stenosis; I25.118 Atherosclerotic heart disease of native coronary artery with other forms of angina pectoris; E11.65 Type 2 diabetes mellitus with hyperglycemia; E78.00 Pure hypercholesterolemia, unspecified; M19.90 Unspecified osteoarthritis, unspecified site; E11.22 Type 2 diabetes mellitus with diabetic chronic kidney disease; N18.3 Chronic kidney disease, stage 3 (moderate); D63.1 Anemia in chronic kidney disease; I48.0 Paroxysmal atrial fibrillation; Z87.891 Personal history of nicotine dependence; Z88.5 Allergy status to narcotic agent; Z88.8 Allergy status to other drugs, medicaments and biological substances; Z91.048 Other nonmedicinal substance allergy status; Z79.84 Long term (current) use of oral hypoglycemic drugs; Z79.82 Long term (current) use of aspirin; Z79.899 Other long term (current) drug therapy; I25.2 Old myocardial infarction; Z86.73 Personal history of transient ischemic attack (TIA), and cerebral infarction without residual deficits; Z87.01 Personal history of pneumonia (recurrent); Z95.5 Presence of coronary angioplasty implant and graft; Z95.0 Presence of cardiac pacemaker; Z98.1 Arthrodesis status; Z95.1 Presence of aortocoronary bypass graft; Z90.49 Acquired absence of other specified parts of digestive tract; Y83.8 Other surgical procedures as the cause of abnormal reaction of the patient, or of later complication, without mention of misadventure at the time of the procedure
CPT/HCPCS: 36415; 36416; 71045; 80048; 80053; 82550; 82553; 83690; 83880; 84484; 85025; 86480; 93005; 93460; 93567; 93798; 94640; 94760; 96374; C1769; J1644; J1940; J2001; J2250; J2720; J7620; Q9967